=== PATIENT | female | born 1965 | race Caucasian/White ===

== ENCOUNTER 2022-05-27 10:26 | Outpatient (CLI) | payer BC, SELFPAY ==
[2022-05-27 11:24] LABS: Aspartate Amino Transferase* 28 U/L (12-35)
[2022-05-27 14:22] LABS: Creatinine* 0.5 mg/dL (0.5-1.5); Estimated Glomerular Filt Rate 109.33
== END 2022-05-27 10:27 | disposition home or self-care (01) ==
LOC: NFLDREF 10:27
PROVIDERS: PCP Internal Medicine; Visit Provider Internal Medicine
DX: M06.9 Rheumatoid arthritis, unspecified (principal)
CPT/HCPCS: 82565; 84450

== ENCOUNTER 2022-06-13 17:04 | Outpatient (CLI) | payer BC, SELFPAY | END 2022-06-13 17:05 | disposition home or self-care (01) | LOC: NFLDREF 17:04 | PROVIDERS: PCP Internal Medicine; Visit Provider Obstetrics & Gynecology | DX: Z01.419 Encounter for gynecological examination (general) (routine) without abnormal findings (principal); N95.1 Menopausal and female climacteric states; Z12.4 Encounter for screening for malignant neoplasm of cervix | CPT/HCPCS: 87624; 88175 ==

== ENCOUNTER 2022-10-21 17:41 | Inpatient (IN) | payer BC, SELFPAY ==
--- NOTE | 2022-10-21 | CRLHL7_ITS ---
For Patients: As a result of the Cures Act, medical imaging exams and procedure reports are released immediately into your electronic medical record. You may view this report before your referring provider. If you have questions, please contact your health care provider. INDICATION: Fall. TECHNIQUE: Chest 1 views. COMPARISON: Chest x-ray from 07/09/2015. FINDINGS: Lungs: Clear lungs. No consolidation. Pleura: No pleural effusion or pneumothorax. Heart and Mediastinum: The cardiomediastinal silhouette is normal. The vessels are unremarkable. Bones: Degenerative changes of the right shoulder. No acute abnormality. IMPRESSION: No acute cardiopulmonary disease. Dictated by Laz Grace MD @ 10/21/2022 7:13:19 PM (Electronically Signed)
[2022-10-21 18:21] VITALS: BP 183/62; PULSE 69; RESP 18; TEMP 36.7; O2SAT 98; BMI 20.7
--- NOTE | 2022-10-21 18:30 | CRLHL7_ITS ---
For Patients: As a result of the Cures Act, medical imaging exams and procedure reports are released immediately into your electronic medical record. You may view this report before your referring provider. If you have questions, please contact your health care provider. INDICATION: Fall, hip pain. TECHNIQUE: Pelvis and left hip, 3 views. COMPARISON: None. FINDINGS: Bones: The bones are demineralized. Mildly displaced subcapital fracture of the left femoral neck. Joint spaces: Degenerative changes of both hips. Soft tissues: Unremarkable. IMPRESSION: Left femoral neck fracture. Dictated by Laz Grace MD @ 10/21/2022 7:12:42 PM (Electronically Signed)
--- NOTE | 2022-10-21 18:31 | CRLHL7_ITS ---
For Patients: As a result of the Century Cures Act, medical imaging exams and procedure reports are released immediately into your electronic medical record. You may view this report before your referring provider. If you have questions, please contact your health care provider. Indication: Fall, foot pain. Technique: Left foot 3 views. Comparison: None. Findings: Bones: The bones are demineralized. Multiple hammertoe deformities. Joint spaces: Degenerative changes of the midfoot and metatarsophalangeal joints. Soft tissues: Unremarkable. Impression: No sign of acute injury. Dictated by Laz Grace MD @ 10/21/2022 7:14:08 PM (Electronically Signed)
--- NOTE | 2022-10-21 18:32 | ED.NURSE ---
Patient to radiology for scans.
--- OUTSIDE RECORDS SUMMARY | 2022-10-21 18:39 | XMS_ITS | Encounter Summary ---
:1965 Author Organization [facility] Address [address] [place] [address] Care Team Providers Name Role Phone Shelbi Miller Unavailable Clinic, [facility] Primary Care Provide r Reason for Visit Reason Comments Chest Pain Encounter Details Date Type Department Care Team Description [facility] Boogie hest pain, unspecified type; [facility] Emergency Dep t Blood glucose elevated; [address] [facility] EMERGENCY PHYSICIANS History of diabetes mellitus ; [place], [place] Elevated BP without diagnosis of hyperte nsion; [phone] [id number] [facility] Thyroid nodule; [phone] [facility] [address] Adrenal mass (H) [place], [place] [phone] (Wo rk) Social History Tobacco Use Types Packs/Day Years Used Date Smoking Tobacco: Never Assessed Sex Assigned at Date Recorded Not on file COVID-19 Exposure Response Date Recorded In the last month, have you been in contact with No / Unsure 01/26/2022 10:33 AM JOB COUNSELOR someone who was confirmed or suspected to have Coronavirus / COVID-19? documented as of this encounter Last Filed Vital Signs Vital Sign Reading Time Taken Comments Blood Pressure 151/78 01/26/2022 2:30 PM JOB COUNSELOR Pulse 97 01/26/2022 2:30 PM JOB COUNSELOR Temperature 36.9 ??C (98.5 ??F) 01/26/2022 10:40 AM JOB COUNSELOR Respiratory Rate 16 01/26/2022 2:30 PM JOB COUNSELOR Oxygen Saturation 95% 01/26/2022 2:30 PM JOB COUNSELOR Inhaled Oxygen Concentration - - Weight - - Height - - Body Mass Index - - documented in this encounter Discharge Instructions Discharge InstructionsElbert Turner MD - 01/26/2022 2:17 PM JOB COUNSELOR Discharge Instructions Chest Pain You have been seen today for chest pain or discomfort. At this time, your provider has found no signs that your chest pain is due to a serious or life- threatening condition, (or you have declined more testing and/or admission to the hospital). However, sometimes there is a serious problem that does not show up right away. Your evaluation today may not be complete and you may need further testing and evaluation. Generally, every Emergency Department visit should have a follow-up clinic visit with either a primary or a specialty clinic/provider. Please follow-up as instructed by your emergency provider today. Return to the Emergency Department if: Your chest pain changes, gets worse, starts to happen more often, or comes with less activity. You are newly short of breath. You get very weak or tired. You pass out or faint. You have any new symptoms, like fever, cough, numb legs, or you cough up blood. You have anything else that worries you. Until you follow-up with your regular provider, please do the following: Take one aspirin daily unless you have an allergy or are told not to by your provider. If a stress test appointment has been made, go to the appointment. If you have questions, contact your regular provider. Follow-up with your regular provider/clinic as directed; this is very important. If you were given a prescription for medicine here today, be sure to read all of the information (including the package insert) that comes with your prescription. This will include important information about the medicine, its side effects, and any warnings that you need to know about. The pharmacist who fills the prescription can provide more information and answer questions you may have about the medicine. If you have questions or concerns that the pharmacist cannot address, please call or return to the Emergency Department. Remember that you can always come back to the Emergency Department if you are not able to see your regular provider in the amount of time listed above, if you get any new symptoms, or if there is anything that worries you. COUNSELOR documented in this encounter Medications at Time of Discharge Medication Sig Dispensed Refills Start Date End Date amLODIPine (NORVASC) 2.5 Take 1 tablet (2.5 30 tablet 0 04/2022 MG tablet mg) by mouth daily documented as of this encounter ED Notes Alessandra Rojas RN - 01/26/2022 10:39 AM CST Pt presents to ED with c/o chest heaviness intermittently for a couple weeks and high blood sugar. Pt has type 1 diabetes and states that her sugars have been high for the last week. Pt has a continuous glucose monitor. Around midnight last night pt reports feeling some pain across her mid back and tingling in her feet, but this has subsided. ABC intact COUNSELOR Elbert Turner MD - 01/26/2022 10:33 AM CST History Chief Complaint: Chest Pain HPI Martine De Oliveira is a 56 year old female with history of type 1 diabetes who presents with chest pain. The patient states that she has been having intermittent chest heaviness for the past 2 weeks. Nothingseems to worsen or relieve the pain She also notes that her blood sugars have been between 240-300, which is higher than normal. She was unable to get her sugar down and contacted her PCP who wasn't able to get back to her, prompting ED visit. She mentions that her feet were slightly tingling last night and she was experiencing low back pain. She also notes having high blood pressure which is not normal for her. Denies any urinary symptoms or shortness of breath. Also denies any steroid use. Review of Systems Respiratory: Negative for shortness of breath. Cardiovascular: Positive for chest pain. Genitourinary: Negative for difficulty urinating, dysuria, enuresis and frequency. Musculoskeletal: Positive for back pain. Neurological: Positive for numbness. All other systems reviewed and are negative. Allergies: Cortisone Morphine Penicillins Medications: Folic acid Novalog Methotrexate Past Medical History: Rheumatoid arthritis Type 1 diabetes Family History: Lymphoma Parkinson's Colon cancer Breast cancer Social History: Patient presents with her Physical Exam Patient Vitals for the past 24 hrs: BP Temp Temp src Pulse Resp SpO2 01/26/22 1345 133/63 -- -- 86 16 95 % 01/26/22 1330 (!) 140/70 -- -- 85 18 95 % 01/26/22 1315 (!) 146/70 -- -- 86 -- 95 % 01/26/22 1300 (!) 175/84 -- -- 95 -- 98 % 01/26/22 1230 (!) 141/71 -- -- 90 15 96 % 01/26/22 1215 (!) 145/77 -- -- 83 16 97 % 01/26/22 1200 138/79 -- -- 82 11 98 % 01/26/22 1145 (!) 159/80 -- -- 84 13 97 % 01/26/22 1100 -- -- -- 86 13 99 % 01/26/22 1041 -- -- -- -- -- 99 % 01/26/22 1040 (!) 208/87 98.5 ??F (36.9 ??C) Oral 102 16 -- Physical Exam Constitutional: Alert, attentive, GCS 15 HENT: Nose: Nose normal. Mouth/Throat: Oropharynx is clear, mucous membranes are moist Eyes: EOM are normal, anicteric, conjugate gaze CV: regular rate and rhythm; no murmurs Chest: Effort normal and breath sounds clear without wheezing or rales, symmetric bilaterally GI: non tender. No distension. No guarding or rebound. MSK: No LE edema, no tenderness to palpation of BLE. Neurological: Alert, attentive, moving all extremities equally. Skin: Skin is warm and dry. Emergency Department Course ECG ECG obtained at 1303, ECG read at 1310 Normal sinus rhythm Prolonged QT Diffuse ST depression No change from EKG done in clinic Rate 89 bpm. NV interval 122 ms. QRS duration 84 ms. QT/QTc 406/493 ms. P-R-T axes 74 72 35. Imaging: CT Aortic Survey w Contrast Final Result IMPRESSION: 1. No acute aortic abnormality. 2. Incidental pulmonary nodules measuring up to 5 mm. 3. Enlarged, heterogeneous thyroid. Consider nonemergent follow-up thyroid ultrasound. 4. Nonspecific prominence of right axillary lymph nodes could be related to prior vaccination. 5. 3.0 cm indeterminate right adrenal mass. Follow-up adrenal MRI recommended. 6. 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 No specific follow-up recommended. 7. 3.7 cm simple appearing left ovarian cyst. No specific follow-up recommended. Report per radiology Laboratory: Labs Ordered and Resulted from Time of ED Arrival to Time of ED Departure BASIC METABOLIC PANEL - Abnormal Result Value Sodium 140 Potassium 3.7 Chloride 104 Carbon Dioxide (CO2) 28 Anion Gap 8 Urea Nitrogen 13 Creatinine 0.55 Calcium 9.1 Glucose 214 (*) GFR Estimate >90 ROUTINE UA WITH MICROSCOPIC - Abnormal Color Urine Light Yellow Appearance Urine Slightly Cloudy (*) Glucose Urine 300 (*) Bilirubin Urine Negative Ketones Urine 40 (*) Specific Crowley Urine 1.020 Blood Urine Negative pH Urine 6.0 Protein Albumin Urine 30 (*) Urobilinogen Urine Normal Nitrite Urine Negative Leukocyte Esterase Urine Negative Mucus Urine Present (*) Calcium Oxalate Crystals Urine Many (*) RBC Urine 2 WBC Urine <1 Squamous Epithelials Urine 1 CBC WITH PLATELETS AND DIFFERENTIAL - Abnormal WBC Count 4.1 RBC Count 4.66 Hemoglobin 13.8 Hematocrit 42.1 MCV 90 MCH 29.6 MCHC 32.8 RDW 13.8 Platelet Count 193 % Neutrophils 72 % Lymphocytes 17 % Monocytes 7 % Eosinophils 2 % Basophils 2 % Immature Granulocytes 0 NRBCs per 100 WBC 0 Absolute Neutrophils 2.9 Absolute Lymphocytes 0.7 (*) Absolute Monocytes 0.3 Absolute Eosinophils 0.1 Absolute Basophils 0.1 Absolute Immature Granulocytes 0.0 Absolute NRBCs 0.0 ISTAT CREATININE POCT - Abnormal Creatinine POCT 0.4 (*) GFR, ESTIMATED POCT >60 KETONE BETA-HYDROXYBUTYRATE QUANTITATIVE, RAPID - Normal Ketone (Beta-Hydroxybutyrate) Quantitative 0.4 TROPONIN I - Normal Troponin I High Sensitivity 21 NT PROBNP INPATIENT - Normal N terminal Pro BNP Inpatient 264 TROPONIN I - Normal Troponin I High Sensitivity 30 TSH WITH FREE T4 REFLEX - Normal TSH 2.47 METANEPHRINE RANDOM OR 24 HR URINE Emergency Department Course: Reviewed: I reviewed nursing notes, vitals, past medical history and Care Everywhere Assessments: 1048 I obtained history and examined the patient as noted above. 1308 I rechecked the patient and explained findings. Interventions: Medications nitroGLYcerin (NITROSTAT) sublingual tablet 0.4 mg (has no administration in time range) hydrALAZINE (APRESOLINE) injection 5 mg (5 mg Intravenous Given 01/26/22 1135) iopamidol (ISOVUE-370) solution 500 mL (80 mLs Intravenous Given 01/26/22 1240) sodium chloride 0.9 % bag 500mL for CT scan flush use (60 mLs As instructed Given 01/26/22 1240) magnesium sulfate 2 g in water intermittent infusion (0 g Intravenous Stopped 01/26/22 1357) Disposition: The patient was discharged to home. Impression & Plan Medical Decision Makin-year-old woman past medical history significant for rheumatoid arthritis, diabetes presenting forelevated blood sugars over the last week associated with 2 weeks intermittent chest tightness not specific pain. With respect to her chest discomfort, she does not have any typical features other than location, there is no clear exacerbating or alleviating factors and she just reports that uneasy feeling in her chest. EKG shows diffuse ST depressions, though unchanged from EKG prior to arrival, her high-sensitivity troponin is negative X2 without significant rise. She was noted to be hypertensive 200/100 with no history of hypertension and endorsed pain last night through her back. CT aortic surveywas completed, fortunately this was negative. Her lung baumann were also negative with low suspicion for pneumonia. She has had some urinary frequency however she attributes this to her elevated sugars,UA is without evidence of UTI. She does not have leukocytosis, no fever, exact rise of her blood sugars unclear however with negative delta troponin, no typical symptoms I do feel she is safe for discharge home with continued outpatient blood sugar management and outpatient follow-up for her chest pain. She is low risk by ED ACS, safe for outpatient f/u. CT scan did note adrenal and thyroid nodules. Given her new hypertension, did send urine metanephrines I do think she is safe for outpatient follow-up, her blood pressure here improved. I will initiate her on low-dose Norvasc. TSH testing here is negative. She is safe for outpatient follow-up for her thyroid nodule. Return precautions reviewed pamela was discharged home Diagnosis: ICD-10-CM 1. Chest pain, unspecified type R07.9 2. Blood glucose elevated R73.9 3. History of diabetes mellitus Z86.39 4. Elevated BP without diagnosis of hypertension R03.0 5. Thyroid nodule E04.1 6. Adrenal mass (H) E27.8 Discharge Medications: New Prescriptions AMLODIPINE (NORVASC) 2.5 MG TABLET Take 1 tablet (2.5 mg) by mouth daily Elbert Turner MD [employer] 12:47 PM 01/26/22 Scribe Disclosure: Lesly Holman, am serving as a scribe at 10:45 AM on 01/26/2022 to document services personally performed by Elbert Turner MD based on my observations and the provider's statements to me. Elbert Turner MD 01/26/22 1419 COUNSELOR documented in this encounter Plan of Treatment Not on filedocumented as of this encounter Procedures Procedure Name Priority Date/Time Associated Comments Diagnosis TSH WITH FREE T4 STAT 01/26/2022 1:22 PM Resul ts for this REFLEX JOB COUNSELOR procedure are i n the results section. TROPONIN I STAT 01/26/2022 1:22 PM Results f or this JOB COUNSELOR procedure are i n the results section. CT AORTIC SURVEY W STAT 01/26/2022 1:05 PM Res ults for this CONTRAST JOB COUNSELOR procedure are i n the results section. EKG 12-LEAD, TRACING STAT 01/26/2022 1:03 PM R esults for this ONLY JOB COUNSELOR procedure are i n the results section. ISTAT CREATININE POCT STAT 01/26/2022 11:31 Re sults for this AM JOB COUNSELOR procedure are i n the results section. EXTRA TUBE STAT 01/26/2022 11:24 Results for this AM JOB COUNSELOR procedure are i n the results section. EXTRA GREEN TOP STAT 01/26/2022 11:24 Results for this (LITHIUM HEPARIN) AM JOB COUNSELOR procedure are in TUBE the results section. EXTRA GREEN TOP STAT 01/26/2022 11:24 Results for this (LITHIUM HEPARIN) AM JOB COUNSELOR procedure are in TUBE the results section. EXTRA RED TOP TUBE STAT 01/26/2022 11:24 Resul ts for this AM JOB COUNSELOR procedure are i n the results section. EXTRA BLUE TOP TUBE STAT 01/26/2022 11:24 Resu lts for this AM JOB COUNSELOR procedure are i n the results section. CBC WITH PLATELETS STAT 01/26/2022 11:24 Resul ts for this AND DIFFERENTIAL AM JOB COUNSELOR procedure a re in the results section. CBC WITH PLATELETS & STAT 01/26/2022 11:24 Res ults for this DIFFERENTIAL AM JOB COUNSELOR procedure are i n the results section. TROPONIN I STAT 01/26/2022 11:24 Results for this AM JOB COUNSELOR procedure are i n the results section. NT PROBNP INPATIENT STAT 01/26/2022 11:24 Resu lts for this AM JOB COUNSELOR procedure are i n the results section. KETONE STAT 01/26/2022 11:24 Results for this BETA-HYDROXYBUTYRATE AM JOB COUNSELOR procedu re are in QUANTITATIVE, RAPID the resu lts section. BASIC METABOLIC PANEL STAT 01/26/2022 11:24 Re sults for this AM JOB COUNSELOR procedure are i n the results section. ROUTINE UA WITH STAT 01/26/2022 11:23 Results for this MICROSCOPIC AM JOB COUNSELOR procedure are i n the results section. METANEPHRINE RANDOM Add-On 01/26/2022 11:23 Resu lts for this OR 24 HR URINE AM JOB COUNSELOR procedure are in the results section. documented in this encounter Results TSH with free T4 reflex (01/26/2022 1:22 PM JOB COUNSELOR) athologist Signature TSH 2.47 0.40 - 4.00 01/26/2022 [facility] mU/L 2:03 PM JOB COUNSELOR Specimen Anatomical Collection Method / Collection Time Recei maureen Time (Source) Location / Volume Laterality Blood STRUCTURE OF LEFT Venipuncture / 01/26/2022 1:22 01/26 1:26 UPPER LIMB / Unknown PM JOB COUNSELOR PM JOB COUNSELOR Unknown Elbert Turner MD LAB - BLOOD ORDERABLES Performing Organization Address City/State/ZIP Code [place] [address] [facility] [address] Lab (1st floor, no room number) Troponin I (now) (01/26/2022 1:22 PM JOB COUNSELOR) athologist Signature Troponin I High 30 <54 ng/L 01/26/2022 LABORATORY Sensitivity 1:48 PM JOB COUNSELOR Comment: This Troponin-I result was obta ined using a Siemens Dimension Cascade High Sensitivity Troponin-I assay (TNIH). Eff ective 10/15/21, nine labs/sites in the [facility] switched from a Siemens Cascade Contemporary Troponin I assay (CTNI) to a Siemens Cascade High-Sensitivity Troponi n I assay (TNIH). Specimen Anatomical Collection Method / Collection Time Recei maureen Time (Source) Location / Volume Laterality Blood STRUCTURE OF LEFT Venipuncture / 01/26/2022 1:22 01/26 1:26 UPPER LIMB / Unknown PM JOB COUNSELOR PM JOB COUNSELOR Unknown Elbert Turner MD LAB - BLOOD ORDERABLES Performing Organization Address City/State/ZIP Code Phon [place] [address] [facility] [address] Lab (1st floor, no room number) CT Aortic Survey w Contrast (01/26/2022 1:05 PM JOB COUNSELOR) Anatomical Region Laterality Modality Abdomen/Pelvis, Chest, SUBRAD CT BODY, UMP CT CHEST, Computed Tomography UMP CT ABDOMEN PELVIS, RAD CT Specimen (Source) Anatomical Collection Method Collection Time Re ceived Time Location / / Volume Laterality 01/26/2022 12:39 PM JOB COUNSELOR Impressions 01/26/2022 1:18 PM JOB COUNSELOR IMPRESSION: 1. ??No acute aortic abnormality. 2. ??Incidental pulmonary nodules measur ing up to 5 mm. 3. ??Enlarged, heterogeneous thyroid. Co nsider nonemergent follow-up thyroid ultrasound. 4. ??Nonspecific prominence of right axi llary lymph nodes could be related to prior vaccination. 5. ??3.0 cm indeterminate right adrenal mass. Follow-up adrenal MRI recommended. 6. ??2.8 cm left renal angiomyolipoma. N o specific follow-up recommended. 7. ??3.7 cm simple appearing left ovaria n cyst. No specific follow-up recommended. Narrative 01/26/2022 1:18 PM JOB COUNSELOR EXAM: CT AORTIC SURVEY WITH CONTRAST LOCATION: [facility] DATE/TIME: 01/26/2022, 12:39 PM INDICATION: Chest pain into back, hypert ension, new. COMPARISON: None. TECHNIQUE: CT angiogram chest abdomen pe lvis during arterial phase of injection of IV contrast. 2D and 3D MIP reconstructions were performed by the blood bank laboratory technologist. Dose reduction techniques were used. CONTRAST: 80 mL Isovue 370. FINDINGS: CT ANGIOGRAM CHEST, ABDOMEN, AND PELVIS: Caliber of the thoracic aorta is within normal limits and negative for dissection. Conventional three-vessel anatomy of the aortic arch with patent proximal great vessels. No abdominal aortic aneurysm or dissection. The visceral branches of the abdominal aorta are patent. The iliac arteries are patent. LUNGS AND PLEURA: Pleural-based 5 mm nod ule right upper lobe (series 7, image 48). 4 mm nodule right lower lobe (series 7, image 214). There are a few other smaller pulmonary nodules present. Minor atel ectasis in the medial right lower lobe. No pleural effusion. MEDIASTINUM/AXILLAE: Enlarged, heterogen eous appearing thyroid gland. No pathologically enlarged mediastinal or hilar lymph nodes. There are mildly enlarged right axillary lymph nodes, the largest of wh ich measures 10 mm in short axis (series 6, image 43). CORONARY ARTERY CALCIFICATION: None. HEPATOBILIARY: Normal. PANCREAS: Normal. SPLEEN: Normal. ADRENAL GLANDS: 3.0 cm indeterminate rig ht adrenal mass (series 6, image 161). Normal left adrenal gland. KIDNEYS/BLADDER: Nonobstructing 6 mm hai culus at the lower pole of the right kidney. There is a partially exophytic 2.8 x 1.6 cm angiomyolipoma arising from the posterior lower pole of the left kidney. Another adjacent angiomyolipoma measures 0.5 cm. BOWEL: No bowel obstruction or inflammat ory change. Appendix not visualized. LYMPH NODES: Normal. PELVIC ORGANS: 3.7 cm left ovarian cyst. MUSCULOSKELETAL: No destructive bone les ions. Procedure Note Alfa Redd MD - 01/26/2022Forma tting of this note might be different from the original. EXAM: CT AORTIC SURVEY WITH CONTRAST LOCATION: [facility] DATE/TIME: 01/26/2022, 12:39 PM INDICATION: Chest pain into back, hypert ension, new. COMPARISON: None. TECHNIQUE: CT angiogram chest abdomen pe lvis during arterial phase of injection of IV contrast. 2D and 3D MIP reconstructions were performed by the blood bank laboratory technologist. Dose reduction techniques were used. CONTRAST: 80 mL Isovue 370. FINDINGS: CT ANGIOGRAM CHEST, ABDOMEN, AND PELVIS: Caliber of the thoracic aorta is within normal limits and negative for dissection. Conventional three-vessel anatomy of the aortic arch with patent proximal great vessels. No abdominal aortic aneurysm or dissection. The visceral branches of the abdominal aorta are patent. The iliac arteries are patent. LUNGS AND PLEURA: Pleural-based 5 mm nod ule right upper lobe (series 7, image 48). 4 mm nodule right lower lobe (series 7, image 214). There are a few other smaller pulmonary nodules present. Minor atelectasis in the medial right lower lobe. No pleural effusion. MEDIASTINUM/AXILLAE: Enlarged, heterogen eous appearing thyroid gland. No pathologically enlarged mediastinal or hilar lymph nodes. There are mildly enlarged right axillary lymph nodes, the largest of which measures 10 mm in short axis (series 6, image 43). CORONARY ARTERY CALCIFICATION: None. HEPATOBILIARY: Normal. PANCREAS: Normal. SPLEEN: Normal. ADRENAL GLANDS: 3.0 cm indeterminate rig ht adrenal mass (series 6, image 161). Normal left adrenal gland. KIDNEYS/BLADDER: Nonobstructing 6 mm hai culus at the lower pole of the right kidney. There is a partially exophytic 2.8 x 1.6 cm angiomyolipoma arising from the posterior lower pole of the left kidney. Another adjacent angiomyolipoma measures 0.5 cm. BOWEL: No bowel obstruction or inflammat ory change. Appendix not visualized. LYMPH NODES: Normal. PELVIC ORGANS: 3.7 cm left ovarian cyst. MUSCULOSKELETAL: No destructive bone les ions. IMPRESSION: 1. No acute aortic abnormality. 2. Incidental pulmonary nodules measurin g up to 5 mm. 3. Enlarged, heterogeneous thyroid. Cons ider nonemergent follow-up thyroid ultrasound. 4. Nonspecific prominence of right axill daysi lymph nodes could be related to prior vaccination. 5. 3.0 cm indeterminate right adrenal ma ss. Follow-up adrenal MRI recommended. 6. 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 No specific follow-up recommended. 7. 3.7 cm simple appearing left ovarian cyst. No specific follow-up recommended. Elbert Turner MD IMG CT ORDERABLES EKG 12 lead (01/26/2022 1:03 PM JOB COUNSELOR) [facility] Method Time Signature Systolic Blood mmHg RADIOLOGY Pressure RESULTS Diastolic Blood mmHg RADIOLOGY Pressure RESULTS Ventricular Rate 89 BPM RADIOLOGY RESULTS Atrial Rate 89 BPM RADIOLOGY RESULTS NV Interval 122 ms RADIOLOGY RESULTS QRS Duration 84 ms RADIOLOGY RESULTS QT 406 ms RADIOLOGY RESULTS QTc 493 ms RADIOLOGY RESULTS P [place] 74 degrees RADIOLOGY RESULTS R AXIS 72 degrees RADIOLOGY RESULTS T [place] 35 degrees RADIOLOGY RESULTS Interpretation Sinus rhythm RADIOLOGY ECG ST & T wave abnormality, consider lateral ischemia RESULTS Prolonged QT Abnormal ECG No previous ECGs available Specimen (Source) Anatomical Collection Method Collection Time Re ceived Time Location / / Volume Laterality 01/26/2022 1:03 PM JOB COUNSELOR Elbert Turner MD ECG ORDERABLES Performing Organization Address City/State/ZIP Code Phon e Number RADIOLOGY RESULTS (ABNORMAL) Creatinine POCT (01/26/2022 11:31 AM JOB COUNSELOR) Analysis Performed At Patho logist Time Signature Creatinine POCT 0.4 (L) 0.5 - 1.0 01/26/2022 [facility] mg/dL 11:37 AM JOB COUNSELOR POC GFR, ESTIMATED >60 >60 01/26/2022 [facility] POCT mL/min/1.7 11:37 AM JOB COUNSELOR POC 3m2 Specimen Anatomical Collection Method Collection Time Receive d Time (Source) Location / / Volume Laterality Blood, venous BLOOD SPECIMEN / 01/26/2022 11:31 2021 Unknown AM JOB COUNSELOR 11:37 AM JOB COUNSELOR Elbert Turner MD LAB - BEAKER POCT Performing Organization Address City/[facility]/ZIP Code Phon e Number [place] [address] [facility] [address] Lab (1st floor, no room number) Extra Green Top ([place] Heparin) Tube (01/26/2022 11:24 AM JOB COUNSELOR) P athologist Signature Hold Specimen JIC 01/26/2022 [facility] 12:31 PM JOB COUNSELOR Specimen Anatomical Collection Method / Collection Time Recei maureen Time (Source) Location / Volume Laterality Blood STRUCTURE OF LEFT Venipuncture / 01/26/2022 11:24 03/0 04/2022 UPPER LIMB / Unknown AM JOB COUNSELOR 11:30 AM JOB COUNSELOR Unknown Elbert Turner MD LAB - BLOOD ORDERABLES Performing Organization Address City/State/ZIP Code Phon [place] [address] Care Lab [address] Lab (1st floor, no room number) Extra Green Top ([place] Heparin) Tube (01/26/2022 11:24 AM JOB COUNSELOR) P athologist Signature Hold Specimen JIC 01/26/2022 [facility] 12:31 PM JOB COUNSELOR Specimen Anatomical Collection Method / Collection Time Recei maureen Time (Source) Location / Volume Laterality Blood STRUCTURE OF LEFT Venipuncture / 01/26/2022 11:24 03/0 04/2022 UPPER LIMB / Unknown AM JOB COUNSELOR 11:30 AM JOB COUNSELOR Unknown Elbert Turner MD LAB - BLOOD ORDERABLES Performing Organization Address City/State/[place] [address] Care Lab [address] Lab (1st floor, no room number) Extra Red Top Tube (01/26/2022 11:24 AM JOB COUNSELOR) athologist Signature Hold Specimen JI 01/26/2022 [facility] 12:31 PM JOB COUNSELOR Specimen Anatomical Collection Method / Collection Time Recei maureen Time (Source) Location / Volume Laterality Blood STRUCTURE OF LEFT Venipuncture / 01/26/2022 11:24 03/0 04/2022 UPPER LIMB / Unknown AM JOB COUNSELOR 11:30 AM JOB COUNSELOR Unknown Elbert Turner MD LAB - BLOOD ORDERABLES Performing Organization Address City/[facility]/[place] [address] Care Lab [address] Lab (1st floor, no room number) Extra Blue Top Tube (01/26/2022 11:24 AM JOB COUNSELOR) athologist Signature Hold Specimen JIC 01/26/2022 [facility] 12:31 PM JOB COUNSELOR Specimen Anatomical Collection Method / Collection Time Recei maureen Time (Source) Location / Volume Laterality Blood STRUCTURE OF LEFT Venipuncture / 01/26/2022 11:24 03/0 04/2022 UPPER LIMB / Unknown AM JOB COUNSELOR 11:30 AM JOB COUNSELOR Unknown Elbert Turner MD LAB - BLOOD ORDERABLES Performing Organization Address City/State/[place] [address] Care Lab [address] Lab (1st floor, no room number) (ABNORMAL) CBC with platelets and differential (01/26/2022 11:24 AM JOB COUNSELOR) [facility] Method Time Signature WBC Count 4.1 4.0 - 01/26/2022 [facility] 11.0 11:34 AM JOB COUNSELOR 10e3/uL RBC Count 4.66 3.80 - 01/26/2022 [facility] 5.20 11:34 AM JOB COUNSELOR 10e6/uL Hemoglobin 13.8 11.7 - 01/26/2022 [facility] 15.7 g/dL 11:34 AM JOB COUNSELOR Hematocrit 42.1 35.0 - 01/26/2022 [facility] 47.0 % 11:34 AM JOB COUNSELOR MCV 90 78 - 100 01/26/2022 [facility] fL 11:34 AM JOB COUNSELOR MCH 29.6 26.5 - 01/26/2022 [facility] 33.0 pg 11:34 AM JOB COUNSELOR MCHC 32.8 31.5 - 01/26/2022 [facility] 36.5 g/dL 11:34 AM JOB COUNSELOR RDW 13.8 10.0 - 01/26/2022 [facility] 15.0 % 11:34 AM JOB COUNSELOR Platelet Count 193 150 - 450 01/26/2022 [facility] 10e3/uL 11:34 AM JOB COUNSELOR % Neutrophils 72 % 01/26/2022 [facility] 11:34 AM JOB COUNSELOR % Lymphocytes 17 % 01/26/2022 [facility] 11:34 AM JOB COUNSELOR % Monocytes 7 % 01/26/2022 [facility] 11:34 AM JOB COUNSELOR % Eosinophils 2 % 01/26/2022 [facility] 11:34 AM JOB COUNSELOR % Basophils 2 % 01/26/2022 [facility] 11:34 AM JOB COUNSELOR % Immature 0 % 01/26/2022 [facility] Granulocytes 11:34 AM JOB COUNSELOR NRBCs per 100 WBC 0 <1 /100 01/26/2022 [facility] RY 11:34 AM JOB COUNSELOR Absolute 2.9 1.6 - 8.3 01/26/2022 [facility] Neutrophils 10e3/uL 11:34 AM JOB COUNSELOR Absolute 0.7 (L) 0.8 - 5.3 01/26/2022 [facility] Lymphocytes 10e3/uL 11:34 AM JOB COUNSELOR Absolute 0.3 0.0 - 1.3 01/26/2022 [facility] Monocytes 10e3/uL 11:34 AM JOB COUNSELOR Absolute 0.1 0.0 - 0.7 01/26/2022 [facility] Eosinophils 10e3/uL 11:34 AM JOB COUNSELOR Absolute 0.1 0.0 - 0.2 01/26/2022 [facility] Basophils 10e3/uL 11:34 AM JOB COUNSELOR Absolute Immature 0.0 <=0.4 01/26/2022 [facility] RY Granulocytes 10e3/uL 11:34 AM JOB COUNSELOR Absolute NRBCs 0.0 10e3/uL 01/26/2022 [facility] 11:34 AM JOB COUNSELOR Specimen Anatomical Collection Method / Collection Time Recei maureen Time (Source) Location / Volume Laterality Blood STRUCTURE OF LEFT Venipuncture / 01/26/2022 11:24 03/0 04/2022 UPPER LIMB / Unknown AM JOB COUNSELOR 11:30 AM JOB COUNSELOR Unknown Elbert Turner MD LAB - BLOOD ORDERABLES Performing Organization Address City/State/ZIP Code [place] [address] Care Lab [address] Lab (1st floor, no room number) (ABNORMAL) Basic metabolic panel (BMP) (01/26/2022 11:24 AM JOB COUNSELOR) Analysis Performed At Patho logist Time Signature Sodium 140 133 - 144 01/26/2022 LABORATORY mmol/L 12:04 PM JOB COUNSELOR Potassium 3.7 3.4 - 5.3 01/26/2022 LABORATORY mmol/L 12:04 PM JOB COUNSELOR Chloride 104 94 - 109 01/26/2022 LABORATORY mmol/L 12:04 PM JOB COUNSELOR Carbon Dioxide 28 20 - 32 01/26/2022 LABORATORY (CO2) mmol/L 12:04 PM JOB COUNSELOR Anion Gap 8 3 - 14 01/26/2022 LABORATORY mmol/L 12:04 PM JOB COUNSELOR Urea Nitrogen 13 7 - 30 01/26/2022 LABORATORY mg/dL 12:04 PM JOB COUNSELOR Creatinine 0.55 0.52 - 01/26/2022 LABORATORY 1.04 mg/dL 12:04 PM JOB COUNSELOR Calcium 9.1 8.5 - 10.1 01/26/2022 LABORATORY mg/dL 12:04 PM JOB COUNSELOR Glucose 214 (H) 70 - 99 01/26/2022 LABORATORY mg/dL 12:04 PM JOB COUNSELOR GFR Estimate >90 >60 01/26/2022 LABORATORY mL/min/1.7 12:04 PM JOB COUNSELOR 3m2 Comment: Effective November 12, 2021 eGF Rcr in adults is calculated using the 2020 CKD-EPI creatinine equation which includ es age and gender (Eduardo et al., NEJ, DOI: 10.1056/OPGGgu3456379) Specimen Anatomical Collection Method / Collection Time Recei maureen Time (Source) Location / Volume Laterality Blood STRUCTURE OF LEFT Venipuncture / 01/26/2022 11:24 03/0 04/2022 UPPER LIMB / Unknown AM JOB COUNSELOR 11:30 AM JOB COUNSELOR Unknown Elbert Turner MD LAB - BLOOD ORDERABLES Performing Organization Address [facility]/ZIP [facility] [place] [address] Care Lab [address] Lab (1st floor, no room number) BNP (01/26/2022 11:24 AM JOB COUNSELOR) athologist Signature N terminal Pro 264 0 - 900 01/26/2022 LABORATORY BNP Inpatient pg/mL 12:07 PM JOB COUNSELOR Comment: Reference range shown and results flagge d as abnormal are suggested inpatient cut points for confirming diagnosis if CHF in an acute setting. Establishing a baseline value for each individual patient is useful for follow-up. An inpatient or e mergency department NT-proPBNP <300 pg/mL effectively rules out acute CHF, with 99% negative predictive value. The outpatient non-acute reference range for ruling out CHF is: 0-125 pg/mL (age 18 to less than 75) 0-450 pg/mL (age 75 yrs and older) Specimen Anatomical Collection Method / Collection Time Recei maureen Time (Source) Location / Volume Laterality Blood STRUCTURE OF LEFT Venipuncture / 01/26/2022 11:24 03/0 04/2022 UPPER LIMB / Unknown AM JOB COUNSELOR 11:30 AM JOB COUNSELOR Unknown Elbert Turner MD LAB - BLOOD ORDERABLES Performing Organization Address City/[facility]/ZIP [facility] [place] [address] Care Lab [address] Lab (1st floor, no room number) Troponin I (now) (01/26/2022 11:24 AM JOB COUNSELOR) P athologist Signature Troponin I High 21 <54 ng/L 01/26/2022 LABORATORY Sensitivity 12:07 PM JOB COUNSELOR Comment: This Troponin-I result was obta ined using a Siemens Dimension Cascade High Sensitivity Troponin-I assay (TNIH). Eff ective 10/15/21, nine labs/sites in the [facility] switched from a Siemens Cascade Contemporary Troponin I assay (CTNI) to a Siemens Cascade High-Sensitivity Troponi n I assay (TNIH). Specimen Anatomical Collection Method / Collection Time Recei maureen Time (Source) Location / Volume Laterality Blood STRUCTURE OF LEFT Venipuncture / 01/26/2022 11:24 03/0 04/2022 UPPER LIMB / Unknown AM JOB COUNSELOR 11:30 AM JOB COUNSELOR Unknown Elbert Turner MD LAB - BLOOD ORDERABLES Performing Organization Address City/State/ZIP Code [place] [phone] Care Lab [address] Lab (1st floor, no room number) Ketone Beta-Hydroxybutyrate Quantitative (01/26/2022 11:24 AM JOB COUNSELOR) Analysis Performed At Patho logist Time Signature Ketone 0.4 0.0 - 0.6 01/26/2022 LABORATORY (Beta-Hydroxybuty mmol/L 11:40 AM JOB COUNSELOR rate) Quantitative Specimen Anatomical Collection Method / Collection Time Recei maureen Time (Source) Location / Volume Laterality Blood STRUCTURE OF LEFT Venipuncture / 01/26/2022 11:24 03/0 04/2022 UPPER LIMB / Unknown AM JOB COUNSELOR 11:30 AM JOB COUNSELOR Unknown Elbert Turner MD LAB - BLOOD ORDERABLES Performing Organization Address City/State/ZIP Code [place] [address] Care Lab [address] Lab (1st floor, no room number) Metanephrine random or 24 hr urine (01/26/2022 11:23 AM JOB COUNSELOR) Component Value Ref Test Analysis Performed At Patholo gist Range Method Time Signature Metanephrine Urine 157 ug/L 01/31/2022 [facility] per Volume 1:25 AM JOB COUNSELOR Normetanephrine 229 ug/L 01/31/2022 [facility] Urine per Volume 1:25 AM JOB COUNSELOR Metanephrine, Not 36 - 229 01/31/2022 [facility] Urine - per 24h Applicable ug/d 1:25 AM JOB COUNSELOR Metanephr 24 H 154 0 - 300 01/31/2022 [facility] ur/cr ug/g ABAP DEVELOPER 1:25 AM JOB COUNSELOR Normetanephrine 24 Not 95 - 650 01/31/2022 [facility] Hr/Random Urine Applicable ug/d 1:25 AM JOB COUNSELOR Normetaneph 24H 225 0 - 400 01/31/2022 [facility] ur/cr ug/g ABAP DEVELOPER 1:25 AM JOB COUNSELOR Metanephrine 24 See Note 01/31/2022 [facility] Hr/Random Urine 1:25 AM JOB COUNSELOR Interpretation Comment: TEST INFORMATION: Metanephrines Fraction ated, Urine Smaller increases in metanephrine and/or normetanephrine concentrations (less than two times the upper reference limit) usually are the result of physiol ogical stimuli, drugs, or improper specimen collection. Essential hypertension is often associated with sl ight elevations (metanephrine less than 400 ug/d and nor metanephrine less than 900 ug/d). Elevated concentrations may be due to intense physical activity, life-threaten ing illness, and drug interferences. Significant elevation of one or both met anephrines (three or more times the upper reference limit) is associated with an increased probability of a neuroendoc rine tumor. Access complete set of age- and/or gende r-specific reference intervals for this test in the [facility] Directory ([employer]). This test was developed and its performa nce characteristics determined by [facility]. It has not been cleared or approved by the [place] Food and Drug Adminis tration. This test was performed in a CLIA certified labora tory and is intended for clinical purposes. Creatinine 102 mg/dL 01/31/2022 1:25 AM [facility] Urine/Volume JOB COUNSELOR Creatinine Urine/24hr Not Applicable 500 - 1400 mg/d 01/31 1:25 AM [facility] JOB COUNSELOR Comment: Performed by [facility], [address] [facility], [place] [address] [email or web address], Shey Yanes MD, Robyn ceja Director Specimen Anatomical Collection Method Collection Time Receive d Time (Source) Location / / Volume Laterality Urine URINE SPECIMEN Non-blood 01/26/2022 11:23 OBTAINED BY CLEAN Collection / AM JOB COUNSELOR 11:[address] CATCH PROCEDURE / Unknown Unknown Elbert Turner MD LAB - URINE ORDERABLES Performing Organization Address City/State/ZIP Code Phon e Number [facility] [place], [place] [phone] [address] [facility] [phone] (ABNORMAL) UA with Microscopic (01/26/2022 11:23 AM JOB COUNSELOR) [facility] Method Time Signature Color Urine Light Colorless, 01/26/2022 [facility] Yellow Straw, 11:56 AM Light JOB COUNSELOR Yellow, Yellow Appearance Urine Slightly Clear 01/26/2022 RH [facility] Y Cloudy (A) 11:56 AM JOB COUNSELOR Glucose Urine 300 (A) Negative 01/26/2022 LABORATORY mg/dL 11:56 AM JOB COUNSELOR Bilirubin Urine Negative Negative 01/26/2022 [facility] 11:56 AM JOB COUNSELOR Ketones Urine 40 (A) Negative 01/26/2022 LABORATORY mg/dL 11:56 AM JOB COUNSELOR Specific Crowley 1.020 1.003 - 01/26/2022 RH [facility] Y Urine 1.035 11:56 AM JOB COUNSELOR Blood Urine Negative Negative 01/26/2022 LABORATORY 11:56 AM JOB COUNSELOR pH Urine 6.0 5.0 - 7.0 01/26/2022 LABORATORY 11:56 AM JOB COUNSELOR Protein Albumin 30 (A) Negative 01/26/2022 LABORATORY Urine mg/dL 11:56 AM JOB COUNSELOR Urobilinogen Normal Normal, 2.0 01/26/2022 LABORATORY Urine mg/dL 11:56 AM JOB COUNSELOR Nitrite Urine Negative Negative 01/26/2022 [facility] 11:56 AM JOB COUNSELOR Leukocyte Negative Negative 01/26/2022 LABORATORY Esterase Urine 11:56 AM JOB COUNSELOR Mucus Urine Present (A) None Seen 01/26/2022 [facility] /LPF 11:56 AM JOB COUNSELOR Calcium Oxalate Many (A) None Seen 01/26/2022 LABORATORY Crystals Urine /HPF 11:56 AM JOB COUNSELOR RBC Urine 2 <=2 /HPF 01/26/2022 [facility] 11:56 AM JOB COUNSELOR WBC Urine <1 <=5 /HPF 01/26/2022 [facility] 11:56 AM JOB COUNSELOR Squamous 1 <=1 /HPF 01/26/2022 LABORATORY Epithelials 11:56 AM Urine JOB COUNSELOR Specimen Anatomical Collection Method Collection Time Receive d Time (Source) Location / / Volume Laterality Urine URINE SPECIMEN Non-blood 01/26/2022 11:23 2 OBTAINED BY CLEAN Collection / AM JOB COUNSELOR 11:[address] CATCH PROCEDURE / Unknown Unknown Elbert Turner MD LAB - URINE ORDERABLES Performing Organization Address City/State/ZIP Code [place] [phone] Care Lab [address] Lab (1st floor, no room number) documented in this encounter Visit Diagnoses Diagnosis Chest pain, unspecified type Blood glucose elevated Other abnormal glucose History of diabetes mellitus Personal history of other endocrine, met abolic, and immunity disorders Elevated BP without diagnosis of hyperte nsion Thyroid nodule Nontoxic uninodular goiter Adrenal mass (H) Unspecified disorder of adrenal glands documented in this encounter Administered Medications Inactive Administered Medications - up to 3 most recent administrations Medication Order MAR Action Action Date Dose Rate Site hydrALAZINE (APRESOLINE) injection Given 01/26/2022 11:35 AM JOB COUNSELOR 5 mg 5 mg 5 mg, Intravenous, ONCE, Administer over 1 Minutes, On 01/26/22 at 1135, For 1 dose iopamidol (ISOVUE-370) solution 500 mL Given 01/26/2022 12:40 PM JOB COUNSELOR 80 mLs 500 mL, Intravenous, ONCE, On 01/26/22 at 1240, For 1 dose magnesium sulfate 2 g in water New Bag 01/26/2022 1:30 PM JOB COUNSELOR 2 g 100 mL/hr intermittent infusion 2 g, Intravenous, Administer over 30 Minutes, at 100 mL/hr, ONCE, On 01/26/22 at 1315, For 1 dose nitroGLYcerin (NITROSTAT) sublingual tab let 0.4 mg 0.4 mg, Sublingual, EVERY 5 MIN PRN, vanna st pain, Starting on 01/26/22 at 1044, For 3 doses sodium chloride 0.9 % bag 500mL for CT scan Given 04/2022 12:40 PM JOB COUNSELOR 60 mLs flush use As instructed, 100 mL, ONCE, On 01/26/22 at 1240, For 1 dose, This entry is for use by Radiology to intermittently used as a flush in patients receiving a CT scan. documented in this encounter Active and Recently Administered Medications Times are shown in JOB COUNSELOR. Scheduled Medication Order 01/24/2022 01/25/2022 01/26/2022 hydrALAZINE (APRESOLINE) injection 5 mg (COMPLETED) 1135 (Given - Provider: Catrina Tian RN) 5 mg, Intravenous, ONCE, Administer over 1 Minutes, On 01/26/22 at 1135, For 1 dose iopamidol (ISOVUE-370) solution 500 mL (COMPLETED) 1240 (Given - Provider: Jerson Morse) 500 mL, Intravenous, ONCE, On 01/26/22 at 1240, For 1 dose magnesium sulfate 2 g in water intermittent infusion (COMPLETED) 1330 (New Bag - Provider: Shaina Gilbert RN)1357 (Stopped - Provider: Shaian Gilbert RN) 2 g, Intravenous, Administer over 30 Min utes, at 100 mL/hr, ONCE, On 01/26/22 at 1315, For 1 dose sodium chloride 0.9 % bag 500mL for CT scan flush use (COMPLETED ) 1240 (Given - Provider: Jerson Morse) As instructed, 100 mL, ONCE, On Sun at 1240, For 1 dose, This entry is for use by Radiology to intermittently used as a flush in patients receiving a CT scan. PRN Medication Order 01/24/2022 01/25/2022 01/26/2022 nitroGLYcerin (NITROSTAT) sublingual tablet 0.4 mg 1106 (Canceled Entry - Provider: Pelon Generic Provider - Comment: Automatically canceled at discontinue of medication order) 0.4 mg, Sublingual, EVERY 5 MIN PRN, vanna st pain, Starting on 01/26/22 at 1044, For 3 doses documented in this encounter Care Teams Link Trainer Mechanic Relationship Specialty Start Date End Date [facility] PCP - General 01/26/[address] [place] [id number] Shelbi Miller Internal Medicine 01/26/[address] [facility] [address] [place] [address] documented as of this encounter
--- OUTSIDE RECORDS SUMMARY | 2022-10-21 18:39 | XMS_ITS | Encounter Summary ---
:1965 Author Organization [place] Address [address] [place] [address] Care Team Providers Name Role Phone Shelbi Miller Unavailable Clinic, [facility] Primary Care Provide r Reason for Visit Reason Onset Date Comments Results 02/01/2022 Encounter Details Date Type Department Care Team Description 02/01/2022 [facility] Alexandre Galeana sa, RN Results Emergency Dept [address] [place] [address] Social History Tobacco Use Types Packs/Day Years Used Date Smoking Tobacco: Never Assessed Sex Assigned at Date Recorded Not on file COVID-19 Exposure Response Date Recorded In the last month, have you been in contact with No / Unsure 01/26/2022 10:33 AM DUAL RATE SUPERVISOR someone who was confirmed or suspected to have Coronavirus / COVID-19? documented as of this encounter Miscellaneous Notes Telephone Encounter - Michelle Galeana RN - 02/01/2022 5:08 PM DUAL RATE SUPERVISOR [facility] Emergency Department/Urgent Care Lab result notification: Reason for call Notify of lab results, assess symptoms, review ED providers recommendations (if necessary) and advise per ED lab result f/u protocol. Called to patient to obtain pcp information to forward results to. Lab result Component Latest Ref Rng & Units 01/26/2022 Metanephrine Urine per Volume ug/L 157 Normetanephrine Urine per Volume ug/L 229 Metanephrine, Urine - Per 24H 36 - 229 ug/d Not Applicable Metanephr 24 H ur/cr 0 - 300 ug/g SMALL OFFSET PRINTER 154 Normetanephrine 24 Hr/Random Urine 95 - 650 ug/d Not Applicable Normetaneph 24H ur/cr 0 - 400 ug/g SMALL OFFSET PRINTER 225 Metanephrine 24 Hr/Random Urine Interpretation See Note Creatinine Urine/Volume mg/dL 102 Creatinine Urine/24hr 500 - 1400 mg/d Not Applicable 5:09 Left voicemail message requesting a call back to [phone] between 9 a.m. and 5:30 p.m. for patient's ED/UC lab results. Michelle Galeana, RN Customer Service Center Result RN [facility] Emergency Dept Lab Result RN RATE SUPERVISOR documented in this encounter Plan of Treatment Not on filedocumented as of this encounter Visit Diagnoses Not on filedocumented in this encounter Care Teams Motor Hotel Manager Relationship Specialty Start Date End Date [facility] PCP - General 01/26/22 Medical [address] [place] [address] Shelbi Miller Internal Medicine 01/26/22 [facility] [address] [place] [address] documented as of this encounter
--- OUTSIDE RECORDS SUMMARY | 2022-10-21 18:39 | XMS_ITS | Encounter Summary ---
:1965 Author Organization [place] Address [address] [place] [address] Care Team Providers Name Role Phone Unavailable Primary Care Provider Unavailable Encounter Details Date Type Department Care Team Description 03/21/2010 Office Visit-[facility] INTERFACE [facility] DEPT Provider, [facility] Nurs e Social History Tobacco Use Types Packs/Day Years Used Date Smoking Tobacco: Never Assessed Sex Assigned at Date Recorded Not on file documented as of this encounter Progress Notes Provider, [facility] Nurse - 03/21/2010 2:59 PM CDT Sorter Upholstery Parts: Shalonda Barrios Status: Final - Signature Encounter: 21 Mar 2010 Type: Chart Note Pt has a PCP locally to do her Endocrine refills. Shalonda Electronically signed by:Shalonda Barrios R.N. Mar 21 2010 4:42PM REAL ESTATE BROKER ASSOCIATE documented in this encounter Plan of Treatment Not on filedocumented as of this encounter Visit Diagnoses Not on filedocumented in this encounter
--- OUTSIDE RECORDS SUMMARY | 2022-10-21 18:39 | XMS_ITS | Encounter Summary ---
:1965 Author Organization [facility] Address [address] [place] [address] Care Team Providers Name Role Phone Unavailable Primary Care Provider Unavailable Encounter Details Date Type Department Care Team Description 04/10/2009 Office Visit-[facility] Diabetes Education Jackeline Guillaume RD [place] [address] [place] [address] [address] [place] [address] [place] [address] Social History Tobacco Use Types Packs/Day Years Used Date Smoking Tobacco: Never Assessed Sex Assigned at Date Recorded Not on file documented as of this encounter Progress Notes Jackeline Guillaume - 04/10/2009 2:30 PM CDT Manager Environmental Services: Jackeline Guillaume Status: Final Encounter: 10 Apr 2009 Type: Diabetes Nutrition Education Note Diabetes Nutrition Note DIABETES DENTAL FRONT OFFICE ASSISTANT PROGRESS NOTES Follow-up Visit Patient Referral Information: type 1 diabetes, nutrition f/u MEDICAL HISTORY REVIEWED AND ASSESSMENT COMPLETED. Ht: 5'9 Wt: 150.6# UBW: 152# BMI: 22kg/m2 LABS: A1C: 8.7% Chol: n/a LDL: [ ] HDL: [ ] TG: [ ] EDUCATION PROVIDED: General Nutrition Guidelines Carbohydrate Counting Weight Reduction Fat Modification Hypoglycemia Exercise COMMENTS: Martine returns for f/u visit. She brings her bg log for review. She is taking 13 units lantus and 1 unit Novolog/10 grams carb with a CF of 1 unit Novolog/50mg/dl/bg for bg>150mg/dl. She states she would like to lose 5-6 #. She is not exercising but will be able to soon once her hours at work are decreased for the summer. Reviewed current diet and bg and worked with Martine to set goals for exercise and diet, asked appropriate questions. IMPRESSION: Review of bg indicates that Martine is not taking the full amount of correction Novolog as she does not want to have low bg. She is counting her carbs reasonably well but did not fill out food records to verify. She stated her intent to fill out 3 days of food records and fax for team review to help clarify her insulin/carb ratio. Verbalized exercise and carb replacment rec's now that she is planning to increase her exercise over the summer to facilitate her desired wt loss of 5-6#. Will f/u past reciept of food records. PATIENT GOALS/PLANS: 1. Take full amount of correction Novolog as prescribed 2. exercise and carb replacment rec's 3. general nutrition review 4. food records x 3 days, fax for team review. Allergies Penicillins. Signature Electronically Signed By: JACKELINE GUILLAUME RD,CDE; 04/10/2009 3:38 PM FOUNDING PARTNER. documented in this encounter Plan of Treatment Not on filedocumented as of this encounter Visit Diagnoses Not on filedocumented in this encounter
--- OUTSIDE RECORDS SUMMARY | 2022-10-21 18:39 | XMS_ITS | Encounter Summary ---
:1965 Author Organization [place] Address [address] [place] [address] Care Team Providers Name Role Phone Shelbi Miller Unavailable [facility] Primary Care Provide r Encounter Details Date Type Department Care Team Description 01/26/2022 Documentation Only INTERFACED REPORT Unknown, Provider Social History Tobacco Use Types Packs/Day Years Used Date Smoking Tobacco: Never Assessed Sex Assigned at Date Recorded Not on file COVID-19 Exposure Response Date Recorded In the last month, have you been in contact with No / Unsure 01/26/2022 10:33 AM MISSION PLANNER someone who was confirmed or suspected to have Coronavirus / COVID-19? documented as of this encounter Plan of Treatment Not on filedocumented as of this encounter Visit Diagnoses Not on filedocumented in this encounter Care Teams Gas Welder Apprentice Relationship Specialty Start Date End Date [facility] PCP - General 01/26/22 Medical [address] [place] [address] Shelbi Miller Internal Medicine 01/26/22 [facility] [address] [place] [address] documented as of this encounter
--- OUTSIDE RECORDS SUMMARY | 2022-10-21 18:39 | XMS_ITS | Clinical Summary ---
:1965 Author Organization [place] Address [address] [place] [address] Care Team Providers Name Role Phone Shelbi Miller Unavailable [facility], [facility] Primary Care Provide r Allergies Active Allergy Reactions Severity Noted Date Comments Cortisone 03/07/2014 Other reaction( s): Other (see comments) high blood suga r with injectable Morphine Nausea and Vomiting 01/30/2014 Penicillins 01/30/2014 Other reaction( s): Other (see comments) Unknown reactio n Medications Medication Sig Dispensed Refills Start Date End Date Status amLODIPine (NORVASC) Take 1 tablet (2.5 30 tablet 0 01/26/2022 Active 2.5 MG tablet mg) by mouth daily Social History Tobacco Use Types Packs/Day Years Used Date Smoking Tobacco: Never Assessed Sex Assigned at Date Recorded Not on file Last Filed Vital Signs Vital Sign Reading Time Taken Comments Blood Pressure 151/78 01/26/2022 2:30 PM IN HOUSE COUNSEL Pulse 97 01/26/2022 2:30 PM IN HOUSE COUNSEL Temperature 36.9 ??C (98.5 ??F) 01/26/2022 10:40 AM IN HOUSE COUNSEL Respiratory Rate 16 01/26/2022 2:30 PM IN HOUSE COUNSEL Oxygen Saturation 95% 01/26/2022 2:30 PM IN HOUSE COUNSEL Inhaled Oxygen Concentration - - Weight - - Height - - Body Mass Index - - Plan of Treatment Health Maintenance Due Date Last Done Comments ADVANCE CARE PLANNING 1965 ANNUAL REVIEW OF HM ORDERS 1964 CT COLONOGRAPHY 1964 FIT-DNA (Cologuard) 1965 FIT 1965 FLEX SIG 1965 HEPATITIS B IMMUNIZATION (1 1964 of 3 - 3-dose series) MAMMO SCREENING 1965 YEARLY PREVENTIVE VISIT 1965 COLONOSCOPY 1974 COLORECTAL CANCER SCREENING 1974 HIV SCREENING 1979 HEPATITIS C SCREENING 1982 PAP 1985 LIPID 2009 ZOSTER IMMUNIZATION (1 of 2) 2014 COVID-19 Vaccine (4 - Booster 09/11/2021 07/17/2021, for Pfizer series) 03/01/2021, 02/06/2021 PHQ-2 (once per calendar 11/23/2021 year) INFLUENZA VACCINE (#1) 2022 08/27/2020, 12/02/2019 DTAP/TDAP/TD IMMUNIZATION (2 07/19/2030 07/19/2020 - Td or Tdap) IPV IMMUNIZATION Aged Out No longer eligi ble based on patient's age to complete this to pic MENINGITIS IMMUNIZATION Aged Out No longe r eligible based on patient's age to complete this to pic Pneumococcal Vaccine: Aged Out No longer eligible based Pediatrics (0 to 5 Years) and on patient's age to At-Risk Patients (6 to 64 comple te this topic Years) Insurance Payer Benefit Plan / Subscriber ID Effective Dates Phone Addre ss Type Group BCBS BCBS OUT OF [id number] 2021-Presen [phone] [address] [address] [place] [address] Care Teams Radio Repairman Relationship Specialty Start Date End Date [facility] PCP - General 01/26/22 Medical [address] [place] [address] Shelbi Miller Internal Medicine 01/26/22 [facility] [address] [place] [address]
--- OUTSIDE RECORDS SUMMARY | 2022-10-21 18:39 | XMS_ITS | Encounter Summary ---
:1965 Author Organization [place] Address [address] [place] [address] Care Team Providers Name Role Phone Shelbi Miller Unavailable [facility] Primary Care Provide r Encounter Details Date Type Department Care Team Description 01/26/2022 Travel Social History Tobacco Use Types Packs/Day Years Used Date Smoking Tobacco: Never Assessed Sex Assigned at Date Recorded Not on file COVID-19 Exposure Response Date Recorded In the last month, have you been in contact with No / Unsure 01/26/2022 10:33 AM STONEWORKER someone who was confirmed or suspected to have Coronavirus / COVID-19? documented as of this encounter Plan of Treatment Not on filedocumented as of this encounter Visit Diagnoses Not on filedocumented in this encounter Care Teams Construction Economist Relationship Specialty Start Date End Date [facility], [facility] PCP - General 01/26/22 Medical [address] [place] [address] Shelbi Miller Internal Medicine 01/26/22 [facility] [address] [place] [address] documented as of this encounter
--- OUTSIDE RECORDS SUMMARY | 2022-10-21 18:39 | XMS_ITS | Encounter Summary ---
:1965 Author Organization [place] Address [address] [place] [address] Care Team Providers Name Role Phone Unavailable Primary Care Provider Unavailable Encounter Details Date Type Department Care Team Description 04/10/2009 Office Visit-[facility] Diabetes Education Zenia Reyes [address] [facility] [address] [place] [address] [place], [place] [phone] (Wo rk) [address] [phone] Social History Tobacco Use Types Packs/Day Years Used Date Smoking Tobacco: Never Assessed Sex Assigned at Date Recorded Not on file documented as of this encounter Progress Notes Zenia Reyes - 04/10/2009 3:30 PM CDT Roundhouse Worker: Eric Zenia Status: Final Encounter: 10 Apr 2009 Type: DiabetesEdu Nurse Note Visit Information [facility] Time Spent: 1 hour(s) Others attending Visit: None Individual Education Patient is having pain? No Smoker? No Blood Glucose Value(s): Per her hand-written logsheets, over the past week her BS ran between 109-259 mg.dl. She is checking 2-5 times per day. Diabetes Medication: Lantus insulin, 13 units at HS Humalog insulin, 1/10 gm. carb. Correction, /50, starting at 150 mg/dl. (but she often takes less for fear of low BS). . Diabetes Nurse Note Comments: Martine returns for her one-month follow-up visit. She did not do food records as requested, because she says she's embarrassed about what she eats. Because she was very prone to low blood sugars in the past, she has been reducing the amount of Humalog correction she takes, and not attaining the results we have been looking for. She continues to be amazed at how stable her blood sugars are on Lantus versus NPH insulin. She mentions that she will be going to [place] in May, and I need to talkabout handling Lantus insulin for the time change. She needs to learn about when to do ketone testing, and I also plan to show her continuous glucose monitoring and the pump today. . EDUCATION PROVIDED: Medication/Insulin adjustment: Verbalizes understanding Demonstrates Skill Correctly Comments Assessed her use and care of her Humalog Kwik Pens. Suggested, as did the RD, that she take the full amountof correction recommended. Monitoring: Verbalizes understanding Comments Reviewed her data together. Sick Day management/Ketone Testing: Verbalizes understanding Handouts Given Comments Reviewed sick day rules and how/when to use ketone testing. Insulin pumps & sensors: Verbalizes understanding Comments Showed her a Dexcom sensor and discussed benefits and limitations of sensing. Also showed her an Omnipod insulin pump, and discussed pros and cons of pumping, and how pumps work. Travel guidelines: Verbalizes understanding Comments Discussed how best to handle her Lantus for hertrip to and from [place]. She took some notes. . Impression and Plan Impression: Martine was alert, attentive, and asked appropriate questions. I completed her assessmentand education update today. She is not interested in a pump or sensor at this time, but at least shehas a basic understanding of how they work. Plan: Martine's education update is complete. She was encouraged to take the full Humalog correction insulin recommended, and to fill out food records and send them in for team review. She may call if she is having BS problems. Next appointment: PRN. Signature Electronically Signed By: DANILO Larson R.N.; 04/23/2009 5:09 PM DISTRIBUTION DRIVER. documented in this encounter Plan of Treatment Not on filedocumented as of this encounter Visit Diagnoses Not on filedocumented in this encounter
--- OUTSIDE RECORDS SUMMARY | 2022-10-21 18:40 | XMS_ITS | Encounter Summary ---
:1965 Author Organization [facility] Address [address] [place] [address] Care Team Providers Name Role Phone Elsewhere, Pcp Primary Care Provider Unavailable Reason for Visit Reason Comments Intake Assessment Encounter Details Date Type Department Care Team Description 08/04/2022 Clinical Communication Visit Review in In take [place], [place] [address] [place] [address] Social History Tobacco Use Types Packs/Day Years Used Date Smoking Tobacco: Never Smokeless Tobacco: Never Tobacco Cessation: Counseling Given: Not Answered Alcohol Use Standard Drinks/Week Comments No 0 (1 standard drink = 0.6 oz pure alcoho l) Alcohol Habits Answer Date Recorded How often do you have a drink containing alcohol? Never 01/17/2022 How many drinks containing alcohol do you have on a typical Not asked day when you are drinking? How often do you have six or more drinks on one occasion? No t asked Social Isolation Answer Date Recorded In a typical week, how many times do you More than three ginna es a week 01/17/2022 talk on the phone with family, friends, or neighbors? How often do you get together with friends Twice a week 01/17/2022 or relatives? How often do you attend episcopal or Never 2021 restoration services? Do you belong to any clubs or No 01/17/2022 organizations such as episcopal groups, unions, fraternal or athletic groups, or school groups? How often do you attend meetings of the Patient refused 01/17/2022 clubs or organizations you belong to? Are you now , , , 01/17/2022 , never or living with a partner? Physical Activity Answer Date Recorded On average, how many days per week do you engage in moderate to 2 days 01/17/2022 strenuous exercise (like walking fast, running, jogging, dancing, swimming, biking, or other activities that cause a light or heavy sweat)? On average, how many minutes do you engage in exercise at th is 30 min 01/17/2022 level? Stress Answer Date Recorded Do you feel stress - tense, restless, nervous, or Only a lit tle 01/17/2022 anxious, or unable to sleep at night because your mind is troubled all the time - these days? Financial Resource Strain Answer Date Recorded How hard is it for you to pay for the very basics like Not h rhett at all 01/17/2022 food, housing, medical care, and heating? Intimate Partner Violence Answer Date Recorded Within the last year, have you been afraid of your partner o r No 01/17/2022 ex-partner? Within the last year, have you been humiliated or emotionall y No 01/17/2022 abused in other ways by your partner or ex-partner? Within the last year, have you been kicked, hit, slapped, or No 01/17/2022 otherwise physically hurt by your partner or ex-partner? Within the last year, have you been raped or forced to have any No 01/17/2022 kind of sexual activity by your partner or ex-partner? Food Insecurity Answer Date Recorded Within the past 12 months, you worried that your food would Never true 01/17/2022 run out before you got money to buy more. Within the past 12 months, the food you bought just didn't N ever true 01/17/2022 last and you didn't have money to get more. Transportation Needs Answer Date Recorded In the past 12 months, has lack of transportation kept you f rom No 01/17/2022 medical appointments or from getting medications? In the past 12 months, has lack of transportation kept you f rom No 01/17/2022 meetings, work, or getting things needed for daily living? Housing Stability Answer Date Recorded In the last 12 months, was there a time when you were not ab le No 01/17/2022 to pay the mortgage or rent on time? In the last 12 months, how many places have you lived? 1 01/17/2022 In the last 12 months, was there a time when you did not hav e a No 01/17/[address] or slept in a detention (including now)? Education Answer Date Recorded What is the highest level of school Bachelor's degree (e.g., BA, AB, 05/02/2019 you have completed or the highest BS) degree you have received? 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
--- OUTSIDE RECORDS SUMMARY | 2022-10-21 18:40 | XMS_ITS | Encounter Summary ---
:1965 Author Organization [facility] Address [address] [place] [address] Care Team Providers Name Role Phone Elsewhere, Pcp Primary Care Provider Unavailable Reason for Visit Reason Comments Lab Monitoring 08/23/21 Encounter Details Date Type Department Care Team Description 08/23/2021 Clinical Division of Rayna Guerrero Lab Monitori Communication Rheumatology in L, HARVEST MANAGER, C.N.P. (08/23/21) [place], [place] [address] [facility] [address] [place] [id number] [phone] Social History Tobacco Use Types Packs/Day Years Used Date Smoking Tobacco: Never Smokeless Tobacco: Never Alcohol Use Standard Drinks/Week Comments No 0 [...] or relatives? How often do you attend methodist or Never 2021 episcopalian services? Do you belong to any clubs or No 01/17/2022 organizations such as methodist groups, unions, fraternal or athletic groups, or [...] place to sleep or slept in a skilled nursing (including now)? Education Answer Date Recorded What is the highest level of school Bachelor's degree (e.g., BA, AB, 05/02/2019 you have completed or the highest BS) degree you have received? 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 - 08/23/2021 3:19 PM CDT ASSESSMENT Rheumatology monitoring labs completed at an external lab on 08/23/21 were reviewed per Rheumatology division parameters. All monitored labs are within parameters. Labs reviewed: absolute neutrophil count, AST, creatinine, hemoglobin, leukocytes, platelets External labs were entered into Labs Tab and sent for scanning. PLAN Patient to continue with current plan of care. documented in this encounter Plan of Treatment Not on filedocumented as of this encounter Procedures Procedure Name Priority Date/Time Associated Diagnosis Comme nts CBC WITH DIFFERENTIAL, B Routine 08/23/2021 Res ults for this procedure are i n the results section. ASPARTATE AMINOTRANSFERASE Routine 08/23/2021 R esults for this (AST), S/P procedure are i n the results section. CREATININE WITH EGFR, S/P Routine 08/23/2021 Re sults for this procedure are i n the results section. documented in this encounter Results AST (Aspartate Aminotransferase) (08/23/2021) P athologist Signature EXT AST 28 12 - 35 Specimen (Source) Anatomical Location Collection Method / Collectio n Time Received Time / Laterality Volume Blood (Blood, Venous) Resulting Agency Comment [facility] Rayna L Yolanda HARVEST MANAGER, C.N.P. LAB BLOOD ADD-ON Creatinine with Estimated GFR (08/23/2021) P athologist Signature EXT Creatinine 0.5 0.5 - 1.5 mg/dL Specimen (Source) Anatomical Location Collection Method / Collectio n Time Received Time / Laterality Volume Blood (Blood, Venous) Resulting Agency Comment [facility] Rayna Guerrero APRN, C.N.P. LAB BLOOD ADD-ON (ABNORMAL) CBC with Differential, Blood (08/23/2021) Analysis Performed At Patho logist Time Signature EXT Platelet 224 150 - 450 Count EXT Neutrophils 2.2 1.7 - 7 EXT Hemoglobin 13.9 12 - 15.5 EXT White Blood 3.9 (A) 5.0 - 10.0 Cell (WBC) Count Specimen (Source) Anatomical Location Collection Method / Collectio n Time Received Time / Laterality Volume Blood (Blood, Venous) Resulting Agency Comment [facility] Rayna Guerrero APRN, C.N.P. LAB BLOOD ADD-ON documented in this encounter Visit Diagnoses Not on filedocumented in this encounter Care Teams Accountant Bookkeeper Relationship Specialty Start Date End Date Elsewhere, Pcp PCP - General Family Medicine 07/17/21 documented as of this encounter
--- OUTSIDE RECORDS SUMMARY | 2022-10-21 18:40 | XMS_ITS | Encounter Summary ---
:1965 Author Organization [facility] Address [address] [place] [address] Care Team Providers Name Role Phone Elsewhere, Pcp Primary Care Provider Unavailable Reason for Visit Reason Comments Med Refill Encounter Details Date Type Department Care Team Description 06/23/2022 Refill Division of Rheumatology in Karen Guerrero sa, APRN, Med Refill [place], [place] C.N.P. [address] [facility] [address] [place] [address] [place] [address] [phone] (Wo rk) Social History Tobacco Use Types [...] or relatives? How often do you attend adventism or Never 2021 orthodoxy services? Do you belong to any clubs or No 01/17/2022 organizations such as adventism groups, unions, fraternal or athletic groups, or [...] place to sleep or slept in a longterm (including now)? Education Answer Date Recorded What is the highest level of school Bachelor's degree (e.g., BA, AB, 05/02/2019 you have completed or the highest BS) degree you have received? 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 - 06/25/2022 9:17 AM CDT Prescription renewal request for methotrexate received from pharmacy. HISTORY OF PRESENT ILLNESS Last Rheum visit: 01/21/2022 with Rayna Guerrero APRN, [facility] Future office visit: 08/05/2022 Last monitoring labs/eye exam: 01/26/2022: within protocol parameters. Prescription request matches current plan of care. Prescription request matches a current prescription in the Medication List. Exclusion criteria: None ASSESSMENT/PLAN Prescription request pended for provider review due to missing monitoring labs. 30 day supply pended. documented in this encounter Plan of Treatment Not on filedocumented as of this encounter Visit Diagnoses Diagnosis Arthritis Rheumatoid (HCC) documented in this encounter Care Teams Scenic Arts Supervisor Relationship Specialty Start Date End Date Elsewhere, Pcp PCP - General Family Medicine 07/17/21 documented as of this encounter
--- OUTSIDE RECORDS SUMMARY | 2022-10-21 18:40 | XMS_ITS | Encounter Summary ---
:1965 Author Organization [facility] Address [address] [place] [address] Care Team Providers Name Role Phone Unavailable Primary Care Provider Unavailable Reason for Visit Reason Comments Med Refill Encounter Details Date Type Department Care Team Description 07/12/2021 Refill Division of Rheumatology in Karen Guerrero sa, APRN, Med Refill [place], [place] C.N.P. [address] [facility] [address] [place] [address] [place] [address] [phone] (Wo rk) Social History Tobacco Use Types [...] or relatives? How often do you attend yazdanism or Never 2021 hindu services? Do you belong to any clubs or No 01/17/2022 organizations such as yazdanism groups, unions, fraternal or athletic groups, or [...] place to sleep or slept in a fpc (including now)? Education Answer Date Recorded What is the highest level of school Bachelor's degree (e.g., BA, AB, 05/02/2019 you have completed or the highest BS) degree you have received? 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 - 07/16/2021 1:57 PM CDT Prescription renewal request for methotrexate received from pharmacy. HISTORY OF PRESENT ILLNESS Last Rheum visit: 04/16/21 with Rayna Guerrero APRN, [facility] Future office visit: ordered, not yet scheduled Last monitoring labs/eye exam: 04/16/21: within protocol parameters. Prescription request does not match current plan of care. Prescription request matches a current prescription in the Medication List. Exclusion criteria: None ASSESSMENT/PLAN Prescription request pended for provider review due to requested prescription does not match plan ofcare. RHU note says to take every other week. documented in this encounter Plan of Treatment Not on filedocumented as of this encounter Visit Diagnoses Diagnosis Arthritis Rheumatoid (HCC) documented in this encounter
--- OUTSIDE RECORDS SUMMARY | 2022-10-21 18:40 | XMS_ITS | Encounter Summary ---
:1965 Author Organization [facility] Address [address] [place] [address] Care Team Providers Name Role Phone Elsewhere, Pcp Primary Care Provider Unavailable Reason for Visit Reason Comments Med Refill Encounter Details Date Type Department Care Team Description 2021 Refill Division of Rheumatology in Karen Guerrero sa, APRN, Med Refill [place], [place] C.N.P. [address] [facility] [address] [place] [address] [place] [address] [phone] (Wo rk) Social History Tobacco Use Types [...] or relatives? How often do you attend rastafarian or Never 2021 tenriism services? Do you belong to any clubs or No 01/17/2022 organizations such as rastafarian groups, unions, fraternal or athletic groups, or [...] place to sleep or slept in a group home (including now)? Education Answer Date Recorded What is the highest level of school Bachelor's degree (e.g., BA, AB, 05/02/2019 you have completed or the highest BS) degree you have received? 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 - 09/05/2021 12:55 PM CDT Prescription renewal request for methotrexate received from pharmacy. HISTORY OF PRESENT ILLNESS Last Rheum visit: 04/16/21 with Rayna Guerrero APRN, CNP Future office visit: ordered, not yet scheduled Last monitoring labs/eye exam: 08/23/21: within protocol parameters. Prescription request does not match current plan of care. Prescription request matches a current prescription in the Medication List. Exclusion criteria: None ASSESSMENT/PLAN Prescription request pended for provider review due to requested prescription does not match plan ofcare. Plan of care has patient taking the medication every 14 days; the request and medication list have patient taking it every 7 days. Telephone Encounter - Amelia Anaya - 09/05/2021 12:14 PM CDT Patient called and states she needs this by Thursday. Thanks! documented in this encounter Plan of Treatment Not on filedocumented as of this encounter Visit Diagnoses Diagnosis Arthritis Rheumatoid (HCC) documented in this encounter Care Teams Social Science Manager Relationship Specialty Start Date End Date Elsewhere, Pcp PCP - General Family Medicine 07/17/21 documented as of this encounter
--- OUTSIDE RECORDS SUMMARY | 2022-10-21 18:40 | XMS_ITS | Encounter Summary ---
:1965 Author Organization [facility] Address [address] [place] [address] Care Team Providers Name Role Phone Elsewhere, Pcp Primary Care Provider Unavailable Reason for Referral Outpatient (Routine) - Closed Specialty Diagnoses / Procedures Referred By Contact Refer red To Contact Rheumatology Rayna Guerrero APRN, [facility] C.N.P. [address] [place] [address] Referral ID Status Reason Start Date Expiration Date Visits Requ ested Visits Authorized [id number] Closed 01/21/2022 01/21/2023 1 1 O TECHNICIAN Reason for Visit Outpatient (Routine) - Closed Specialty Diagnoses / Procedures Referred By Contact Refer red To Contact Rheumatology Rayna Guerrero APRN, [facility] C.N.P. [address] [place] [address] Referral ID Status Reason Start Date Expiration Date Visits Requ ested Visits Authorized [id number] Closed 04/16/2021 04/16/2022 1 1 Encounter Details Date Type Department Care Team Description 01/21/2022 Office Visit Division of Rayna Guerrero Arthritis Rh eumatoid (HCC) (Primary Dx); Rheumatology phyllis Kruger APRN, C.N.P. High Risk Medication [place], [place] [address] [facility] [address] [place] [phone] Social History Tobacco Use Types Packs/Day Years [...] or relatives? How often do you attend synagogue or Never 2021 yarsanism services? Do you belong to any clubs or No 01/17/2022 organizations such as synagogue groups, unions, fraternal or athletic groups, or [...] place to sleep or slept in a usp (including now)? Education Answer Date Recorded What is the highest level of school Bachelor's degree (e.g., BA, AB, 05/02/2019 you have completed or the highest BS) degree you have received? 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 - 01/21/2022 2:00 PM CST SUBJECTIVE CHIEF COMPLAINT / REASON FOR VISIT Martine De Oliveira is a 56 y.o. female who presents for follow up of rheumatoid arthritis. HISTORY OF PRESENT ILLNESS Mrs. De Oliveira is a pleasant 56-year-old lady with seropositive erosive/destructive rheumatoid arthritis. She has a long-standing history of rheumatoid arthritis since 1995, which remained treated only symptomatically with NSAIDs up until September 2016, at which point she finally agreed for initiation of methotrexate. She was switched to subcutaneous methotrexate 25 mg October 2017. She has a history ofdiabetes type 1, on injectable insulin since the age of 22. Today, I am seeing Mrs. De Oliveira for follow of her rheumatoid arthritis. She states that she is doing good. She retired in April and has been adjusting to being retired. She is trying to walk daily. This fall she had left foot pain with walking. She continues to have some GI side effects after taking methotrexate. She continues take methotrexate 12.5 mg SQ once weekly and folic acid 2 mg daily. She denies any significant morning stiffness at this time. No recent major flares, infections or hospitalizations. Rheumatoid Arthritis RF +: Yes CCP +: Yes AM stiffness: 0 minutes Current Symptoms: dry eyes (systane), dry mouth (only when BS is high), cough (PND & allergies) and nausea (after MTX until noon the next day) Current Symptoms: no fatigue, no fever, no rash, no Raynaud's syndrome, no weight loss, no excessivebruising, no chest pain, no edema, no vomiting, no abdominal pain, no anorexia, no chills, no night sweats (hot flashes- occassionally), no oral ulcers, no eye inflammation, no heartburn, no dyspnea and no subcutaneous nodules Previous Reports Reviewed:lab reports and office notes The following portions of the patient's history were reviewed and updated as appropriate: family history, medical history, social history, surgical history and problem list. REVIEW OF SYSTEMS Pertinent positives and negatives as documented in the above history of present illness. Constitutional: Negative for chills, fatigue, fever, night sweats (hot flashes- occassionally) and weight loss. Skin: Negative for skin rash. ENT: Negative for sinus congestion. Respiratory: Positive for cough (PND & allergies). Cardiovascular: Negative for chest pain, pressure or tightness. Gastrointestinal: Positive for nausea (after MTX until noon the next day). Negative for abdominal (belly) pain or cramping, anorexia, heartburn and vomiting. Genitourinary: Positive for urgency and frequent urination. Musculoskeletal: Positive for arthralgias (hands), pain or stiffness in the joints (hands) and jointswelling. Negative for back pain. Neurological: Negative for light-headedness and headaches. Psychiatric/Behavioral: Positive for snores loudly. The following systems were negative: Constitutional, Skin, Eyes, CV, Hematologic, Neuro OBJECTIVE PHYSICAL EXAM Physical Exam General: Alert, oriented, appropriate affect, no apparent distress. Skin: No rheumatologic rashes or ulcers noted. Left heel nodule. Eyes: Clear conjunctivae and lids. Ears, nose, and throat: Moist oral mucosa without mucositis. Lymph: No cervical or supraclavicular adenopathy. Cardio: Regular rate. No murmurs or rubs. Lungs: Clear to auscultation bilaterally. Extremities: No limitations in ROM bilaterally. Joints: See joint exam. Limited ROM bilateral shoulders, left worse then right. Right elbow contracture. Lab: CBC with differential, creatinine, GFR, AST within normal limits. ESR and CRP are normal. There is currently no information documented on the [facility]. Go to the Rheumatology activity and complete the [facility] joint exam. 04/16/2021 01/21/2022 Tender joint count (0-28) 2 1 Swollen joint count (0-28) 2 4 Patient global assessment (0-100) 10 5 Operations Inspector global assessment (0-100) 25 40 ESR (mm/h) 15 9 CRP (mg/L) 3 3 Disease Activity Score 28 using ESR ([id number]) 3.22 2.73 Disease Activity Score 28 using CRP ([id number]) 2.79 2.65 Clinical Disease Activity Index (CDAI) 7.5 9.5 Simplified Disease Activity Index (SDAI) 7.8 9.8 ASSESSMENT / PLAN #1 Arthritis Rheumatoid (HCC) Synovitis on exam today, however this is stable. She will continue methotrexate 12.5 mg SQ once a week and folic acid 2 mg daily. I have refilled her prescriptions. Patient was in agreement with this plan. #2 High Risk Medication She will continue laboratory monitoring every 3 months for methotrexate. I will follow up with her in 6 months. I answered the patients questions to the best of my ability. The patient seemed pleased with our interaction. If she should have any additional questions or concerns. I have asked that she contact us at that time. O TECHNICIAN documented in this encounter Plan of Treatment Scheduled Referrals Name Type Priority Associated Order Schedule Diagnoses Rheumatology office Outpatient Referral Routine E xpected: visit (clinic) 07/24/2022 (Approximate), Expires: 04/23/2023 documented as of this encounter Results CBC with Differential, Blood (08/05/2022 12:46 PM CDT) P athologist Signature Hemoglobin 13.3 11.6 - 08/05/2022 DTL 15.0 g/dL 1:23 PM CDT Hematocrit 42.2 35.5 - 08/05/2022 DTL 44.9 % 1:23 PM CDT Erythrocytes 4.46 3.92 - 08/05/2022 DTL 5.13 1:23 PM CDT x10(12)/L MCV 94.6 78.2 - 08/05/2022 DTL 97.9 fL 1:23 PM CDT RBC Distrib Width 13.3 12.2 - 08/05/2022 DTL 16.1 % 1:23 PM CDT Platelet Count 204 157 - 371 08/05/2022 DTL x10(9)/L 1:23 PM CDT Leukocytes 4.8 3.4 - 9.6 08/05/2022 DTL x10(9)/L 1:23 PM CDT Neutrophils 3.17 1.56 - 08/05/2022 DTL 6.45 1:23 PM CDT x10(9)/L Lymphocytes 1.06 0.95 - 08/05/2022 DTL 3.07 1:23 PM CDT x10(9)/L Monocytes 0.37 0.26 - 08/05/2022 DTL 0.81 1:23 PM CDT x10(9)/L Eosinophils 0.14 0.03 - 08/05/2022 DTL 0.48 1:23 PM CDT x10(9)/L Basophils 0.08 0.01 - 08/05/2022 DTL 0.08 1:23 PM CDT x10(9)/L Specimen Anatomical Collection Method Collection Time Receive d Time (Source) Location / / Volume Laterality Blood (Blood, 08/05/2022 12:46 08/05/2022 1:14 Venous) PM CDT PM CDT José Miguel Weber APRN.N.P. LAB BLOOD ADD-ON Performing Organization Address City/[facility] Phon e Number [facility] - [address] Sedimentation Rate (08/05/2022 12:46 PM CDT) Analysis Performed At Patho logist Time Signature Sedimentation 8 2 - 22 08/05/2022 DTL Rate, B mm/h 2:10 PM CDT Specimen Anatomical Collection Method Collection Time Receive d Time (Source) Location / / Volume Laterality Blood (Blood, 08/05/2022 12:46 08/05/2022 1:14 Venous) PM CDT PM CDT Rayna Guerrero APRN, José Miguel.N.P. LAB BLOOD ADD-ON Performing Organization Address City/[facility] Phon e Number [facility] - [address] AST (Aspartate Aminotransferase) (08/05/2022 12:45 PM CDT) Patholo gist Method Time Signature Aspartate 25 8 - 43 08/05/2022 DTL Aminotransferase U/L 1:51 PM CDT (AST), S Specimen Anatomical Collection Method Collection Time Receive d Time (Source) Location / / Volume Laterality Blood (Blood, 08/05/2022 12:45 08/05/2022 1:31 Venous) PM CDT PM CDT Yaa Weber APRNNLiaPLia LAB BLOOD ADD-ON Performing Organization Address City/State/ZIP Code Phon e Number [facility] - [address] [place], [place] [address] [facility] [place], [place] [id number] [place] [address] Creatinine with Estimated GFR (08/05/2022 12:45 PM CDT) athologist Signature Creatinine 0.64 0.59 - 08/05/2022 DTL 1.04 mg/dL 1:51 PM CDT Estimated GFR >90 >=60 08/05/2022 DTL (eGFR) mL/min/BSA 1:51 PM CDT Comment: Estimated GFR calculated using the 2020 CKD_EPI creatinine equation. Specimen Anatomical Collection Method Collection Time Receive d Time (Source) Location / / Volume Laterality Blood (Blood, 08/05/2022 12:45 08/05/2022 1:31 Venous) PM CDT PM CDT Yaa Weber APRNN.P. LAB BLOOD ADD-ON Performing Organization Address City/State/ZIP Code Phon e Number [facility] - [address] [place], [place] [address] [place] [id number] [place] [address] CRP (C-Reactive Protein) (08/05/2022 12:45 PM CDT) athologist Signature C-Reactive <3.0 <=8.0 mg/L 08/05/2022 DTL Protein (CRP), 1:51 PM CDT S Specimen Anatomical Collection Method Collection Time Receive d Time (Source) Location / / Volume Laterality Blood (Blood, 08/05/2022 12:45 08/05/2022 1:31 Venous) PM CDT PM CDT Yaa Weber APRNN.P. LAB BLOOD ADD-ON Performing Organization Address City/State/ZIP Code Phon e Number [facility] - [address] [place], [place] [address] [place], [place] [phone] [place] [address] documented in this encounter Visit Diagnoses Diagnosis Arthritis Rheumatoid (HCC) - Primary High Risk Medication documented in this encounter Care Teams Manufacturing Engineer Paint Relationship Specialty Start Date End Date Elsewhere, Pcp PCP - General Family Medicine 07/17/21 documented as of this encounter
--- OUTSIDE RECORDS SUMMARY | 2022-10-21 18:40 | XMS_ITS | Encounter Summary ---
:1965 Author Organization [facility] Address [address] [place] [address] Care Team Providers Name Role Phone Elsewhere, Pcp Primary Care Provider Unavailable Reason for Visit Reason Comments Med Refill Encounter Details Date Type Department Care Team Description 12/17/2021 Refill Division of Rheumatology in Karen Guerrero sa, APRN, Med Refill [place], [place] C.N.P. [address] [facility] [address] [place] [address] [place] [address] [phone] (Wo rk) Social History Tobacco Use Types [...] or relatives? How often do you attend lutheran or Never 2021 yarsani services? Do you belong to any clubs or No 01/17/2022 organizations such as lutheran groups, unions, fraternal or athletic groups, or [...] place to sleep or slept in a prison (including now)? Education Answer Date Recorded What is the highest level of school Bachelor's degree (e.g., BA, AB, 05/02/2019 you have completed or the highest BS) degree you have received? 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 - 12/18/2021 11:35 AM JAVA WEB USER INTERFACE DEVELOPER Prescription renewal request for methotrexate received from pharmacy and patient. HISTORY OF PRESENT ILLNESS Last Rheum visit: 04/16/21 with Rayna Guerrero APRN, [facility] Future office visit: ordered, not yet scheduled Last monitoring labs/eye exam: 12/03/21: within protocol parameters. Prescription request matches current plan of care. Prescription request matches a current prescription in the Medication List. Exclusion criteria: Contraindication, severe medication alert, or allergy conflict noted. ASSESSMENT/PLAN Prescription request pended for provider review due to noted contraindication, severe medication alert or allergy conflict. WEB USER INTERFACE DEVELOPER documented in this encounter Plan of Treatment Not on filedocumented as of this encounter Visit Diagnoses Diagnosis Arthritis Rheumatoid (HCC) documented in this encounter Care Teams Umbrella Tipper Hand Relationship Specialty Start Date End Date Elsewhere, Pcp PCP - General Family Medicine 07/17/21 documented as of this encounter
--- OUTSIDE RECORDS SUMMARY | 2022-10-21 18:40 | XMS_ITS | Encounter Summary ---
:1965 Author Organization [facility] Address [address] [place] [address] Care Team Providers Name Role Phone Unavailable Primary Care Provider Unavailable Encounter Details Date Type Department Care Team Description 03/01/2009 Office Visit-[facility] Diabetes Education Jackeline Guillaume RD [facility] [address] [place] [address] [address] [place] [address] [place] [address] Social History Tobacco Use Types Packs/Day Years Used Date Smoking Tobacco: Never Assessed Sex Assigned at Date Recorded Not on file documented as of this encounter Progress Notes Jackeline Guillaume - 03/01/2009 12:30 PM CDT Morphologist: Jackeline Guillaume Status: Final Encounter: 01 Mar 2009 Type: Diabetes Nutrition Education Note Diabetes Nutrition Note DIABETES DRY WALL PLASTERER PROGRESS NOTES New Patient Visit Patient Referral Information: type 1 diabetes, nutrition/carb counting review MEDICAL HISTORY REVIEWED AND ASSESSMENT COMPLETED. Ht: 5'9 Wt: 152# UBW: same BMI: 22.5kg/m2 Wt goal: stable B/P: 106/62 Est. Kcal: 25-30 kcals/ke=[phone] kcals Est. Kcal for Wt loss: n/a Meds: to start Lantus 20 units and Novolo unit/15 grams carb with CF: 1 unit Novolog/50mg/dl/bg for bg>150mg/dl Vit/Mineral/other supplements: MVI with calcium Food allergies/intolerances: none LABS: A1C: 8.7% Chol: n/a LDL: [ ] HDL: [ ] TG: [ ] DIET RECALL: Breakfast: 1 CHO units Time: 7-7:30 AM Snack: none CHO units Time: [ ] Lunch: less than 1 CHO units Time: noon PM Snack: none CHO units Time: [ ] Dinner: 2-3 CHO units Time: 6-7 HS Snack: none CHO units Time: [ ] ETOH: none DINING OUT FREQUENCY: 4-5x/wk EXERCISE: will start a walking program at work with a pedometer with goal of 10,000 steps/day, owns a Wii fit, plans to start using it soon EDUCATION PROVIDED: General Nutrition Guidelines Carbohydrate Counting Fat Modification Labeling Hypoglycemia COMMENTS: Martine is here to review nutrition/carb counting today. SHe was dx with her type 1 diabetes at 22 year of age. 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 She visited with Colleen FERRIS today who changed her insulin regimen to Lantus and Novolog. SHe previously had been taking NPH and Regular insulin twice/day. She states she desires better bg control and is looking forward to having more flexibility with her eating. She states she has been purposely avoiding/limiting carbs to help control her bg on her old insulin regimen. Reviewed general healthy eating, carb counting and low bg rx. Provided Martine with food records to fill out x 3 days and fax for team review, asked many good questions. IMPRESSION: Martine verbalized carb counting basics correctly and was able to state correct doses of Novolog for meals and snacks based on 1 unit/15 grams carb in addition to her correction factor to beused at meals only. Verbalized low bg rx correctly. Her current diet is too low in carbs and her diet lacks adequate fiber, calcium and is moderately high in saturated fat due to this. She appeared very willing to increase her carbohydrate intake to improve her diet quality. She needs a comprehensive diabetes update and is willing to f/u with myself and Zenia MICHAEL. She will fill out 3 days of food records and fax for team review. PATIENT GOALS/PLANS: 1. General Nutrition, low sat/trans fat 2. CArb counting review, new reference book provided 3. low bg rx 4. food records x 3 days, fax for team review 5. f/u 1 month with RNANNA MARIEE and myself. Allergies Penicillins. Signature Electronically Signed By: JACKELINE GUILLAUME RD,CDE; 03/01/2009 2:[address] JUDGE. documented in this encounter Plan of Treatment Not on filedocumented as of this encounter Visit Diagnoses Not on filedocumented in this encounter
--- OUTSIDE RECORDS SUMMARY | 2022-10-21 18:40 | XMS_ITS | Encounter Summary ---
:1965 Author Organization [facility] Address [address] [place] [address] Care Team Providers Name Role Phone Elsewhere, Pcp Primary Care Provider Unavailable Reason for Visit Reason Comments Lab Monitoring 05/27/22 Encounter Details Date Type Department Care Team Description 06/26/2022 Clinical Division of Rayna Guerrero Lab Monitori Communication Rheumatology in L, CHARGE LOADER, C.N.P. (05/27/22) [place], [place] [address] [facility] [address] [place] [address] [phone] Social History Tobacco Use Types Packs/Day Years [...] or relatives? How often do you attend islam or Never 2021 restoration services? 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 - 07/02/2022 8:45 AM CDT ASSESSMENT Rheumatology monitoring labs completed at an external lab on 05/27/22 were reviewed per Rheumatology division parameters. All [...] Comme nts CBC WITH DIFFERENTIAL, B Routine 05/27/2022 Res ults for this procedure are i n the results section. ASPARTATE AMINOTRANSFERASE Routine 05/27/2022 R esults for this (AST), S/P procedure are i n the results section. CREATININE WITH EGFR, S/P Routine 05/27/2022 Re sults for this procedure are i n the results section. documented in this encounter Results AST (Aspartate Aminotransferase) (05/27/2022) P athologist Signature EXT AST 28 12 - 35 [facility] Specimen (Source) Anatomical Location Collection Method / Collectio n Time Received Time / Laterality Volume Blood (Blood, Venous) Rayna L Yolanda CHARGE LOADER, C.N.P. LAB BLOOD ADD-ON Performing Organization Address City/State/ZIP Code Phon e Number [facility] [address] [place] [address] Creatinine with Estimated GFR (05/27/2022) P athologist Signature EXT Creatinine 0.5 0.5 - 1.5 [place] mg/dL [facility] Specimen (Source) Anatomical Location Collection Method / Collectio n Time Received Time / Laterality Volume Blood (Blood, Venous) José Miguel Weber APRN.N.P. LAB BLOOD ADD-ON Performing Organization Address City/[facility]/ZIP Code Phon e Number [facility] [address] [place] [address] (ABNORMAL) CBC with Differential, Blood (05/27/2022) Patholo gist Method Time Signature EXT Platelet 208 140 - 440 [place] Count [facility] EXT Neutrophils 2.5 1.7 - 7 [facility] EXT Hemoglobin 13.2 12 - 16 [facility] EXT White Blood 3.6 (A) 4.5 - 11.0 [place] Cell (WBC) Count [facility] Specimen (Source) Anatomical Location Collection Method / Collectio n Time Received Time / Laterality Volume Blood (Blood, Venous) Rayna Guerrero APRN, C.N.P. LAB BLOOD ADD-ON Performing Organization Address City/State/ZIP Code Phon e Number [facility] [address] [place] [address] documented in this encounter Visit Diagnoses Not on filedocumented in this encounter Care Teams Arcade Game Technician Relationship Specialty Start Date End Date Elsewhere, Pcp PCP - General Family Medicine 07/17/21 documented as of this encounter
--- OUTSIDE RECORDS SUMMARY | 2022-10-21 18:40 | XMS_ITS | Encounter Summary ---
:1965 Author Organization [facility] Address [address] [place] [address] Care Team Providers Name Role Phone Elsewhere, Pcp Primary Care Provider Unavailable Encounter Details Date Type Department Care Team Description 07/17/2021 Immunization Department of [facility] Farrah Pradhan M.D. Medicine, [facility], [address] [facility] in [place], [place] [address] [address] [place] [address] [facility] [phone] Social History Tobacco Use Types Packs/Day Years [...] or relatives? How often do you attend anabaptist or Never 2021 bahai services? Do you belong to any clubs or No 01/17/2022 organizations such as anabaptist groups, unions, fraternal or athletic groups, or [...] place to sleep or slept in a nursing home (including now)? Education Answer Date Recorded What is the highest level of school Bachelor's degree (e.g., BA, AB, 05/02/2019 you have completed or the highest BS) degree you have received? 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
--- OUTSIDE RECORDS SUMMARY | 2022-10-21 18:40 | XMS_ITS | Encounter Summary ---
:1965 Author Organization [facility] Address [address] [place] [address] Care Team Providers Name Role Phone Elsewhere, Pcp Primary Care Provider Unavailable Encounter Details Date Type Department Care Team Description 08/05/2022 Hospital Encounter Department of Rayna Guerrero Rheumatoid Laboratory Medicine L, PHARMACIST AIDE, C.N .P. (HCC) and Pathology, [address] [place] [address] in [place] [phone] [place] [phone] [place] [address] (Work) [place], [place] [phone] (Fax) [phone] Social History Tobacco Use Types Packs/Day Years [...] do you attend yazdanism or Never 2021 hoahaoism services? Do you belong to any clubs [...] minutes do you engage in exercise at is 30 min 01/17/2022 level? 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 Unit tablet COMFORT EZ PEN NEEDLES USE FOUR TIMES A DAY 0 05/2019 31 gauge x 3/16 needle Dexcom G6 Sensor device DIRECTED 0 01/01/2022 [id number] Dexcom G6 Transmitter DIRECTED 0 01/02/2022 device [id number] estradioL (ESTRACE) 0.1 INSERT 1/2 GRAM 0 022 mg/g (0.01%) vaginal VAGINALLY NIGHTLY FOR cream 2 WEEKS THEN 2 TIMES PER WEEK folic acid 1 mg TAKE 2 TABLETS (2MG 180 tablet 3 10/31/2021 tabletIndications: TOTAL) BY MOUTH DAILY. Arthritis Rheumatoid (HCC), High Risk Medication insulin aspart U-100 Inject under the skin 0 05/2017 (NovoLOG FlexPen) 100 as needed. as needed unit/mL (3 mL) injection with meals LACTOBACILLUS as needed. Floragen 3 0 ACIDOPHILUS (PROBIOTIC Probiotic ORAL) occasionally magnesium 100 mg tablet 0 11/23/2017 tablet methotrexate, PF, 25 Inject 0.5 mL (12.5 mg 10 mL 1 mg/mL PF total) under the skin injectionIndications: once a week. Arthritis Rheumatoid (HCC) OneTouch Verio test 4 (four) times a day. 0 07/23 strips strips for testing UltiCare 0.3 mL 31 gauge 100 Injection daily. 0 0 01/31/2021 x 04/07 syringe vit c-ascorbate 0 11/23/2016 Ca-ascorb sod 500 mg/15 mL liquid documented as of this encounter Plan of Treatment Not on filedocumented as of this encounter Procedures Procedure Name Priority Date/Time Associated Comments Diagnosis SEDIMENTATION RATE, B Routine 08/05/2022 12:46 Arthritis Re sults for this PM CDT Rheumatoid (HCC) procedure a re in the results section. CBC WITH DIFFERENTIAL, B Routine 08/05/2022 12:46 Arthritis Results for this PM CDT Rheumatoid (HCC) procedure a re in the results section. C-REACTIVE PROTEIN Routine 08/05/2022 12:45 Arthritis Resul ts for this (CRP), S/P PM CDT Rheumatoid (HCC) procedure a re in the results section. ASPARTATE Routine 08/05/2022 12:45 Arthritis Results for this AMINOTRANSFERASE (AST), PM CDT Rheumatoid (HCC) procedure are in S/P the results section. CREATININE WITH EGFR, Routine 08/05/2022 12:45 Arthritis Re sults for this S/P PM CDT Rheumatoid (HCC) procedure a re in the results section. documented in this encounter Results CBC with Differential, Blood [...] PM CDT PM CDT Rayna Guerrero APRN, C.N.P. LAB BLOOD ADD-ON Performing Organization Address City/State/[facility] Code Phon e Number [facility] - [address] [place] [address] [facility] [address] Sedimentation Rate (08/05/2022 12:46 PM CDT) Analysis Performed At Patho logist Time Signature Sedimentation 8 2 - 22 08/05/2022 DTL Rate, B mm/h 2:10 PM CDT Specimen Anatomical Collection Method Collection Time Receive d Time (Source) Location / / Volume Laterality Blood (Blood, 08/05/2022 12:46 08/05/2022 1:14 Venous) PM CDT PM CDT Rayna Guerrero APRN, C.N.P. LAB BLOOD ADD-ON Performing Organization Address City/State/[facility] Code Phon e Number [facility] - [address] [place] [address] [address] [facility] [place] [phone] [facility] [address] AST (Aspartate Aminotransferase) (08/05/2022 12:45 PM CDT) [facility] Time Signature Aspartate 25 8 - 43 08/05/2022 DTL Aminotransferase U/L 1:51 PM CDT (AST), S Specimen Anatomical Collection Method Collection Time Receive d Time (Source) Location / / Volume Laterality Blood (Blood, 08/05/2022 12:45 08/05/2022 1:31 Venous) PM CDT PM CDT Rayna Guerrero APRN, C.N.P. LAB BLOOD ADD-ON Performing Organization Address City/[facility] Phon e Number [facility] - [address] [place], [place] [phone] [place] [address] First [facility] Creatinine with Estimated GFR (08/05/2022 12:45 PM [...] 08/05/2022 1:31 Venous) PM CDT PM CDT Rayna Guerrero APRN, C.N.P. LAB BLOOD ADD-ON Performing Organization Address City/State/ZIP Code Phon e Number [facility] - [address] [place], [place] [address] [facility] [place] [address] [facility] [address] CRP (C-Reactive Protein) (08/05/2022 12:45 PM CDT) P athologist Signature C-Reactive <3.0 <=8.0 mg/L 08/05/2022 DTL Protein (CRP), 1:51 PM CDT S Specimen Anatomical Collection Method Collection Time Receive d Time (Source) Location / / Volume Laterality Blood (Blood, 08/05/2022 12:45 08/05/2022 1:31 Venous) PM CDT PM CDT Yaa Weber APRNNLiaPLia LAB BLOOD ADD-ON Performing Organization Address City/State/[facility] Phon e Number [facility] - [address] [place], [place] [address] [facility] [place] [address] [facility] [address] documented in this encounter Visit Diagnoses Diagnosis Arthritis Rheumatoid (HCC) documented in this encounter Care Teams Furs Salesperson Relationship Specialty Start Date End Date Elsewhere, Pcp PCP - General Family Medicine 07/17/21 documented as of this encounter
--- OUTSIDE RECORDS SUMMARY | 2022-10-21 18:40 | XMS_ITS | Encounter Summary ---
:1965 Author Organization [facility] Address [address] [place] [address] Care Team Providers Name Role Phone Unavailable Primary Care Provider Unavailable Encounter Details Date Type Department Care Team Description 03/13/2009 Office Visit-[facility] Diabetes Education Zenia Reyes [address] [facility] [address] [place] [address] [place], [place] [phone] (Wo rk) [address] [phone] Social History Tobacco Use Types Packs/Day Years Used Date Smoking Tobacco: Never Assessed Sex Assigned at Date Recorded Not on file documented as of this encounter Progress Notes Zenia Reyes - 03/13/2009 3:30 PM CDT Mold Operator: EricMarile Status: Final Encounter: 13 Mar 2009 Type: DiabetesEdu Nurse Note Visit Information [facility] Time Spent: 1 hour(s) Others attending Visit: None Individual Education Patient is having pain? No Smoker? No Blood Glucose Value(s): 14 day average is 186 mg/dl, with a SD of 60. Her 30 day average is 193 mg/dl, with a SD of 58. FBS is often in target range, and BS is fairly stable over night. Blood sugars around lunch and dinnertime are generally high. Her 2 hour pp numbers are equal to or higher than her pre-meal numbers, even when she adds correction. Diabetes Medication: Lantus insulin, 14 units at HS daily (reduced from 16 units on 03/08) Novolog insulin, 1/15 gm. carb. Correction Novolog, 1/50 mg/dl, starting at 150 mg/dl. She takes 14 units of Lantus and an average of 10 units Novolog per day. . Diabetes Nurse Note EDUCATION PROVIDED: Basic Nutrition/ Carb Counting: Verbalizes understanding Comments Taught 1 unit per 10 gm. carb, which is easier to add than 1 1/2 unit increments per 15 gm. carb. Medication/Insulin adjustment: Verbalizes understanding Demonstrates Skill Correctly Handouts Given Comments Tried teaching her the Novolog Flexpen, but her hands were too stiff to operate the pen. Shedid much better with the Humalog kwik pen, so she was taught Humalog instead of Novolog. Reviewed insulin action, timing, storage, measurement and injection technique, and sharps disposal. Taught proper use of short needles. Suggested she now use her abdomen for injections, and reviewed site rotation on abdomen. Began teaching the principles of how to identify when Lantus and Humalog insulin doses are set correctly. Monitoring: Verbalizes understanding Comments Reviewed her data together. . Comments: Martine is a 43-year-old woman who has had type I diabetes since age 22. 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 Her A1C is 8.7%. Up until very recently shewas taking old-fashioned NPH and Regular insulin BID. In addition to diabetes, Martine has rheumatoidarthritis. Her hands are very stiff, making it impossible for her to make a fist or grasp small things. She refuses to take standard medications for this condition, and says that the herbal medicines she takes are helping her hands improve. She is using insulin bottles and syringes, and would like to try insulin pens. Of note, she was not aware that vials of insulin must be discarded after 28 days ofuse, and she uses her thighs for injections. . Impression and Plan Impression: Martine was alert, attentive, and asked many appropriate questions. She had many knowledge deficits regarding modern diabetes self-management, but appears interested in updating her knowledge in order to stabilize and better control her blood sugars. Rheumatoid arthritis is causing her hands to be very stiff, and she was unable to use a Novolog insulin Flexpen, however she was able to use a Humalog insulin pen. Plan: Martine will continue to use bottles and syringes for her Lantus insulin, as they are easy for her to use with her stiff, arthritic hands. She will switch from Novolog insulin with syringes, to Humalog Kwik pens (which were easier for her to use than Novolog Flexpens). Encouraged to use her abdomen for her Humalog injections. Per Colleen FERRIS, she will change her I/C ratio to 1 unit per 10 gm. carb. She plans to report blood sugars to Colleen Randhawa in Endocrine clinic. Next appointment: RN and RD, 1 month. Signature Electronically Signed By: DANILO Larson R.N.; 03/19/2009 6:59 PM CLOSET ORGANIZER. documented in this encounter Plan of Treatment Not on filedocumented as of this encounter Visit Diagnoses Not on filedocumented in this encounter
--- OUTSIDE RECORDS SUMMARY | 2022-10-21 18:40 | XMS_ITS | Encounter Summary ---
:1965 Author Organization [facility] Address [address] [place] [address] Care Team Providers Name Role Phone Elsewhere, Pcp Primary Care Provider Unavailable Reason for Visit Reason Comments Med Refill Encounter Details Date Type Department Care Team Description 03/25/2022 Refill Division of Rheumatology in Karen Guerrero sa, APRN, Med Refill [place], [place] C.N.P. [address] [facility] [address] [place] [address] [place] [address] [phone] (Wo rk) Social History Tobacco Use Types [...] or relatives? How often do you attend hindu or Never 2021 mu-ism services? 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 - 03/28/2022 12:38 PM CDT Prescription renewal request for methotrexate PF received from pharmacy. HISTORY OF PRESENT ILLNESS Last Rheum visit: 01/21/2022 with Rayna Guerrero APRN, [facility] Future office visit: ordered, not yet scheduled Last monitoring labs/eye exam: 01/21/2022: within protocol parameters. Prescription request matches current plan of care. Prescription request matches a current prescription in the Medication List. Exclusion criteria: None ASSESSMENT/PLAN Prescription request renewed per nursing protocol. documented in this encounter Plan of Treatment Not on filedocumented as of this encounter Visit Diagnoses Diagnosis Arthritis Rheumatoid (HCC) documented in this encounter Care Teams Tariff Compiling Clerk Relationship Specialty Start Date End Date Elsewhere, Pcp PCP - General Family Medicine 07/17/21 documented as of this encounter
--- OUTSIDE RECORDS SUMMARY | 2022-10-21 18:40 | XMS_ITS | Encounter Summary ---
:1965 Author Organization [facility] Address [address] [place] [address] Care Team Providers Name Role Phone Unavailable Primary Care Provider Unavailable Encounter Details Date Type Department Care Team Description 03/01/2009 Historic Results INTERFACED REPORT Colleen Randhawa PA-C [address] [facility] [address] [place] [address] (Wo rk) Social History Tobacco Use Types Packs/Day Years Used Date Smoking Tobacco: Never Assessed Sex Assigned at Date Recorded Not on file documented as of this encounter Plan of Treatment Not on filedocumented as of this encounter Procedures Procedure Name Priority Date/Time Associated Comments Diagnosis ELECTROLYTE PANEL Routine 03/01/2009 2:05 PM Resu lts for this CDT procedure are i n the results section. UREA NITROGEN (BUN) Routine 03/01/2009 2:05 PM Re sults for this CDT procedure are i n the results section. TSH Routine 03/01/2009 2:05 PM Results f or this CDT procedure are i n the results section. T4 FREE Routine 03/01/2009 2:05 PM Results f or this CDT procedure are i n the results section. CREATININE Routine 03/01/2009 2:05 PM Results f or this CDT procedure are i n the results section. C-PEPTIDE Routine 03/01/2009 2:05 PM Results f or this CDT procedure are i n the results section. AST Routine 03/01/2009 2:05 PM Results f or this CDT procedure are i n the results section. ALT Routine 03/01/2009 2:05 PM Results f or this CDT procedure are i n the results section. GLUCOSE Routine 03/01/2009 2:05 PM Results f or this CDT procedure are i n the results section. MICROALBUMIN RANDOM Routine 03/01/2009 1:55 PM Re sults for this URINE CDT procedure are i n the results section. CREATININE URINE Routine 03/01/2009 1:55 PM Resul ts for this CALCULATION ONLY (LAB CDT proced ure are in ONLY) the results section. documented in this encounter Results ALT (03/01/2009 2:05 PM CDT) athologist Signature ALT 29 0 - 50 U/L MISYS Specimen Anatomical Collection Method Collection Time Receive d Time (Source) Location / / Volume Laterality 03/01/2009 2:05 PM 9 1:57 CDT PM CDT Colleen Randhawa PA-C LAB - BLOOD ORDERABLES Performing Organization Address [facility] Phon e Number MISYS AST (03/01/2009 2:05 PM CDT) athologist Signature AST 35 0 - 45 U/L MISYS Specimen Anatomical Collection Method Collection Time Receive d Time (Source) Location / / Volume Laterality 03/01/2009 2:05 PM 9 1:57 CDT PM CDT Colleen Randhawa PA-C LAB - BLOOD ORDERABLES Performing Organization Address [facility] Code Phon e Number MISYS Electrolyte panel (03/01/2009 2:05 PM CDT) athologist Signature Sodium 138 133 - 144 MISYS mmol/L Potassium 4.2 3.4 - 5.3 MISYS mmol/L Chloride 99 94 - 109 MISYS mmol/L Carbon Dioxide 28 20 - 32 MISYS mmol/L Anion Gap 10 6 - 17 MISYS mmol/L Specimen Anatomical Collection Method Collection Time Receive d Time (Source) Location / / Volume Laterality 03/01/2009 2:05 PM 9 1:57 CDT PM CDT Colleen Randhawa PA-C LAB - BLOOD ORDERABLES Performing Organization Address [facility] Phon e Number MISYS Urea nitrogen (03/01/2009 2:05 PM CDT) athologist Signature Urea Nitrogen 18 5 - 24 MISYS mg/dL Specimen Anatomical Collection Method Collection Time Receive d Time (Source) Location / / Volume Laterality 03/01/2009 2:05 PM 9 1:57 CDT PM CDT Colleen FERRIS-C LAB - BLOOD ORDERABLES Performing Organization Address City/[facility]/ZIP Code Phon e Number MISYS (ABNORMAL) C-peptide (03/01/2009 2:05 PM CDT) athologist Signature C Peptide 0.3 (L) 0.9 - 6.9 MISYS ng/mL Specimen Anatomical Collection Method Collection Time Receive d Time (Source) Location / / Volume Laterality 03/01/2009 2:05 PM 9 1:57 CDT PM CDT Colleen FERRIS-C LAB - BLOOD ORDERABLES Performing Organization Address [facility] Code Phon e Number M[facility] Creatinine (03/01/2009 2:05 PM CDT) athologist Signature Creatinine 0.76 0.52 - 1.04 MISYS mg/dL Comment: New IDMS-traceable calibration beginning 03/23/08 GFR Estimate 83 >60 mL/min/1.7m2 MISYS GFR Estimate If Black >90 >60 mL/min/1.7m2 M ISYS Specimen Anatomical Collection Method Collection Time Receive d Time (Source) Location / / Volume Laterality 03/01/2009 2:05 PM 9 1:57 CDT PM CDT Colleen FERRIS-C LAB - BLOOD ORDERABLES Performing Organization Address City/[facility]/ZIP Code Phon e Number M[facility] T4 free (03/01/2009 2:05 PM CDT) athologist Signature T4 Free 1.14 0.70 - 1.85 MISYS ng/dL Specimen Anatomical Collection Method Collection Time Receive d Time (Source) Location / / Volume Laterality 03/01/2009 2:05 PM 9 1:57 CDT PM CDT Colleen FERRIS-C LAB - BLOOD ORDERABLES Performing Organization Address City/[facility]/ZIP Code Phon e Number MISYS (ABNORMAL) Glucose (03/01/2009 2:05 PM CDT) P athologist Signature Glucose 251 (H) 60 - 99 MISYS mg/dL Comment: Non Fasting Specimen Anatomical Collection Method Collection Time Receive d Time (Source) Location / / Volume Laterality 03/01/2009 2:05 PM 9 1:57 CDT PM CDT Colleen Randhawa PA-C LAB - BLOOD ORDERABLES Performing Organization Address City/[facility] Code Phon e Number MIS[facility] TSH (03/01/2009 2:05 PM CDT) P athologist Signature TSH 1.86 0.4 - 5.0 MISYS mU/L Specimen Anatomical Collection Method Collection Time Receive d Time (Source) Location / / Volume Laterality 03/01/2009 2:05 PM 9 1:57 CDT PM CDT Colleen Randhawa PA-C LAB - BLOOD ORDERABLES Performing Organization Address [facility] Code Phon e Number [facility] Creatinine urine calculation only (03/01/2009 1:55 PM CDT) P athologist Signature Creatinine Urine 100 mg/dL MISYS Specimen Anatomical Collection Method Collection Time Receive d Time (Source) Location / / Volume Laterality 03/01/2009 1:55 PM 9 1:57 CDT PM CDT Colleen Randhawa PA-C LAB - URINE ORDERABLES Performing Organization Address [facility] Phon e Number M[facility] Microalbumin random urine (03/01/2009 1:55 PM CDT) P athologist Signature Albumin Urine 7 mg/L MISYS mg/L Albumin Urine 7.00 0 - 20 mg/g MISYS mg/g Cr Cr Specimen Anatomical Collection Method Collection Time Receive d Time (Source) Location / / Volume Laterality 03/01/2009 1:55 PM 9 1:57 CDT PM CDT Colleen Randhawa PA-C LAB - URINE ORDERABLES Performing Organization Address [facility] Phon e Number MISYS documented in this encounter Visit Diagnoses Not on filedocumented in this encounter
--- OUTSIDE RECORDS SUMMARY | 2022-10-21 18:40 | XMS_ITS | Encounter Summary ---
:1965 Author Organization [facility] Address [address] [place] [address] Care Team Providers Name Role Phone Unavailable Primary Care Provider Unavailable Encounter Details Date Type Department Care Team Description 03/08/2009 Office Visit-[facility] INTERFACE [facility] DEPT Provider, [facility] Nurs e Social History Tobacco Use Types Packs/Day Years Used Date Smoking Tobacco: Never Assessed Sex Assigned at Date Recorded Not on file documented as of this encounter Progress Notes Provider, [facility] Nurse - 03/08/2009 2:52 PM CDT Desk Lieutenant: Delmi Bazzi Status: Final - Signature Encounter: 08 Mar 2009 Type: Nurse Note Recorded as Task Date: 03/08/2009 10:56 AM, Created By: Delmi Bazzi Task Name: Call Patient Assigned To: Delmi Bazzi Regarding Patient: MARTINE DE OLIVEIRA, Status: Active Comment: Delmi Bazzi - 08 Mar 2009 10:56 AM TASK CREATED Caller: Self; Patient Update; ; pt asking to talk to you re: Lantus. She spoke to compressor station engineer over the weekend re: lows and decreased Lantus to 16 units but she is still having am lows below 70 Colleen Randhawa - 08 Mar 2009 2:50 PM TASK REPLIED TO: Previously Assigned To Colleen Randhawa: I spoke with pt via the phone today 03/08/09 and documented our conversation and new insulin doses inher chart. I will be seeing her in f/u on 03/13/09. Colleen Randhawa 03/08/09 Electronically signed by:Delmi Bzazi RN Mar 08 2009 2:51PM PULP GRINDER FEEDER documented in this encounter Plan of Treatment Not on filedocumented as of this encounter Visit Diagnoses Not on filedocumented in this encounter
--- OUTSIDE RECORDS SUMMARY | 2022-10-21 18:40 | XMS_ITS | Encounter Summary ---
:1965 Author Organization [facility] Address [address] [place] [address] Care Team Providers Name Role Phone Elsewhere, Pcp Primary Care Provider Unavailable Reason for Visit Reason Comments Med Refill methotrexate Encounter Details Date Type Department Care Team Description 10/31/2021 Clinical Division of Rayna Guerrero Med Refill Communication Rheumatology in [place], PERSONAL INVESTMENT ADVISER, C.N.P. (methotrexate) [place], [place] [address] [facility] [address] [place] [address] [phone] Social History Tobacco Use Types Packs/Day Years [...] or relatives? How often do you attend restoration or Never 2021 mosque services? Do you belong to any clubs or No 01/17/2022 organizations such as restoration groups, unions, fraternal or athletic groups, or [...] place to sleep or slept in a fci (including now)? Education Answer Date Recorded What is the highest level of school Bachelor's degree (e.g., BA, AB, 05/02/2019 you have completed or the highest BS) degree you have received? 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 She got 3 doses. 1 refill. 6 ML. Patient is out of MTX. Pharmacy requesting this TONG. Follow-up requested: Yes Patient portal Y/N/Offered Information: Yes Preferred response (portal/phone): Phone TER OPERATOR Telephone Encounter - Sanjana Singletary R.N. - 10/31/2021 2:39 PM CST 6 month supply was just prescribed on 09/05/21 to requesting pharmacy. TER OPERATOR Telephone Encounter - Whitley Padilla - 10/31/2021 2:12 PM CST Caller/authorization: [facility] Provider/nurse: Rayna Guerrero Reason for call: why was Methotrexate denied Follow-up requested: yes Patient portal Y/N/Offered Information: Preferred response (portal/phone): call [phone] TER OPERATOR documented in this encounter Plan of Treatment Not on filedocumented as of this encounter Visit Diagnoses Diagnosis Arthritis Rheumatoid (HCC) documented in this encounter Care Teams Working Second Hand Relationship Specialty Start Date End Date Elsewhere, Pcp PCP - General Family Medicine 07/17/21 documented as of this encounter
--- OUTSIDE RECORDS SUMMARY | 2022-10-21 18:40 | XMS_ITS | Encounter Summary ---
:1965 Author Organization [facility] Address [address] [place] [id number] Care Team Providers Name Role Phone Unavailable Primary Care Provider Unavailable Encounter Details Date Type Department Care Team Description 03/01/2009 Office Visit-P Diabetes and Endocri ne Colleen Randhawa 6th Floor, Clinic [address] [place] [id number] [facility] [place] [address] Social History Tobacco Use Types Packs/Day Years Used Date Smoking Tobacco: Never Assessed Sex Assigned at Date Recorded Not on file documented as of this encounter Progress Notes Colleen Randhawa - 03/01/2009 11:30 AM CDT Glove Sewer: Colleen Randhawa Status: Final - Signature Encounter: 01 Mar 2009 Type: Endocrine Chart Note 03/08/09 Martine called this am to reports she is still having blood sugar values < 70 in the am. I asked her to reduce her Lantus from 16 units SQ at hs to 14 units SQ at hs. She is to continue Novolog 1 unit / 15 gms CHO with meals. Pt will be seeing me in follow up on 03/13/09 and will also be seeing our CDE on 03/13/09. Colleen Randhawa PA-C 03/08/09 Electronically signed by:Colleen FERRIS Mar 08 2009 2:49PM MANAGER EMERGENCY DEPARTMENT Colleen Randhawawilton - 03/01/2009 11:30 AM CDT Glove Sewer: Colleen Randhawa Status: Final Encounter: 01 Mar 2009 Type: Endocrine Visit Reason For Visit MARTINE DE OLIVEIRA is 43 year old female seen in consultation at the request of Dr. Miller for Diabetes Last Hgb A1 C 02/22/09 8.7 %. Do you have any other appointments, tests or procedures within the [facility] system for this same day? No. Chronic Disease Mgmt Visit for: dental exam was 07/24/2008 and screening for eye disorders was 01/21/2009. Not taking aspirin. Allergies Penicillins. Current Meds Humulin R 100 UNIT/ML Solution;INJECT PER SLIDING SCALE 2-5 UNITS PER MEAL; RPT Humulin N 100 UNIT/ML Suspension;INJECT SUB QUE 17.5 UNITS AM AND 5 UNITS WITH EVENING MEAL; RPT Multi-Vitamin/Minerals TABS;TAKE 1 TABLET TWICE DAILY; RPT AAA-MED RECONCILE;per patient; RPT. Pain Eval Current history of pain associated with this visit is denied. Vital Signs Recorded by Shalonda Barrios on 01 Mar 2009 11:27 AM BP:106/62, RUE, HR: 77 b/min, R Radial, Weight: 152.1 lb, Pain Scale: 0. HPI Martine De Oliveira is a 43 year old thin female with Type I Diabetes Mellitus here today as a new patient for diabetes evaluation and management. I have nine pages of labs and medical notes from her outside clinic ( [facility] [place] ) which I reviewed today. Pt gives a hx of Type I Diabetes Mellitus dx at age 22. She has been on insulin since the time of diagnosis. She denies any known hx of retinopathy and last saw her Oph in January 2009 and her exam was good per pt. She denies any known hx of nephropathy or sx of peripheral neuropathy. She also denies hx of HTN, hyperlipidemia or known cardiac disease. Pt's most recent A1C was high at 8.7 % on 02/22/09. She is currently taking NPH 17 1/2 units at breakfast and 5 units with dinner. She is also taking Regular insulin 2-4 units with breakfast and 2-5 units with dinner. She takes no insulin with lunch. I have no glucose meter download today. Martine has a nice record of her blood sugar readings. Her blood sugar readings are erratic. Her FBS for the past week range from 94-266; noon bs are usually high 100-low 200 range and her predinner bs readings are in the mid 100 range. She has been limiting her diet and reducing her carb intake to help keep her blood sugars under better control. I will have her meet with our dietitian today to go over carb counting ( I/C ratio ) and evaluate her diet. On ROS today, only reports joint inflammation which she relates to her arthritis. Denies frequent headaches, recent change in vision, n/v, SOB or chronic cough. Denies any chest pain/pressure or abd pain. No diarrhea, dysuria or hematuria. Denies any foot ulcers. . Family Hx Mother: alive at age 68 with hx of TTP and HTN. Father: alive at age 68 in good health. One sister alive and well. One brother alive and well. . Personal Hx Behavioral history: No tobacco use. Smoke: none. ETOH: none. Marital Status: . No children. 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 Exercise: walks. PMH 1. Type I Diabetes Mellitus dx at age 22. 2. Rheumatoid arthritis - dx in 1995. 3. S/P hysteroscopy and D& C for DUB- fibroids in 2006. . Physical Exam General appearance: ?? Normal ; BP 106/62. Wt 152 lbs.Pt in no distress. Head: ?? Normal. Eyes: General/bilateral: ?? Eyes: normal ;PERRLA; fundi not examined. Ears, Nose, Throat: ?? ENT: normal. Lungs: ?? Normal. Cardiovascular system: ?? Normal. Abdomen: ?? Normal. Musculoskeletal system: General/bilateral: ?? Musculoskeletal system: normal. Foot: General/bilateral: ?? Feet showed no abnormalities. Skin: ?? Normal. Results ALT 01 Mar 2009 02:05 PM - ALT: 29 u/l AST 01 Mar 2009 02:05 PM - AST: 35 u/l Electrolyte Battery 01 Mar 2009 02:05 PM - Sodium: 138 mmol/L - Potassium: 4.2 mmol/L - Chloride: 99 mmol/L - CO2: 28 mmol/L - Anion Gap: 10 mmol/L Urea Nitrogen 01 Mar 2009 02:05 PM - Urea Nitrogen: 18 mg/dL Creatinine 01 Mar 2009 02:05 PM - Creatinine: 0.76 mg/dL - GFR, Estimated: 83 mL/min/1.7 - GFR, Est. if Black: >90 Glucose 01 Mar 2009 02:05 PM - Glucose: 251 mg/dL Thyroxine Free 01 Mar 2009 02:05 PM - Thyroxine Free: 1.14 ng/dl TSH 01 Mar 2009 02:05 PM - TSH: 1.86 mU/L C Peptide 01 Mar 2009 02:05 PM - C Peptide: 0.3 ng/mL Microalbumin, R Ur 01 Mar 2009 01:55 PM - Microalbumin mg/L: 7 mg/L - Microalbumin mg/gCr: 7.00 mg/gCr. A1C 8.7 % on 02/22/09. . Assessment ASSESSMENT/PLAN: 1. TYPE I DIABETES MELLITUS: Poor glycemic control with recent A1C of 8.7 % on 02/22/09. I spent 60 minutes with patient today reviewing Type I DM, treatment options and discussed switchingto Lantus and Novolog insulin with patient. She is agreeable to using Lantus once a day and Novolog premeals and learning carb counting. I also reviewed the ADA recommendations with patient today. I have Martine meeting with our dietitian after her appt with me today to learn how to carb count. I plan to start her on Lantus 20 units SQ each hs and Novolog 1 unit / 15 gms CHO with meals and usea correction of 1 unit / 50 / starting at glucose of 150. She will discontinue her NPH and Regular insulin. I ordered the vials of Lantus and Novolog which she will use for now. Our CDE will see her on 03/13/09 and show her how to use the Lantus Solostar pen and the Novolog flexpen. I will also see her on 03/13/09 and make additional insulin adjustments if needed. Pt was seen by her Oph in January 2009. Her urine microalbuminuria done today was negative. Her creat is 0.76 with GFR 83 mL/min. I will discuss use of daily baby ASA with pt on 03/13/09. She remains normotensive. I plan to check a fasting lipid panel once her glycemic control is improved. I will also need to check with her next visit to see if she has had a Pneumovax. 2. RHEUMATOID ARTHRITIS: Stable and managed by her PCP. 3. Return to Endocrine Clinic to see me and our CDE on 03/13/09. I gave pt my contact number to call if she has any questions or concerns about her diabetes care. . Signature Electronically Signed By: Colleen FERRIS; 03/02/2009 12:42 PM MANAGER EMERGENCY DEPARTMENT. documented in this encounter Plan of Treatment Not on filedocumented as of this encounter Visit Diagnoses Not on filedocumented in this encounter
--- OUTSIDE RECORDS SUMMARY | 2022-10-21 18:40 | XMS_ITS | Encounter Summary ---
:1965 Author Organization [facility] Address [address] [place] [address] Care Team Providers Name Role Phone Elsewhere, Pcp Primary Care Provider Unavailable Reason for Visit Reason Comments Med Refill Encounter Details Date Type Department Care Team Description 02/03/2022 Refill Division of Rheumatology in Karen Guerrero sa, APRN, Med Refill [place], [place] C.N.P. [address] [facility] [address] [place] [address] [place] [address] [phone] (Wo rk) Social History Tobacco Use Types [...] or relatives? How often do you attend hinduism or Never 2021 worship services? Do you belong to any clubs or No 01/17/2022 organizations such as hinduism groups, unions, fraternal or athletic groups, or [...] place to sleep or slept in a snf (including now)? Education Answer Date Recorded What is the highest level of school Bachelor's degree (e.g., BA, AB, 05/02/2019 you have completed or the highest BS) degree you have received? 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 - 02/07/2022 3:02 PM CDT Prescription renewal request for methotrexate received from pharmacy. HISTORY OF PRESENT ILLNESS Last Rheum visit: 01/21/22 with Rayna Geurrero APRN, [facility] Future office visit: ordered, not yet scheduled Last monitoring labs/eye exam: 01/21/22: within protocol parameters. Prescription request matches current plan of care. Prescription request matches a current prescription in the Medication List. Exclusion criteria: Contraindication, severe medication alert, or allergy conflict noted. ASSESSMENT/PLAN Prescription request pended for provider review due to noted contraindication, severe medication alert or allergy conflict. documented in this encounter Plan of Treatment Not on filedocumented as of this encounter Visit Diagnoses Diagnosis Arthritis Rheumatoid (HCC) documented in this encounter Care Teams Credit Verification Clerk Relationship Specialty Start Date End Date Elsewhere, Pcp PCP - General Family Medicine 07/17/21 documented as of this encounter
--- OUTSIDE RECORDS SUMMARY | 2022-10-21 18:40 | XMS_ITS | Encounter Summary ---
:1965 Author Organization [facility] Address [address] [place] [address] Care Team Providers Name Role Phone Unavailable Primary Care Provider Unavailable Encounter Details Date Type Department Care Team Description 03/13/2009 Office Visit-P Diabetes and Endocri ne Colleen Randhawa 6th Floor, Clinic [address] [place] [address] [facility] Building [address] [place] [address] [facility] [place] [address] Social History Tobacco Use Types Packs/Day Years Used Date Smoking Tobacco: Never Assessed Sex Assigned at Date Recorded Not on file documented as of this encounter Progress Notes Colleen Randhawa - 03/13/2009 2:30 PM CDT Oracle Developer: Colleen Randhawa Status: Final Encounter: 13 Mar 2009 Type: Endocrine Visit Reason For Visit MARTINE DE OLIVEIRA is 43 year old female Self Referred seen in consultation for follow up on diabete care. Do you have any other appointments, tests or procedures within the [facility] system for this same day? No. Chronic Disease Mgmt Visit for: dental exam was 03/22/09 and screening for eye disorders was 12/24/2008. Not taking aspirin. Allergies Penicillins. Current Meds Multi-Vitamin/Minerals TABS;TAKE 1 TABLET TWICE DAILY; RPT NovoLog 100 UNIT/ML Solution;INJECT 1 UNIT / 15 GMS CHO WITH MEALS ( TID ) AND USE CORRECTION INSULIN.; Rx Lantus 100 UNIT/ML Solution;INJECT 14 UNITS SQ AT HS.; Rx AAA-MED RECONCILE;per patient; RPT. Pain Eval Current history of pain associated with this visit is denied. Vital Signs Recorded by inessa on 13 Mar 2009 02:18 PM BP:124/69, RUE, Sitting, HR: 86 b/min, R Radial, Weight: 153.1 lb. HPI Martine De Oliveira is a 43 year old female with Type I Diabetes Mellitus here today for a follow up visit. The physician/provider's notes and labs in the EMR were reviewed by me today. I last saw Martine on 03/01/09 and started her on Lantus and Novolog insulin. She is currently taking Lantus 14 units SQ at hs and Novolog 1 unit / 15 gms CHO with meals. She is also using correction insulin 1 unit/ 50 / starting with glucose of 150. Pt's most recent A1C was 8.7 % on 02/22/09. We downloaded the pt's glucose meter today and her FBS readings look good as below: 03/13/09 FBS 127 03/12/09 FBS 173 ( ate prior to bed on 03/11/09 ). 03/11/09 FBS 88 03/10/09 FBS 106. Her prelunch bs readings are high ( 222, 228, 238, 169, 226, 189 and 204 ). Her predinner bs readings are also elevated ( 162, 250, 252, 243, 232 ) No hypoglycemia. On ROS today, she feels better overall now that her bs are not going too high or too low. She denies any change in vision, n/v, SOB, cough, chest pain, abd pain, diarrhea, dysuria, hematuriaor foot ulcers/sores. . Family Hx Family hx unchanged per pt- see 03/01/09 note. Personal Hx Behavioral history: No tobacco use. Smoke: none. ETOH: none. Marital Status: . No children. 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 Exercise: walks. PMH 1. Type I Diabetes Mellitus dx at age 22. 2. Rheumatoid arthritis dx in 1995. 3. S/P hysterectomy and D & C for DUB - fibroids in 2006. Physical Exam General appearance: ?? Normal ;BP 124/69. Wt 153.1 lbs. Head: ?? Normal. Eyes: General/bilateral: ?? Eyes: normal. Lungs: ?? Normal. Cardiovascular system: ?? Normal. Abdomen: ?? Normal. Musculoskeletal system: General/bilateral: ?? Musculoskeletal system: normal. Foot: General/bilateral: ?? Feet showed no abnormalities was 03/08/2009. Neurological: ?? System: normal. Skin: ?? Normal. Results ALT 01 Mar 2009 02:05 PM - ALT: 29 u/l AST 01 Mar 2009 02:05 PM - AST: 35 u/l Electrolyte Battery 01 Mar 2009 02:05 PM - Sodium: 138 mmol/L - Potassium: 4.2 mmol/L - Chloride: 99 mmol/L - CO2: 28 mmol/L - Anion Gap: 10 mmol/L Creatinine 01 Mar 2009 02:05 PM - [...] 7 mg/L - Microalbumin mg/gCr: 7.00 mg/gCr. Assessment ASSESSMENT/PLAN: 1. TYPE I DIABETES MELLITUS: Glycemic control improved. Pt's FBS look good so we will continue Lantus 14 units SQ at hs. Her prelunch and predinner blood sugar readings remain too high. Will increase her I/C ratio - Novolog 1.5 units / 15 gms CHO with use of correction 1 unit / 50 / starting with glucose 150. Pt was seen by her Oph in January 2009. A urine microalbuminuria done 03/01/09 was negative with creat 0.76 and GFR 83 mL/min. Pt in not interested in daily baby ASA as recommended by the ADA to reduce risk of stroke or [place]. She is also not interested in a Pneumovax. Will check a fasting lipid panel once her A1C is improved. Pt will be seen by our CDE today. She will also be shown the Solostar Lantus pen and Novolog flexpen. She is currently using insulin vials. I have her seeing our dietitian in f/u on 04/10/09. 2. RHEUMATOID ARTHRITIS: Stable and managed by PCP. 3. Return to Endocrine Clinic to see our CDE and dietitian in f/u on 04/10/09. I asked Martine to fax me some blood sugar readings in two weeks for review and I will plan to see her in our clinic the end of April 2009 and recheck her A1C at that time. Pt has my contact number to call if she has any questions or concerns about her diabetes care. Signature Electronically Signed By: Colleen FERRIS; 03/13/2009 8:04 PM DAY HAUL OR FARM CHARTER BUS DRIVER. documented in this encounter Plan of Treatment Not on filedocumented as of this encounter Visit Diagnoses Not on filedocumented in this encounter
--- OUTSIDE RECORDS SUMMARY | 2022-10-21 18:40 | XMS_ITS | Encounter Summary ---
:1965 Author Organization [facility] Address [address] [place] [address] Care Team Providers Name Role Phone Elsewhere, Pcp Primary Care Provider Unavailable Reason for Referral Outpatient (Routine) - Authorized Specialty Diagnoses / Procedures Referred By Contact Refer red To Contact Rheumatology Rayna Guerrero APRN, [place] C.N.P. [address] [place] [address] Referral ID Status Reason Start Date Expiration Date Visits V isits Requested Authorized [id number] Authorized 08/05/2022 08/04/2025 1 1 Reason for Visit Outpatient (Routine) - Closed Specialty Diagnoses / Procedures Referred By Contact Refer red To Contact Rheumatology Rayna Guerrero APRN, [place] C.N.P. [address] [place] [phone] Referral ID Status Reason Start Date Expiration Date Visits Requ ested Visits Authorized [id number] Closed 01/21/2022 01/21/2023 1 1 Encounter Details Date Type Department Care Team Description 08/05/2022 Office Visit Division of Rayna Guerrero Arthritis Rh eumatoid (HCC) (Primary Dx); Rheumatology phyllis Kruger APRN, C.N.P. High Risk Medication [place], [place] [address] [facility] [address] [place] [phone] Social History Tobacco Use Types Packs/Day Years [...] or relatives? How often do you attend voodoo or Never 2021 confucianist services? Do you belong to any clubs or No 01/17/2022 organizations such as voodoo groups, unions, fraSeisquare or athletic groups, or school groups? 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 SUBJECTIVE CHIEF COMPLAINT / REASON FOR VISIT [...] states that she is doing good. She was in the ER on January 26, 2022 for chest pain with hypertension. She [place]. She has been dealing with right sciatica and saw chiropractor locally. 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 She is trying to walk daily. She continues to have some GI side [...] the above history of present illness. Constitutional: - Negative for chills, fatigue, fever, night sweats (hot flashes- occassionally) and weight loss. Skin: - Negative for skin rash. ENT: - Negative for sinus congestion. Respiratory: Positive for coughing (PND & allergies). Cardiovascular: - Negative for chest pain, pressure or tightness. Gastrointestinal: Positive for nausea (after MTX until noon the next day). - Negative for abdominal (belly) pain or cramping, anorexia, heartburn and vomiting. Genitourinary: Positive for urgency and frequent urination. Musculoskeletal: Positive for pain or stiffness in the joints (hands) and joint swelling. - Negative for back pain. Neurological: - Negative for light-headedness and headaches. Psychiatric/Behavioral: Positive for loud snoring. The following systems were negative: Constitutional, Skin, Eyes, Cardiovascular, Hematologic, Neurological OBJECTIVE PHYSICAL EXAM Physical Exam General: Alert, [...] normal limits. ESR and CRP are normal. 04/16/2021 01/21/2022 08/05/2022 Tender joint count (0-28) 2 1 5 Swollen joint count (0-28) 2 4 10 Patient global assessment (0-100) 10 5 -- Pilot Fuel Engineer global assessment (0-100) 25 40 40 ESR (mm/h) 15 9 8 CRP (mg/L) 3 3 3 Disease Activity Score 28 using ESR ([id number]) 3.22 2.73 -- Disease Activity Score 28 using CRP ([id number]) 2.79 2.65 -- Clinical Disease Activity Index (CDAI) 7.5 9.5 -- Simplified Disease Activity Index (SDAI) 7.8 9.8 -- ASSESSMENT / PLAN #1 Arthritis Rheumatoid (HCC) Increased synovitis on exam today. She will continue methotrexate 12.5 mg SQ [...] that she contact us at that time. documented in this encounter Plan of Treatment Scheduled Orders Name Type Priority Associated Diagnoses Order S chedule Sedimentation Rate Lab Routine Arthritis Rheumatoid E xpected: 02/02/2023 (HCC) (Approximate), Expires: 2022 CBC with Differential, Lab Routine Arthritis Rheumato id Expected: 02/02/2023 Blood (HCC) (Approximate), Expires: 2022 CRP (C-Reactive Protein) Lab Routine Arthritis Rheuma toid Expected: 02/02/2023 (HCC) (Approximate), Expires: 2022 Creatinine with Estimated Lab Routine Arthritis Rheum atoid Expected: 02/02/2023 GFR (HCC) (Approximate), Expires: 2022 AST (Aspartate Lab Routine Arthritis Rheumatoid Expec michelle: 02/02/2023 Aminotransferase) (HCC) (Approxima te), Expires: 2022 Scheduled Referrals Name Type Priority Associated Order Schedule Diagnoses Rheumatology office Outpatient Referral Routine E xpected: visit (clinic) 02/02/2023 (Approximate), Expires: 11/04/2023 documented as of this encounter Visit Diagnoses Diagnosis Arthritis Rheumatoid (HCC) - Primary High Risk Medication documented in this encounter Care Teams Willower Relationship Specialty Start Date End Date Elsewhere, Pcp PCP - General Family Medicine 07/17/21 documented as of this encounter
--- OUTSIDE RECORDS SUMMARY | 2022-10-21 18:40 | XMS_ITS | Encounter Summary ---
:1965 Author Organization [facility] Address [address] [place] [address] Care Team Providers Name Role Phone Elsewhere, Pcp Primary Care Provider Unavailable Encounter Details Date Type Department Care Team Description 01/21/2022 Hospital Encounter Department of Rayna Guerrero Rheumatoid Laboratory Medicine L, DIRECTOR OF PHARMACY, C.N .P. (HCC) and Pathology, [address] [place] [address] in [place] [id number] [place] [phone] [place] [address] (Work) [place], [place] [phone] [address] (Fax) [phone] Social History Tobacco Use Types Packs/Day Years [...] or relatives? How often do you attend jainism or Never 2021 christian services? Do you belong to any clubs or No 01/17/2022 organizations such as jainism groups, unions, fraternal or athletic groups, or [...] place to sleep or slept in a penitentiary (including now)? Education Answer Date Recorded What is the highest level of school Bachelor's degree (e.g., BA, AB, 05/02/2019 you have completed or the highest BS) degree you have received? 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 Unit tablet COMFORT EZ PEN NEEDLES USE FOUR TIMES A DAY 0 05/2019 31 gauge x 3/16 needle Dexcom G6 Sensor device DIRECTED 0 01/01/2022 [id number] Dexcom G6 Transmitter DIRECTED 0 01/02/2022 device [id number] estradioL (ESTRACE) 0.1 INSERT 1/2 GRAM 0 022 mg/g (0.01%) vaginal VAGINALLY NIGHTLY FOR cream 2 WEEKS THEN 2 TIMES PER WEEK folic acid 1 mg TAKE 2 TABLETS (2MG 180 tablet 3 10/31/2021 tabletIndications: TOTAL) BY MOUTH Arthritis Rheumatoid DAILY. (HCC), High Risk Medication insulin aspart U-100 Inject under the skin 0 05/2017 (NovoLOG FlexPen) 100 as needed. as needed unit/mL (3 mL) with meals injection LACTOBACILLUS as needed. Floragen 3 0 ACIDOPHILUS (PROBIOTIC Probiotic ORAL) occasionally magnesium 100 mg tablet 0 11/23/2017 tablet UltiCare 0.3 mL 31 100 Injection daily. 0 021 gauge x 5/16 syringe vit c-ascorbate 0 11/23/2016 Ca-ascorb sod 500 mg/15 mL liquid BD Luer-Arlene Syringe 3 DISPENSE 10 SYRINGES 10 Syringe 3 /0 01/202103/28/2022 mL 25 x 5/8 WITH EACH 10ML syringeIndications: METHOTREXATE Arthritis Rheumatoid DISPENSED (HCC) ibuprofen Take 1 tablet by 0 11/11/2017 08/04/20 22 (for_ADVIL,MOTRIN) 200 mouth daily as mg tablet needed. For pain. methotrexate, PF, 25 INJECT 0.5ML (12.5MG) 6 mL 1 11/2402/07/2022 mg/mL PF SUBCUTANEOUSLY EVERY injectionIndications: 7 DAYS Arthritis Rheumatoid (HCC) documented as of this encounter Plan of Treatment Not on filedocumented as of this encounter Procedures Procedure Name Priority Date/Time Associated Comments Diagnosis SEDIMENTATION RATE, B Routine 01/21/2022 10:57 Arthritis Re sults for this AM SOFTWARE ADMINISTRATOR Rheumatoid (HCC) procedure a re in the results section. CBC WITH DIFFERENTIAL, B Routine 01/21/2022 10:57 Arthritis Results for this AM SOFTWARE ADMINISTRATOR Rheumatoid (HCC) procedure a re in the results section. C-REACTIVE PROTEIN Routine 01/21/2022 10:57 Arthritis Resul ts for this (CRP), S/P AM SOFTWARE ADMINISTRATOR Rheumatoid (HCC) procedure a re in the results section. ASPARTATE Routine 01/21/2022 10:57 Arthritis Results for this AMINOTRANSFERASE (AST), AM SOFTWARE ADMINISTRATOR Rheumatoid (HCC) procedure are in S/P the results section. CREATININE WITH EGFR, Routine 01/21/2022 10:57 Arthritis Re sults for this S/P AM SOFTWARE ADMINISTRATOR Rheumatoid (HCC) procedure a re in the results section. documented in this encounter Results AST (Aspartate Aminotransferase) (01/21/2022 10:57 AM SOFTWARE ADMINISTRATOR) [facility] gist Method Time Signature Aspartate 24 8 - 43 01/21/2022 DTL Aminotransferase U/L 12:00 PM SOFTWARE ADMINISTRATOR (AST), S Specimen Anatomical Collection Method Collection Time Receive d Time (Source) Location / / Volume Laterality Blood (Blood, 01/21/2022 10:57 01/21/2022 Venous) AM SOFTWARE ADMINISTRATOR 11:41 AM SOFTWARE ADMINISTRATOR Rayna Guerrero APRN, C.N.P. LAB BLOOD ADD-ON Performing Organization Address City/State/ZIP Code Phon e Number [facility] - [address] [place], [place] [address] [place] [address] [facility] [address] Creatinine with Estimated GFR (01/21/2022 10:57 AM SOFTWARE ADMINISTRATOR) athologist Signature Creatinine 0.62 0.59 - 01/21/2022 DTL 1.04 mg/dL 12:00 PM SOFTWARE ADMINISTRATOR eGFR-Non >90 >=60 01/21/2022 DTL Black/ mL/min/BSA 12:00 PM SOFTWARE ADMINISTRATOR Finnish Comment: ----ADDITIONAL INFORMATION---- Estimated GFR calculated using the 2009 CKD_EPI creatinine equation. eGFR-Black/ >90 >=60 mL/min/BSA 2021 12:00 PM SOFTWARE ADMINISTRATOR DTL Comment: ----ADDITIONAL INFORMATION---- Estimated GFR calculated using the 2009 CKD_EPI creatinine equation. Specimen Anatomical Collection Method Collection Time Receive d Time (Source) Location / / Volume Laterality Blood (Blood, 01/21/2022 10:57 01/21/2022 Venous) AM SOFTWARE ADMINISTRATOR 11:41 AM SOFTWARE ADMINISTRATOR Rayna Guerrero APRN, C.N.P. LAB BLOOD ADD-ON Performing Organization Address City/State/ZIP Code Phon e Number [facility] - [address] [place], [place] [address] [place] [address] [facility] [address] CRP (C-Reactive Protein) (01/21/2022 10:57 AM SOFTWARE ADMINISTRATOR) athologist Signature C-Reactive <3.0 <=8.0 mg/L 01/21/2022 DT Protein (CRP), 12:00 PM SOFTWARE ADMINISTRATOR S Specimen Anatomical Collection Method Collection Time Receive d Time (Source) Location / / Volume Laterality Blood (Blood, 01/21/2022 10:57 01/21/2022 Venous) AM SOFTWARE ADMINISTRATOR 11:41 AM SOFTWARE ADMINISTRATOR Rayna Guerrero APRN, C.N.P. LAB BLOOD ADD-ON Performing Organization Address City/State/ZIP Code Phon e Number [facility] - [address] [place], [place] [address] [place] [address] [facility] [address] CBC with Differential, Blood (01/21/2022 10:57 AM SOFTWARE ADMINISTRATOR) P athologist Signature Hemoglobin 13.9 11.6 - 01/21/2022 DTL 15.0 g/dL 11:45 AM SOFTWARE ADMINISTRATOR Hematocrit 42.1 35.5 - 01/21/2022 DTL 44.9 % 11:45 AM SOFTWARE ADMINISTRATOR Erythrocytes 4.58 3.92 - 01/21/2022 DTL 5.13 11:45 AM SOFTWARE ADMINISTRATOR x10(12)/L MCV 91.9 78.2 - 01/21/2022 DTL 97.9 fL 11:45 AM SOFTWARE ADMINISTRATOR RBC Distrib Width 14.0 12.2 - 01/21/2022 DTL 16.1 % 11:45 AM SOFTWARE ADMINISTRATOR Platelet Count 207 157 - 371 01/21/2022 DTL x10(9)/L 11:45 AM SOFTWARE ADMINISTRATOR Leukocytes 5.7 3.4 - 9.6 01/21/2022 DTL x10(9)/L 11:45 AM SOFTWARE ADMINISTRATOR Neutrophils 4.13 1.56 - 01/21/2022 DTL 6.45 11:45 AM SOFTWARE ADMINISTRATOR x10(9)/L Lymphocytes 0.95 0.95 - 01/21/2022 DTL 3.07 11:45 AM SOFTWARE ADMINISTRATOR x10(9)/L Monocytes 0.40 0.26 - 01/21/2022 DTL 0.81 11:45 AM SOFTWARE ADMINISTRATOR x10(9)/L Eosinophils 0.15 0.03 - 01/21/2022 DTL 0.48 11:45 AM SOFTWARE ADMINISTRATOR x10(9)/L Basophils 0.06 0.01 - 01/21/2022 DTL 0.08 11:45 AM SOFTWARE ADMINISTRATOR x10(9)/L Specimen Anatomical Collection Method Collection Time Receive d Time (Source) Location / / Volume Laterality Blood (Blood, 01/21/2022 10:57 01/21/2022 Venous) AM SOFTWARE ADMINISTRATOR 11:26 AM SOFTWARE ADMINISTRATOR Yaa Weber APRNN.P. LAB BLOOD ADD-ON Performing Organization Address City/State/ZIP Code Phon e Number [facility] - [address] [place], [place] [address] [employer] [facility] [place] [address] [facility] [address] Sedimentation Rate (01/21/2022 10:57 AM SOFTWARE ADMINISTRATOR) Analysis Performed At Patho logist Time Signature Sedimentation 9 2 - 22 01/21/2022 DTL Rate, B mm/h 12:34 PM SOFTWARE ADMINISTRATOR Specimen Anatomical Collection Method Collection Time Receive d Time (Source) Location / / Volume Laterality Blood (Blood, 01/21/2022 10:57 01/21/2022 Venous) AM SOFTWARE ADMINISTRATOR 11:26 AM SOFTWARE ADMINISTRATOR Rayna Guerrero APRN, C.N.P. LAB BLOOD ADD-ON Performing Organization Address City/State/ZIP Code Phon e Number [facility] - [address] [place], [place] [address] [employer] [facility] [facility] [place] [address] [facility] [address] documented in this encounter Visit Diagnoses Diagnosis Arthritis Rheumatoid (HCC) documented in this encounter Care Teams Plant Etiologist Relationship Specialty Start Date End Date Elsewhere, Pcp PCP - General Family Medicine 07/17/21 documented as of this encounter
--- OUTSIDE RECORDS SUMMARY | 2022-10-21 18:40 | XMS_ITS | Clinical Summary ---
:1965 Author Organization [facility] Address [address] [place] [address] Care Team Providers Name Role Phone Elsewhere, Pcp Primary Care Provider Unavailable Source Comments Patient records contain information from all sites at [facility]. For routine questions regarding patient records, call [phone] during business hours, M-F 8:00 AM - 5:00 PM Central Time. Record requests for emergency care only can be directed to [phone] at any time.[facility] Allergies Active Allergy Reactions Severity Noted Date Comments Cortisone Other (see comments) 03/07/2014 high bl ood sugar with injectable Morphine Nausea And Vomiting 01/30/2014 Penicillins Other (see comments) 01/30/2014 Unknown reaction Medications Medication Sig Dispensed Refills Start Date End Date Status insulin aspart U-100 Inject under the 0 05/29/2017 Active (NovoLOG FlexPen) 100 skin as needed. as unit/mL (3 mL) needed with meals injection LACTOBACILLUS as needed. Floragen 0 Active ACIDOPHILUS 3 Probiotic (PROBIOTIC ORAL) occasionally cholecalciferol Take 1 tablet by 0 01/30/2014 Active (for_VITAMIN D3) mouth daily. 1,000 Unit tablet magnesium 100 mg 0 11/23/2017 Ac tive tablet tablet vit c-ascorbate 0 11/23/2016 Act natalie Ca-ascorb sod 500 mg/15 mL liquid COMFORT EZ PEN USE FOUR TIMES A 0 01/27/2019 Active NEEDLES 31 gauge x DAY 02/05 needle UltiCare 0.3 mL 31 100 Injection 0 01/31/2021 Active gauge x 16 syringe daily. folic acid 1 mg TAKE 2 TABLETS (2MG 180 tablet 3 10/31/2021 Active tabletIndications: TOTAL) BY MOUTH Arthritis Rheumatoid DAILY. (HCC), High Risk Medication Dexcom G6 Sensor DIRECTED 0 01/01/2022 Active device [id number] Dexcom G6 Transmitter DIRECTED 0 01/02/2022 Active device [id number]-L81.9 estradioL (ESTRACE) INSERT 1/2 GRAM 0 12/09/2021 Active 0.1 mg/g (0.01%) VAGINALLY NIGHTLY vaginal cream FOR 2 WEEKS THEN 2 TIMES PER WEEK David Bolanos ADMINISTER 18 UNITS 0 01/01/2022 Active U-100 Insulin 100 SUBCUTANEOUSLY unit/mL (3 mL) EVERY MORNING injection BD Luer-Arlene Syringe 3 DISPENSE 10 10 each 3 03/28/2022 Active mL 25 x 5/8 SYRINGES WITH EACH syringeIndications: 10ML METHOTREXATE Arthritis Rheumatoid DISPENSED ([facility]) OneTouch Verio test 4 (four) times a 0 07/23/2022 Active strips strips day. for testing methotrexate, PF, 25 Inject 0.5 mL (12.5 10 mL 1 2 Active mg/mL PF mg total) under the injectionIndications: skin once a week. Arthritis Rheumatoid ([facility]) Active Problems Problem Noted Date High Risk Medication 10/21/2018 Arthritis Rheumatoid 10/13/2016 Encounters Date Type Specialty Care Team Description 08/05/2022 Office Visit Rheumatology Rayna Guerrero Arthritis Rh eumatoid ([facility]) (Primary Dx); MORTEZA Kruger, C.N.P. High Risk Me dication 08/05/2022 Hospital Encounter Laboratory Medicine Rayna Guerrero Arthritis MORTEZA Kruger, C.N.P. Rheumatoid ( [facility]) 08/04/2022 Clinical Admitting/Central Intake Ass essment Communication Scheduling from Last 3 Months Immunizations Name Administration Dates Next Due SARS-COV-2 (COVID-19) - PFIZER (12 years or older) 1 Family History Medical History Relation Name Comments Other Father Father CHF, amyloidosis Lymphoma Maternal Grandfather Kyle 80s Other Mother Mother Had TTP has some heart effects from that. Parkinsonism Mother's Brother uncle 70s Breast cancer Mother's Sister aunt 50s Colon cancer Paternal Grandfather Venu 70s Relation Name Status Comments Father Father Maternal Grandfather Kyle Mother Mother Mother's Brother uncle Mother's Sister aunt Paternal Grandfather Venu Social History Tobacco Use Types Packs/Day Years [...] or relatives? How often do you attend yazidi or Never 2021 episcopalian services? 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 AM CDT Oxygen Saturation - - Inhaled Oxygen - - Concentration Weight 65.9 kg (145 lb 4.5 08/05/2022 2:41 PM oz) CDT Height 176.5 cm (5' 9.49) 08/05/2022 2:41 PM CDT Body Mass Index 21.15 08/05/2022 2:41 PM CDT Plan of Treatment Health Maintenance Due Date Last Done Comments CT Colonography 1965 Cervical Cancer Screening 1965 Cologuard 1965 Colonoscopy 1965 Colorectal Cancer Screening 1965 FIT 1965 HIV Screening 1965 Hepatitis B Vaccines (1 of 1965 3 - 3-dose series) Lipid (Cholesterol) 1965 Screening Mammogram 1965 Zoster Vaccines (1 of 2) 2014 Depression Screening 11/23/2021 (Annual PHQ-2) Influenza Vaccine (#1) 2022 08/27/2020, 12/02/2019 Fasting Glucose for 01/26/2025 01/26/2022, 01/30/2014, Diabetes Screening 01/30/2014 DTaP,Tdap,and Td Vaccines 07/19/2030 07/19/2020 (2 - Td or Tdap) Hepatitis C Screening Completed 10/13/2016 COVID-19 Vaccine Completed 09/29/2022, 07/17/2021, 03/01/2021, Additional history exists Pneumococcal vaccine (0-64 Aged Out No lo nger eligible years) based on patient 's age to complete this topic Procedures Procedure Name Priority Date/Time Associated Comments Diagnosis CBC WITH DIFFERENTIAL, B Routine 08/05/2022 12:46 Arthritis Results for this PM CDT Rheumatoid (HCC) procedure a re in the results section. SEDIMENTATION RATE, B Routine 08/05/2022 12:46 Arthritis [...] procedure a re in the results section. from Last 3 Months Results Sedimentation Rate (08/05/2022 12:46 PM CDT) Analysis [...] Organization Address City/State/ZIP Code Phon e Number [facility] - [address] [place] [address] [facility] [place] [address] [facility] 200 [facility] CBC with Differential, Blood (08/05/2022 12:46 PM [...] C.N.P. LAB BLOOD ADD-ON Performing Organization Address City/[facility] Phon e Number [facility] - [address] CRP (C-Reactive Protein) (08/05/2022 12:45 PM CDT) P athologist Signature C-Reactive <3.0 <=8.0 mg/L 08/05/2022 DTL Protein (CRP), 1:51 PM CDT S Specimen Anatomical Collection Method Collection Time Receive d Time (Source) Location / / Volume Laterality Blood (Blood, 08/05/2022 12:45 08/05/2022 1:31 Venous) PM CDT PM CDT Rayna Guerrero APRN, C.N.P. LAB BLOOD ADD-ON Performing Organization Address City/State/[facility] Code Phon e Number [facility] - 200 [place], [place] [address] [place] [address] AST (Aspartate Aminotransferase) (08/05/2022 12:45 PM CDT) Patholo gist Method Time Signature Aspartate 25 8 - 43 08/05/2022 DTL Aminotransferase U/L 1:51 PM CDT (AST), S Specimen Anatomical Collection Method Collection Time Receive d Time (Source) Location / / Volume Laterality Blood (Blood, 08/05/2022 12:45 08/05/2022 1:31 Venous) PM CDT PM CDT Rayna Guerrero APRN, C.N.P. LAB BLOOD ADD-ON Performing Organization Address City/[facility] Code Phon e Number [facility] - 200 [place], [place] [address] [facility] [place] [address] Creatinine with Estimated GFR (08/05/2022 12:45 PM [...] C.N.P. LAB BLOOD ADD-ON Performing Organization Address City/[facility] Phon e Number [facility] - 200 [place] [address] [facility] [place] [address] from Last 3 Months Insurance Payer Benefit Plan / Subscriber ID Effective Dates Phone Addre ss Type Group BLUE CROSS [employer] BLUE [id number] 2021-Prese [phone] [address] X [id number] PPO [facility] [address] [place] [address] (Home) [place], [place] [phone] [address] (Work) Martine De Oliveira [employer] Party Self [address] [employer] (Home) [place], [place] [phone] [address] (Work) Care Teams Employment Director Relationship Specialty Start Date End Date Elsewhere, Pcp PCP - General Family Medicine 07/17/21
--- OUTSIDE RECORDS SUMMARY | 2022-10-21 18:40 | XMS_ITS | Encounter Summary ---
:1965 Author Organization [facility] Address [address] [place] [address] Care Team Providers Name Role Phone Elsewhere, Pcp Primary Care Provider Unavailable Reason for Visit Reason Comments Lab Monitoring 12/03/21 Encounter Details Date Type Department Care Team Description 12/04/2021 Clinical Division of Ryana Guerrero Lab Monitori Communication Rheumatology in [place], SPINAL SURGEON, C.N.P. (12/03/21) [place], [place] [address] [facility] [address] [place] [id number] [phone] Social History Tobacco Use Types Packs/Day Years [...] or relatives? How often do you attend christian or Never 2021 yazidism services? Do you belong to any clubs or No 01/17/2022 organizations such as christian groups, unions, fraternal or athletic groups, or [...] at Date Recorded Female 10/17/2018 9:43 PM ANALYSIS REPORTING DEVELOPER documented as of this encounter Miscellaneous Notes Telephone Encounter - Mindy Bettencourt L.PLiaN. - 12/05/2021 12:21 PM ANALYSIS REPORTING DEVELOPER ASSESSMENT Rheumatology monitoring labs completed at an external lab on 12/03/2021 were reviewed per outside labreference ranges. All monitored labs are within the reference range.. Labs reviewed: hemoglobin, leukocytes, platelets, absolute neutrophil count, AST and creatinine External labs were entered into Labs Tab and sent for scanning. PLAN Patient to continue with current plan of care. YSIS REPORTING DEVELOPER documented in this encounter Plan of Treatment Not on filedocumented as of this encounter Procedures Procedure Name Priority Date/Time Associated Diagnosis Comme nts CBC WITH DIFFERENTIAL, B Routine 12/03/2021 Res ults for this procedure are i n the results section. ASPARTATE AMINOTRANSFERASE Routine 12/03/2021 R esults for this (AST), S/P procedure are i n the results section. CREATININE WITH EGFR, S/P Routine 12/03/2021 Re sults for this procedure are i n the results section. documented in this encounter Results AST (Aspartate Aminotransferase) (12/03/2021) P athologist Signature EXT AST 28 12 - 35 [facility] Specimen (Source) Anatomical Location Collection Method / Collectio n Time Received Time / Laterality Volume Blood (Blood, Venous) Rayna Guerrero APRN, C.N.P. LAB BLOOD ADD-ON Performing Organization Address City/State/ZIP Code Phon e Number [facility] [address] [place] [address] Creatinine with Estimated GFR (12/03/2021) athologist Signature EXT Creatinine 0.5 0.5 - 1.5 BLUE mg/dL [facility] Specimen (Source) Anatomical Location Collection Method / Collectio n Time Received Time / Laterality Volume Blood (Blood, Venous) Rayna Guerrero APRN, C.N.P. LAB BLOOD ADD-ON Performing Organization Address City/[facility]/ZIP Code Phon e Number [facility] [address] [place] [address] CBC with Differential, Blood (12/03/2021) athologist Signature EXT Platelet 248 150 - 450 [facility] EXT Neutrophils 3.64 1.7 - 7 [facility] EXT Hemoglobin 13.5 12 - 15.5 [facility] EXT White Blood 5.2 5.0 - 10.0 BLUE Cell (WBC) Count [facility] Specimen (Source) Anatomical Location Collection Method / Collectio n Time Received Time / Laterality Volume Blood (Blood, Venous) Narrative This result has an attachment that is no t available. Rayna Guerrero APRN, C.N.P. LAB BLOOD ADD-ON Performing Organization Address City/[facility]/ZIP Code Phon e Number [facility] [address] [place] [address] documented in this encounter Visit Diagnoses Not on filedocumented in this encounter Care Teams Industrial Relations Representative Relationship Specialty Start Date End Date Elsewhere, Pcp PCP - General Family Medicine 07/17/21 documented as of this encounter
--- OUTSIDE RECORDS SUMMARY | 2022-10-21 18:40 | XMS_ITS | Encounter Summary ---
:1965 Author Organization [facility] Address [address] [place] [address] Care Team Providers Name Role Phone Elsewhere, Pcp Primary Care Provider Unavailable Reason for Visit Reason Comments Medication Question Encounter Details Date Type Department Care Team Description 06/25/2022 Clinical Division of Rayna Guerrero Medication Communication Rheumatology in L, RAIL CAR MAINTENANCE MECHANIC, C.N.P. Question [place], [place] [address] [facility] [address] [place] [phone] Social History Tobacco Use Types Packs/Day Years [...] or relatives? How often do you attend sabianism or Never 2021 bahai services? Do you belong to any clubs or No 01/17/2022 organizations such as sabianism groups, unions, fraternal or athletic groups, or [...] place to sleep or slept in a assisted (including now)? Education Answer Date Recorded What is the highest level of school Bachelor's degree (e.g., BA, AB, 05/02/2019 you have completed or the highest BS) degree you have received? 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 - 07/08/2022 5:12 PM CDT Addended by: RAYNA GUERRERO on: 07/08/2022 05:12 PM Modules accepted: Orders Addendum Note - Vinicius Olmos R.N. - 07/07/2022 3:20 PM CDT Addended by: VINICIUS OLMOS on: 07/07/2022 03:20 PM Modules accepted: Orders Telephone Encounter - Vinicius Olmos R.N. - 07/07/2022 3:18 PM CDT Prescription renewal request for methotrexate received from pharmacy. HISTORY OF PRESENT ILLNESS Last Rheum visit: 01/21/22 with Rayna Guerrero APRN, CNP Future office visit: 08/05/22 Last monitoring labs/eye exam: 05/27/22: within protocol parameters. Prescription request matches current plan of care. Prescription request matches a current prescription in the Medication List. Exclusion criteria: None ASSESSMENT/PLAN Prescription request renewed per nursing protocol. Telephone Encounter - Whitley Padilla - 07/04/2022 10:03 AM CDT Labs done in MAY 27 and in chart Telephone Encounter - Vinicius Olmos RRobert - 07/01/2022 2:07 PM CDT Patient is needing labs and so only gets a 30 day supply. She has been informed of this. Telephone Encounter - Yaquelin Jorgensen - 07/01/2022 11:05 AM CDT Pharmacy requesting clarification for a month supply 3 month supply Telephone Encounter - Joelle Liriano - 06/25/2022 3:43 PM CDT Images from the original note were not included. Caller/Authorization: Martine De Oliveira Provider: Rayna Guerrero Reason for call: Pharmacy called and today's script for Methotrexate does not match previous script.Please fax new script for 24ml to [facility]. Follow-up requested: No Phone/Portal: documented in this encounter Plan of Treatment Not on filedocumented as of this encounter Visit Diagnoses Diagnosis Arthritis Rheumatoid (HCC) documented in this encounter Care Teams Hydraulic Lift Driver Relationship Specialty Start Date End Date Elsewhere, Pcp PCP - General Family Medicine 07/17/21 documented as of this encounter
--- OUTSIDE RECORDS SUMMARY | 2022-10-21 18:40 | XMS_ITS | Encounter Summary ---
:1965 Author Organization [facility] Address [address] [place] [address] Care Team Providers Name Role Phone Elsewhere, Pcp Primary Care Provider Unavailable Reason for Visit Reason Comments Med Refill Encounter Details Date Type Department Care Team Description 10/26/2021 Refill Division of Rheumatology in Karen Guerrero sa, APRN, Med Refill [place], [place] C.N.P. [address] [facility] [address] [place] [address] [place] [address] [phone] (Wo rk) Social History Tobacco Use Types [...] or relatives? How often do you attend latter-day or Never 2021 christian services? 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 - 11/04/2021 10:45 AM CARDIOTHORACIC SURGEON Addended by: SANJANA GARCIA on: 11/04/2021 10:45 AM Modules accepted: Orders IOTHORACIC SURGEON Telephone Encounter - Malachi Olmos R.N. - 10/31/2021 12:32 PM CARDIOTHORACIC SURGEON Prescription renewal request for folic acid, methotrexate received from pharmacy. HISTORY OF PRESENT ILLNESS Last Rheum visit: 04/16/21 with Rayna Guerrero APRN, CNP Future office visit: ordered, not yet scheduled Last monitoring labs/eye exam: 08/23/21: within protocol parameters. Prescription request matches current plan of care. Prescription request matches a current prescription in the Medication List. Exclusion criteria: None ASSESSMENT/PLAN Prescription request renewed folic acid, denied methotrexate as was filled 09/05/21 and sent to [facility]. IOTHORACIC SURGEON documented in this encounter Plan of Treatment Not on filedocumented as of this encounter Visit Diagnoses Diagnosis Arthritis Rheumatoid (HCC) High Risk Medication documented in this encounter Care Teams Development Executive Relationship Specialty Start Date End Date Elsewhere, Pcp PCP - General Family Medicine 07/17/21 documented as of this encounter
--- OUTSIDE RECORDS SUMMARY | 2022-10-21 18:41 | XMS_ITS | Encounter Summary ---
:1965 Author Organization [facility] Address [address] [place] [address] Care Team Providers Name Role Phone Unavailable Primary Care Provider Unavailable Reason for Visit Reason Comments Lab Monitoring 07/19/20 Encounter Details Date Type Department Care Team Description 07/19/2020 Clinical Division of Rayna Guerrero Lab Monitori ng Communication Rheumatology in L, SIGNAL INSPECTOR, C.N.P. (07/19/20) [place], [place] [address] [facility] [address] [place] [phone] Social History Tobacco Use Types Packs/Day Years [...] or relatives? How often do you attend temple or Never 2021 spiritism services? Do you belong to any clubs or No 01/17/2022 organizations such as temple groups, unions, fraternal or athletic groups, or [...] place to sleep or slept in a [facility] (including now)? Education Answer Date Recorded What is the highest level of school Bachelor's degree (e.g., BA, AB, 05/02/2019 you have completed or the highest BS) degree you have received? 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 - 07/20/2020 8:29 AM CDT ASSESSMENT Rheumatology monitoring labs completed at an external lab on 07/19/2020 were reviewed per Rheumatology division parameters. All [...] Comme nts CBC WITH DIFFERENTIAL, B Routine 07/19/2020 Res ults for this procedure are i n the results section. ALANINE AMINOTRANSFERASE Routine 07/19/2020 Res ults for this (ALT), S/P procedure are i n the results section. CREATININE WITH EGFR, S/P Routine 07/19/2020 Re sults for this procedure are i n the results section. documented in this encounter Results ALT (Alanine Aminotransferase) (07/19/2020) athologist Signature EXT AST 32 12 - 35 Specimen (Source) Anatomical Location Collection Method / Collectio n Time Received Time / Laterality Volume Blood (Blood, Venous) Historical Provider LAB BLOOD ADD-ON Creatinine with Estimated GFR (07/19/2020) P athologist Signature EXT Creatinine 0.6 0.5 - 1.5 mg/dL Specimen (Source) Anatomical Location Collection Method / Collectio n Time Received Time / Laterality Volume Blood (Blood, Venous) Historical Provider LAB BLOOD ADD-ON (ABNORMAL) CBC with Differential, Blood (07/19/2020) Analysis Performed At Patho logist Time Signature EXT Platelet 216 150 - 450 Count EXT Neutrophils 2.5 1.7 - 7 EXT Hemoglobin 13.9 12 - 15.5 EXT White Blood 4.2 (A) 5.0 - 10.0 Cell (WBC) Count Specimen (Source) Anatomical Location Collection Method / Collectio n Time Received Time / Laterality Volume Blood (Blood, Venous) Historical Provider LAB BLOOD ADD-ON documented in this encounter Visit Diagnoses Not on filedocumented in this encounter
--- OUTSIDE RECORDS SUMMARY | 2022-10-21 18:41 | XMS_ITS | Encounter Summary ---
:1965 Author Organization [facility] Address [address] [place] [address] Care Team Providers Name Role Phone Unavailable Primary Care Provider Unavailable Reason for Referral Outpatient (Routine) - Closed Specialty Diagnoses / Procedures Referred By Contact Refer red To Contact Rheumatology Rayna Guerrero APRN, [facility] C.N.P. 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 [address] [place] [phone] Referral ID Status Reason Start Date Expiration Date Visits Requ ested Visits Authorized [id number] Closed 05/02/2020 05/02/2021 1 1 Encounter Details Date Type Department Care Team Description 10/16/2020 Telemedicine Division of Rayna Guerrero Arthritis Rh eumatoid (HCC) (Primary Dx); Rheumatology phyllis Kruger APRN, C.N.P. High Risk Medication [place], [place] [address] [facility] [address] [place] [phone] Social History Tobacco Use Types Packs/Day Years [...] or relatives? How often do you attend orthodoxy or Never 2021 yazidi services? Do you belong to any clubs or No 01/17/2022 organizations such as orthodoxy groups, unions, fraternal or athletic groups, or [...] place to sleep or slept in a jail (including now)? Education Answer Date Recorded What is the highest level of school Bachelor's degree (e.g., BA, AB, 05/02/2019 you have completed or the highest BS) degree you have received? 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 - 10/16/2020 9:30 AM CST SUBJECTIVE CHIEF COMPLAINT / REASON FOR VISIT Martine De Oliveira is a 55 y.o. female who presents for follow up of rheumatoid arthritis. Follow-up visit conducted via real-time audio/video technology by Rayna Guerrero APRN, C.N.P. in [facility] to the patient at home. HISTORY OF PRESENT ILLNESS Mrs. De Oliveira is a pleasant 55-year-old lady with seropositive erosive/destructive rheumatoid arthritis. She has a long-standing history of rheumatoid arthritis since 1995, which remained treated only symptomatically with NSAIDs up until September 2016, at which point she finally agreed for initiation of methotrexate. The dose of methotrexate was gradually uptitrated up. She is taking folic acid 1 mg a day with this. She reports that since the increase in the dose of methotrexate from 15 to 20 mg a weekin January 2017 she noticed improvement of her symptoms with essentially absent stiffness and no majorjoint swelling or joint aches. She rarely uses NSAIDs. She is not on prednisone. She was switched to subcutaneous methotrexate 25 mg October 2017. She continues to do physical therapy her for her frozen right shoulder. She has previously had corticosteroid injection in the right shoulder and had a adverse reaction to it and does not want to do that again for her shoulder. She has a history of diabetes type 1, on injectable insulin since the age of 22. Today, I am speaking with Mrs. De Oliveira by video for follow of her rheumatoid arthritis. She states that generally she is doing good. She reduce the methotrexate to 12.5 mg subcu once weekly in July due to increased GI symptoms that were causing nausea, vomiting, and diarrhea for 2 days. Since reducing the dose she has slight nausea and is able to keep it under control with hard candy. She states her right elbow will hurt intermittently, she is taking ibuprofen twice for this last 6 months. This summer she was able to garden and bake a lot. She states she is impressed with herself that she was abl e do that much guarding without flares. She have not been working out regularly. She does notice a mouth sore started to increase the folic acid for several days and it will resolve. She continues takemethotrexate 12.5 mg SQ once weekly and folic acid 2 mg daily. She denies any significant morning stiffness at this time. No recent major flares, infections or hospitalizations. No adverse side effectsto the medication. Rheumatoid Arthritis RF +: Yes CCP +: Yes AM stiffness: 0 minutes Current Symptoms: dry eyes (worse with high blood sugars) Current Symptoms: no dry mouth, no fatigue, no fever, no rash, no Raynaud's syndrome, no weight loss, no excessive bruising, no cough (PND & allergies), no chest pain, no edema, no nausea, no vomiting, no abdominal pain, no anorexia, no chills, no night sweats (hot flashes- occassionally), no oralulcers, no eye inflammation, no heartburn, no dyspnea [...] rash. ENT: Negative for sinus congestion. Respiratory: Negative for cough (PND & allergies). Cardiovascular: Negative for chest pain, pressure or tightness. Gastrointestinal: Negative for abdominal (belly) pain or cramping, anorexia, heartburn, nausea and vomiting. Genitourinary: Positive for urgency and frequent urination. Musculoskeletal: Positive for arthralgias (right elbow intermittently), pain or stiffness in the joints (right elbow intermittently), joint swelling and muscle pain/stiffness. Negative for back pain. Neurological: Negative for light-headedness and headaches. Psychiatric/Behavioral: Positive for snores loudly. The following systems were negative: Constitutional, Skin, Eyes, ENT, CV, Respiratory, GI, Hematologic, Neuro OBJECTIVE PHYSICAL EXAM Physical Exam No assessment done due to it being a video visit. Lab: CBC with differential, creatinine, GFR, AST within normal limits. ESR and CRP are normal. ASSESSMENT / PLAN #1 Arthritis Rheumatoid (HCC) After our discussion over the video we will continue methotrexate 12.5 mg SQ once weekly and folic acid 2 mg daily. I am happy that she was able to reduce the methotrexate without any increase in jointsymptoms. I have refilled her prescriptions. Patient was [...] that she contact us at that time. I spoke with patient for 35 minutes by video. >50% was spent in counseling. 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 documented in this encounter Plan of Treatment Scheduled Referrals Name Type Priority Associated Order Schedule Diagnoses Rheumatology office Outpatient Referral Routine E xpected: visit (clinic) 04/15/2021 (Approximate), Expires: 10/16/2023 documented as of this encounter Results AST (Aspartate Aminotransferase) (04/16/2021 10:32 AM CDT) [facility] gist Method Time Signature Aspartate 26 8 - 43 04/16/2021 DTL Aminotransferase U/L 11:33 AM CDT (AST), S Specimen Anatomical Collection Method Collection Time Receive d Time (Source) Location / / Volume Laterality Blood (Blood, 04/16/2021 10:32 04/16/2021 Venous) AM CDT 10:50 AM CDT Rayna Guerrero APRN, C.N.P. LAB BLOOD ADD-ON Performing Organization Address City/State/ZIP Code Phon e Number [facility] - [address] [place], [place] [address] [facility] [place] [address] Laboratories-[facility] [address] Creatinine with Estimated GFR (04/16/2021 10:32 AM CDT) athologist Signature Creatinine 0.64 0.59 - 04/16/2021 DTL 1.04 mg/dL 11:33 AM CDT eGFR-Non >90 >=60 04/16/2021 DTL Black/ mL/min/BSA 11:33 AM CDT Chinese Comment: ----ADDITIONAL INFORMATION---- Estimated GFR calculated using the 2009 CKD_EPI creatinine equation. eGFR-Black/ >90 >=60 mL/min/BSA 2020 11:33 AM CDT DTL Comment: ----ADDITIONAL INFORMATION---- Estimated GFR calculated using the 2009 CKD_EPI creatinine equation. Specimen Anatomical Collection Method Collection Time Receive d Time (Source) Location / / Volume Laterality Blood (Blood, 04/16/2021 10:32 04/16/2021 Venous) AM CDT 10:50 AM CDT Rayna Guerrero APRN, José Miguel.N.P. LAB BLOOD ADD-ON Performing Organization Address City/[facility] Phon e Number [facility] - [address] [place] [address] CRP (C-Reactive Protein) (04/16/2021 10:32 AM CDT) P athologist Signature C-Reactive <3.0 <=8.0 mg/L 04/16/2021 DTL Protein (CRP), 11:33 AM CDT S Specimen Anatomical Collection Method Collection Time Receive d Time (Source) Location / / Volume Laterality Blood (Blood, 04/16/2021 10:32 04/16/2021 Venous) AM CDT 10:50 AM CDT Rayna Guerrero APRN, José Miguel.N.P. LAB BLOOD ADD-ON Performing Organization Address [facility] Phon e Number [facility] - [address] [place] [address] (ABNORMAL) CBC with Differential, Blood (04/16/2021 10:32 AM CDT) Patholo gist Method Time Signature Hemoglobin 13.2 11.6 - 04/16/2021 DTL 15.0 g/dL 11:03 AM CDT Hematocrit 41.8 35.5 - 04/16/2021 DTL 44.9 % 11:03 AM CDT Erythrocytes 4.48 3.92 - 04/16/2021 DTL 5.13 11:03 AM CDT x10(12)/L MCV 93.3 78.2 - 04/16/2021 DTL 97.9 fL 11:03 AM CDT RBC Distrib Width 13.4 12.2 - 04/16/2021 DTL 16.1 % 11:03 AM CDT Platelet Count 247 157 - 371 04/16/2021 DTL x10(9)/L 11:03 AM CDT Leukocytes 5.6 3.4 - 9.6 04/16/2021 DTL x10(9)/L 11:03 AM CDT Neutrophils 4.13 1.56 - 04/16/2021 DTL 6.45 11:03 AM CDT x10(9)/L Lymphocytes 0.92 (L) 0.95 - 04/16/2021 DTL 3.07 11:03 AM CDT x10(9)/L Monocytes 0.37 0.26 - 04/16/2021 DTL 0.81 11:03 AM CDT x10(9)/L Eosinophils 0.11 0.03 - 04/16/2021 DTL 0.48 11:03 AM CDT x10(9)/L Basophils 0.07 0.01 - 04/16/2021 DTL 0.08 11:03 AM CDT x10(9)/L Specimen Anatomical Collection Method Collection Time Receive d Time (Source) Location / / Volume Laterality Blood (Blood, 04/16/2021 10:32 04/16/2021 Venous) AM CDT 10:53 AM CDT Rayna Guerrero APRN, C.N.P. LAB BLOOD ADD-ON Performing Organization Address City/[facility] Phon e Number [facility] - [address] Sedimentation Rate (04/16/2021 10:32 AM CDT) Analysis Performed At Patho logist Time Signature Sedimentation 15 2 - 22 04/16/2021 DTL Rate, B mm/h 11:40 AM CDT Specimen Anatomical Collection Method Collection Time Receive d Time (Source) Location / / Volume Laterality Blood (Blood, 04/16/2021 10:32 04/16/2021 Venous) AM CDT 10:53 AM CDT Rayna Guerrero APRN, C.N.P. LAB BLOOD ADD-ON Performing Organization Address City/[facility] Phon e Number [facility] - [address] documented in this encounter Visit Diagnoses Diagnosis Arthritis Rheumatoid (HCC) - Primary High Risk Medication documented in this encounter
--- OUTSIDE RECORDS SUMMARY | 2022-10-21 18:41 | XMS_ITS | Encounter Summary ---
:1965 Author Organization [facility] Address [address] [place] [address] Care Team Providers Name Role Phone Unavailable Primary Care Provider Unavailable Reason for Visit Reason Comments Intake Assessment Encounter Details Date Type Department Care Team Description 10/15/2020 Clinical Division of Rayna Guerrero Intake Sara schmitt Communication Rheumatology in L, SERVICE PORTER, C.N.P. [place], [place] [address] [facility] [address] [place] [address] [phone] Social History Tobacco Use Types Packs/Day Years [...] or relatives? How often do you attend congregational or Never 2021 rastafari services? 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
--- OUTSIDE RECORDS SUMMARY | 2022-10-21 18:41 | XMS_ITS | Encounter Summary ---
:1965 Author Organization [facility] Address [address] [place] [address] Care Team Providers Name Role Phone Unavailable Primary Care Provider Unavailable Reason for Visit Reason Comments Med Refill Encounter Details Date Type Department Care Team Description 06/13/2020 Refill Division of Rheumatology in Karen Guerrero sa, APRN, Med Refill [place], [place] C.N.P. [address] [facility] [address] [place] [address] [place] [address] [phone] (Wo rk) Social History Tobacco Use Types [...] or relatives? How often do you attend jehovah's witness or Never 2021 hinduism services? Do you belong to any clubs or No 01/17/2022 organizations such as jehovah's witness groups, unions, fraternal or athletic groups, or [...] place to sleep or slept in a long-term (including now)? Education Answer Date Recorded What is the highest level of school Bachelor's degree (e.g., BA, AB, 05/02/2019 you have completed or the highest BS) degree you have received? 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 - 06/15/2020 2:50 PM CDT Prescription renewal request for methotrexate received from pharmacy. HISTORY OF PRESENT ILLNESS Last Rheum visit: 05/02/2020 with Rayna Guerrero APRN, [facility] Future office visit: ordered, not yet scheduled Last monitoring labs/eye exam: labs: within protocol parameters. Prescription request matches current plan of care. Prescription request matches a current prescription in the Medication List. ASSESSMENT/PLAN Prescription request renewed per nursing protocol. Telephone Encounter - Ailyn Dawn - 06/15/2020 2:27 PM CDT The pharmacy called to request this to be refilled soon as the patient will be out of the medicationthis weekend. documented in this encounter Plan of Treatment Not on filedocumented as of this encounter Visit Diagnoses Not on filedocumented in this encounter
--- OUTSIDE RECORDS SUMMARY | 2022-10-21 18:41 | XMS_ITS | Encounter Summary ---
:1965 Author Organization [facility] Address [address] [place] [address] Care Team Providers Name Role Phone Unavailable Primary Care Provider Unavailable Reason for Visit Reason Comments Med Refill Encounter Details Date Type Department Care Team Description 02/14/2021 Refill Division of Rheumatology in Zuri Worthington APRN, Med Refill [place], [place] C.N.P., D.N.P. [address] [facility] [address] [place] [address] [place], [place] [phone] (Wo rk) Social History Tobacco Use Types [...] you attend jehovah's witness or Never 2021 confucianist services? 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 - 02/18/2021 9:41 AM CDT Prescription renewal request for methotrexate received from pharmacy. HISTORY OF PRESENT ILLNESS Last Rheum visit: 10/16/2020 with Rayna Guerrero APRN, SHERWIN Future office visit: ordered, not yet scheduled Last monitoring labs/eye exam: monitoring labs 02/13/2021: within protocol parameters. Prescription request matches current plan of care. Prescription request matches a current prescription in the Medication List. Exclusion criteria:None ASSESSMENT/PLAN Prescription request renewed per nursing protocol. documented in this encounter Plan of Treatment Not on filedocumented as of this encounter Visit Diagnoses Diagnosis Arthritis Rheumatoid (HCC) - Primary documented in this encounter
--- OUTSIDE RECORDS SUMMARY | 2022-10-21 18:41 | XMS_ITS | Encounter Summary ---
:[address] [facility] Address [address] [place] [address] Care Team Providers Name Role Phone Unavailable Primary Care Provider Unavailable Encounter Details Date Type Department Care Team Description 04/16/2021 Hospital Encounter Department of Rayna Guerrero Rheumatoid Laboratory Medicine L, CAR SWEEPER, C.N .P. (HCC) and Pathology, [address] [place] [address] in [facility] [address] [place] [phone] [place] [address] (Work) [place], [place] [phone] [address] (Fax) [phone] Social History Tobacco Use Types Packs/Day Years [...] you attend jehovah's witness or Never 2021 catholic services? Do you belong to any clubs [...] place to sleep or slept in a halfway (including now)? Education Answer Date Recorded What is the highest level of school Bachelor's degree (e.g., BA, AB, 05/02/2019 you have completed or the highest BS) degree you have received? 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 Unit tablet COMFORT EZ PEN NEEDLES USE FOUR TIMES A DAY 0 05/2019 31 gauge x 3/16 needle insulin aspart U-100 Inject under the skin [...] Luer-Arlene Syringe 3 DISPENSE 10 SYRINGES 10 each 01/2204/25/2021 mL 25 x 5/8 syringe WITH EACH 10ML METHOTREXATE DISPENSED CONTOUR NEXT TEST TEST UP TO TEN TIMES 0 01/15/20 19 01/21/2022 STRIPS strips DAILY DIRECTED estradiol (VAGIFEM) 10 INSERT 1 TABLET 3 10/02/20 18 01/21/2022 mcg vaginal tablet VAGINALLY 2 TIMES PER WEEK folic acid 1 mg Take 2 tablets (2,000 180 tablet 3 0 10/31/2021 tabletIndications: mcg total) by mouth Arthritis Rheumatoid daily. ([facility]), High Risk Medication ibuprofen Take 1 tablet by 0 11/11/2017 08/04/20 22 (for_ADVIL,MOTRIN) 200 mouth daily as mg tablet needed. For pain. LANTUS U-100 INSULIN ADMINISTER 13 UNITS 10 201801/21/2022 100 unit/mL injection SUBCUTANEOUSLY DAILY methotrexate, PF, 25 Inject 0.5 mL (12.5 12 mL 1 202005/29/2021 mg/mL PF mg total) under the injectionIndications: skin every 14 Arthritis Rheumatoid (fourteen) days. (HCC) syrge-ndl,ins 0.3 mL 0.3 mL daily. 0 01/31/2021 0 01/21/2022 half erica (ULTICARE INSULN SYR,HALF UNIT, MISC) documented as of this encounter Plan of Treatment Not on filedocumented as of this encounter Procedures Procedure Name Priority Date/Time Associated Comments Diagnosis SEDIMENTATION RATE, B Routine 04/16/2021 10:32 Arthritis Re sults for this AM CDT Rheumatoid (HCC) procedure a re in the results section. CBC WITH DIFFERENTIAL, B Routine 04/16/2021 10:32 Arthritis Results for this AM CDT Rheumatoid (HCC) procedure a re in the results section. C-REACTIVE PROTEIN Routine 04/16/2021 10:32 Arthritis Resul ts for this (CRP), S/P AM CDT Rheumatoid (HCC) procedure a re in the results section. ASPARTATE Routine 04/16/2021 10:32 Arthritis Results for this AMINOTRANSFERASE (AST), AM CDT Rheumatoid (HCC) procedure are in S/P the results section. CREATININE WITH EGFR, Routine 04/16/2021 10:32 Arthritis Re sults for this S/P AM CDT Rheumatoid (HCC) procedure a re in the results section. documented in this encounter Results AST (Aspartate Aminotransferase) (04/16/2021 10:32 AM CDT) [facility] gist Method Time Signature Aspartate 26 8 - 43 04/16/2021 DTL Aminotransferase U/L 11:33 AM CDT (AST), S Specimen Anatomical Collection Method Collection Time Receive d Time (Source) Location / / Volume Laterality Blood (Blood, 04/16/2021 10:32 04/16/2021 Venous) AM CDT 10:50 AM CDT Rayna Guerrero APRN, C.N.P. LAB BLOOD ADD-ON Performing Organization Address City/[facility] Code Phon e Number [facility] - 200 [place], [place] [address] [address] [place], [place] [id number] [place] [address] Creatinine with Estimated GFR (04/16/2021 10:32 AM CDT) athologist Signature Creatinine 0.64 0.59 - 04/16/2021 DTL 1.04 mg/dL 11:33 AM CDT eGFR-Non >90 >=60 04/16/2021 DTL Black/ mL/min/BSA 11:33 AM CDT [place] Comment: ----ADDITIONAL INFORMATION---- Estimated GFR calculated using [...] C.N.P. LAB BLOOD ADD-ON Performing Organization Address City/[facility]/ZIP Code Phon e Number [facility] - 200 [place], [place] [address] [facility] [place] [address] CRP (C-Reactive Protein) (04/16/2021 10:32 AM CDT) athologist Signature C-Reactive <3.0 <=8.0 mg/L 04/16/2021 DT Protein (CRP), 11:33 AM CDT S Specimen Anatomical Collection Method Collection Time Receive d Time (Source) Location / / Volume Laterality Blood (Blood, 04/16/2021 10:32 04/16/2021 Venous) AM CDT 10:50 AM CDT Rayna Guerrero APRN, C.N.P. LAB BLOOD ADD-ON Performing Organization Address City/[facility]/ZIP Code Phon e Number [facility] - 200 [place], [place] [address] [facility] [place] [address] Laboratories-[facility] 200 [facility] (ABNORMAL) CBC with Differential, Blood (04/16/2021 10:32 AM CDT) [facility] Method Time Signature Hemoglobin 13.2 11.6 - [...] C.N.P. LAB BLOOD ADD-ON Performing Organization Address City/State/[facility] Code Phon e Number [facility] - [address] [address] Laboratories-[facility] [address] Sedimentation Rate (04/16/2021 10:32 AM CDT) [...] Organization Address City/State/ZIP Code Phon e Number [facility] - [address] [place], [place] [address] [place] [address] Laboratories-[facility] [address] [facility] documented in this encounter Visit Diagnoses Diagnosis Arthritis Rheumatoid (HCC) documented in this encounter
--- OUTSIDE RECORDS SUMMARY | 2022-10-21 18:41 | XMS_ITS | Encounter Summary ---
:1965 Author Organization [facility] Address [address] [place] [address] Care Team Providers Name Role Phone Unavailable Primary Care Provider Unavailable Reason for Visit Reason Onset Date Comments Lab Monitoring 12/19/2019 Collected 12/16/19 Encounter Details Date Type Department Care Team Description 12/19/2019 Clinical Division of Rayna Guerrero Lab Monitori Communication Rheumatology in L, REGISTERED PHYSICAL THERAPIST, C.N.P. (Collected [address] 12/16/19) [address] [place] [address] [phone] Social History Tobacco Use Types Packs/Day Years [...] or relatives? How often do you attend presybeterian or Never 2021 scientology services? Do you belong to any clubs or No 01/17/2022 organizations such as presybeterian groups, unions, fraternal or athletic groups, or [...] place to sleep or slept in a custodial (including now)? Education Answer Date Recorded What is the highest level of school Bachelor's degree (e.g., BA, AB, 05/02/2019 you have completed or the highest BS) degree you have received? 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 - 12/23/2019 10:03 AM CST ASSESSMENT Rheumatology monitoring labs completed at an external lab on 12/16/19 were reviewed per Rheumatology division parameters. All monitored labs are within parameters. Labs reviewed: absolute neutrophil count, AST, creatinine, hemoglobin, leukocytes, platelets External labs were entered into Labs Tab and sent for scanning. PLAN Patient to continue with current plan of care. AZZO LAYER HELPER documented in this encounter Plan of Treatment Not on filedocumented as of this encounter Procedures Procedure Name Priority Date/Time Associated Comments Diagnosis CBC WITH DIFFERENTIAL, B Routine 12/16/2019 8:36 Results for this PM TERRAZZO LAYER HELPER procedure are i n the results section. ALANINE AMINOTRANSFERASE Routine 12/16/2019 8:36 Results for this (ALT), S/P PM TERRAZZO LAYER HELPER procedure are i n the results section. CREATININE WITH EGFR, Routine 12/16/2019 8:36 Res ults for this S/P PM TERRAZZO LAYER HELPER procedure are i n the results section. documented in this encounter Results (ABNORMAL) ALT (Alanine Aminotransferase) (12/16/2019 8:36 PM TERRAZZO LAYER HELPER) P athologist Signature EXT AST 38 (A) 12 - 35 Specimen (Source) Anatomical Location Collection Method / Collectio n Time Received Time / Laterality Volume Blood (Blood, Venous) Rayna L Yolanda REGISTERED PHYSICAL THERAPIST, C.N.P. LAB BLOOD ADD-ON Creatinine with Estimated GFR (12/16/2019 8:36 PM TERRAZZO LAYER HELPER) P athologist Signature EXT Creatinine 0.5 0.5 - 1.5 Specimen (Source) Anatomical Location Collection Method / Collectio n Time Received Time / Laterality Volume Blood (Blood, Venous) Yaa Weber APRNN.P. LAB BLOOD ADD-ON (ABNORMAL) CBC with Differential, Blood (12/16/2019 8:36 PM TERRAZZO LAYER HELPER) Analysis Performed At Patho logist Time Signature EXT Platelet 207 150 - 450 Count EXT Neutrophils 2.46 1.7 - 7 EXT Hemoglobin 12.9 12 - 15.5 EXT White Blood 4.3 (A) 5.0 - 10.0 Cell (WBC) Count Specimen (Source) Anatomical Location Collection Method / Collectio n Time Received Time / Laterality Volume Blood (Blood, Venous) Narrative This result has an attachment that is no t available. José Miguel Weber APRN.N.P. LAB BLOOD ADD-ON documented in this encounter Visit Diagnoses Not on filedocumented in this encounter
--- OUTSIDE RECORDS SUMMARY | 2022-10-21 18:41 | XMS_ITS | Encounter Summary ---
:1965 Author Organization [facility] Address [address] [place] [address] Care Team Providers Name Role Phone Unavailable Primary Care Provider Unavailable Reason for Visit Reason Comments Med Refill Encounter Details Date Type Department Care Team Description 02/07/2020 Refill Division of Rheumatology in Karen Gurerero sa, APRN, Med Refill [place], [place] C.N.P. [address] [facility] [address] [place] [address] [place] [address] [phone] (Wo rk) Social History Tobacco Use Types [...] or relatives? How often do you attend pentecostalism or Never 2021 jain services? 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 - 02/14/2020 12:10 PM CDT Prescription renewal request for BD luer lock syringe received from pharmacy. HISTORY OF PRESENT ILLNESS Last Rheum visit: 09/20/19 with Rayna Guerrero APRN, [facility] Future office visit: 05/03/20 Last monitoring labs/eye exam: Not required. Prescription request matches current plan of care. Prescription request matches a current prescription in the Medication List. ASSESSMENT/PLAN Prescription request renewed per nursing protocol. documented in this encounter Plan of Treatment Not on filedocumented as of this encounter Visit Diagnoses Not on filedocumented in this encounter
--- OUTSIDE RECORDS SUMMARY | 2022-10-21 18:41 | XMS_ITS | Encounter Summary ---
:1965 Author Organization [facility] Address [address] [place] [address] Care Team Providers Name Role Phone Unavailable Primary Care Provider Unavailable Encounter Details Date Type Department Care Team Description 09/20/2019 Hospital Encounter Department of Rayna Guerrero Rheumatoid Laboratory Medicine L, CAREER DEVELOPMENT ENGINEER, C.N .P. (HCC) and Pathology, [address] [place] [address] in [place] [id number] [place] [phone] [place] [address] (Work) [place], [place] [phone] [address] (Fax) [phone] Social History Tobacco Use Types Packs/Day Years [...] or relatives? How often do you attend faith or Never 2021 evangelical services? 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 ibuprofen Take 1 tablet by 0 11/11/2017 08/04/20 22 (for_ADVIL,MOTRIN) 200 mouth daily as mg tablet needed. For pain. insulin glargine Inject 12.5 Units 0 05/29/2017 1 12/16/2019 (LANTUS SOLOSTAR U-100 under the skin as INSULIN) 100 unit/mL (3 directed. Inject 15 mL) injection units once daily in am. LANTUS U-100 INSULIN ADMINISTER 13 UNITS 10 201801/21/2022 100 unit/mL injection SUBCUTANEOUSLY DAILY methotrexate 25 mg/mL Inject 0.8 mL (20 mg 8 mL 5 08/2305/02/2020 injection total) under the skin once a week. Remember labs every 3 months. documented as of this encounter Plan of Treatment Not on filedocumented as of this encounter Procedures Procedure Name Priority Date/Time Associated Comments Diagnosis C-REACTIVE PROTEIN Routine 09/20/2019 10:07 Arthritis Resul ts for this (CRP), S/P AM CDT Rheumatoid (HCC) procedure a re in the results section. ASPARTATE Routine 09/20/2019 10:07 Arthritis Results for this AMINOTRANSFERASE (AST), AM CDT Rheumatoid (HCC) procedure are in S/P the results section. CREATININE WITH EGFR, Routine 09/20/2019 10:07 Arthritis Re sults for this S/P AM CDT Rheumatoid (HCC) procedure a re in the results section. SEDIMENTATION RATE, B Routine 09/20/2019 10:06 Arthritis Re sults for this AM CDT Rheumatoid (HCC) procedure a re in the results section. CBC WITH DIFFERENTIAL, B Routine 09/20/2019 10:06 Arthritis Results for this AM CDT Rheumatoid (HCC) procedure a re in the results section. documented in this encounter Results AST (Aspartate Aminotransferase) (09/20/2019 10:07 AM CDT) Patholo gist Method Time Signature Aspartate 27 8 - 43 09/20/2019 DTL Aminotransferase U/L 12:01 PM CDT (AST), S Specimen Anatomical Collection Method Collection Time Receive d Time (Source) Location / / Volume Laterality Blood (Blood, 09/20/2019 10:07 09/20/2019 Venous) AM CDT 10:27 AM CDT Rayna Guerrero APRN, C.N.P. LAB BLOOD ADD-ON Performing Organization Address City/State/ZIP Code Phon e Number [facility] - [address] [place], [place] [address] [facility] [place] [address] Laboratories-[facility] [address] Creatinine with Estimated GFR (09/20/2019 10:07 AM CDT) P athologist Signature Creatinine 0.60 0.59 - 09/20/2019 DTL 1.04 mg/dL 12:01 PM CDT eGFR-Non >90 >=60 09/20/2019 DTL Black/ mL/min/BSA 12:01 PM CDT [place] Comment: ----ADDITIONAL INFORMATION---- Estimated GFR calculated using the 2009 CKD_EPI creatinine equation. eGFR-Black/ >90 >=60 mL/min/BSA 2018 12:01 PM CDT DTL Comment: ----ADDITIONAL INFORMATION---- Estimated GFR calculated using the 2009 CKD_EPI creatinine equation. Specimen Anatomical Collection Method Collection Time Receive d Time (Source) Location / / Volume Laterality Blood (Blood, 09/20/2019 10:07 09/20/2019 Venous) AM CDT 10:27 AM CDT Rayna Guerrero APRN, C.N.P. LAB BLOOD ADD-ON Performing Organization Address City/[facility] Phon e Number [facility] - [address] [place] [address] CRP (C-Reactive Protein) (09/20/2019 10:07 AM CDT) P athologist Signature C-Reactive <3.0 <=8.0 mg/L 09/20/2019 DTL Protein (CRP), 12:01 PM CDT S Specimen Anatomical Collection Method Collection Time Receive d Time (Source) Location / / Volume Laterality Blood (Blood, 09/20/2019 10:07 09/20/2019 Venous) AM CDT 10:27 AM CDT Rayna Guerrero APRN, C.N.P. LAB BLOOD ADD-ON Performing Organization Address City/State/[facility] Phon e Number [facility] - [address] [place] [address] [address] [facility] Sedimentation Rate (09/20/2019 10:06 AM CDT) Analysis Performed At Patho logist Time Signature Sedimentation 8 2 - 22 09/20/2019 DTL Rate, B mm/h 12:03 PM CDT Specimen Anatomical Collection Method Collection Time Receive d Time (Source) Location / / Volume Laterality Blood (Blood, 09/20/2019 10:06 09/20/2019 Venous) AM CDT 10:27 AM CDT Rayna Guerrero APRN, C.N.P. LAB BLOOD ADD-ON Performing Organization Address City/State/ZIP Code Phon e Number [facility] - [address] [place], [place] [address] [facility] [place] [address] Laboratories-[facility] [address] (ABNORMAL) CBC with Differential, Blood (09/20/2019 10:06 AM CDT) [facility] Method Time Signature Hemoglobin 13.9 11.6 - 09/20/2019 DTL 15.0 g/dL 10:37 AM CDT Hematocrit 43.5 35.5 - 09/20/2019 DTL 44.9 % 10:37 AM CDT Erythrocytes 4.65 3.92 - 09/20/2019 DTL 5.13 10:37 AM CDT x10(12)/L MCV 93.5 78.2 - 09/20/2019 DTL 97.9 fL 10:37 AM CDT RBC Distrib Width 13.3 12.2 - 09/20/2019 DTL 16.1 % 10:37 AM CDT Platelet Count 209 157 - 371 09/20/2019 DTL x10(9)/L 10:37 AM CDT Leukocytes 4.8 3.4 - 9.6 09/20/2019 DTL x10(9)/L 10:37 AM CDT Neutrophils 3.62 1.56 - 09/20/2019 DTL 6.45 10:37 AM CDT x10(9)/L Lymphocytes 0.68 (L) 0.95 - 09/20/2019 DTL 3.07 10:37 AM CDT x10(9)/L Monocytes 0.35 0.26 - 09/20/2019 DTL 0.81 10:37 AM CDT x10(9)/L Eosinophils 0.13 0.03 - 09/20/2019 DTL 0.48 10:37 AM CDT x10(9)/L Basophils 0.06 0.01 - 09/20/2019 DTL 0.08 10:37 AM CDT x10(9)/L Specimen Anatomical Collection Method Collection Time Receive d Time (Source) Location / / Volume Laterality Blood (Blood, 09/20/2019 10:06 09/20/2019 Venous) AM CDT 10:27 AM CDT Yaa Weber APRNNLiaP. LAB BLOOD ADD-ON Performing Organization Address City/State/ZIP Code Phon e Number [facility] - [address] [place], [place] [address] [facility] [place] [address] Laboratories-[facility] [address] documented in this encounter Visit Diagnoses Diagnosis Arthritis Rheumatoid (HCC) documented in this encounter
--- OUTSIDE RECORDS SUMMARY | 2022-10-21 18:41 | XMS_ITS | Encounter Summary ---
:1965 Author Organization [facility] Address [address] [place] [address] Care Team Providers Name Role Phone Unavailable Primary Care Provider Unavailable Reason for Visit Reason Onset Date Comments Lab Monitoring 12/16/2019 Encounter Details Date Type Department Care Team Description 12/16/2019 Clinical Communication Division of Rayna Guerrero Monitoring Rheumatology in L, STORE OPERATIONS MANAGER, C.N.P. [place], [place] [address] [facility] [address] [place] [address] [phone] Social History Tobacco Use Types Packs/Day Years [...] or relatives? How often do you attend pentecostal or Never 2021 rastafari services? Do you belong to any clubs or No 01/17/2022 organizations such as pentecostal groups, unions, fraternal or athletic groups, or [...] place to sleep or slept in a care home (including now)? Education Answer Date Recorded What is the highest level of school Bachelor's degree (e.g., BA, AB, 05/02/2019 you have completed or the highest BS) degree you have received? 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 Patient is coming in to do them today. The order they have is . Fax number is [phone] TCHER LEVELER OPERATOR documented in this encounter Plan of Treatment Not on filedocumented as of this encounter Visit Diagnoses Not on filedocumented in this encounter
--- OUTSIDE RECORDS SUMMARY | 2022-10-21 18:41 | XMS_ITS | Encounter Summary ---
:1965 Author Organization [facility] Address [address] [place] [address] Care Team Providers Name Role Phone Unavailable Primary Care Provider Unavailable Reason for Visit Reason Comments Lab Monitoring 10/05/20 Encounter Details Date Type Department Care Team Description 10/11/2020 Clinical Division of Rayna Guerrero Lab Monitori ng Communication Rheumatology in L, PROCESSOR HELPER, C.N.P. (10/05/20) [place], [place] [address] [facility] [address] [place] [address] [phone] Social History Tobacco Use Types Packs/Day Years [...] do you attend lutheran or Never 2021 anglican services? 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 - 10/11/2020 2:43 PM CST ASSESSMENT Rheumatology monitoring labs completed at an external lab on 10/05/20 were reviewed per Rheumatologydivision parameters. All monitored labs are within parameters. Labs reviewed: absolute neutrophil count, ALT, AST, creatinine, hemoglobin, leukocytes, platelets, ESR (Sed Rate), CRP (C-Reactive Protein) External labs were entered into Labs Tab and sent for scanning. PLAN Patient to continue with current plan of care. CONTROL CLERK documented in this encounter Plan of Treatment Not on filedocumented as of this encounter Visit Diagnoses Not on filedocumented in this encounter
--- OUTSIDE RECORDS SUMMARY | 2022-10-21 18:41 | XMS_ITS | Encounter Summary ---
:1965 Author Organization [facility] Address [address] [place] [address] Care Team Providers Name Role Phone Unavailable Primary Care Provider Unavailable Reason for Visit Reason Comments Pre-visit Testing Orders Encounter Details Date Type Department Care Team Description 10/01/2020 Clinical Division of Rayna Guerrero Pre-visit Te sting Communication Rheumatology in L, MAINTAINER OPERATOR, C.N.P. Orders [place], [place] [address] [facility] [address] [place] [address] [phone] Social History Tobacco Use Types Packs/Day Years [...] do you attend yazidi or Never 2021 hinduism services? Do you [...] place to sleep or slept in a half-way (including now)? Education Answer Date Recorded What is the highest level of school Bachelor's degree (e.g., BA, AB, 05/02/2019 you have completed or the highest BS) degree you have received? 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 MIXER MACHINE Telephone Encounter - Ailyn Dawn - 10/01/2020 9:15 AM CST This patient is now scheduled to have a video appt on 10/16 with Rayna. She is needing her lab orders sent to [facility], fax: [phone] The following labs need to be done: CBC with Differential AST Creatinine Sedimentation Rate C-Reactive Protein MIXER MACHINE documented in this encounter Plan of Treatment Not on filedocumented as of this encounter Visit Diagnoses Not on filedocumented in this encounter
--- OUTSIDE RECORDS SUMMARY | 2022-10-21 18:41 | XMS_ITS | Encounter Summary ---
:1965 Author Organization [facility] Address [address] [place] [address] Care Team Providers Name Role Phone Unavailable Primary Care Provider Unavailable Reason for Visit Reason Comments COVID Inquiry Encounter Details Date Type Department Care Team Description 02/26/2021 Clinical Communication Division of Rayna Guerrero Inquiry Rheumatology in L, RADIO DIVISION OFFICER, C.N.P. [place], [place] [address] [facility] [address] [place] [phone] Social History Tobacco Use Types Packs/Day Years [...] do you attend methodist or Never 2021 anabaptism services? Do you belong to any clubs [...] place to sleep or slept in a senior living (including now)? Education Answer Date Recorded What is the highest level of school Bachelor's degree (e.g., BA, AB, 05/02/2019 you have completed or the highest BS) degree you have received? 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 Follow local process (End Screening) Testing Recommendation Endpoint Is testing recommended? : Not recommended to test Plan: Endpoint recommendation: Followed regional OTG *Reminder if sending patient for testing in [facility] or [facility], route encounter to the correct testing pool. documented in this encounter Plan of Treatment Not on filedocumented as of this encounter Visit Diagnoses Not on filedocumented in this encounter
--- OUTSIDE RECORDS SUMMARY | 2022-10-21 18:41 | XMS_ITS | Encounter Summary ---
:1965 Author Organization [facility] Address [address] [place] [address] Care Team Providers Name Role Phone Unavailable Primary Care Provider Unavailable Reason for Referral Outpatient (Routine) - Closed Specialty Diagnoses / Procedures Referred By Contact Refer red To Contact Rheumatology Rayna Guerrero APRN, [facility] C.N.P. [address] [place] [address] Referral ID Status Reason Start Date Expiration Date Visits Requ ested Visits Authorized [id number] Closed 09/20/2019 09/19/2020 1 1 Reason for Visit Outpatient (Routine) - Closed Specialty Diagnoses / Procedures Referred By Contact Refer red To Contact [facility] [address] [place] [phone] Referral ID Status Reason Start Date Expiration Date Visits Requ ested Visits Authorized [id number] Closed 05/03/2019 05/02/2020 1 1 Encounter Details Date Type Department Care Team Description 09/20/2019 Office Visit Division of Rayna Guerrero Arthritis Rh eumatoid (HCC) (Primary Dx); Rheumatology phyllis Kruger APRN, C.N.P. High Risk Medication [place], [place] [address] [facility] [address] [place] [phone] Social History Tobacco Use Types Packs/Day Years [...] or relatives? How often do you attend evangelical or Never 2021 rastafari services? 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 - 09/20/2019 1:00 PM CDT SUBJECTIVE CHIEF COMPLAINT / REASON FOR VISIT Martine De Oliveira is a 54 y.o. female who presents for follow up of rheumatoid arthritis. HISTORY OF PRESENT ILLNESS Mrs. De Oliveira is a pleasant 54-year-old lady with seropositive erosive/destructive rheumatoid arthritis. She [...] I am seeing Mrs. De Oliveira for her rheumatoid arthritis. She states that generally she is doing well. She has not been able to wear her wedding ring due to increased swelling in her left ring finger, at this time she is able to wear it again. She has not been walking as much as she usually does dueto the changes in weather. She states that her left hand as well a bit more painful, then her right hand. She will get shooting pain in her left 4th PIP when she is typing intermittently. Also the ballof her left foot is more achy at this time. She continues take methotrexate SQ 17.5 mg once weekly and folic acid 2 mg daily. She denies any significant morning stiffness at this time. No recent major f melecio, infections or hospitalizations. No adverse side effects to the medication. Rheumatoid Arthritis RF +: Yes CCP +: Yes AM stiffness: 0 minutes Current Symptoms: dry eyes (improving- now taking fish oil) Current Symptoms: no dry mouth, no fatigue, no fever, no rash (left elbow), no Raynaud's syndrome, no weight loss, no excessive bruising, no cough, no chest pain, no edema, no nausea, [...] and weight loss. Skin: Negative for skin rash (left elbow). ENT: Negative for sinus congestion. Respiratory: Negative for cough. Cardiovascular: Negative for chest pain, pressure or tightness. Gastrointestinal: Negative for abdominal (belly) pain or cramping, anorexia, heartburn, nausea and vomiting. Genitourinary: Positive for urgency and frequent urination. Musculoskeletal: Positive for arthralgias (hands, right shoulder, left foot), pain or stiffness in the joints (hands, right shoulder, left foot), joint swelling and muscle pain/stiffness. Negative for back pain. Neurological: Negative for light-headedness and headaches. Psychiatric/Behavioral: Positive for snores loudly. The following systems were negative: Constitutional, Skin, Eyes, CV, Respiratory, GI, Hematologic, Neuro OBJECTIVE PHYSICAL EXAM Physical Exam General: alert, oriented, appropriate affect, no apparent distress. Skin: No rheumatologic rashes or ulcers noted. Eyes: Clear conjunctivae and lids. Ears, nose, and throat: Moist oral mucosa without mucositis. Lymph: No cervical or supraclavicular adenopathy. Cardio: Regular rate. No murmurs or rubs. Lungs: Clear to auscultation bilaterally. Extremities: No limitations in ROM bilaterally. Joints: See joint exam. Pannus to bilateral MCPs is improving. Lab: CBC with differential: Lymphocytes 0.68. Creatinine, GFR, and AST all within normal limits. CRP and ESR normal. Disease Activity Tenderness RUE: glenohumeral LUE: glenohumeral Right hand: 1st MCP and 1st PIP Left hand: 4th MCP and 4th PIP Swelling Right hand: 1st PIP Left hand: 1st MCP Tender joint count (0-28): 6 Swollen joint count (0-28): 2 ESR (mm/hr): 8 CRP (mg/L): 3 Health Assessment Questionnaire II (SANG-II) Score 0-3: 0.7 Pain, 0-100: 30 Patient Global Assessment of Disease Activity, 0-100: 10 Provider Global Assessment, 0-100: 40 Composite Disease Activity Scores Disease Activity Score (DEL VALLE) 28-CRP(4): 3.37 Disease Activity Score (DEL VALLE) 28-ESR(4): 3.36 Simplified Disease Activity Index (SDAI): 13.3 Clinical Disease Activity Index (CDAI): 13 ASSESSMENT / PLAN #1 Arthritis Rheumatoid (HCC) Decreased synovitis noted on exam. She will continue methotrexate 0.7 mL once weekly and folic acid 2 mg [...] Outpatient Referral Routine E xpected: visit (clinic) 03/21/2020 (Approximate), Expires: 09/20/2022 documented as of this encounter Visit Diagnoses Diagnosis Arthritis Rheumatoid (HCC) - Primary High Risk Medication documented in this encounter
--- OUTSIDE RECORDS SUMMARY | 2022-10-21 18:41 | XMS_ITS | Encounter Summary ---
:1965 Author Organization [facility] Address [address] [place] [address] Care Team Providers Name Role Phone Unavailable Primary Care Provider Unavailable Reason for Visit Reason Comments Med Refill Encounter Details Date Type Department Care Team Description 08/27/2020 Refill Division of Rheumatology in Karen Guerrero sa, APRN, Med Refill [place], [place] C.N.P. [address] [facility] [address] [place] [address] [place] [address] [phone] (Wo rk) Social History Tobacco Use Types [...] or relatives? How often do you attend bahai or Never 2021 congregation services? 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 She is out of her methotrexate and is due to take it on Thursday. Can you refill this for her. documented in this encounter Plan of Treatment Not on filedocumented as of this encounter Visit Diagnoses Not on filedocumented in this encounter
--- OUTSIDE RECORDS SUMMARY | 2022-10-21 18:41 | XMS_ITS | Encounter Summary ---
:1965 Author Organization [facility] Address [address] [place] [address] Care Team Providers Name Role Phone Unavailable Primary Care Provider Unavailable Reason for Visit Reason Comments Med Refill Encounter Details Date Type Department Care Team Description 11/20/2020 Refill Division of Rheumatology in Karen Guerrero sa, APRN, Med Refill [place], [place] C.N.P. [address] [facility] [address] [place] [address] [place] [address] [phone] (Wo rk) Social History Tobacco Use Types [...] or relatives? How often do you attend jewish or Never 2021 adventism services? 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 - 11/28/2020 10:38 AM CST Patient responded and is taking 0.5 ml per week. Changed from 0.8 to 0.5 ml and will pend to provider. OMIC SPECIALIST Telephone Encounter - Eloise Ibarra R.N. - 11/27/2020 12:22 PM ECONOMIC SPECIALIST POM sent 11/27 to clarify weekly methotrexate dosage, awaiting reply. OMIC SPECIALIST Telephone Encounter - Eloise Ibarra R.N. - 11/27/2020 12:13 PM ECONOMIC SPECIALIST Prescription renewal request for methotrexate received from pharmacy. HISTORY OF PRESENT ILLNESS Last Rheum visit:10/16/20 with Rayna Guerrero APRN, [facility] Future office visit: ordered, not yet scheduled Last monitoring labs/eye exam: 10/05/2020: within protocol parameters. Prescription request does not match current plan of care. Prescription request matches a current prescription in the Medication List. ASSESSMENT/PLAN Prescription request portal message sent to patient 11/27 to clarify weekly methotrexate dosage. OMIC SPECIALIST documented in this encounter Plan of Treatment Not on filedocumented as of this encounter Visit Diagnoses Not on filedocumented in this encounter
--- OUTSIDE RECORDS SUMMARY | 2022-10-21 18:41 | XMS_ITS | Encounter Summary ---
:1965 Author Organization [facility] Address [address] [place] [address] Care Team Providers Name Role Phone Unavailable Primary Care Provider Unavailable Reason for Referral Specialty Diagnoses / Procedures Referred By Contact Refer red To Contact Ashleigh Pradhan M.D. [facility] Region [address] [place] [phone] Referral ID Status Reason Start Date Expiration Date Visits Requ ested Visits Authorized Encounter Details Date Type Department Care Team Description 07/09/2021 [facility] Sa kary Pradhan M.D. [address] [place] [phone] (Wo rk) Social History Tobacco Use Types [...] do you attend sabianism or Never 2021 protestant services? Do you belong to any clubs [...] place to sleep or slept in a retirement (including now)? Education Answer Date Recorded What is the highest level of school Bachelor's degree (e.g., BA, AB, 05/02/2019 you have completed or the highest BS) degree you have received? 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
--- OUTSIDE RECORDS SUMMARY | 2022-10-21 18:41 | XMS_ITS | Encounter Summary ---
:1965 Author Organization [facility] [place] Address [address] [place] [address] Care Team Providers Name Role Phone Unavailable Primary Care Provider Unavailable Encounter Details Date Type Department Care Team Description 04/15/2021 Clinical Communication Division of Rayna Guerrero Rheumatology in L, SKIP TENDER, C.N.P. [place], [place] [address] [facility] [address] [place] [phone] Social History Tobacco Use Types Packs/Day Years [...] or relatives? How often do you attend restorationist or Never 2021 tenriism services? 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
--- OUTSIDE RECORDS SUMMARY | 2022-10-21 18:41 | XMS_ITS | Encounter Summary ---
:1965 Author Organization [facility] Address [address] [place] [address] Care Team Providers Name Role Phone Unavailable Primary Care Provider Unavailable Reason for Visit Reason Comments Lab Monitoring 04/27 Encounter Details Date Type Department Care Team Description 04/30/2020 Clinical Division of Rayan Guerrero Lab Monitori ng Communication Rheumatology in L, VENEER PULLER, C.N.P. (04/27) [place], [place] [address] [facility] [address] [place] [address] [phone] Social History Tobacco Use Types Packs/Day Years [...] or relatives? How often do you attend quaker or Never 2021 confucianism services? 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 - 04/30/2020 4:08 PM CDT ASSESSMENT Rheumatology monitoring labs completed at an external lab on 04/27/2020 were reviewed per outside lab reference ranges. All monitored labs are within the [...] Comme nts CBC WITH DIFFERENTIAL, B Routine 04/27/2020 Res ults for this procedure are i n the results section. ALANINE AMINOTRANSFERASE Routine 04/27/2020 Res ults for this (ALT), S/P procedure are i n the results section. CREATININE WITH EGFR, S/P Routine 04/27/2020 Re sults for this procedure are i n the results section. documented in this encounter Results ALT (Alanine Aminotransferase) (04/27/2020) P athologist Signature EXT AST 31 12 - 35 Specimen (Source) Anatomical Location Collection Method / Collectio n Time Received Time / Laterality Volume Blood (Blood, Venous) Resulting Agency Comment [facility] Rayna Guerrero APRN, C.N.P. LAB BLOOD ADD-ON Creatinine with Estimated GFR (04/27/2020) athologist Signature EXT Creatinine 0.6 0.5 - 1.5 mg/dL Specimen (Source) Anatomical Location Collection Method / Collectio n Time Received Time / Laterality Volume Blood (Blood, Venous) Resulting Agency Comment [facility] Rayna Guerrero APRN, C.N.P. LAB BLOOD ADD-ON CBC with Differential, Blood (04/27/2020) athologist Signature EXT Platelet 223 150 - 450 Count EXT Neutrophils 3.52 1.7 - 7 EXT Hemoglobin 13.5 12 - 15.5 EXT White Blood 5.4 5.0 - 10.0 Cell (WBC) Count Specimen (Source) Anatomical Location Collection Method / Collectio n Time Received Time / Laterality Volume Blood (Blood, Venous) Resulting Agency Comment [facility] Rayna Guerrero APRN, C.N.P. LAB BLOOD ADD-ON documented in this encounter Visit Diagnoses Not on filedocumented in this encounter
--- OUTSIDE RECORDS SUMMARY | 2022-10-21 18:41 | XMS_ITS | Encounter Summary ---
:1965 Author Organization [facility] Address [address] [place] [address] Care Team Providers Name Role Phone Unavailable Primary Care Provider Unavailable Reason for Visit Reason Comments Med Refill Encounter Details Date Type Department Care Team Description 04/06/2020 Refill Division of Rheumatology in Karen Guerrero sa, APRN, Med Refill [place], [place] C.N.P. [address] [facility] [address] [place] [address] [place] [address] [phone] (Wo rk) Social History Tobacco Use Types [...] or relatives? How often do you attend uatsdin or Never 2021 hindu services? 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 - 04/12/2020 7:30 AM CDT Prescription renewal request for methotrexate received from pharmacy. HISTORY OF PRESENT ILLNESS Last Rheum visit: 09/20/19 with Rayna Guerrero APRN, [facility] Future office visit: 05/03/20 Last monitoring labs/eye exam: 03/14/20: within protocol parameters. Prescription request matches current plan of care. Prescription request matches a current prescription in the Medication List. ASSESSMENT/PLAN Prescription request renewed per nursing protocol. documented in this encounter Plan of Treatment Not on filedocumented as of this encounter Visit Diagnoses Not on filedocumented in this encounter
--- OUTSIDE RECORDS SUMMARY | 2022-10-21 18:41 | XMS_ITS | Encounter Summary ---
:1965 Author Organization [facility] Address [address] [place] [address] Care Team Providers Name Role Phone Unavailable Primary Care Provider Unavailable Reason for Visit Reason Comments Med Refill Encounter Details Date Type Department Care Team Description 02/08/2020 Refill Division of Rheumatology in Karen Guerrero sa, APRN, Med Refill [place], [place] C.N.P. [address] [place] [address] [place] [address] [place] [address] [phone] (Wo rk) Social History Tobacco Use Types [...] or relatives? How often do you attend judaism or Never 2021 anabaptism services? Do you belong to any clubs or No 01/17/2022 organizations such as judaism groups, unions, fraternal or athletic groups, or [...] place to sleep or slept in a residential (including now)? Education Answer Date Recorded What is the highest level of school Bachelor's degree (e.g., BA, AB, 05/02/2019 you have completed or the highest BS) degree you have received? 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 - 02/14/2020 1:35 PM CDT Refills for: Methotrexate Provider: Yolanda Last office visit 09/20/19 Future office visit: 05/03/20 Last refill: 09/08/19 Last labs/eye exam: 12/16/19 All labs within normal limits. Pended to provider because order didn't match plan of care documented in this encounter Plan of Treatment Not on filedocumented as of this encounter Visit Diagnoses Not on filedocumented in this encounter
--- OUTSIDE RECORDS SUMMARY | 2022-10-21 18:41 | XMS_ITS | Encounter Summary ---
:1965 Author Organization [facility] Address [address] [place] [address] Care Team Providers Name Role Phone Unavailable Primary Care Provider Unavailable Reason for Visit Reason Comments Lab Monitoring 03/14/20 Encounter Details Date Type Department Care Team Description 03/15/2020 Clinical Division of Rayna Guerrero Lab Monitori ng Communication Rheumatology in L, PAPER CUP MACHINE OPERATOR, C.N.P. (03/14/20) [place], [place] [address] [facility] [address] [place] [address] [phone] Social History Tobacco Use Types Packs/Day Years [...] or relatives? How often do you attend latter day or Never 2021 jewish services? Do you belong to any clubs or No 01/17/2022 organizations such as latter day groups, unions, fraternal or athletic groups, or [...] place to sleep or slept in a alf (including now)? Education Answer Date Recorded What is the highest level of school Bachelor's degree (e.g., BA, AB, 05/02/2019 you have completed or the highest BS) degree you have received? 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 - 03/15/2020 9:38 AM CDT ASSESSMENT Rheumatology monitoring labs completed at an external lab on 03/14/20 were reviewed per Rheumatology division parameters. All monitored labs are within parameters. Labs reviewed: absolute neutrophil count, ALT, AST, creatinine, hemoglobin, leukocytes, platelets External labs were entered into Labs Tab and sent for scanning. PLAN Patient to continue with current plan of care. documented in this encounter Plan of Treatment Not on filedocumented as of this encounter Procedures Procedure Name Priority Date/Time Associated Diagnosis Comme nts CBC WITH DIFFERENTIAL, B Routine 03/14/2020 Res ults for this procedure are i n the results section. ALANINE AMINOTRANSFERASE Routine 03/14/2020 Res ults for this (ALT), S/P procedure are i n the results section. CREATININE WITH EGFR, S/P Routine 03/14/2020 Re sults for this procedure are i n the results section. documented in this encounter Results ALT (Alanine Aminotransferase) (03/14/2020) P athologist Signature EXT ALT 24 4 - 35 EXT AST 28 12 - 35 Specimen (Source) Anatomical Location Collection Method / Collectio n Time Received Time / Laterality Volume Blood (Blood, Venous) Resulting Agency Comment [facility] Rayna Guerrero APRN, C.N.P. LAB BLOOD ADD-ON Creatinine with Estimated GFR (03/14/2020) P athologist Signature EXT Creatinine 0.5 0.5 - 1.5 Specimen (Source) Anatomical Location Collection Method / Collectio n Time Received Time / Laterality Volume Blood (Blood, Venous) Resulting Agency Comment [facility] Yaa Weber APRNN.P. LAB BLOOD ADD-ON (ABNORMAL) CBC with Differential, Blood (03/14/2020) Analysis Performed At Patho logist Time Signature EXT Platelet 235 150 - 450 Count EXT Neutrophils 2.96 1.7 - 7 EXT Hemoglobin 13.8 12 - 15.5 EXT White Blood 4.5 (A) 5.0 - 10.0 Cell (WBC) Count Specimen (Source) Anatomical Location Collection Method / Collectio n Time Received Time / Laterality Volume Blood (Blood, Venous) Narrative This result has an attachment that is no t available. Resulting Agency Comment [facility] Yaa Weber APRNN.Johny. LAB BLOOD ADD-ON documented in this encounter Visit Diagnoses Not on filedocumented in this encounter
--- OUTSIDE RECORDS SUMMARY | 2022-10-21 18:41 | XMS_ITS | Encounter Summary ---
:1965 Author Organization [facility] Address [address] [place] [address] Care Team Providers Name Role Phone Unavailable Primary Care Provider Unavailable Reason for Visit Reason Comments Med Refill Encounter Details Date Type Department Care Team Description 04/20/2021 Refill Division of Rheumatology in Karen Guerrero sa, APRN, Med Refill [place], [place] C.N.P. [address] [facility] [[email or web address] [address] [place] [address] [place] [address] [phone] (Wo rk) Social History Tobacco Use Types [...] or relatives? How often do you attend scientologist or Never 2021 yarsani services? 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 - 04/25/2021 1:10 PM CDT Prescription renewal request for BD syringe 3cc 03/30 received from pharmacy. HISTORY OF PRESENT ILLNESS Last Rheum visit: 04/19/2021 with Rayna Guerrero APRN, [facility] Future office visit: ordered, not yet scheduled Last monitoring labs/eye exam: Not required. Prescription [...]
--- OUTSIDE RECORDS SUMMARY | 2022-10-21 18:41 | XMS_ITS | Encounter Summary ---
:1965 Author Organization [facility] Address [address] [place] [address] Care Team Providers Name Role Phone Unavailable Primary Care Provider Unavailable Reason for Referral Outpatient (Routine) - Closed Specialty Diagnoses / Procedures Referred By Contact Refer red To Contact Rheumatology Rayna Guerrero APRN, [facility] C.N.P. [address] [place] [address] Referral ID Status Reason Start Date Expiration Date Visits Requ ested Visits Authorized [id number] Closed 04/16/2021 04/16/2022 1 1 Reason for Visit Outpatient (Routine) - Closed Specialty Diagnoses / Procedures Referred By Contact Refer red To Contact Rheumatology Rayna Guerrero APRN, [facility] C.N.P. [address] [place] [address] Referral ID Status Reason Start Date Expiration Date Visits Requ ested Visits Authorized [id number] Closed 10/16/2020 10/16/2021 1 1 Encounter Details Date Type Department Care Team Description 04/16/2021 Office Visit Division of Rayna Guerrero Arthritis Rh eumatoid (HCC) (Primary Dx); Rheumatology phyllis Kruger APRN, C.N.P. High Risk Medication [place], [place] [address] [facility] [[email or web address]] [address] [place] [phone] Social History Tobacco Use Types Packs/Day [...] or relatives? How often do you attend mu-ism or Never 2021 nondenominational services? Do you belong to any clubs or No 01/17/2022 organizations such as mu-ism groups, unions, fraternal or athletic groups, or [...] place to sleep or slept in a mcc (including now)? Education Answer Date Recorded What is the highest level of school Bachelor's degree (e.g., BA, AB, 05/02/2019 you have completed or the highest BS) degree you have received? 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 - 04/16/2021 2:45 PM CDT Images from the original [...] that generally she is doing good. She has been able to garden over the weekend and now her joints are more stiff and sore. She continues to have pain and swelling to her right elbow. She held the methotrexate after the 2nd COVID-19 vaccine and for a URI and enjoyed not having the GI side effects for 2 weeks. She wonders if she could take the methotrexate every other week rather than weekly. She have not been working outregularly. She continues take methotrexate 12.5 mg SQ once weekly and folic acid 2 mg daily. She denies any significant morning stiffness at this time. No recent major flares, infections or hospitalizations. No adverse side effects [...] urination. Musculoskeletal: Positive for arthralgias (right elbow and hands), pain or stiffness in the joints (right elbow and hands), joint swelling and muscle pain/stiffness. Negative for [...] Joints: See joint exam. Limited ROM bilateral shoulders. Lab: CBC with differential: Lymphocytes 0.92. Creatinine, GFR, AST within normal limits. ESR and CRP are normal. 04/16/2021 Tender joint count (0-28) 2 Swollen joint count (0-28) 2 Patient global assessment (0-100) 10 Block Operator global assessment (0-100) 25 ESR (mm/h) 15 CRP (mg/L) 3 Disease Activity Score 28 using ESR ([id number]) 3.22 Disease Activity Score 28 using CRP ([id number]) 2.79 Clinical Disease Activity Index (CDAI) 7.5 Simplified Disease Activity Index (SDAI) 7.8 ASSESSMENT / PLAN #1 Arthritis Rheumatoid (HCC) Synovitis on exam today, however this is stable. I am willing to let her reduce the methotrexate 12.5 mg SQ to every other week, however she has increased joint symptoms or flares then she will need togo back to once weekly. She will continue folic acid 2 mg daily. I have [...] that she contact us at that time. ADDENDUM Patient tried to take Methotrexate every 14 days but had increased joint symptoms after 4 weeks and is back on weekly dosing of methotrexate. documented in this encounter Plan of Treatment Scheduled Referrals Name Type Priority Associated Order Schedule Diagnoses Rheumatology office Outpatient Referral Routine E xpected: visit (clinic) 10/17/2021 (Approximate), Expires: 04/16/2024 documented as of this encounter Results AST (Aspartate Aminotransferase) (01/21/2022 10:57 AM FILTRATION OPERATOR) [facility] gist Method Time Signature Aspartate 24 8 - 43 01/21/2022 DTL Aminotransferase U/L 12:00 PM FILTRATION OPERATOR (AST), S Specimen Anatomical Collection Method Collection Time Receive d Time (Source) Location / / Volume Laterality Blood (Blood, 01/21/2022 10:57 01/21/2022 Venous) AM FILTRATION OPERATOR 11:41 AM FILTRATION OPERATOR Rayna Guerrero APRN, C.N.P. LAB BLOOD ADD-ON Performing Organization Address City/State/ZIP Code Phon e Number [facility] - [address] [place], [place] [address] [facility] [place] [address] [facility] [address] Creatinine with Estimated GFR (01/21/2022 10:57 AM FILTRATION OPERATOR) athologist Signature Creatinine 0.62 0.59 - 01/21/2022 DTL 1.04 mg/dL 12:00 PM FILTRATION OPERATOR eGFR-Non >90 >=60 01/21/2022 DTL Black/ mL/min/BSA 12:00 PM FILTRATION OPERATOR Somali Comment: ----ADDITIONAL INFORMATION---- Estimated GFR calculated using the 2009 CKD_EPI creatinine equation. eGFR-Black/ >90 >=60 mL/min/BSA 2021 12:00 PM FILTRATION OPERATOR DTL Comment: ----ADDITIONAL INFORMATION---- Estimated GFR calculated using the 2009 CKD_EPI creatinine equation. Specimen Anatomical Collection Method Collection Time Receive d Time (Source) Location / / Volume Laterality Blood (Blood, 01/21/2022 10:57 01/21/2022 Venous) AM FILTRATION OPERATOR 11:41 AM FILTRATION OPERATOR Rayna Guerrero APRN, C.N.P. LAB BLOOD ADD-ON Performing Organization Address City/[facility] Phon e Number [facility] - [address] [place] [address] CRP (C-Reactive Protein) (01/21/2022 10:57 AM FILTRATION OPERATOR) athologist Signature C-Reactive <3.0 <=8.0 mg/L 01/21/2022 DT Protein (CRP), 12:00 PM FILTRATION OPERATOR S Specimen Anatomical Collection Method Collection Time Receive d Time (Source) Location / / Volume Laterality Blood (Blood, 01/21/2022 10:57 01/21/2022 Venous) AM FILTRATION OPERATOR 11:41 AM FILTRATION OPERATOR Rayna Guerrero APRN, C.N.P. LAB BLOOD ADD-ON Performing Organization Address City/State/[facility] Code Phon e Number [facility] - [address] CBC with Differential, Blood (01/21/2022 10:57 AM FILTRATION OPERATOR) athologist Signature Hemoglobin 13.9 11.6 - 01/21/2022 DTL 15.0 g/dL 11:45 AM FILTRATION OPERATOR Hematocrit 42.1 35.5 - 01/21/2022 DTL 44.9 % 11:45 AM FILTRATION OPERATOR Erythrocytes 4.58 3.92 - 01/21/2022 DTL 5.13 11:45 AM FILTRATION OPERATOR x10(12)/L MCV 91.9 78.2 - 01/21/2022 DTL 97.9 fL 11:45 AM FILTRATION OPERATOR RBC Distrib Width 14.0 12.2 - 01/21/2022 DTL 16.1 % 11:45 AM FILTRATION OPERATOR Platelet Count 207 157 - 371 01/21/2022 DTL x10(9)/L 11:45 AM FILTRATION OPERATOR Leukocytes 5.7 3.4 - 9.6 01/21/2022 DTL x10(9)/L 11:45 AM FILTRATION OPERATOR Neutrophils 4.13 1.56 - 01/21/2022 DTL 6.45 11:45 AM FILTRATION OPERATOR x10(9)/L Lymphocytes 0.95 0.95 - 01/21/2022 DTL 3.07 11:45 AM FILTRATION OPERATOR x10(9)/L Monocytes 0.40 0.26 - 01/21/2022 DTL 0.81 11:45 AM FILTRATION OPERATOR x10(9)/L Eosinophils 0.15 0.03 - 01/21/2022 DTL 0.48 11:45 AM FILTRATION OPERATOR x10(9)/L Basophils 0.06 0.01 - 01/21/2022 DTL 0.08 11:45 AM FILTRATION OPERATOR x10(9)/L Specimen Anatomical Collection Method Collection Time Receive d Time (Source) Location / / Volume Laterality Blood (Blood, 01/21/2022 10:57 01/21/2022 Venous) AM FILTRATION OPERATOR 11:26 AM FILTRATION OPERATOR Rayna Guerrero APRN, C.N.P. LAB BLOOD ADD-ON Performing Organization Address City/State/ZIP Code Phon e Number [facility] - [address] [place], [place] [address] [facility] [place] [address] [facility] [address] Sedimentation Rate (01/21/2022 10:57 AM FILTRATION OPERATOR) Analysis Performed At Patho logist Time Signature Sedimentation 9 2 - 22 01/21/2022 DTL Rate, B mm/h 12:34 PM FILTRATION OPERATOR Specimen Anatomical Collection Method Collection Time Receive d Time (Source) Location / / Volume Laterality Blood (Blood, 01/21/2022 10:57 01/21/2022 Venous) AM FILTRATION OPERATOR 11:26 AM FILTRATION OPERATOR Yaa Weber APRNNLiaPLia LAB BLOOD ADD-ON Performing Organization Address City/State/ZIP Code Phon e Number [facility] - [address] [place], [place] [address] [facility] [place] [address] [facility] [address] documented in this encounter Visit Diagnoses Diagnosis Arthritis Rheumatoid (HCC) - Primary High Risk Medication documented in this encounter
--- OUTSIDE RECORDS SUMMARY | 2022-10-21 18:41 | XMS_ITS | Encounter Summary ---
:1965 Author Organization [facility] Address [address] [place] [address] Care Team Providers Name Role Phone Unavailable Primary Care Provider Unavailable Reason for Visit Reason Comments Lab Monitoring 02/13/2021 Encounter Details Date Type Department Care Team Description 02/14/2021 Clinical Division of Rayna Guerrero Lab Monitori ng Communication Rheumatology in L, GENERAL EDUCATION PROFESSOR, C.N.P. (02/13/2021) [place], [place] [address] [facility] [address] [place] [address] [phone] Social History Tobacco Use Types Packs/Day Years [...] or relatives? How often do you attend hoahaoism or Never 2021 rastafari services? 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 - 02/14/2021 12:34 PM CDT ASSESSMENT Rheumatology monitoring labs completed at an external lab on 02/13/21 were reviewed per Rheumatology division parameters. All [...] Comme nts CBC WITH DIFFERENTIAL, B Routine 02/13/2021 Res ults for this procedure are i n the results section. ALANINE AMINOTRANSFERASE Routine 02/13/2021 Res ults for this (ALT), S/P procedure are i n the results section. CREATININE WITH EGFR, S/P Routine 02/13/2021 Re sults for this procedure are i n the results section. documented in this encounter Results ALT (Alanine Aminotransferase) (02/13/2021) P athologist Signature EXT AST 31 12 - 35 Specimen (Source) Anatomical Location Collection Method / Collectio n Time Received Time / Laterality Volume Blood (Blood, Venous) Resulting Agency Comment [facility] José Miguel Weber APRN.N.P. LAB BLOOD ADD-ON Creatinine with Estimated GFR (02/13/2021) athologist Signature EXT Creatinine 0.5 0.5 - 135 mg/dL Specimen (Source) Anatomical Location Collection Method / Collectio n Time Received Time / Laterality Volume Blood (Blood, Venous) Narrative This result has an attachment that is no t available. Resulting Agency Comment [facility] Rayna Guerrero APRN, C.N.P. LAB BLOOD ADD-ON CBC with Differential, Blood (02/13/2021) athologist Signature EXT Platelet 235 150 - 450 Count EXT Neutrophils 3.17 1.7 - 7 EXT Hemoglobin 13.8 12 - 15.5 EXT White Blood 5.1 5.0 - 10.0 Cell (WBC) Count Specimen (Source) Anatomical Location Collection Method / Collectio n Time Received Time / Laterality Volume Blood (Blood, Venous) Resulting Agency Comment [facility] Rayna Guerrero APRN, C.N.P. LAB BLOOD ADD-ON documented in this encounter Visit Diagnoses Not on filedocumented in this encounter
--- OUTSIDE RECORDS SUMMARY | 2022-10-21 18:41 | XMS_ITS | Encounter Summary ---
:1965 Author Organization [facility] Address [address] [place] [address] Care Team Providers Name Role Phone Unavailable Primary Care Provider Unavailable Reason for Visit Reason Comments Lab Monitoring Encounter Details Date Type Department Care Team Description 10/09/2020 Clinical Communication Division of Rayna Guerrero Monitoring Rheumatology in L, WIRE BOUND BOX MACHINE OPERATOR, C.N.P. [place], [place] [address] [facility] [address] [place] [phone] Social History Tobacco Use Types Packs/Day Years [...] do you attend presybeterian or Never 2021 confucianism services? 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 - 10/09/2020 12:06 PM CST ASSESSMENT Rheumatology monitoring labs completed at an external lab on 10/05/20 were reviewed per Rheumatologydivision parameters. All monitored labs are within parameters. Labs reviewed: absolute neutrophil count, ALT, AST, creatinine, hemoglobin, leukocytes, platelets, ESR (Sed Rate), CRP (C-Reactive Protein) External labs were entered into Labs Tab and sent for scanning. PLAN Patient to continue with current plan of care. ODILE FARMER documented in this encounter Plan of Treatment Not on filedocumented as of this encounter Procedures Procedure Name Priority Date/Time Associated Comments Diagnosis URINALYSIS, DIPSTICK Routine 10/05/2020 6:44 Resu lts for this PM CROCODILE FARMER procedure are i n the results section. SEDIMENTATION RATE, B Routine 10/05/2020 6:44 Res ults for this PM CROCODILE FARMER procedure are i n the results section. CBC WITH DIFFERENTIAL, B Routine 10/05/2020 6:44 Results for this PM CROCODILE FARMER procedure are i n the results section. C-REACTIVE PROTEIN Routine 10/05/2020 6:44 Result s for this (CRP), S/P PM CROCODILE FARMER procedure are i n the results section. ALANINE AMINOTRANSFERASE Routine 10/05/2020 6:44 Results for this (ALT), S/P PM CROCODILE FARMER procedure are i n the results section. CREATININE WITH EGFR, Routine 10/05/2020 6:44 Res ults for this S/P PM CROCODILE FARMER procedure are i n the results section. documented in this encounter Results CRP (C-Reactive Protein) (10/05/2020 6:44 PM CROCODILE FARMER) athologist Signature EXT C-Reactive 0.5 0.1 - 1.0 Protein Quantative Specimen (Source) Anatomical Location Collection Method / Collectio n Time Received Time / Laterality Volume Blood (Blood, Venous) Rayna Guerrero APRN, C.N.P. LAB BLOOD ADD-ON ALT (Alanine Aminotransferase) (10/05/2020 6:44 PM CROCODILE FARMER) [facility] EXT AST 29 12 - 35 Specimen (Source) Anatomical Location Collection Method / Collectio n Time Received Time / Laterality Volume Blood (Blood, Venous) Rayna Guerrero APRN, C.N.P. LAB BLOOD ADD-ON Creatinine with Estimated GFR (10/05/2020 6:44 PM CROCODILE FARMER) [facility] Signature EXT Creatinine 0.5 0.5 - 1.5 mg/dL Specimen (Source) Anatomical Location Collection Method / Collectio n Time Received Time / Laterality Volume Blood (Blood, Venous) Narrative This result has an attachment that is no t available. Rayna Guerrero APRN, C.N.P. LAB BLOOD ADD-ON Urinalysis, Dipstick (10/05/2020 6:44 PM CROCODILE FARMER) athologist Signature EXT RBC 4.62 3.9 - 5.03 Specimen (Source) Anatomical Location Collection Method / Collectio n Time Received Time / Laterality Volume Urine (Urine, Clean Catch) Rayna Guerrero APRN, C.N.P. LAB URINE ORDERABLES Sedimentation Rate (10/05/2020 6:44 PM CROCODILE FARMER) Analysis Performed At [facility] EXT Sedimentation 9 2 - 20 Rate Specimen (Source) Anatomical Location Collection Method / Collectio n Time Received Time / Laterality Volume Blood (Blood, Venous) Rayna Guerrero APRN, C.N.P. LAB BLOOD ADD-ON CBC with Differential, Blood (10/05/2020 6:44 PM CROCODILE FARMER) P athologist Signature EXT Platelet 215 150 - 450 Count EXT Neutrophils 3.41 1.7 - 7 EXT Eosinophils 0.18 0 - 0.5 EXT Hemoglobin 13.9 12 - 15.5 EXT White Blood 5.1 [...]
--- OUTSIDE RECORDS SUMMARY | 2022-10-21 18:41 | XMS_ITS | Encounter Summary ---
:1965 Author Organization [facility] Address [address] [place] [address] Care Team Providers Name Role Phone Unavailable Primary Care Provider Unavailable Reason for Referral Outpatient (Routine) - Closed Specialty Diagnoses / Procedures Referred By Contact Refer red To Contact Rheumatology Rayna Guerrero APRN, [place] C.N.P. [address] [place] [address] Referral ID Status Reason Start Date Expiration Date Visits Requ ested Visits Authorized [id number] Closed 05/02/2020 05/02/2021 1 1 Reason for Visit Outpatient (Routine) - Closed Specialty Diagnoses / Procedures Referred By Contact Refer red To Contact Rheumatology [facility] [address] [place] [address] Referral ID Status Reason Start Date Expiration Date Visits Requ ested Visits Authorized [id number] Closed 09/20/2019 09/19/2020 1 1 Encounter Details Date Type Department Care Team Description 05/02/2020 Virtual Visit Division of Rayna Guerrero Arthritis R heumatoid (HCC) (Primary Dx); Rheumatology phyllis Kruger APRN, C.N.P. High Risk Medication [place], [place] [address] [facility] [address] [place] [phone] Social History Tobacco Use Types Packs/Day Years [...] do you attend hinduism or Never 2021 latter-day services? 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 - 05/02/2020 3:30 PM CDT SUBJECTIVE CHIEF COMPLAINT / REASON FOR VISIT Martine De Oliveira is a 54 y.o. female who presents for follow up of rheumatoid arthritis. I personally spent a total of 25 minutes in deb-hsps-sm-face time performing a review of the record and/or discussion with the patient/caregiver as described above. HISTORY OF PRESENT ILLNESS Mrs. De Oliveira [...] am speaking with Mrs. De Oliveira by phone for follow of her rheumatoid arthritis. She states that generally she is doing good. She was walking a lot in February and developed left heel and ankle, which lasted about 1 week. She has stopped wearing rings due to intermittent finger swelling. She has notbeen walking consistently since February. She has been having pain in her left hand, but has been able to garden and sew. She states the range of motion in her shoulders are improving also. After taking methotrexate her stomach feels uneasy for 1-2 days, no nausea, vomiting, or diarrhea. She continues take methotrexate 17.5 mg SQ once weekly and folic acid 2 mg daily. She denies any significant morning s tiffness at this time. No recent major flares, infections or hospitalizations. No adverse side effects to the medication. Rheumatoid Arthritis RF +: Yes CCP +: Yes AM stiffness: 0 minutes Current Symptoms: dry eyes (worse this last week) Current Symptoms: no dry mouth, no fatigue, no fever, no rash (left hand and elbow), no Raynaud's syndrome, no weight loss, [...] loss. Skin: Negative for skin rash (left hand and elbow). ENT: Negative for sinus congestion. Respiratory: [...] assessment done due to it being a phone visit. Lab: CBC with differential, creatinine, GFR, AST within normal limits. ASSESSMENT / PLAN #1 Arthritis Rheumatoid (HCC) After our discussion over the phone we will continue methotrexate 17.5 mg SQ once weekly and folic acid 2 mg daily. I have refilled her prescriptions. Patient was in agreement with this plan. #2 High Risk Medication She will continue laboratory monitoring every 3 months for methotrexate. I will follow up with her in 5 months. I answered the patients questions to the best of my ability. The patient seemed pleased with our interaction. If she should have any additional questions or concerns. I have asked that she contact us at that time. documented in this encounter Plan of Treatment Scheduled Referrals Name Type Priority Associated Order Schedule Diagnoses Rheumatology office Outpatient Referral Routine E xpected: visit (clinic) 10/02/2020 (Approximate), Expires: 05/02/2023 documented as of this encounter Visit Diagnoses Diagnosis Arthritis Rheumatoid (HCC) - Primary High Risk Medication documented in this encounter
--- OUTSIDE RECORDS SUMMARY | 2022-10-21 18:42 | XMS_ITS | Encounter Summary ---
:1965 Author Organization [facility] Address [address] [place] [address] Care Team Providers Name Role Phone Unavailable Primary Care Provider Unavailable Reason for Visit Reason Comments Med Refill Encounter Details Date Type Department Care Team Description 09/22/2018 Refill Division of Rheumatology in Karen Guerrero sa, APRN, Med Refill [place], [place] C.N.P. [address] [facility] [address] [place] [address] [place] [address] [phone] (Wo rk) Social History Tobacco Use Types Packs/Day Years Used Date Smoking Tobacco: Never Alcohol Habits Answer Date Recorded How often [...] or relatives? How often do you attend episcopalian or Never 2021 rastafarian services? Do you belong to any clubs or No 01/17/2022 organizations such as episcopalian groups, unions, fraternal or athletic groups, or [...] or slept in a assisted (including now)? 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 - 09/23/2018 11:52 AM CDT Last visit notes this dose 05/13/18 Last labs ok 08/31/18 Telephone Encounter - Aaliyah Mahajan - 09/23/2018 9:59 AM CDT Patient called. She had her labs done and needs her methotrexate refilled for her to take on Thursday. documented in this encounter Plan of Treatment Not on filedocumented as of this encounter Visit Diagnoses Not on filedocumented in this encounter
--- OUTSIDE RECORDS SUMMARY | 2022-10-21 18:42 | XMS_ITS | Encounter Summary ---
:1965 Author Organization [facility] Address [address] [place] [address] Care Team Providers Name Role Phone Unavailable Primary Care Provider Unavailable Reason for Referral Outpatient (Routine) - Closed Specialty Diagnoses / Procedures Referred By Contact Refer red To Contact Rheumatology Rayna Guerrero APRN, [place] C.N.P. 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 [address] [place] [phone] Referral ID Status Reason Start Date Expiration Date Visits Requ ested Visits Authorized [id number] Closed 05/13/2018 05/13/2019 1 1 Encounter Details Date Type Department Care Team Description 10/21/2018 Office Visit Division of Rayna Guerrero Arthritis Rh eumatoid (HCC) (Primary Dx); Rheumatology phyllis Kruger APRN, C.N.P. High Risk Medication [place], [place] [address] [facility] [address] [place] [phone] Social History Tobacco Use Types Packs/Day Years Used Date Smoking Tobacco: Never Smokeless Tobacco: Never Alcohol Habits Answer Date Recorded [...] or relatives? How often do you attend taoist or Never 2021 [employer]ar[employer] services? Do you belong to any clubs or No 01/17/2022 organizations such as taoist groups, unions, fraternal or athletic groups, or [...] or slept in a long-term (including now)? 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 documented as of this encounter Last Filed Vital Signs Vital Sign Reading Time Taken Comments Blood Pressure 170/75 10/21/2018 2:50 PM WRAPPING MACHINE OPERATOR Pulse 77 10/21/2018 2:50 PM WRAPPING MACHINE OPERATOR Temperature 36.9 ??C (98.4 ??F) 10/21/2018 2:50 PM WRAPPING MACHINE OPERATOR Respiratory Rate - - Oxygen Saturation - - Inhaled Oxygen Concentration - - Weight 69.1 kg (152 lb 5.4 oz) 10/21/2018 2:50 PM WRAPPING MACHINE OPERATOR Height 177.4 cm (5' 9.84) 10/21/2018 2:50 PM WRAPPING MACHINE OPERATOR Body Mass Index 21.96 10/21/2018 2:50 PM WRAPPING MACHINE OPERATOR documented in this encounter Progress Notes Rayna Guerrero, MORTEZA, C.N.P. - 10/21/2018 3:00 PM CST SUBJECTIVE CHIEF COMPLAINT / REASON FOR VISIT Martine De Oliveira is a 53 y.o. female who presents for follow up of rheumatoid arthritis. HISTORY OF PRESENT ILLNESS Mrs. De Oliveira is a pleasant 52-year-old lady with seropositive erosive/destructive rheumatoid arthritis. She [...] for her rheumatoid arthritis. She states that over the last 5 months she feels like she is doing better. She states she is starting to walk more again and feels as though her shoulders are starting to loosen up more. Today, her fingers are a little more swollen and warm today then yesterday. She continues take methotrexate SQ 20 mg once weekly and folic acid 2 mg daily. She denies significant morning stiffness. No recent major infections or hospitalizations. No adverse side effects to the medication. Rheumatoid Arthritis RF +: Yes CCP +: Yes Current Symptoms: dry eyes (improving- now taking fish oil), fatigue (stable) and nausea (intermittent nausea, after taking MTX for 2 days) Current Symptoms: no dry mouth, no fever, no rash, no Raynaud's syndrome, no weight loss, no excessive bruising, no cough, no chest pain, no edema, no vomiting, no abdominal pain, no anorexia, no chills, no oral ulcers, no eye inflammation, no heartburn, no dyspnea and no subcutaneous nodules Night sweats: hot flashes. Previous Reports Reviewed:lab reports and office notes The following portions of the patient's history were reviewed and updated as appropriate: family history, medical history, social history, surgical history and problem list. REVIEW OF SYSTEMS Pertinent positives and negatives as documented in the above history of present illness. Constitutional: Positive for fatigue (stable). Negative for chills, fever and weight loss. Night sweats: hot flashes. Skin: Negative for skin rash. ENT: Positive for sinus congestion. Respiratory: Negative for cough. Cardiovascular: Negative for chest pain, pressure or tightness. Gastrointestinal: Positive for nausea (intermittent nausea, after taking MTX for 2 days). Negative for abdominal (belly) pain or cramping, anorexia, heartburn and vomiting. Genitourinary: Positive for urgency and frequent urination. Musculoskeletal: Positive for arthralgias (hands, right shoulder), back pain (low back pain), pain or stiffness in the joints (hands, right shoulder), joint swelling and muscle pain/stiffness. Neurological: Positive for light-headedness (on Thursday) and headaches. Psychiatric/Behavioral: Positive for snores loudly. The following systems were negative: Eyes, CV, Respiratory, Hematologic OBJECTIVE PHYSICAL EXAM Physical Exam General: alert, oriented, appropriate affect, no apparent distress. Skin: No rheumatologic rashes or ulcers noted. Eyes: Clear conjunctivae and lids. Ears, nose, and throat: Moist oral mucosa without mucosa without mucositis. Lymph: No cervical or supraclavicular adenopathy. Cardio: Regular rate. No murmurs or rubs. Lungs: Clear to auscultation bilaterally. Extremities: No limitations in ROM bilaterally. Joints: See joint exam. Pannus to bilateral MCPs. Lab: CBC with differential, creatinine, GFR, and AST all within normal limits. CRP and ESR normal. Disease Activity Tenderness RUE: glenohumeral LUE: glenohumeral Right hand: 1st MCP, 2nd MCP, 3rd MCP, 4th MCP and 5th MCP Left hand: 1st MCP, 2nd MCP, 3rd MCP, 4th MCP and 5th MCP Swelling RUE: glenohumeral LUE: glenohumeral Right hand: 1st MCP, 2nd MCP, 3rd MCP, 4th MCP and 5th MCP Left hand: 1st MCP, 2nd MCP, 3rd MCP, 4th MCP and 5th MCP Tender joint count (0-28): 12 Swollen joint count (0-28): 12 ESR (mm/hr): 10 CRP (mg/L): 3 Health Assessment Questionnaire II (SANG-II) Score 0-3: 0.6 Pain, 0-100: 20 Patient Global Assessment of Disease Activity, 0-100: 50 Provider Global Assessment, 0-100: 50 Composite Disease Activity Scores Disease Activity Score (DEL VALLE) 28-CRP(4): 5.07 Disease Activity Score (DEL VALLE) 28-ESR(4): 5.22 Simplified Disease Activity Index (SDAI): 34.3 Clinical Disease Activity Index (CDAI): 34 ASSESSMENT / PLAN #1 Arthritis Rheumatoid (HCC) She continues to have synovitis seen on exam. We will continue methotrexate 0.8 mL once weekly and folic acid 2 mg daily. I have refilled her prescriptions. #2 High Risk Medication She will continue laboratory monitoring every 3 months for methotrexate. I will follow up with her in 3 months. I answered the patients questions to the best of my ability. The patient seemed pleased with our interaction. If she should have any additional questions or concerns. I have asked that she contact us at that time. PING MACHINE OPERATOR documented in this encounter Plan of Treatment Scheduled Referrals Name Type Priority Associated Order Schedule Diagnoses Rheumatology office Outpatient Referral Routine E xpected: visit (clinic) 01/27/2019 (Approximate), Expires: 10/21/2021 documented as of this encounter Results AST (Aspartate Aminotransferase) (02/08/2019 11:50 AM CDT) [facility] gist Method Time Signature Aspartate 31 8 - 43 02/08/2019 [facility] Aminotransferase U/L 1:02 PM CDT LABORATORIE S - (AST), S [facility] Specimen Anatomical Collection Method Collection Time Receive d Time (Source) Location / / Volume Laterality Blood (Blood, 02/08/2019 11:50 02/08/2019 Venous) AM CDT 12:09 PM CDT Rayna Guerrero APRN, C.N.P. LAB BLOOD ADD-ON Performing Organization Address City/State/ZIP Code Phon e Number [facility] - [address] [place], [place] [address] [facility] (ABNORMAL) Creatinine with Estimated GFR (02/08/2019 11:50 AM CDT) [facility] Method Time Signature Creatinine 0.56 (L) 0.59 - 02/08/2019 [facility] 1.04 1:02 PM CDT LABORATORIES - mg/dL [facility] eGFR-Non >90 >=60 02/08/2019 [facility] Black/ mL/min/BS 1:02 PM CDT LABORATORIES - [place] A [facility] Comment: ----ADDITIONAL INFORMATION---- Estimated GFR calculated using the 2009 CKD_EPI creatinine equation. eGFR-Black/ >90 >=60 mL/min/BSA 02/08/2019 1:02 [facility] [place] PM CDT LABORATORIES - [facility] Comment: ----ADDITIONAL INFORMATION---- Estimated GFR calculated using the 2009 CKD_EPI creatinine equation. Specimen Anatomical Collection Method Collection Time Receive d Time (Source) Location / / Volume Laterality Blood (Blood, 02/08/2019 11:50 02/08/2019 Venous) AM CDT 12:09 PM CDT Rayna Guerrero APRN, C.N.P. LAB BLOOD ADD-ON Performing Organization Address City/State/[facility] Code Phon e Number [facility] - [address] CRP (C-Reactive Protein) (02/08/2019 11:50 AM CDT) P athologist Signature C-Reactive <3.0 <=8.0 mg/L 02/08/2019 [facility] Protein (CRP), 1:02 PM CDT LABORATORIES - S [facility] Specimen Anatomical Collection Method Collection Time Receive d Time (Source) Location / / Volume Laterality Blood (Blood, 02/08/2019 11:50 02/08/2019 Venous) AM CDT 12:09 PM CDT Rayna Guerrero APRN, C.N.P. LAB BLOOD ADD-ON Performing Organization Address City/[facility] Code Phon e Number [facility] - [address] [place] [address] [facility] Sedimentation Rate (02/08/2019 11:50 AM CDT) [facility] Method Time Signature Sedimentation 5 0 - 29 02/08/2019 [facility] Rate, B mm/1 h 1:40 PM CDT LABORATORIES - [facility] Specimen Anatomical Collection Method Collection Time Receive d Time (Source) Location / / Volume Laterality Blood (Blood, 02/08/2019 11:50 02/08/2019 Venous) AM CDT 12:10 PM CDT Rayna Guerrero APRN, C.N.P. LAB BLOOD ADD-ON Performing Organization Address City/State/ZIP Code Phon e Number [facility] - [address] [place], [place] [address] [facility] (ABNORMAL) CBC with Differential, Blood (02/08/2019 11:50 AM CDT) [facility] Method Time Signature Hemoglobin 13.6 11.6 - 02/08/2019 [facility] 15.0 g/dL 12:13 PM CDT LABORATORIES - [facility] Hematocrit 41.8 35.5 - 02/08/2019 [facility] 44.9 % 12:13 PM CDT LABORATORIES - [facility] Erythrocytes 4.53 3.92 - 02/08/2019 [facility] 5.13 12:13 PM CDT LABORATORIES - x10(12)/L [facility] MCV 92.3 78.2 - 02/08/2019 [facility] 97.9 fL 12:13 PM CDT LABORATORIES - [facility] RBC Distrib 13.2 12.2 - 02/08/2019 [facility] Width 16.1 % 12:13 PM CDT LABORATORIES - [facility] Platelet Count 208 157 - 371 02/08/2019 [facility] x10(9)/L 12:13 PM CDT LABORATORIES - [facility] Leukocytes 4.1 3.4 - 9.6 02/08/2019 [facility] x10(9)/L 12:13 PM CDT LABORATORIES - [facility] Neutrophils 2.99 1.56 - 02/08/2019 [facility] 6.45 12:13 PM CDT LABORATORIES - x10(9)/L [facility] Lymphocytes 0.72 (L) 0.95 - 02/08/2019 [facility] 3.07 12:13 PM CDT LABORATORIES - x10(9)/L [facility] Monocytes 0.30 0.26 - 02/08/2019 [facility] 0.81 12:13 PM CDT LABORATORIES - x10(9)/L [facility] Eosinophils 0.06 0.03 - 02/08/2019 [facility] 0.48 12:13 PM CDT LABORATORIES - x10(9)/L [facility] Basophils 0.05 0.01 - 02/08/2019 [facility] 0.08 12:13 PM CDT LABORATORIES - x10(9)/L [facility] Specimen Anatomical Collection Method Collection Time Receive d Time (Source) Location / / Volume Laterality Blood (Blood, 02/08/2019 11:50 02/08/2019 Venous) AM CDT 12:09 PM CDT Rayna Guerrero APRN C.N.P. LAB BLOOD ADD-ON Performing Organization Address City/State/ZIP Code Phon e Number [facility] - [address] [place], [place] [address] [facility] documented in this encounter Visit Diagnoses Diagnosis Arthritis Rheumatoid (HCC) - Primary High Risk Medication documented in this encounter
--- OUTSIDE RECORDS SUMMARY | 2022-10-21 18:42 | XMS_ITS | Encounter Summary ---
:1965 Author Organization [facility] Address [address] [place] [address] Care Team Providers Name Role Phone Unavailable Primary Care Provider Unavailable Encounter Details Date Type Department Care Team Description 10/21/2018 Hospital Encounter Department of Rayna Guerrero Rheumatoid (HCC); Laboratory Medicine L, MORTEZA, C.N .P. Clinical Research Exam and Pathology, [address] [place] [address] in [place] [phone] [place] [phone] [place] [address] (Work) [place], [place] [phone] [phone] (Fax) [phone] Social History Tobacco Use Types Packs/Day Years [...] do you attend taoist or Never 2021 baptism services? Do you belong to any clubs [...] or slept in a snf (including now)? 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 Unit tablet insulin aspart U-100 Inject under the 0 7 (NovoLOG FlexPen) 100 skin as needed. as unit/mL (3 mL) injection needed with meals LACTOBACILLUS ACIDOPHILUS as needed. Floragen 0 (PROBIOTIC ORAL) 3 Probiotic occasionally magnesium 100 mg tablet 0 11/23/2017 tablet vit c-ascorbate Ca-ascorb 0 11/23/2016 sod 500 mg/15 mL liquid estradiol (VAGIFEM) 10 INSERT 1 TABLET 3 10/02/20 18 01/21/2022 mcg vaginal tablet VAGINALLY 2 TIMES PER WEEK folic acid 1 mg tablet Take 2 tablets 180 tablet 3 8 09/20/2019 (2,000 mcg total) by mouth daily. ibuprofen Take 1 tablet by 0 11/11/2017 08/04/20 22 (for_ADVIL,MOTRIN) 200 mg mouth daily as tablet needed. For pain. insulin glargine (LANTUS Inject 12.5 Units 0 05/201710/16/2020 SOLOSTAR U-100 INSULIN) under the skin as 100 unit/mL (3 mL) directed. Inject 15 injection units once daily in am. methotrexate 25 mg/mL Inject 0.8 mL (20 10 mL 1 018 11/30/2018 injection mg total) under the skin once a week. Dispense 10 syringes and needles with each 10 ml. Remember labs every 3 months. documented as of this encounter Plan of Treatment Scheduled Orders Name Type Priority Associated Diagnoses Order S chedule Miscellaneous Research, B Lab Routine Clinical Resear ch Exam Once for 1 Occurrences starting 2017 until 8 documented as of this encounter Procedures Procedure Name Priority Date/Time Associated Comments Diagnosis SEDIMENTATION RATE, B Routine 10/21/2018 10:44 Arthritis Re sults for this AM WALL COVERING CONTRACTOR Rheumatoid (HCC) procedure a re in the results section. CBC WITH DIFFERENTIAL, B Routine 10/21/2018 10:44 Arthritis Results for this AM WALL COVERING CONTRACTOR Rheumatoid (HCC) procedure a re in the results section. C-REACTIVE PROTEIN Routine 10/21/2018 10:44 Arthritis Resul ts for this (CRP), S/P AM WALL COVERING CONTRACTOR Rheumatoid (HCC) procedure a re in the results section. ASPARTATE Routine 10/21/2018 10:44 Arthritis Results for this AMINOTRANSFERASE (AST), AM WALL COVERING CONTRACTOR Rheumatoid (HCC) procedure are in S/P the results section. CREATININE WITH EGFR, Routine 10/21/2018 10:44 Arthritis Re sults for this S/P AM WALL COVERING CONTRACTOR Rheumatoid (HCC) procedure a re in the results section. documented in this encounter Results AST (Aspartate Aminotransferase) (10/21/2018 10:44 AM WALL COVERING CONTRACTOR) [facility] gist Method Time Signature Aspartate 29 8 - 43 10/21/2018 [facility] Aminotransferase U/L 11:45 AM LABORATORIES - (AST), S [facility] Specimen Anatomical Collection Method Collection Time Receive d Time (Source) Location / / Volume Laterality Blood (Blood, 10/21/2018 10:44 10/21/2018 Venous) AM WALL COVERING CONTRACTOR 11:08 AM WALL COVERING CONTRACTOR Yaa Weber APRNNLiaP. LAB BLOOD ADD-ON Performing Organization Address City/State/ZIP Code Phon e Number [facility] - [address] [place] [address] [facility] Creatinine with Estimated GFR (10/21/2018 10:44 AM WALL COVERING CONTRACTOR) Analysis Performed At [facility] logist Time Signature Creatinine 0.61 0.59 - 10/21/2018 [facility] 1.04 mg/dL 11:45 AM WALL COVERING CONTRACTOR LABORATORIES [facility] eGFR-Non >90 >=60 10/21/2018 [facility] Black/ mL/min/BSA 11:45 AM WALL COVERING CONTRACTOR LABORATORIES - [facility] Comment: ----ADDITIONAL INFORMATION---- Estimated GFR calculated using the 2009 CKD_EPI creatinine equation. eGFR-Black/ >90 >=60 mL/min/BSA 10/21/2018 11:4 5 [facility] Faroese AM WALL COVERING CONTRACTOR LABORATORIES [facility] Comment: ----ADDITIONAL INFORMATION---- Estimated GFR calculated using the 2009 CKD_EPI creatinine equation. Specimen Anatomical Collection Method Collection Time Receive d Time (Source) Location / / Volume Laterality Blood (Blood, 10/21/2018 10:44 10/21/2018 Venous) AM WALL COVERING CONTRACTOR 11:08 AM WALL COVERING CONTRACTOR Rayna Guerrero APRN, José Miguel.N.P. LAB BLOOD ADD-ON Performing Organization Address City/[facility]/ZIP Code Phon e Number [facility]ORATORIES - [address] [place] [address] [facility] CRP (C-Reactive Protein) (10/21/2018 10:44 AM WALL COVERING CONTRACTOR) athologist Signature C-Reactive <3.0 <=8.0 mg/L 10/21/2018 [facility] Protein (CRP), 11:45 AM WALL COVERING CONTRACTOR LABORATORIES - [facility] Specimen Anatomical Collection Method Collection Time Receive d Time (Source) Location / / Volume Laterality Blood (Blood, 10/21/2018 10:44 10/21/2018 Venous) AM WALL COVERING CONTRACTOR 11:08 AM WALL COVERING CONTRACTOR Rayna Guerrero APRN, C.N.P. LAB BLOOD ADD-ON Performing Organization Address City/[facility] Code Phon e Number [facility]IES - [address] [place] [address] [facility] Sedimentation Rate (10/21/2018 10:44 AM WALL COVERING CONTRACTOR) [facility] Method Time Signature Sedimentation 11 0 - 10/21/2018 [facility] Rate, B mm/1 h 12:32 PM WALL COVERING CONTRACTOR [facility] Specimen Anatomical Collection Method Collection Time Receive d Time (Source) Location / / Volume Laterality Blood (Blood, 10/21/2018 10:44 10/21/2018 Venous) AM WALL COVERING CONTRACTOR 11:08 AM WALL COVERING CONTRACTOR Rayna Guerrero APRN, C.N.P. LAB BLOOD ADD-ON Performing Organization Address City/[facility]/ZIP Code Phon e Number [facility]IES - [address] [place] [address] [facility] (ABNORMAL) CBC with Differential, Blood (10/21/2018 10:44 AM WALL COVERING CONTRACTOR) [facility] Method Time Signature Hemoglobin 13.1 11.6 - 10/21/2018 [facility] 15.0 g/dL 11:57 AM WALL COVERING CONTRACTOR [facility] Hematocrit 39.5 35.5 - 10/21/2018 [facility] 44.9 % 11:57 AM WALL COVERING CONTRACTOR LABORATORIES - [facility] Erythrocytes 4.29 3.92 - 10/21/2018 [facility] 5.13 11:57 AM WALL COVERING CONTRACTOR LABORATORIES - x10(12)/L [facility] MCV 92.1 78.2 - 10/21/2018 [facility] 97.9 fL 11:57 AM WALL COVERING CONTRACTOR LABORATORIES - [facility] RBC Distrib 13.5 12.2 - 10/21/2018 [facility] Width 16.1 % 11:57 AM WALL COVERING CONTRACTOR LABORATORIES - [facility] Platelet Count 212 157 - 371 10/21/2018 [facility] x10(9)/L 11:57 AM WALL COVERING CONTRACTOR LABORATORIES - [facility] Leukocytes 4.8 3.4 - 9.6 10/21/2018 [facility] x10(9)/L 11:57 AM WALL COVERING CONTRACTOR LABORATORIES - [facility] Neutrophils 3.32 1.56 - 10/21/2018 [facility] 6.45 11:57 AM WALL COVERING CONTRACTOR LABORATORIES - x10(9)/L [facility] Lymphocytes 0.89 (L) 0.95 - 10/21/2018 [facility] 3.07 11:57 AM WALL COVERING CONTRACTOR LABORATORIES - x10(9)/L [facility] Monocytes 0.42 0.26 - 10/21/2018 [facility] 0.81 11:57 AM WALL COVERING CONTRACTOR LABORATORIES - x10(9)/L [facility] Eosinophils 0.10 0.03 - 10/21/2018 [facility] 0.48 11:57 AM WALL COVERING CONTRACTOR LABORATORIES - x10(9)/L [facility] Basophils 0.04 0.01 - 10/21/2018 [facility] 0.08 11:57 AM WALL COVERING CONTRACTOR LABORATORIES - x10(9)/L [facility] Specimen Anatomical Collection Method Collection Time Receive d Time (Source) Location / / Volume Laterality Blood (Blood, 10/21/2018 10:44 10/21/2018 Venous) AM WALL COVERING CONTRACTOR 11:08 AM WALL COVERING CONTRACTOR Rayna Guerrero APRN C.N.P. LAB BLOOD ADD-ON Performing Organization Address City/State/ZIP Code Phon e Number [facility]IES - [address] [place], [place] [address] [facility] documented in this encounter Visit Diagnoses Diagnosis Arthritis Rheumatoid (HCC) Clinical Research Exam documented in this encounter
--- OUTSIDE RECORDS SUMMARY | 2022-10-21 18:42 | XMS_ITS | Encounter Summary ---
:1965 Author Organization [facility] Address [address] [place] [address] Care Team Providers Name Role Phone Unavailable Primary Care Provider Unavailable Reason for Visit Reason Comments Med Refill Encounter Details Date Type Department Care Team Description 08/03/2019 Refill Division of Rheumatology in Karen Guerrero sa, APRN, Med Refill [place], [place] C.N.P. [address] [facility] [address] [place] [address] [place] [address] [phone] (Wo rk) Social History Tobacco Use Types [...] do you attend taoist or Never 2021 hindu services? 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 - 08/04/2019 2:52 PM CDT Patient last seen: 05/03/19. Med: Methotrexate Labs current as of 05/03/19. Next labs scheduled for 09/20/19 Thank you Brii QUAN float documented in this encounter Plan of Treatment Not on filedocumented as of this encounter Visit Diagnoses Not on filedocumented in this encounter
--- OUTSIDE RECORDS SUMMARY | 2022-10-21 18:42 | XMS_ITS | Encounter Summary ---
:1965 Author Organization [facility] Address [address] [place] [address] Care Team Providers Name Role Phone Unavailable Primary Care Provider Unavailable Reason for Visit Reason Comments Med Refill Encounter Details Date Type Department Care Team Description 09/07/2019 Refill Division of Rheumatology in Karen Guerrero sa, APRN, Med Refill [place], [place] C.N.P. [address] [place] [address] [place] [address] [phone] (Wo rk) Social History Tobacco Use Types [...] or relatives? How often do you attend oriental orthodox or Never 2021 jehovah's witness services? 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 - 09/08/2019 3:20 PM CDT Prescription renewal request for methotrexate received from patient. HISTORY OF PRESENT ILLNESS Last Rheum visit: 05/03/19 with Rayna Guerrero APRN, [facility] Future office visit: 09/20/19 Last monitoring labs/eye exam: 08/09/19: within protocol parameters. Prescription request matches current plan of care. Prescription request matches a current prescription in the Medication List. ASSESSMENT/PLAN Prescription request renewed per nursing protocol. Telephone Encounter - Sonali Duarte - 09/08/2019 3:05 PM CDT Patient states she is out of the med and due to take this Thursday. 1. Please e-scribe refill before this weekend. documented in this encounter Plan of Treatment Not on filedocumented as of this encounter Visit Diagnoses Not on filedocumented in this encounter
--- OUTSIDE RECORDS SUMMARY | 2022-10-21 18:42 | XMS_ITS | Encounter Summary ---
:1965 Author Organization [facility] Address [address] [place] [address] Care Team Providers Name Role Phone Unavailable Primary Care Provider Unavailable Reason for Referral Outpatient (Routine) - Closed Specialty Diagnoses / Procedures Referred By Contact Refer red To Contact Research Diagnoses Clinical [facility] Ph.[facility] [address] [place] [phone] Referral ID Status Reason Start Date Expiration Date Visits Requ ested Visits Authorized [id number] Closed 10/20/2018 10/20/2019 1 1 RVISOR PAINT DEPARTMENT Encounter Details Date Type Department Care Team Description 10/20/2018 Orders Only Division of Rheumatology Kina King, Clinical Research Exam in [facility] Sheyla, ACRP (Primary Dx) [address] [place] [address] [place] [phone] [place], [place] [phone] Social History Tobacco Use Types Packs/Day Years [...] do you attend hoahaoism or Never 2021 yazdanism services? Do you belong to any clubs [...] slept in a skilled nursing (including now)? 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
--- OUTSIDE RECORDS SUMMARY | 2022-10-21 18:42 | XMS_ITS | Encounter Summary ---
:1965 Author Organization [facility] Address [address] [place] [address] Care Team Providers Name Role Phone Unavailable Primary Care Provider Unavailable Encounter Details Date Type Department Care Team Description 11/30/2018 Orders Only Division of Rheumatology in YolandaKaren SaskiaHarold, [place] INSPECTOR [employer], C.N.P. [address] [place] [address] [place], [place] [phone] (Wo rk) Social History Tobacco Use Types [...] or relatives? How often do you attend gnosticist or Never 2021 baptist services? Do you belong to any clubs or No 01/17/2022 organizations such as gnosticist groups, unions, fraternal or athletic groups, or [...] or slept in a usp (including now)? 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
--- OUTSIDE RECORDS SUMMARY | 2022-10-21 18:42 | XMS_ITS | Encounter Summary ---
:1965 Author Organization [facility] Address [address] [place] [address] Care Team Providers Name Role Phone Unavailable Primary Care Provider Unavailable Reason for Referral Outpatient (Routine) - Closed Specialty Diagnoses / Procedures Referred By Contact Refer red To Contact Rheumatology Rayna Guerrero APRN, [place] C.N.P. [address] [place] [address] Referral ID Status Reason Start Date Expiration Date Visits Requ ested Visits Authorized [id number] Closed 02/08/2019 02/08/2020 1 1 Reason for Visit Outpatient (Routine) - Closed Specialty Diagnoses / Procedures Referred By Contact Refer red To Contact Rheumatology [facility] [address] [place] [address] Referral ID Status Reason Start Date Expiration Date Visits Requ ested Visits Authorized [id number] Closed 10/21/2018 10/21/2019 1 1 Encounter Details Date Type Department Care Team Description 02/08/2019 Office Visit Division of Rayna Guerrero Arthritis Rh eumatoid (HCC) (Primary Dx); Rheumatology phyllis Kruger APRN, C.N.P. High Risk Medication [place], [place] [address] [facility] [address] [place] [phone] Social History Tobacco Use Types Packs/Day Years [...] or relatives? How often do you attend denominational or Never 2021 denominational services? Do you belong to any clubs or No 01/17/2022 organizations such as denominational groups, unions, fraternal or athletic groups, or [...] or slept in a fpc (including now)? 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 - 02/08/2019 3:00 PM CDT SUBJECTIVE CHIEF COMPLAINT / REASON FOR VISIT Martine De Oliveira is a 53 y.o. female who presents for follow up of rheumatoid arthritis. HISTORY OF PRESENT ILLNESS Mrs. De Oliveira is a pleasant 53-year-old lady with seropositive erosive/destructive rheumatoid arthritis. She [...] that generally she is doing well. She states she will have nausea for 24-48 hrs after taking methotrexate injection. Also her WBC dropped to 3.0 in December. She continues take methotrexate SQ 20 mg once weekly and folic acid 2 mg daily. She denies significant morning stiffness. No recent major infections or hospitalizations. No adverse side effects to the medication. Rheumatoid Arthritis RF +: Yes CCP +: Yes Current Symptoms: dry eyes (improving- now taking fish oil) and nausea (intermittent nausea, after taking MTX for 2 days) Current Symptoms: no dry mouth, no fatigue (stable), no fever, no rash (left elbow), no Raynaud's syndrome, no weight loss, no excessive bruising, no cough, no chest pain, no edema, no vomiting, no abdominal pain, no anorexia, no chills, no night sweats (hot flashes), no oral ulcers, no eye inflammation, no [...] of present illness. Constitutional: Negative for chills, fatigue (stable), fever, night sweats (hot flashes) and weight loss. Skin: Negative for skin rash (left elbow). ENT: Positive for sinus congestion. Respiratory: Negative [...] Tenderness RUE: glenohumeral LUE: glenohumeral Right hand: 2nd MCP, 3rd MCP, 2nd PIP, 3rd PIP and 4th PIP Left hand: 1st MCP, 2nd PIP, 3rd PIP and 4th PIP Swelling RUE: glenohumeral LUE: glenohumeral Right hand: 2nd MCP, 3rd MCP, 2nd PIP, 3rd PIP and 4th PIP Left hand: 1st MCP, 2nd PIP, 3rd PIP and 4th PIP Tender joint count (0-28): 11 Swollen joint count (0-28): 11 ESR (mm/hr): 10 CRP (mg/L): 3 Health Assessment Questionnaire II (SANG-II) Score 0-3: 0.9 Pain, 0-100: 10 Patient Global Assessment of Disease Activity, 0-100: 10 Provider Global Assessment, 0-100: 50 Composite Disease Activity Scores Disease Activity Score (DEL VALLE) 28-CRP(4): 4.39 Disease Activity Score (EDL VALLE) 28-ESR(4): 4.54 Simplified Disease Activity Index (SDAI): 28.3 Clinical Disease Activity Index (CDAI): 28 ASSESSMENT / PLAN #1 Arthritis Rheumatoid (HCC) She continues to have synovitis seen on exam however it has switched from the MCPs to the PIPs. Due to the nausea and leukopenia I will have her decrease the methotrexate 0.6 mL once weekly and she will continue folic acid 2 mg daily. [...] Outpatient Referral Routine E xpected: visit (clinic) 05/11/2019 (Approximate), Expires: 02/08/2022 documented as of this encounter Results AST (Aspartate Aminotransferase) (05/03/2019 12:24 PM CDT) [facility] gist Method Time Signature Aspartate 26 8 - 43 05/03/2019 Aminotransferase U/L 1:28 PM CDT (AST), S Specimen Anatomical Collection Method Collection Time Receive d Time (Source) Location / / Volume Laterality Blood (Blood, 05/03/2019 12:24 05/03/2019 Venous) PM CDT 12:46 PM CDT Rayna Guerrero APRN, C.N.P. LAB BLOOD ADD-ON Performing Organization Address City/State/ZIP Code Phon e Number [facility] - [address] [place] [address] [facility] Creatinine with Estimated GFR (05/03/2019 12:24 PM CDT) athologist Signature Creatinine 0.60 0.59 - 05/03/2019 1.04 mg/dL 1:28 PM CDT eGFR-Non >90 >=60 05/03/2019 Black/ mL/min/BSA 1:28 PM CDT [place] Comment: ----ADDITIONAL INFORMATION---- Estimated GFR calculated using the 2009 CKD_EPI creatinine equation. eGFR-Black/ >90 >=60 mL/min/BSA 2018 1:28 PM CDT Comment: ----ADDITIONAL INFORMATION---- Estimated GFR calculated using the 2009 CKD_EPI creatinine equation. Specimen Anatomical Collection Method Collection Time Receive d Time (Source) Location / / Volume Laterality Blood (Blood, 05/03/2019 12:24 05/03/2019 Venous) PM CDT 12:46 PM CDT Rayna Guerrero APRN, C.N.P. LAB BLOOD ADD-ON Performing Organization Address City/State/ZIP Code Phon e Number [facility] - [address] [place] [address] [facility] CRP (C-Reactive Protein) (05/03/2019 12:24 PM CDT) athologist Signature C-Reactive <3.0 <=8.0 mg/L 05/03/2019 Protein (CRP), 1:28 PM CDT S Specimen Anatomical Collection Method Collection Time Receive d Time (Source) Location / / Volume Laterality Blood (Blood, 05/03/2019 12:24 05/03/2019 Venous) PM CDT 12:46 PM CDT Rayna Guerrero APRN, C.N.P. LAB BLOOD ADD-ON Performing Organization Address City/State/ZIP Code Phon e Number [facility] - [address] [place] [address] [facility] Sedimentation Rate (05/03/2019 12:24 PM CDT) Analysis Performed At Patho logist Time Signature Sedimentation 10 0 - 29 05/03/2019 Rate, B mm/1 h 2:39 PM CDT Specimen Anatomical Collection Method Collection Time Receive d Time (Source) Location / / Volume Laterality Blood (Blood, 05/03/2019 12:24 05/03/2019 Venous) PM CDT 12:45 PM CDT Chel Weber APRNPLia LAB BLOOD ADD-ON Performing Organization Address City/State/ZIP Code Phon e Number [facility] - [address] [place], [place] [address] [facility] CBC with Differential, Blood (05/03/2019 12:24 PM CDT) P athologist Signature Hemoglobin 13.5 11.6 - 05/03/2019 15.0 g/dL 12:53 PM CDT Hematocrit 41.2 35.5 - 05/03/2019 44.9 % 12:53 PM CDT Erythrocytes 4.42 3.92 - 05/03/2019 5.13 12:53 PM CDT x10(12)/L MCV 93.2 78.2 - 05/03/2019 97.9 fL 12:53 PM CDT RBC Distrib Width 13.3 12.2 - 05/03/2019 16.1 % 12:53 PM CDT Platelet Count 212 157 - 371 05/03/2019 x10(9)/L 12:53 PM CDT Leukocytes 5.3 3.4 - 9.6 05/03/2019 x10(9)/L 12:53 PM CDT Neutrophils 3.72 1.56 - 05/03/2019 6.45 12:53 PM CDT x10(9)/L Lymphocytes 0.95 0.95 - 05/03/2019 3.07 12:53 PM CDT x10(9)/L Monocytes 0.39 0.26 - 05/03/2019 0.81 12:53 PM CDT x10(9)/L Eosinophils 0.14 0.03 - 05/03/2019 0.48 12:53 PM CDT x10(9)/L Basophils 0.06 0.01 - 05/03/2019 0.08 12:53 PM CDT x10(9)/L Specimen Anatomical Collection Method Collection Time Receive d Time (Source) Location / / Volume Laterality Blood (Blood, 05/03/2019 12:24 05/03/2019 Venous) PM CDT 12:45 PM CDT Racheal Weber APRN.P. LAB BLOOD ADD-ON Performing Organization Address City/State/ZIP Code Phon e Number [facility] - [address] [place], [place] [address] [facility] documented in this encounter Visit Diagnoses Diagnosis Arthritis Rheumatoid (HCC) - Primary High Risk Medication documented in this encounter
--- OUTSIDE RECORDS SUMMARY | 2022-10-21 18:42 | XMS_ITS | Encounter Summary ---
:1965 Author Organization [facility] Address [address] [place] [address] Care Team Providers Name Role Phone Unavailable Primary Care Provider Unavailable Reason for Referral Outpatient (Routine) - Closed Specialty Diagnoses / Procedures Referred By Contact Refer red To Contact Rheumatology Diagnoses Arthritis Rheumatoid ([facility]) Rayna Guerrero, [facility] C.N.P[facility] [address] [place] [phone] Referral ID Status Reason Start Date Expiration Date Visits Requ ested Visits Authorized [id number] Closed 03/12/2018 09/08/2018 1 1 Encounter Details Date Type Department Care Team Description 03/12/2018 Orders Only Division of Rayna Guerrero, Arthritis Rheumatoid Rheumatology in BUMPER OPERATOR, C.N.P. ([facility]) [place], [place] [address] [place] [address] [place] [phone] Social History Tobacco Use Types Packs/Day Years [...] or relatives? How often do you attend samaritan or Never 2021 restorationism services? Do you belong to any clubs or No 01/17/2022 organizations such as samaritan groups, unions, fraternal or athletic groups, or [...] or slept in a detention (including now)? 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 Plan of Treatment Scheduled Referrals Name Type Priority Associated Order Schedule Diagnoses Rheumatology office Outpatient Referral Routine Arthritis E xpected: visit (clinic) Rheumatoid (HCC) 8 (Approximate), Expires: 03/12/2021 documented as of this encounter Results Sedimentation Rate (05/13/2018 10:53 AM CDT) [facility] Method Time Signature Sedimentation 10 0 - 29 05/13/2018 [facility] Rate, B mm/1 h 12:43 PM CDT [facility] Specimen Anatomical Collection Method Collection Time Receive d Time (Source) Location / / Volume Laterality Blood 05/13/2018 10:53 05/13/2018 AM CDT 11:16 AM CDT José Miguel Weber APRN.N.P. LAB BLOOD ADD-ON Performing Organization Address City/State/ZIP Code Phon e Number [facility] - [address] [place], [place] [address] [facility] (ABNORMAL) CBC with Differential (05/13/2018 10:53 AM CDT) [facility] Method Time Signature Hemoglobin 12.8 11.6 - 05/13/2018 [facility] 15.0 g/dL 12:13 PM CDT [facility] Hematocrit 38.3 35.5 - 05/13/2018 [facility] 44.9 % 12:13 PM CDT LABORATORIES - [facility] Erythrocytes 4.16 3.92 - 05/13/2018 [facility] 5.13 12:13 PM CDT LABORATORIES - x10(12)/L [facility] MCV 92.1 78.2 - 05/13/2018 [facility] 97.9 fL 12:13 PM CDT LABORATORIES - [facility] RBC Distrib 13.7 12.2 - 05/13/2018 [facility] Width 16.1 % 12:13 PM CDT LABORATORIES - [facility] Platelet Count 216 157 - 371 05/13/2018 [facility] x10(9)/L 12:13 PM CDT LABORATORIES - [facility] Leukocytes 5.1 3.4 - 9.6 05/13/2018 [facility] x10(9)/L 12:13 PM CDT LABORATORIES - [facility] Neutrophils 3.85 1.56 - 05/13/2018 [facility] 6.45 12:13 PM CDT LABORATORIES - x10(9)/L [facility] Lymphocytes 0.69 (L) 0.95 - 05/13/2018 [facility] 3.07 12:13 PM CDT LABORATORIES - x10(9)/L [facility] Monocytes 0.40 0.26 - 05/13/2018 [facility] 0.81 12:13 PM CDT LABORATORIES - x10(9)/L [facility] Eosinophils 0.12 0.03 - 05/13/2018 [facility] 0.48 12:13 PM CDT LABORATORIES - x10(9)/L [facility] Basophils 0.06 0.01 - 05/13/2018 [facility] 0.08 12:13 PM CDT LABORATORIES - x10(9)/L [facility] Specimen Anatomical Collection Method Collection Time Receive d Time (Source) Location / / Volume Laterality Blood 05/13/2018 10:53 05/13/2018 AM CDT 11:17 AM CDT Rayna Guerrero APRN, C.N.P. LAB BLOOD ADD-ON Performing Organization Address City/State/ZIP Code Phon e Number [facility] - [address] [place], [place] [address] [facility] AST (Aspartate Aminotransferase) (05/13/2018 10:53 AM CDT) [facility] Method Time Signature Aspartate 27 8 - 43 05/13/2018 [facility] Aminotransferase U/L 11:53 AM LABORATORIES - (AST), S CDT [facility] Specimen Anatomical Collection Method Collection Time Receive d Time (Source) Location / / Volume Laterality Blood 05/13/2018 10:53 05/13/2018 AM CDT 11:17 AM CDT José Miguel Weber APRN.N.P. LAB BLOOD ADD-ON Performing Organization Address City/[facility]/ZIP Code Phon e Number [facility] - [address] [place] [address] [facility] Creatinine with Estimated GFR (MDRD) (05/13/2018 10:53 AM CDT) Analysis Performed At Patho logist Time Signature Creatinine 0.60 0.59 - 05/13/2018 [facility] 1.04 mg/dL 11:53 AM CDT LABORATORIES - [facility] eGFR-Non >90 >=60 05/13/2018 [facility] Black/ mL/min/BSA 11:53 AM CDT LABORATORIES - [facility] Comment: ----ADDITIONAL INFORMATION---- Estimated GFR calculated using the 2009 CKD_EPI creatinine equation. eGFR-Black/ >90 >=60 mL/min/BSA 05/13/2018 11:5 3 [facility] Kazakh AM CDT LABORATORIES - [facility] Comment: ----ADDITIONAL INFORMATION---- Estimated GFR calculated using the 2009 CKD_EPI creatinine equation. Specimen Anatomical Collection Method Collection Time Receive d Time (Source) Location / / Volume Laterality Blood 05/13/2018 10:53 05/13/2018 AM CDT 11:17 AM CDT Rayna Guerrero APRN, C.N.P. LAB BLOOD ADD-ON Performing Organization Address City/State/ZIP Code Phon e Number [facility] - [address] [place] [address] [facility] CRP (C-Reactive Protein) (05/13/2018 10:53 AM CDT) P athologist Signature C-Reactive <3.0 <=8.0 mg/L 05/13/2018 [facility] Protein (CRP), 11:53 AM CDT LABORATORIES - S [facility] Specimen Anatomical Collection Method Collection Time Receive d Time (Source) Location / / Volume Laterality Blood 05/13/2018 10:53 05/13/2018 AM CDT 11:17 AM CDT Rayna Guerrero APRN, C.N.P. LAB BLOOD ADD-ON Performing Organization Address City/State/ZIP Code Phon e Number [facility] - [address] [place] [address] [facility] documented in this encounter Visit Diagnoses Diagnosis Arthritis Rheumatoid (HCC) documented in this encounter
--- OUTSIDE RECORDS SUMMARY | 2022-10-21 18:42 | XMS_ITS | Encounter Summary ---
:1965 Author Organization [facility] Address [address] [place] [address] Care Team Providers Name Role Phone Unavailable Primary Care Provider Unavailable Reason for Visit Reason Comments Med Refill Encounter Details Date Type Department Care Team Description 08/25/2018 Refill Division of Rheumatology in Karen Guerrero sa, APRN, Med Refill [place], [place] C.N.P. [address] [facility] [address] [place] [address] [place] [address] [phone] (Wo rk) Social History Tobacco Use Types [...] do you attend temple or Never 2021 protestant services? Do you [...] or slept in a mcfp (including now)? 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 Said pharmacy faxed 3 requests for methotrexate refill. I did let her know that we only received the one. She is due to take the med tomorrow and is out and asks for refill today, 30-day supply, if needed. She is going to have her monitoring labs done at [facility]. documented in this encounter Plan of Treatment Not on filedocumented as of this encounter Visit Diagnoses Not on filedocumented in this encounter
--- OUTSIDE RECORDS SUMMARY | 2022-10-21 18:42 | XMS_ITS | Encounter Summary ---
:1965 Author Organization [facility] Address [address] [place] [address] Care Team Providers Name Role Phone Unavailable Primary Care Provider Unavailable Encounter Details Date Type Department Care Team Description 06/04/2018 Abstract DATA ABSTRACTION Provider, Historical Social History Tobacco Use Types Packs/Day Years [...] or relatives? How often do you attend anglican or Never 2021 jewish services? Do you belong to any clubs or No 01/17/2022 organizations such as anglican groups, unions, fraternal or athletic groups, or [...] or slept in a longterm (including now)? 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
--- OUTSIDE RECORDS SUMMARY | 2022-10-21 18:42 | XMS_ITS | Encounter Summary ---
:1965 Author Organization [facility] Address [address] [place] [id number] Care Team Providers Name Role Phone Unavailable Primary Care Provider Unavailable Encounter Details Date Type Department Care Team Description 05/13/2018 Hospital Encounter Department of Rayna Guerrero Rheumatoid Laboratory Medicine L, MORTEZA, C.N .P. (HCC) and Pathology, [address] [place] [address] in [place] [id number] [place] [phone] [place] [address] (Work) [place], [place] [phone] (Fax) [phone] Social History Tobacco Use Types Packs/Day Years [...] or relatives? How often do you attend restorationism or Never 2021 sabianism services? Do you belong to any clubs or No 01/17/2022 organizations such as restorationism groups, unions, fraternal or athletic groups, or [...] or slept in a halfway (including now)? Sex Assigned at Date Recorded Female 10/17/2018 9:43 PM [employer] documented as of this encounter Medications at [...] 0 11/23/2016 sod 500 mg/15 mL liquid folic acid 1 mg tablet Take 2 tablets by 0 201610/21/2018 mouth daily. ibuprofen Take 1 tablet by 0 11/11/2017 08/04/20 22 (for_ADVIL,MOTRIN) 200 mg mouth daily as tablet needed. For pain. insulin glargine (LANTUS Inject 12.5 Units 0 05/201710/16/2020 SOLOSTAR U-100 INSULIN) under the skin as 100 unit/mL (3 mL) directed. Inject 15 injection units once daily in am. methotrexate 25 mg/mL Inject 0.7 mL under 0 11/1105/18/2018 injection the skin once a week. Remember to do labs every 3 months. documented as of this encounter Plan of Treatment Not on filedocumented as of this encounter Procedures Procedure Name Priority Date/Time Associated Comments Diagnosis SEDIMENTATION RATE, B Routine 05/13/2018 10:53 Arthritis Re sults for this AM CDT Rheumatoid (HCC) procedure a re in the results section. CBC WITH DIFFERENTIAL, B Routine 05/13/2018 10:53 Arthritis Results for this AM CDT Rheumatoid (HCC) procedure a re in the results section. C-REACTIVE PROTEIN Routine 05/13/2018 10:53 Arthritis Resul ts for this (CRP), S/P AM CDT Rheumatoid (HCC) procedure a re in the results section. ASPARTATE Routine 05/13/2018 10:53 Arthritis Results for this AMINOTRANSFERASE (AST), AM CDT Rheumatoid (HCC) procedure are in S/P the results section. CREATININE WITH EGFR, Routine 05/13/2018 10:53 Arthritis Re sults for this S/P AM CDT Rheumatoid (HCC) procedure a re in the results section. documented in this encounter Results Sedimentation Rate (05/13/2018 10:53 AM CDT) [facility] Method Time Signature Sedimentation 10 0 - 29 05/13/2018 [facility] Rate, B mm/1 h 12:43 PM CDT LABORATORIES - [facility] Specimen Anatomical Collection Method Collection Time Receive d Time (Source) Location / / Volume Laterality Blood 05/13/2018 10:53 05/13/2018 AM CDT 11:16 AM CDT Rayna Guerrero APRN, C.N.P. LAB BLOOD ADD-ON Performing Organization Address City/State/ZIP Code Phon e Number [facility] LABORATORIES - [address] [facility] [address] [place] [address] 05 [facility] (ABNORMAL) CBC with Differential (05/13/2018 10:53 AM CDT) [facility] Method Time Signature Hemoglobin 12.8 11.6 - 05/13/2018 [facility] 15.0 g/dL 12:13 PM CDT LABORATORIES - [facility] Hematocrit 38.3 35.5 - 05/13/2018 [facility] 44.9 % 12:13 PM CDT LABORATORIES - [facility] Erythrocytes 4.16 3.92 - 05/13/2018 [facility] 5.13 12:13 PM CDT LABORATORIES - x10(12)/L [facility] MCV 92.1 78.2 - 05/13/2018 [facility] 97.9 fL 12:13 PM CDT LABORATORIES - [facility] RBC Distrib 13.7 12.2 - 05/13/2018 [facility] Width 16.1 % 12:13 PM CDT LABORATORIES - [facility] Platelet Count 216 157 - 371 05/13/2018 [facility] x10(9)/L 12:13 PM CDT LABORATORIES - [facility] Leukocytes 5.1 3.4 - 9.6 05/13/2018 [facility] x10(9)/L 12:13 PM CDT LABORATORIES - [facility] Neutrophils 3.85 1.56 - 05/13/2018 [facility] 6.45 12:13 PM CDT LABORATORIES - x10(9)/L [facility] Lymphocytes 0.69 (L) 0.95 - 05/13/2018 [facility] 3.07 12:13 PM CDT LABORATORIES - x10(9)/L [facility] Monocytes 0.40 0.26 - 05/13/2018 [facility] 0.81 12:13 PM CDT LABORATORIES - x10(9)/L [facility] Eosinophils 0.12 0.03 - 05/13/2018 [facility] 0.48 12:13 PM CDT LABORATORIES - x10(9)/L [facility] Basophils 0.06 0.01 - 05/13/2018 [facility] 0.08 12:13 PM CDT LABORATORIES - x10(9)/L [facility] Specimen Anatomical Collection Method Collection Time Receive d Time (Source) Location / / Volume Laterality Blood 05/13/2018 10:53 05/13/2018 AM CDT 11:17 AM CDT Rayna Guerrero APRN, C.N.P. LAB BLOOD ADD-ON Performing Organization Address City/State/ZIP Code Phon e Number [facility] LABORATORIES - [address] AST (Aspartate Aminotransferase) (05/13/2018 10:53 AM CDT) [facility] Method Time Signature Aspartate 27 8 - 43 05/13/2018 [facility] Aminotransferase U/L 11:53 AM LABORATORIES - (AST), S CDT [facility] Specimen Anatomical Collection Method Collection Time Receive d Time (Source) Location / / Volume Laterality Blood 05/13/2018 10:53 05/13/2018 AM CDT 11:17 AM CDT Rayna Guerrero APRN, C.N.P. LAB BLOOD ADD-ON Performing Organization Address City/State/[facility] Code Phon e Number [facility] LABORATORIES - 200 [place] [address] 05 [facility] Creatinine with Estimated GFR (MDRD) (05/13/2018 10:53 AM CDT) Analysis Performed At Patho logist Time Signature Creatinine 0.60 0.59 - 05/13/2018 [facility] 1.04 mg/dL 11:53 AM CDT LABORATORIES - [facility] eGFR-Non >90 >=60 05/13/2018 [facility] Black/ mL/min/BSA 11:53 AM CDT LABORATORIES - [facility] Comment: ----ADDITIONAL INFORMATION---- Estimated GFR calculated using the 2009 CKD_EPI creatinine equation. eGFR-Black/ >90 >=60 mL/min/BSA 05/13/2018 11:5 3 [facility] CDT LABORATORIES - [facility] Comment: ----ADDITIONAL INFORMATION---- Estimated GFR calculated using the 2009 CKD_EPI creatinine equation. Specimen Anatomical Collection Method Collection Time Receive d Time (Source) Location / / Volume Laterality Blood 05/13/2018 10:53 05/13/2018 AM CDT 11:17 AM CDT Rayna Guerrero APRN, C.N.P. LAB BLOOD ADD-ON Performing Organization Address City/[facility] Code Phon e Number [facility] LABORATORIES - [address] CRP (C-Reactive Protein) (05/13/2018 10:53 AM CDT) P athologist Signature C-Reactive <3.0 <=8.0 mg/L 05/13/2018 [facility] Protein (CRP), 11:53 AM CDT LABORATORIES - [facility] Specimen Anatomical Collection Method Collection Time Receive d Time (Source) Location / / Volume Laterality Blood 05/13/2018 10:53 05/13/2018 AM CDT 11:17 AM CDT Rayna Guerrero APRN, C.N.P. LAB BLOOD ADD-ON Performing Organization Address City/State/[facility] Code Phon e Number [facility] LABORATORIES - [address] documented in this encounter Visit Diagnoses Diagnosis Arthritis Rheumatoid (HCC) documented in this encounter
--- OUTSIDE RECORDS SUMMARY | 2022-10-21 18:42 | XMS_ITS | Encounter Summary ---
:1965 Author Organization [facility] Address [address] [place] [address] Care Team Providers Name Role Phone Unavailable Primary Care Provider Unavailable Reason for Referral Outpatient (Routine) - Closed Specialty Diagnoses / Procedures Referred By Contact Refer red To Contact Rheumatology [facility] [address] [place] [address] Referral ID Status Reason Start Date Expiration Date Visits Requ ested Visits Authorized [id number] Closed 05/13/2018 05/13/2019 1 1 Reason for Visit Outpatient (Routine) - Closed Specialty Diagnoses / Procedures Referred By Contact Refer red To Contact Rheumatology Diagnoses Arthritis Rheumatoid (HCC) [facility] [address] [place] [address] Referral ID Status Reason Start Date Expiration Date Visits Requ ested Visits Authorized [id number] Closed 03/12/2018 09/08/2018 1 1 Encounter Details Date Type Department Care Team Description 05/13/2018 Office Visit Division of Rayna Guerrero Arthritis Rh eumatoid (HCC) (Primary Dx); Rheumatology in MORTEZA Kruger, C.N.P. High Risk Medication [place], [place] [address] [facility] [address] [place] [phone] Social History Tobacco Use Types Packs/Day [...] or relatives? How often do you attend buddhist or Never 2021 presybeterian services? Do you belong to any clubs or No 01/17/2022 organizations such as buddhist groups, unions, fraternal or athletic groups, or [...] slept in a nursing home (including now)? 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 - 05/13/2018 3:00 PM CDT SUBJECTIVE CHIEF COMPLAINT / REASON FOR VISIT Martine De Oliveira is a 52 y.o. female who presents for follow up [...] for her rheumatoid arthritis. She states that now it has been hotter she has had more hot flashes. She states that over the last month she has had increased joint pain andswelling to bilateral hands and her right shoulder she is losing range of motion. She continues takemethotrexate 20 mg once weekly and folic acid 2 mg daily. She denies morning stiffness. No recent major infections or hospitalizations. No adverse side effects to the medication. Rheumatoid Arthritis RF +: Yes CCP +: Yes Current Symptoms: dry eyes (improving), fatigue (stable), nausea (intermittent nausea, after taking MTX) and night sweats (hot flashes) Current Symptoms: no dry mouth, no fever, [...] of present illness. Constitutional: Positive for fatigue (stable) and night sweats (hot flashes). Negative for chills, fever and weight loss. Skin: Negative for skin rash. Respiratory: Negative for cough. Cardiovascular: Negative for chest pain, pressure or tightness. Gastrointestinal: Positive for nausea (intermittent nausea, after taking MTX). Negative for abdominal (belly) pain or cramping, anorexia, heartburn and vomiting. Musculoskeletal: Positive for arthralgias (hands, right shoulders) and pain or stiffness in the joints (hands, right shoulders). OBJECTIVE PHYSICAL EXAM Physical Exam General: alert, [...] in ROM bilaterally. Joints: See joint exam. Lab: CBC with differential, creatinine, GFR, and AST all within normal limits. CRP and ESR normal. Disease Activity Tenderness Right hand: 1st MCP, 2nd MCP, 3rd MCP, 4th MCP, 5th MCP, 2nd PIP, 3rd PIP, 4th PIP and 5th PIP Left hand: 1st MCP, 2nd MCP, 3rd MCP, 4th MCP, 5th MCP, 2nd PIP, 3rd PIP, 4th PIP and 5th PIP Tender joint count (0-28): 18 Swollen joint count (0-28): 0 ESR (mm/hr): 10 CRP (mg/L): 3 Provider Global Assessment, 0-100: 50 ASSESSMENT / PLAN #1 Arthritis Rheumatoid (HCC) Today she definitely has increased synovitis seen on exam. She could be a flare, however corticosteroids affect her diabetes greatly and make her sick. We had a lengthy discussion about possible treatment options. She is reluctant to try Plaquenil due to the risk of hypoglycemia and her type 1 diabetes, which is very brittle. She continues to have some nausea after taking methotrexate and at this time does not want to try sulfasalazine due to the possible GI side effects. At this time we decided to just continue methotrexate 0.8 mL once weekly and folic acid 2 mg daily. If she does not notice improvement over the next couple of months then we will have to think about adding a biologic. I gave her a brochure on the biologics to read. #2 High Risk Medication She will continue [...] Outpatient Referral Routine E xpected: visit (clinic) 08/13/2018 (Approximate), Expires: 05/13/2021 documented as of this encounter Results AST (Aspartate Aminotransferase) (10/21/2018 10:44 AM MEDIA RELATIONS COORDINATOR) [facility] gist Method Time Signature Aspartate 29 8 - 43 10/21/2018 [facility] Aminotransferase U/L 11:45 AM LABORATORIES - (AST), S MEDIA RELATIONS COORDINATOR [facility] Specimen Anatomical Collection Method Collection Time Receive d Time (Source) Location / / Volume Laterality Blood (Blood, 10/21/2018 10:44 10/21/2018 Venous) AM MEDIA RELATIONS COORDINATOR 11:08 AM MEDIA RELATIONS COORDINATOR Rayna Guerrero APRN, C.N.P. LAB BLOOD ADD-ON Performing Organization Address City/State/ZIP Code Phon e Number [facility] - [address] [place], [place] [address] [facility] Creatinine with Estimated GFR (10/21/2018 10:44 AM MEDIA RELATIONS COORDINATOR) Analysis Performed At Patho logist Time Signature Creatinine 0.61 0.59 - 10/21/2018 [facility] 1.04 mg/dL 11:45 AM MEDIA RELATIONS COORDINATOR LABORATORIES - [facility] eGFR-Non >90 >=60 10/21/2018 [facility] Black/ mL/min/BSA 11:45 AM MEDIA RELATIONS COORDINATOR LABORATORIES - [facility] Comment: ----ADDITIONAL INFORMATION---- Estimated GFR calculated using the 2009 CKD_EPI creatinine equation. eGFR-Black/ >90 >=60 mL/min/BSA 10/21/2018 11:4 5 [facility] Spanish AM MEDIA RELATIONS COORDINATOR LABORATORIES [facility] Comment: ----ADDITIONAL INFORMATION---- Estimated GFR calculated using the 2009 CKD_EPI creatinine equation. Specimen Anatomical Collection Method Collection Time Receive d Time (Source) Location / / Volume Laterality Blood (Blood, 10/21/2018 10:44 10/21/2018 Venous) AM MEDIA RELATIONS COORDINATOR 11:08 AM MEDIA RELATIONS COORDINATOR José Miguel Weber APRN.N.P. LAB BLOOD ADD-ON Performing Organization Address City/State/ZIP Code Phon e Number [facility] - [address] [place] [phone] 05 [facility] CRP (C-Reactive Protein) (10/21/2018 10:44 AM MEDIA RELATIONS COORDINATOR) P athologist Signature C-Reactive <3.0 <=8.0 mg/L 10/21/2018 [facility] Protein (CRP), 11:45 AM MEDIA RELATIONS COORDINATOR LABORATORIES - [facility] Specimen Anatomical Collection Method Collection Time Receive d Time (Source) Location / / Volume Laterality Blood (Blood, 10/21/2018 10:44 10/21/2018 Venous) AM MEDIA RELATIONS COORDINATOR 11:08 AM MEDIA RELATIONS COORDINATOR Rayna Guerrero APRN, José Miguel.N.P. LAB BLOOD ADD-ON Performing Organization Address City/[facility]/ZIP Code Phon e Number [facility] - [address] [place] [phone] [facility] Sedimentation Rate (10/21/2018 10:44 AM MEDIA RELATIONS COORDINATOR) [facility] Method Time Signature Sedimentation 11 0 - 29 10/21/2018 [facility] Rate, B mm/1 h 12:32 PM MEDIA RELATIONS COORDINATOR LABORATORIES [facility] Specimen Anatomical Collection Method Collection Time Receive d Time (Source) Location / / Volume Laterality Blood (Blood, 10/21/2018 10:44 10/21/2018 Venous) AM MEDIA RELATIONS COORDINATOR 11:08 AM MEDIA RELATIONS COORDINATOR Rayna Guerrero APRN, José Miguel.N.P. LAB BLOOD ADD-ON Performing Organization Address City/[facility]/ZIP Code Phon e Number [facility] - [address] [place] [address] [facility] (ABNORMAL) CBC with Differential, Blood (10/21/2018 10:44 AM MEDIA RELATIONS COORDINATOR) [facility] Phagenesis Method Time Signature Hemoglobin 13.1 11.6 - 10/21/2018 [facility] 15.0 g/dL 11:57 AM MEDIA RELATIONS COORDINATOR LABORATORIES - [facility] Hematocrit 39.5 35.5 - 10/21/2018 [facility] 44.9 % 11:57 AM MEDIA RELATIONS COORDINATOR LABORATORIES - [facility] Erythrocytes 4.29 3.92 - 10/21/2018 [facility] 5.13 11:57 AM MEDIA RELATIONS COORDINATOR LABORATORIES - x10(12)/L [facility] MCV 92.1 78.2 - 10/21/2018 [facility] 97.9 fL 11:57 AM MEDIA RELATIONS COORDINATOR LABORATORIES - [facility] RBC Distrib 13.5 12.2 - 10/21/2018 [facility] Width 16.1 % 11:57 AM MEDIA RELATIONS COORDINATOR LABORATORIES - [facility] Platelet Count 212 157 - 371 10/21/2018 [facility] x10(9)/L 11:57 AM MEDIA RELATIONS COORDINATOR LABORATORIES - [facility] Leukocytes 4.8 3.4 - 9.6 10/21/2018 [facility] x10(9)/L 11:57 AM MEDIA RELATIONS COORDINATOR LABORATORIES - [facility] Neutrophils 3.32 1.56 - 10/21/2018 [facility] 6.45 11:57 AM MEDIA RELATIONS COORDINATOR LABORATORIES - x10(9)/L [facility] Lymphocytes 0.89 (L) 0.95 - 10/21/2018 [facility] 3.07 11:57 AM MEDIA RELATIONS COORDINATOR LABORATORIES - x10(9)/L [facility] Monocytes 0.42 0.26 - 10/21/2018 [facility] 0.81 11:57 AM MEDIA RELATIONS COORDINATOR LABORATORIES - x10(9)/L [facility] Eosinophils 0.10 0.03 - 10/21/2018 [facility] 0.48 11:57 AM MEDIA RELATIONS COORDINATOR LABORATORIES - x10(9)/L [facility] Basophils 0.04 0.01 - 10/21/2018 [facility] 0.08 11:57 AM MEDIA RELATIONS COORDINATOR LABORATORIES - x10(9)/L [facility] Specimen Anatomical Collection Method Collection Time Receive d Time (Source) Location / / Volume Laterality Blood (Blood, 10/21/2018 10:44 10/21/2018 Venous) AM MEDIA RELATIONS COORDINATOR 11:08 AM MEDIA RELATIONS COORDINATOR Yaa Weber APRNN.P. LAB BLOOD ADD-ON Performing Organization Address City/State/ZIP Code Phon e Number [facility] - [address] [place], [place] [address] [facility] documented in this encounter Visit Diagnoses Diagnosis Arthritis Rheumatoid (HCC) - Primary High Risk Medication documented in this encounter
--- OUTSIDE RECORDS SUMMARY | 2022-10-21 18:42 | XMS_ITS | Encounter Summary ---
:1965 Author Organization [facility] Address [address] [place] [address] Care Team Providers Name Role Phone Unavailable Primary Care Provider Unavailable Encounter Details Date Type Department Care Team Description 02/08/2019 Hospital Encounter Department of Rayna Guerrero Rheumatoid Laboratory Medicine L, MANAGER [employer], C.N .P. (HCC) and Pathology, [address] [place] [address] in [place] [id number] [place] [phone] [place] [address] (Work) [place], [place] [phone] [address] (Fax) [phone] Social History Tobacco Use Types Packs/Day Years [...] do you attend congregational or Never 2021 cheondoism services? Do you belong to any clubs [...] slept in a care home (including now)? Sex Assigned at Date Recorded Female 10/17/2018 9:43 PM BLOCK HAND documented as of this encounter Medications at Time of Discharge Medication Sig Dispensed Refills Start Date End Date cholecalciferol Take 1 tablet by 0 01/30/2014 (for_VITAMIN D3) 1,000 mouth daily. Unit tablet COMFORT EZ PEN NEEDLES USE FOUR TIMES A DAY 0 05/2019 31 gauge x /16 needle insulin aspart U-100 Inject under the [...] Take 2 tablets (2,000 180 tablet 3 09/20/2019 mcg total) by mouth daily. ibuprofen Take [...] 0.8 mL (20 mg 8 mL 5 01/2109/07/2019 injection total) under the skin once a week. Remember labs every 3 months. documented as of this encounter Plan of Treatment Not on filedocumented as of this encounter Procedures Procedure Name Priority Date/Time Associated Comments Diagnosis SEDIMENTATION RATE, B Routine 02/08/2019 11:50 Arthritis Re sults for this AM CDT Rheumatoid (HCC) procedure a re in the results section. CBC WITH DIFFERENTIAL, B Routine 02/08/2019 11:50 Arthritis Results for this AM CDT Rheumatoid (HCC) procedure a re in the results section. C-REACTIVE PROTEIN Routine 02/08/2019 11:50 Arthritis Resul ts for this (CRP), S/P AM CDT Rheumatoid (HCC) procedure a re in the results section. ASPARTATE Routine 02/08/2019 11:50 Arthritis Results for this AMINOTRANSFERASE (AST), AM CDT Rheumatoid (HCC) procedure are in S/P the results section. CREATININE WITH EGFR, Routine 02/08/2019 11:50 Arthritis Re sults for this S/P AM CDT Rheumatoid (HCC) procedure a re in the results section. documented in this encounter Results AST (Aspartate Aminotransferase) (02/08/2019 11:50 AM CDT) [facility] Time Signature Aspartate 31 8 - 43 02/08/2019 [facility] Aminotransferase U/L 1:02 PM CDT LABORATORIE S - (AST), S [facility] Specimen Anatomical Collection Method Collection Time Receive d Time (Source) Location / / Volume Laterality Blood (Blood, 02/08/2019 11:50 02/08/2019 Venous) AM CDT 12:09 PM CDT Rayna Guerrero APRN C.N.P. LAB BLOOD ADD-ON Performing Organization Address City/State/ZIP Code Phon e Number [facility] LABORATORIES - [address] [place], [place] [address] [facility] (ABNORMAL) Creatinine with Estimated GFR (02/08/2019 11:50 AM CDT) [facility] Method Time Signature Creatinine 0.56 (L) 0.59 - 02/08/2019 [facility] 1.04 1:02 PM CDT LABORATORIES - mg/dL [facility] eGFR-Non >90 >=60 02/08/2019 [facility] Black/ mL/min/BS 1:02 PM CDT LABORATORIES - Portuguese A [facility] Comment: ----ADDITIONAL INFORMATION---- Estimated GFR calculated using the 2009 CKD_EPI creatinine equation. eGFR-Black/ >90 >=60 mL/min/BSA 02/08/2019 1:02 [facility] CDT LABORATORIES - [facility] Comment: ----ADDITIONAL INFORMATION---- Estimated GFR calculated using the 2009 CKD_EPI creatinine equation. Specimen Anatomical Collection Method Collection Time Receive d Time (Source) Location / / Volume Laterality Blood (Blood, 02/08/2019 11:50 02/08/2019 Venous) AM CDT 12:09 PM CDT Rayna Guerrero APRN, C.N.P. LAB BLOOD ADD-ON Performing Organization Address City/[facility]/ZIP Code Phon e Number [facility] - 200 [place] [address] [facility] CRP (C-Reactive Protein) (02/08/2019 11:50 AM CDT) P athologist Signature C-Reactive <3.0 <=8.0 mg/L 02/08/2019 [facility] Protein (CRP), 1:02 PM CDT LABORATORIES - [facility] Specimen Anatomical Collection Method Collection Time Receive d Time (Source) Location / / Volume Laterality Blood (Blood, 02/08/2019 11:50 02/08/2019 Venous) AM CDT 12:09 PM CDT Rayna Guerrero APRN, C.N.P. LAB BLOOD ADD-ON Performing Organization Address City/[facility]/ZIP Code Phon e Number [facility]IES - [address] [place] [address] [facility] Sedimentation Rate (02/08/2019 11:50 AM CDT) Patholo gist Method Time Signature Sedimentation 5 0 - 29 02/08/2019 [facility] Rate, B mm/1 h 1:40 PM CDT LABORATORIES [facility] Specimen Anatomical Collection Method Collection Time Receive d Time (Source) Location / / Volume Laterality Blood (Blood, 02/08/2019 11:50 02/08/2019 Venous) AM CDT 12:10 PM CDT Rayna Guerrero APRN, José Miguel.N.P. LAB BLOOD ADD-ON Performing Organization Address City/[facility]/ZIP Code Phon e Number [facility]IES - [address] [place], [place] [address] [facility] (ABNORMAL) CBC with Differential, Blood (02/08/2019 11:50 AM CDT) [facility] Method Time Signature Hemoglobin 13.6 11.6 - 02/08/2019 [facility] 15.0 g/dL 12:13 PM CDT LABORATORIES - [facility] Hematocrit 41.8 35.5 - 02/08/2019 [facility] 44.9 % 12:13 PM CDT LABORATORIES - [facility] Erythrocytes 4.53 3.92 - 02/08/2019 [facility] 5.13 12:13 PM CDT LABORATORIES - x10(12)/L [facility] MCV 92.3 78.2 - 02/08/2019 [facility] 97.9 fL 12:13 PM CDT LABORATORIES - [facility] RBC Distrib 13.2 12.2 - 02/08/2019 [facility] Width 16.1 % 12:13 PM CDT LABORATORIES - [facility] Platelet Count 208 157 - 371 02/08/2019 [facility] x10(9)/L 12:13 PM CDT LABORATORIES - [facility] Leukocytes 4.1 3.4 - 9.6 02/08/2019 [facility] x10(9)/L 12:13 PM CDT LABORATORIES - [facility] Neutrophils 2.99 1.56 - 02/08/2019 [facility] 6.45 12:13 PM CDT LABORATORIES - x10(9)/L [facility] Lymphocytes 0.72 (L) 0.95 - 02/08/2019 [facility] 3.07 12:13 PM CDT LABORATORIES - x10(9)/L [facility] Monocytes 0.30 0.26 - 02/08/2019 [facility] 0.81 12:13 PM CDT LABORATORIES - x10(9)/L [facility] Eosinophils 0.06 0.03 - 02/08/2019 [facility] 0.48 12:13 PM CDT LABORATORIES - x10(9)/L [facility] Basophils 0.05 0.01 - 02/08/2019 [facility] 0.08 12:13 PM CDT LABORATORIES - x10(9)/L [facility] Specimen Anatomical Collection Method Collection Time Receive d Time (Source) Location / / Volume Laterality Blood (Blood, 02/08/2019 11:50 02/08/2019 Venous) AM CDT 12:09 PM CDT Yaa Weber APRNNTaniya LAB BLOOD ADD-ON Performing Organization Address City/State/ZIP Code Phon e Number [facility]IES - [address] [place] [address] [facility] documented in this encounter Visit Diagnoses Diagnosis Arthritis Rheumatoid (HCC) documented in this encounter
--- OUTSIDE RECORDS SUMMARY | 2022-10-21 18:42 | XMS_ITS | Encounter Summary ---
:1965 Author Organization [facility] Address [address] [place] [address] Care Team Providers Name Role Phone Unavailable Primary Care Provider Unavailable Reason for Visit Reason Comments Med Refill Encounter Details Date Type Department Care Team Description 11/26/2018 Refill Division of Rheumatology in Karen Guerrero sa, APRN, Med Refill [place], [place] C.N.P. [address] [facility] [address] [place] [address] [place] [address] [phone] (Wo rk) Social History Tobacco Use Types [...] do you attend voodoo or Never 2021 orthodox services? 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 - 11/30/2018 4:25 PM INSTRUMENT SETTER Addended by: AUBREE PALACIOS on: 11/30/2018 04:25 PM Modules accepted: Orders RUMENT SETTER Telephone Encounter - Aubree Palacios R.N. - 11/30/2018 4:15 PM INSTRUMENT SETTER INFORMATION DISCUSSED Updated patient after speaking with Rayna that patient's pharmacy only carries the 2 mL vial of injectable methotrexate and it is without preservatives. Patient was encouraged to follow as the pharmacy has indicated and dispose of leftovers after each use. Patient was given additional refills to cover for a total of six months. Last appointment was on 10/21/18 and last labs were completed on 10/21/18. Patient was agreeable with plan and appreciative of call. PLAN Will forward to Rayna Guerrero CNP for review. Disposition/Recommendation: provider notified Education: patient/caller able to teach back Caller agreeable to plan of care: yes The following references were used: nursing clinical judgement RUMENT SETTER Telephone Encounter - Aubree Palacios R.N. - 11/30/2018 11:53 AM INSTRUMENT SETTER INFORMATION DISCUSSED Spoke with patient who states she has been using the 2 mL vial and was instructed to throw away whatshe doesn't use. She confirms she is in need of refills. Instructed patient I would consult with Rayna and see what expectations are regarding the injectable methotrexate. PLAN Will speak with Rayna Guerrero CNP regarding refills for methotrexate. Disposition/Recommendation: provider notified Education: patient/caller able to teach back Caller agreeable to plan of care: yes The following references were used: nursing clinical judgement RUMENT SETTER Telephone Encounter - Lorene Posey - 11/30/2018 11:18 AM CST 2nd request received. RUMENT SETTER Addendum Note - Lorene Posey - 11/30/2018 11:17 AM INSTRUMENT SETTER Addended by: LORENE POSEY on: 11/30/2018 11:17 AM Modules accepted: Orders RUMENT SETTER documented in this encounter Plan of Treatment Not on filedocumented as of this encounter Visit Diagnoses Not on filedocumented in this encounter
--- OUTSIDE RECORDS SUMMARY | 2022-10-21 18:42 | XMS_ITS | Encounter Summary ---
:1965 Author Organization [facility] Address [address] [place] [address] Care Team Providers Name Role Phone Unavailable Primary Care Provider Unavailable Reason for Visit Reason Comments Med Refill Encounter Details Date Type Department Care Team Description 05/18/2018 Refill Division of Rheumatology in Karen Guerrero sa, APRN, Med Refill [place], [place] C.N.P. [address] [facility] [address] [place] [address] [place] [address] [phone] (Wo rk) Social History Tobacco Use Types [...] or relatives? How often do you attend mandaen or Never 2021 mandaeism services? 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
--- OUTSIDE RECORDS SUMMARY | 2022-10-21 18:42 | XMS_ITS | Encounter Summary ---
:1965 Author Organization [facility] Address [address] [place] [address] Care Team Providers Name Role Phone Unavailable Primary Care Provider Unavailable Encounter Details Date Type Department Care Team Description 02/06/2018 Abstract DATA ABSTRACTION Provider, Historical Social History [...] do you attend quaker or Never 2021 synagogue services? Do you belong to any clubs [...] or slept in a prison (including now)? 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
--- OUTSIDE RECORDS SUMMARY | 2022-10-21 18:42 | XMS_ITS | Encounter Summary ---
:1965 Author Organization [facility] Address [address] [place] [address] Care Team Providers Name Role Phone Unavailable Primary Care Provider Unavailable Reason for Referral Outpatient (Routine) - Closed Specialty Diagnoses / Procedures Referred By Contact Refer red To Contact Rheumatology Rayna Guerrero APRN, [facility] C.N.P. [address] [place] [address] Referral ID Status Reason Start Date Expiration Date Visits Requ ested Visits Authorized [id number] Closed 05/03/2019 05/02/2020 1 1 Reason for Visit Outpatient (Routine) - Closed Specialty Diagnoses / Procedures Referred By Contact Refer red To Contact Rheumatology [facility] C[facility] [address] [place] [phone] Referral ID Status Reason Start Date Expiration Date Visits Requ ested Visits Authorized [id number] Closed 02/08/2019 02/08/2020 1 1 Encounter Details Date Type Department Care Team Description 05/03/2019 Office Visit Division of Rayna Guerrero Arthritis Rh eumatoid (HCC) (Primary Dx); Rheumatology phyllis Kruger APRN, C.N.P. High Risk Medication [place], [place] [address] [facility] [address] [place] [phone] Social History Tobacco Use Types Packs/Day Years [...] or relatives? How often do you attend druze or Never 2021 denominational services? 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 - 05/03/2019 3:45 PM CDT SUBJECTIVE CHIEF COMPLAINT / REASON [...] generally she is doing well. She has been doing more gardening and participating in a pottery class so her hands have been more painful and stiff more than normal. She increased the methotrexate to 0.7 mL once weekly due to increased joint symptoms at 0.6 mL. She continues take methotrexate SQ 17.5 mg once weekly and folic acid 2 mg daily. Morning stiffness lasts about 1 hour. No recent major flares, infections or hospitalizations. No adverse side effects to the medication. Rheumatoid Arthritis RF +: Yes CCP +: Yes AM stiffness: 1 hour Current Symptoms: dry eyes (improving- now taking [...] (hands, right shoulder), back pain (low back pain- when gardening), pain or stiffness in the joints (hands, right shoulder), joint swelling and muscle pain/stiffness. Neurological: Negative for light-headedness and headaches. Psychiatric/Behavioral: [...] glenohumeral LUE: glenohumeral Right hand: 1st MCP, 3rd MCP, 4th MCP, 2nd PIP, 3rd PIP and 4th PIP Left hand: 1st MCP, 3rd MCP, 4th MCP, 2nd PIP, 3rd PIP and 4th PIP Swelling RUE: glenohumeral LUE: glenohumeral Right hand: 3rd MCP, 4th MCP, 2nd PIP, 3rd PIP and 4th PIP Left hand: 1st MCP, 3rd MCP, 4th MCP, 2nd PIP, 3rd PIP and 4th PIP Tender joint count (0-28): 14 Swollen joint count (0-28): 13 ESR (mm/hr): 10 CRP (mg/L): 3 Health Assessment Questionnaire II (SANG-II) Score 0-3: 0.9 Pain, 0-100: 10 Patient Global Assessment of Disease Activity, 0-100: 10 Provider Global Assessment, 0-100: 50 Composite Disease Activity Scores Disease Activity Score (DEL VALLE) 28-CRP(4): 4.7 Disease Activity Score (DEL VALLE) 28-ESR(4): 4.86 Simplified Disease Activity Index (SDAI): 33.3 Clinical Disease Activity Index (CDAI): 33 ASSESSMENT / PLAN #1 Arthritis Rheumatoid (HCC) Increased synovitis noted on exam to due increased activity. She will continue methotrexate 0.7 mL once [...] Outpatient Referral Routine E xpected: visit (clinic) 08/03/2019 (Approximate), Expires: 05/03/2022 documented as of this encounter Results AST (Aspartate Aminotransferase) (09/20/2019 10:07 AM CDT) [facility] Method Time Signature Aspartate 27 8 - 43 09/20/2019 [facility] Aminotransferase U/L 12:01 PM CDT (AST), S Specimen Anatomical Collection Method Collection Time Receive d Time (Source) Location / / Volume Laterality Blood (Blood, 09/20/2019 10:07 09/20/2019 Venous) AM CDT 10:27 AM CDT Rayna Guerrero APRN, C.N.P. LAB BLOOD ADD-ON Performing Organization Address City/[facility] Phon e Number [facility] - [address] [place], [place] [address] [facility] [place] [address] Laboratories[address] Creatinine with Estimated GFR (09/20/2019 10:07 AM CDT) athologist Signature Creatinine 0.60 0.59 - 09/20/2019 [facility] 1.04 mg/dL 12:01 PM CDT eGFR-Non >90 >=60 09/20/2019 DT Black/ mL/min/BSA 12:01 PM CDT [place] Comment: ----ADDITIONAL INFORMATION---- Estimated GFR calculated using [...] C.N.P. LAB BLOOD ADD-ON Performing Organization Address City/State/[facility] Code Phon e Number [facility] - [address] [place], [place] [address] [facility] [place] [address] Laboratories-[address] CRP (C-Reactive Protein) (09/20/2019 10:07 AM CDT) P athologist Signature C-Reactive <3.0 <=8.0 mg/L 09/20/2019 DT Protein (CRP), 12:01 PM CDT S Specimen Anatomical Collection Method Collection Time Receive d Time (Source) Location / / Volume Laterality Blood (Blood, 09/20/2019 10:07 09/20/2019 Venous) AM CDT 10:27 AM CDT Yaa Weber APRNNLiaP. LAB BLOOD ADD-ON Performing Organization Address City/[facility] Code Phon e Number [facility] - [address] [place] [address] [place] [id number] [address] Sedimentation Rate (09/20/2019 10:06 AM CDT) Analysis Performed At Patho logist Time Signature Sedimentation 8 2 - 22 09/20/2019 [facility] Rate, B mm/h 12:03 PM CDT Specimen Anatomical Collection Method Collection Time Receive d Time (Source) Location / / Volume Laterality Blood (Blood, 09/20/2019 10:06 09/20/2019 Venous) AM CDT 10:27 AM CDT Rayna Guerrero APRN, C.N.P. LAB BLOOD ADD-ON Performing Organization Address City/[facility] Phon e Number [facility] - [address] [place] [address] [place] [address] (ABNORMAL) CBC with Differential, Blood (09/20/2019 10:06 AM CDT) Patholo gist Method Time Signature Hemoglobin 13.9 11.6 - [...] AM CDT 10:27 AM CDT Rayna Guerrero APRN C.N.P. LAB BLOOD ADD-ON Performing Organization Address City/State/ZIP Code Phon e Number [facility] - [address] [place], [place] [address] [facility] [place] [address] Laboratories-[facility] [address] documented in this encounter Visit Diagnoses Diagnosis Arthritis Rheumatoid (HCC) - Primary High Risk Medication documented in this encounter
--- OUTSIDE RECORDS SUMMARY | 2022-10-21 18:42 | XMS_ITS | Encounter Summary ---
:1965 Author Organization [facility] Address [address] [place] [address] Care Team Providers Name Role Phone Unavailable Primary Care Provider Unavailable Reason for Visit Reason Onset Date Comments Labs Only 01/20/2019 Encounter Details Date Type Department Care Team Description 01/20/2019 Clinical Communication Division of Rheumatology Ana Gillis, Labs Only in [facility] rotary helper R.NLia [address] [facility] [address] [place] [address] [place], [place] [phone] [address] Social History Tobacco Use Types Packs/Day Years [...] do you attend rastafarian or Never 2021 lutheran services? Do you belong to any clubs [...] place to sleep or slept in a [place] (including now)? 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 - 01/24/2019 11:20 AM SHIPPING SUPERVISOR INFORMATION DISCUSSED Message relayed to patient. She reports she is feeling well. She will follow up 02/08/18 with labs and Rayna Guerrero. Patient understood discussion and had no further questions. PLAN Disposition/Recommendation: self-care appropriate at this time Education: patient/caller able to teach back Caller agreeable to plan of care: yes The following references were used: nursing clinical judgement PING SUPERVISOR Telephone Encounter - Ana Gillis R.N. - 01/24/2019 11:11 AM CST Contacted patient and left message on her [employer] mobile phone with call back number. Also informed her that I am sending her a portal message. PING SUPERVISOR Telephone Encounter - Rayna Guerrero APRN, C.N.P. - 01/21/2019 9:37 AM SHIPPING SUPERVISOR Lymphocyte count is normal for patient. WBC count is low. Please contact patient to see if she has been sick at all recently. If she is doing good, then we will continue to monitor her labs per protocol. PING SUPERVISOR Telephone Encounter - Ana Gillis R.N. - 01/20/2019 1:44 PM CST ASSESSMENT Rheumatology monitoring labs completed at an external lab on 01/12/2019 were reviewed per Rheumatology division parameters. All monitored labs are within parameters. Labs reviewed: absolute neutrophil count, AST, creatinine, hemoglobin, leukocytes, platelets External labs were sent for scanning. PLAN Patient to continue with current plan of care. Of note: Patient WBC is 3.01 k/uL (5.00-10.00)-this is within the nursing protocol guidelines. Her last WBC was (10/21/2018 internal) was 4.8 x 10(9)/L . Lymphocytes: 0.77 K/uL (0.90-2.90). I will send a message to Rayna Guerrero APRN, CNP notifying her of these lab values. PING SUPERVISOR documented in this encounter Plan of Treatment Not on filedocumented as of this encounter Visit Diagnoses Not on filedocumented in this encounter
--- OUTSIDE RECORDS SUMMARY | 2022-10-21 18:42 | XMS_ITS | Encounter Summary ---
:1965 Author Organization [facility] Address [address] [place] [address] Care Team Providers Name Role Phone Unavailable Primary Care Provider Unavailable Encounter Details Date Type Department Care Team Description 05/03/2019 Hospital Encounter Department of Rayna Guerrero Rheumatoid Laboratory Medicine L, STATE APPELLATE CLERK, C.N .P. (HCC) and Pathology, [address] [place] [address] in [place] [id number] [place] [phone] [place] [address] (Work) [place], [place] [phone] [phone] (Fax) [phone] Social History Tobacco Use Types Packs/Day Years [...] do you attend gnosticist or Never 2021 amish services? 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 CBC WITH DIFFERENTIAL, B Routine 05/03/2019 12:24 Arthritis Results for this PM CDT Rheumatoid (HCC) procedure a re in the results section. C-REACTIVE PROTEIN Routine 05/03/2019 12:24 Arthritis Resul ts for this (CRP), S/P PM CDT Rheumatoid (HCC) procedure a re in the results section. ASPARTATE Routine 05/03/2019 12:24 Arthritis Results for this AMINOTRANSFERASE (AST), PM CDT Rheumatoid (HCC) procedure are in S/P the results section. CREATININE WITH EGFR, Routine 05/03/2019 12:24 Arthritis Re sults for this S/P PM CDT Rheumatoid (HCC) procedure a re in the results section. documented in this encounter Results AST (Aspartate Aminotransferase) (05/03/2019 12:24 PM CDT) Patholo gist Method Time Signature Aspartate 26 8 - 43 05/03/2019 Aminotransferase U/L 1:28 PM CDT (AST), S Specimen Anatomical Collection Method Collection Time Receive d Time (Source) Location / / Volume Laterality Blood (Blood, 05/03/2019 12:24 05/03/2019 Venous) PM CDT 12:46 PM CDT Rayna Guerrero APRN, C.N.P. LAB BLOOD ADD-ON Performing Organization Address City/State/ZIP Code Phon e Number [facility] - [address] [place], [place] [address] [facility] Creatinine with Estimated GFR (05/03/2019 12:24 PM CDT) P athologist Signature Creatinine 0.60 0.59 - 05/03/2019 1.04 mg/dL 1:28 PM CDT eGFR-Non >90 >=60 05/03/2019 Black/ mL/min/BSA 1:28 PM CDT [place] Comment: ----ADDITIONAL INFORMATION---- Estimated GFR calculated using the 2009 CKD_EPI creatinine equation. eGFR-Black/ >90 >=60 mL/min/BSA 2018 1:28 PM CDT Comment: ----ADDITIONAL INFORMATION---- Estimated GFR calculated using the 2009 CKD_EPI creatinine equation. Specimen Anatomical Collection Method Collection Time Receive d Time (Source) Location / / Volume Laterality Blood (Blood, 05/03/2019 12:24 05/03/2019 Venous) PM CDT 12:46 PM CDT José Miguel Weber APRN.N.P. LAB BLOOD ADD-ON Performing Organization Address City/[facility] Code Phon e Number [facility] - [address] [place] [id number] [facility] CRP (C-Reactive Protein) (05/03/2019 12:24 PM CDT) P athologist Signature C-Reactive <3.0 <=8.0 mg/L 05/03/2019 Protein (CRP), 1:28 PM CDT S Specimen Anatomical Collection Method Collection Time Receive d Time (Source) Location / / Volume Laterality Blood (Blood, 05/03/2019 12:24 05/03/2019 Venous) PM CDT 12:46 PM CDT Rayna Guerrero APRN, C.N.P. LAB BLOOD ADD-ON Performing Organization Address City/[facility] Code Phon e Number [facility] - [address] [place] [phone] [facility] Sedimentation Rate (05/03/2019 12:24 PM CDT) Analysis Performed At Patho logist Time Signature Sedimentation 10 0 - 29 05/03/2019 Rate, B mm/1 h 2:39 PM CDT Specimen Anatomical Collection Method Collection Time Receive d Time (Source) Location / / Volume Laterality Blood (Blood, 05/03/2019 12:24 05/03/2019 Venous) PM CDT 12:45 PM CDT Rayna Guerrero APRN, C.N.P. LAB BLOOD ADD-ON Performing Organization Address City/[facility] Phon e Number [facility] - [address] CBC with Differential, Blood (05/03/2019 12:24 PM [...] 05/03/2019 Venous) PM CDT 12:45 PM CDT Rayna Guerrero APRN C.N.P. LAB BLOOD ADD-ON Performing Organization Address City/State/ZIP Code Phon e Number [facility] - [address] documented in this encounter Visit Diagnoses Diagnosis Arthritis Rheumatoid (HCC) documented in this encounter
--- OUTSIDE RECORDS SUMMARY | 2022-10-21 18:42 | XMS_ITS | Encounter Summary ---
:1965 Author Organization [facility] Address [address] [place] [address] Care Team Providers Name Role Phone Unavailable Primary Care Provider Unavailable Reason for Visit Reason Onset Date Comments Labs Only 09/14/2018 Encounter Details Date Type Department Care Team Description 09/14/2018 Clinical Communication Division of Elvin Aleman La bs Only Rheumatology in [place], [place] [phone] [address] [facility] (Work) [place] [address] Social History Tobacco Use Types Packs/Day Years [...] do you attend taoist or Never 2021 baptist services? 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 - 09/14/2018 10:16 AM CDT ASSESSMENT Rheumatology monitoring labs completed at an external lab on 08/31/2018 were reviewed per Rheumatology division parameters. All monitored labs are within parameters. Labs reviewed: CBC with differential, AST, creatinine External labs were sent for scanning. PLAN Patient to continue with current plan of care. CBC was within protocol, low at 4.26, aware. documented in this encounter Plan of Treatment Not on filedocumented as of this encounter Visit Diagnoses Not on filedocumented in this encounter
--- OUTSIDE RECORDS SUMMARY | 2022-10-21 18:42 | XMS_ITS | Encounter Summary ---
:[address] [facility] Address [address] [place] [address] Care Team Providers Name Role Phone Unavailable Primary Care Provider Unavailable Encounter Details Date Type Department Care Team Description 08/27/2018 Clinical Communication Division of Sky Padilla Jr., M.D. [place], [place] [address] [facility] [address] [place] [phone] Social History Tobacco Use Types Packs/Day Years [...] or relatives? How often do you attend jain or Never 2021 druze services? Do you belong to any clubs or No 01/17/2022 organizations such as jain groups, unions, fraternal or athletic groups, or [...] or slept in a mcc (including now)? 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
--- OUTSIDE RECORDS SUMMARY | 2022-10-21 18:42 | XMS_ITS | Encounter Summary ---
:1965 Author Organization [facility] Address [address] [place] [address] Care Team Providers Name Role Phone Unavailable Primary Care Provider Unavailable Reason for Visit Reason Comments Labs Only Encounter Details Date Type Department Care Team Description 03/11/2019 Documentation Division of Rheumatology Murtaza Wong, Labs Only in [facility] armani R.N. [address] [facility] [address] [place] [address] [place], [place] [phone] Social History Tobacco Use Types Packs/Day Years [...] or relatives? How often do you attend amish or Never 2021 christianity services? Do you belong to any clubs or No 01/17/2022 organizations such as amish groups, unions, fraternal or athletic groups, or [...] or slept in a alf (including now)? 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 - 03/11/2019 12:09 PM CDT ASSESSMENT Rheumatology monitoring labs completed at an external lab on 03/08/2019 were reviewed per Rheumatology division parameters. All monitored labs are within parameters. Labs reviewed: AST, creatinine, hemoglobin, leukocytes, platelets External labs were sent for scanning. PLAN Patient to continue with current plan of care. documented in this encounter Plan of Treatment Not on filedocumented as of this encounter Visit Diagnoses Not on filedocumented in this encounter
--- OUTSIDE RECORDS SUMMARY | 2022-10-21 18:42 | XMS_ITS | Encounter Summary ---
:1965 Author Organization [facility] Address [address] [place] [address] Care Team Providers Name Role Phone Unavailable Primary Care Provider Unavailable Reason for Visit Reason Comments Lab Monitoring Outside Labs Encounter Details Date Type Department Care Team Description 08/18/2019 Documentation Division of Sherron Wagner Lab Monitor ing Rheumatology in L, M.A.N., R.N. (Outside Labs) [place], [place] [address] [facility] [address] [place] [address] [phone] Social History Tobacco Use Types Packs/Day Years [...] do you attend rastafarian or Never 2021 hinduism services? 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 - 08/18/2019 10:50 AM CDT ASSESSMENT Rheumatology monitoring labs completed at an external lab on 08/09/19 were reviewed per Rheumatology division parameters. All monitored labs are within parameters. Labs reviewed: absolute neutrophil count, AST, creatinine, hemoglobin, leukocytes, platelets External labs were sent for scanning. Of Note: WBC 4.62 (5.0-10.00 K/UL) 03/08/19 3.4 This result is trending toward normal and is within protocol limits. PLAN Patient to continue with current plan of care. documented in this encounter Plan of Treatment Not on filedocumented as of this encounter Visit Diagnoses Not on filedocumented in this encounter
--- OUTSIDE RECORDS SUMMARY | 2022-10-21 18:43 | XMS_ITS | Encounter Summary ---
:1965 Author Organization [facility] Address [address] [place] [address] Care Team Providers Name Role Phone Unavailable Primary Care Provider Unavailable Encounter Details Date Type Department Care Team Description 01/30/2014 - 01/31/2014 Hospital Encounter HX RST JAD VINCENT 8D Social History Tobacco Use Types Packs/Day Years Used Date Smoking Tobacco: Never Assessed Alcohol Habits Answer Date Recorded How often [...] you attend latter day or Never 2021 jainism services? Do you belong to any clubs [...] or slept in a custodial (including now)? 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 Pulse 87 01/31/2014 7:00 AM Value from Ch art[facility]. CDT Temperature - - Respiratory Rate 13 01/31/2014 11:00 Value from Gladys rtplus. AM CDT Oxygen Saturation - - Inhaled Oxygen - - Concentration Weight 62 kg (136 lb 11 oz) 01/31/2014 7:00 AM Value fr om [facility]. CDT Height 175.3 cm (5' 9.02) 01/30/2014 3:42 PM CDT Body Mass Index 20.18 01/30/2014 3:42 PM CDT documented in this encounter Medications at Time of Discharge Medication Sig Dispensed Refills Start Date End Date cholecalciferol (for_VITAMIN Take 1 tablet by 0 0 01/30/2014 D3) 1,000 Unit tablet mouth daily. documented as of this encounter Plan of Treatment Not on filedocumented as of this encounter Procedures Procedure Name Priority Date/Time Associated Diagnosis Comme nts GLUCOSE POCT, B Routine 01/30/2014 10:24 PM Resul ts for this CDT procedure are i n the results section. GLUCOSE POCT, B Routine 01/30/2014 4:38 PM Result s for this CDT procedure are i n the results section. documented in this encounter Results (ABNORMAL) Glucose, POCT (01/30/2014 10:24 PM CDT) [facility] Method Time Signature Glucose, 167 (H) 70 - 140 [facility] POCT, B MG/DL LABORATORIES - [facility] Sample Site, Capillary [facility] Blood Gas, LABORATORIES - POCT [facility] Specimen Anatomical Collection Method Collection Time Receive d Time (Source) Location / / Volume Laterality 01/30/2014 10:24 01/30/2014 PM CDT 10:24 PM CDT Historical Provider LAB POCT ORDERABLES-MANUAL Performing Organization Address City/State/ZIP Code Phon e Number [facility] - [address] [place], [place] [address] [facility] (ABNORMAL) Glucose, POCT (01/30/2014 4:38 PM CDT) [facility] Method Time Signature Glucose, 165 (H) 70 - 140 [facility] POCT, B MG/DL LABORATORIES - [facility] Sample Site, Capillary [facility] Blood Gas, LABORATORIES - POCT [facility] Specimen Anatomical Collection Method Collection Time Receive d Time (Source) Location / / Volume Laterality 01/30/2014 4:38 PM 4 4:38 CDT PM CDT Historical Provider LAB POCT ORDERABLES-MANUAL Performing Organization Address City/State/ZIP Code Phon e Number [facility] - [address] [place], [place] [address] [facility] documented in this encounter Visit Diagnoses Not on filedocumented in this encounter
--- OUTSIDE RECORDS SUMMARY | 2022-10-21 18:43 | XMS_ITS | Encounter Summary ---
:1965 Author Organization [facility] Address [address] [place] [address] Care Team Providers Name Role Phone Unavailable Primary Care Provider Unavailable Encounter Details Date Type Department Care Team Description 01/30/2014 Hospital Encounter HX RST EMERGENCY Provider, Historic al TRAUMA UNI Social History Tobacco Use Types Packs/Day Years [...] or relatives? How often do you attend confucianism or Never 2021 latter-day services? Do you belong to any clubs or No 01/17/2022 organizations such as confucianism groups, unions, fraternal or athletic groups, or [...] slept in a group home (including now)? 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 documented as of this encounter Plan of Treatment Not on filedocumented as of this encounter Procedures Procedure Name Priority Date/Time Associated Comments Diagnosis INTERPRETATION OF Routine 01/30/2014 1:02 PM Resu lts for this OUTSIDE CT HEAD CDT procedure ar e in the results section. documented in this encounter Results Interpretation of Outside CT Head (01/30/2014 1:02 PM CDT) Anatomical Region Laterality Modality Head N/A Computed Tomography Specimen (Source) Anatomical Collection Method Collection Time Re ceived Time Location / / Volume Laterality 01/30/2014 1:02 PM CDT Impressions 01/30/2014 1:13 PM CDT Nondisplaced left occipital skull fracture extends to the skull base. Associated left parietal-occipital subcutaneous hematoma. ?? High attenuation acute intracranial hemo rrhage along the inferior left parasagittal frontal lobe appears compatible with a combination of subarachnoid and subdural blood products. No evidence of intraventricular hemorrha ge or midline shift. No definite left temporal fracture to correlate with the patient's hearing loss although high- resolution CT with thinner cuts would be more sensitive. ?? The mastoid air cells are clear. Minimal left sphenoid sinus mucosal thickening. Several foci of anterior falcine calcifications. Minimal cerebellar volume loss. [id number] Electronically signed by: ?? Letty Wilson MD [id number] 30-Jan-2014 13:13 Narrative 01/30/2014 1:13 PM CDT 30-Jan-2014 13:02:00 ??Exam: Interp of OS CT Head Indications: Fall ORIGINAL REPORT - 30-Jan-2014 13:13:00 EXAM: Outside noncontrast head CT from COMPARISON: None. Procedure Note Mark Wilson M.D. - 02/19/2018Formatt ing of this note might be different from the original. 30-Jan-2014 13:02:00 Exam: Interp of OS CT Head Indications: Fall ORIGINAL REPORT - 30-Jan-2014 13:13:00 EXAM: Outside noncontrast head CT from COMPARISON: None. IMPRESSION: Nondisplaced left occipital skull fracture extends to the skull base. Associated left parietal-occipital subcutaneous hematoma. High attenuation acute intracranial hemo rrhage along the inferior left parasagittal frontal lobe appears compatible with a combination of subarachnoid and subdural blood products. No evidence of intraventricular hemorrha ge or midline shift. No definite left temporal fracture to correlate with the patient's hearing loss although high- resolution CT with thinner cuts would be more sensitive. The mastoid air cells are clear. Minimal left sphenoid sinus mucosal thickening. Several foci of anterior falcine calcifications. Minimal cerebellar volume loss. [id number] Electronically signed by: Letty Wilson MD [id number] 30-Jan-2014 13:[address] PROCEDURES documented in this encounter Visit Diagnoses Not on filedocumented in this encounter
--- NOTE | 2022-10-21 18:46 | ED_ITS ---
HPI - General Adult General Chief complaint: Hip Injury/Pain Stated complaint: Fell in driveway and hit L hip and side Time Seen by Provider: 10/21/22 18:24 Source: patient Mode of arrival: ambulatory Limitations: no limitations History of Present Illness HPI narrative: 57-year-old female coming in today complaining of hip pain. States that she was on her driveway when she slipped falling on her left side. She is complaining of left hip pain and left foot pain. States that she can walk but it does cause her discomfort. The hip pain is lateral and radiates into the groin. Does not radiate up into the pelvis patient states. She denies hitting her head or losing consciousness. Is not on any blood thinners. She does have type 1 diabetes, insulin dependent, and rheumatoid arthritis. Related Data Home Medications Medication Instructions Recorded Confirmed ascorbic acid (vitamin C) 500 mg 500 mg PO DAILY 05/27/22 08/14/22 tablet,extended release cholecalciferol (vitamin D3) 25 1,000 unit PO DAILY 05/27/22 08/14/22 mcg (1,000 unit) tablet estradiol 0.01% (0.1 mg/gram) 0.5 vaginal .Twice Weekly 05/27/22 08/14/22 vaginal cream folic acid 1 mg tablet 2 mg PO DAILY 05/27/22 08/14/22 glucagon HCl 1 mg/mL solution for mg IM ONCE 05/27/22 08/14/22 injection magnesium oxide 150 mg PO QDAY 05/27/22 08/14/22 methotrexate (PF) 7.5 mg/0.15 mL 0.5 mg subcut .Every 7 Days 05/27/22 08/14/22 subcutaneous auto-injector omega 6-cop-lld-fish oil 1,000 mg 1 cap PO QDAY 06/02/22 08/14/22 (120 mg-180 mg) capsule (Fish Oil) vitamin B complex 1 tab PO QDAY 06/02/22 08/14/22 Previous Rx's Medication Instructions Recorded insulin aspart U-100 100 unit/mL 3 - 10 unit (0.03 - 0.1 mL) subcut 06/25/22 (3 mL) subcutaneous pen TIDWMEAL #30 mL insulin glargine 100 unit/mL (3 18 unit (0.18 mL) subcut QAM #15 mL 08/12/22 mL) subcutaneous pen Diabetic Test Strips #100 ea 09/19/22 pen needle, diabetic 31 gauge x #400 ea 10/14/22/ (Sure-Fine Pen Hollins) Allergies Allergy/AdvReac Type Severity Reaction Status Date / Time Cephalosporins Allergy Mild Rash Verified 08/14/22 13:21 cortisone Allergy Mild increases Verified 08/14/22 13:21 blood sugar morphine Allergy Mild severe Verified 08/14/22 13:21 vomiting penicillin V Allergy Mild Rash Verified 08/14/22 13:21 Review of Systems Status of ROS: Reports: 10 or more systems reviewed and unremarkable except as noted in History and below [facility] Medical History Atrophic vulvovaginitis Diabetic retinopathy (2020) Mammogram declined Mass of right adrenal gland (2016) Menopausal hot flushes Pneumococcal vaccination declined (08/27/21) Rheumatoid arthritis (10/1996) Subarachnoid hemorrhage following injury (2013) Type 1 diabetes mellitus (10/1987) Surgical History History of hysteroscopy (09/2007) History of myomectomy Social History Narrative: history of tobacco use Smoking Status: Never smoker Little interest or pleasure in doing things: not at all Feeling down, depressed, or hopeless: not at all Exam Narrative: Exam Narrative: Well-nourished well-developed patient in no acute distress. Alert and oriented. Answers questions appropriately. Mood and affect are appropriate. Thoughts are goal oriented and rational. No tangential or magical thinking noted. Patient speaks in full sentences without needing to catch her breath. HEENT: Normocephalic atraumatic. Pupils are equally round reactive to light. Extraocular muscles are intact. Conjunctivae are moist without any icterus noted. Moist mucous membranes. Posterior pharynx is normal. Neck is soft without any lymphadenopathy or thyromegaly. No masses are appreciated. Cardiovascular: Heart is regular rate and rhythm S1 and S2 are present without any murmurs. Lungs: Clear to auscultation bilaterally no wheezes rhonchi or rales are appreciated. Patient takes deep breaths without any discomfort. Abdomen: Soft and nontender nondistended with normal bowel sounds. Extremities: Bilateral lower extremities are without edema. Normal DP and PT pulses. Left extremity is externally rotated but not shortened. She has pain to palpation at the left hip. She walked into the ER however now is having very difficult time bearing weight on the left. Foot has normal appearance. But is diffusely tender to palpation. Skin: Well perfused without any obvious rashes. Const: Vital Signs, click to edit/add: Vital Signs - 24 hr 10/21/22 18:21 Temperature 98.0 F Pulse Rate [Right Pulse Oximeter] 69 Respiratory Rate 18 Blood Pressure [Ri ght Upper Arm] 183/62 H Pulse Oximetry 98 Oxygen Delivery Me thod Room Air Course Course Hospital Course: The foot x-ray, read by me, shows arthritis but no acute pathology. Hip x-ray, read by me, shows a left femoral neck fracture. For preoperative purposes we did go ahead and do a chest x-ray as well. CBC and chemistries pending at time of dictation. Vital Signs Vital signs: Initial Vital Signs Temperature 98.0 F 10/21/22 18:21 Temperature Source Temporal Artery Scan 10/21/22 18:21 Pulse Rate 69 10/21/22 18:21 Respiratory Rate 18 10/21/22 18:21 Blood Pressure 183/62 H 10/21/22 18:21 Blood Pressure Mean 102 10/21/22 18:21 Blood Pressure Position Sitting 10/21/22 18:21 Pulse Oximetry 98 10/21/22 18:21 Oxygen Delivery Method 10/21/22 18:21 Vital Signs Temperature 98.0 F 10/21/22 18:21 Pulse Rate 69 10/21/22 18:21 Respiratory Rate 18 10/21/22 18:21 Blood Pressure 183/62 H 10/21/22 18:21 Pulse Oximetry 98 10/21/22 18:21 Oxygen Delivery Method 10/21/22 18:21 Temperature 98.0 F 10/21/22 18:21 Pulse Rate 69 10/21/22 18:21 Respiratory Rate 18 10/21/22 18:21 Blood Pressure 183/62 H 10/21/22 18:21 Pulse Oximetry 98 10/21/22 18:21 Oxygen Delivery Method 10/21/22 18:21 Medical Decision Making MDM Narrative Medical decision making narrative: 49-year-old female with a left-sided hip fracture. I did consult with Orthopedics, Bradley Moon, who accepted the patient for surgical management. Patient will need to the hospital, Dr. Fagan graciously accepting for admission. Imaging Data Hip x-ray: Attestation: I have reviewed the pertinent imaging results. Radiologist's impression: TECHNIQUE: Pelvis and left hip, 3 views. COMPARISON: None. FINDINGS: Bones: The bones are demineralized. Mildly displaced subcapital fracture of the left femoral neck. Joint spaces: Degenerative changes of both hips. Soft tissues: Unremarkable. IMPRESSION: Left femoral neck fracture. X-ray left foot: Attestation: I have reviewed the pertinent imaging results. Radiologist's impression: Left foot 3 views. Comparison: None. Findings: Bones: The bones are demineralized. Multiple hammertoe deformities. Joint spaces: Degenerative changes of the midfoot and metatarsophalangeal joints. Soft tissues: Unremarkable. Impression: No sign of acute injury. Chest x-ray: Attestation: I have reviewed the pertinent imaging results. Radiologist's impression: Chest 1 views. COMPARISON: Chest x-ray from 07/09/2015. FINDINGS: Lungs: Clear lungs. No consolidation. Pleura: No pleural effusion or pneumothorax. Heart and Mediastinum: The cardiomediastinal silhouette is normal. The vessels are unremarkable. Bones: Degenerative changes of the right shoulder. No acute abnormality. IMPRESSION: No acute cardiopulmonary disease. Discharge Plan Discharge Clinical Impression: Closed fracture of neck of left femur Patient Disposition: Admitted As Inpatient Condition: Stable Prescriptions: No Action methotrexate (PF) 7.5 mg/0.15 mL auto-injector 0.5 mg subcut .Every 7 Days cholecalciferol (vitamin D3) 25 mcg (1,000 unit) tablet 1,000 unit PO DAILY magnesium oxide 250 mg magnesium tablet 150 mg PO QDAY ascorbic acid (vitamin C) 500 mg tablet extended release 500 mg PO DAILY folic acid 1 mg tablet 2 mg PO DAILY estradiol 0.01 % (0.1 mg/gram) cream 0.5 vaginal .Twice Weekly Rx Instructions: Use nightly for 2 weeks, then twice weekly glucagon HCl 1 mg/mL recon soln IM ONCE vitamin B complex Tablet 1 tab PO QDAY omega 2-jvh-xoq-fish oil [Fish Oil] 1,000 mg (120 mg-180 mg) capsule 1 cap PO QDAY insulin aspart U-100 100 unit/mL (3 mL) insulin pen 3 - 10 unit subcut TIDWMEAL Qty: 30 11RF insulin glargine 100 unit/mL (3 mL) insulin pen 18 unit subcut QAM Qty: 15 1RF (DME) Diabetic Test Strips Misc See Rx Instructions .Route Qty: 100 2RF Rx Instructions: Test QID (DME) pen needle, diabetic [Sure-Fine Pen Hollins] 31 gauge x 3/16 needle See Rx Instructions .Route Qty: 400 3RF Rx Instructions: Patient to use QID Follow Up/Referrals: Shelbi Miller MD [Primary Care Provider] -
[2022-10-21] MEDS: ACETAMINOPHEN 500 MG TABLET 1000 MG PO (19:28)
[2022-10-21 19:30] VITALS: O2SAT 98
[2022-10-21 19:54] LABS: Basophils Absolute Auto 0.03 K/uL (0.00-0.30); Basophils Percent Auto 0.3 % (0.0-3.0); Eosinophils Absolute Auto 0.02 K/uL (0.00-0.50); Eosinophils Percent Auto 0.2 % (0.0-7.0); Hematocrit 42.5 % (33.0-51.0); Hemoglobin* 13.9 gm/dL (12.0-16.0); Immature Granulocytes Abs Auto 0.03 K/uL (0.00-0.30); Immature Granulocytes Pct Auto 0.3 %; Lymphocytes Percent Auto 5.8 % (20-44); Mean Corpuscular HGB Conc 33 gm/dL (32-36); Mean Corpuscular Hemoglobin 30 pg (26-34); Mean Corpuscular Volume 92 fL (80-100); Monocytes Percent Auto 4.1 % (0.0-11.0); Neutrophils Percent Auto 89.3 % (42.0-72.0); Platelet Count* 189 K/uL (140-440); Red Blood Count 4.61 m/uL (4.00-5.20); White Blood Count* 10.08 K/uL (4.50-11.00)
[2022-10-21 19:58] LABS: Slide Review Reflex No
[2022-10-21 20:00] VITALS: BP 145/65; PULSE 76; RESP 16; O2SAT 97
[2022-10-21 20:07] LABS: Chloride* 102 mmol/L (96-114); Potassium* 3.9 mmol/L (3.6-5.1); Sodium* 139 mmol/L (135-149)
[2022-10-21 20:10] LABS: Blood Urea Nitrogen* 21 mg/dL (7-30); Calcium* 9.4 mg/dL (8.4-10.6); Carbon Dioxide* 29 mmol/L (20-32); Creatinine* 0.5 mg/dL (0.5-1.5); Est. Creatinine Clearance* 122.95; Estimated Glomerular Filt Rate 109 ml/min; Glucose* 226 mg/dL (60-115)
[2022-10-21 20:26] LABS: SARS PCR* Negative SARS-CoV-2 (Negative)
[2022-10-21 22:00] VITALS: BP 138/78; PULSE 84; RESP 16; TEMP 36.7; O2SAT 97
[2022-10-22] VITALS (24 sets, daily range): BP systolic 98–160; BP diastolic 51–85; PULSE 47–79; RESP 12–18; TEMP 36.3–37.2; O2SAT 91–98; BMI 21.1
--- NOTE | 2022-10-22 02:29 | PM.IMPN1 ---
Progress Note: A&P Assessment and plan (1) Closed fracture of neck of left femur: Status: Acute (2) Type 1 diabetes mellitus: Problem details: Since 1986 Status: Chronic (3) Rheumatoid arthritis: Problem details: Dxed 1995, on no medication until [facility] started MTX 10/08 Status: Chronic Plan E hospitalist collaboration: I have discussed in detail with ED Dr. Martinez. 57-year-old female admitted from the ED for left femoral neck fracture after a fall. Patient was out for a walk and she had made a quick turn and she slipped and fell onto her left side. She had immediate left hip pain and left foot pain. She was not able to get up. Her helped her up and presented to the ED. Pain was moderate severity to severe with movement. Pain did radiate to the groin. Sharp in nature. She had overall generalized aching since the fall, she does have rheumatoid arthritis, but her left foot hurt too since the fall. She did not have any loss of consciousness. Denies any chest pain or shortness of breath. She did have nausea at the time of the fall, no recurrence and no vomiting. No fever or chills. She is type I diabetic and she has a continuous glucose meter and takes her long-acting insulin in the a.m. and then sliding scale insulin throughout the day, she did not take any sliding scale insulin tonight due to NPO status and can drop quickly. Laboratory/imaging in the ED: WBC 10.08, hemoglobin 13.9, hematocrit 42.5, platelets 189. Sodium 139, potassium 3.9, chloride 102, CO2 29, BUN 21, creatinine 0.5, glucose 226, calcium 9.4. COVID-19 negative. Left foot x-ray no fracture. Hip x-ray left femoral neck fracture. Chest x-ray no acute findings. Telemedicine exam: Vitals reviewed No apparent distress, alert, oriented x3 Follows commands, no lateralizing weakness except for limited with the left hip/leg due to the fracture Pupils equal and reactive, no scleral icterus Lips and mouth are dry, tongue midline on protrusion Neck trachea midline Heart regular rate and rhythm, no murmurs Lungs clear bilateral no crackles no wheezes Abdomen bowel sounds are positive, soft, nondistended, nontender for nursing palpation Lower extremities no pitting edema, pedal pulses intact for nursing, sensation intact per report of the patient during nursing palpation Skin dry Summary: 57-year-old female admitted from the ED for left femoral neck fracture after a fall. Assessment and plan: Fall,ground level Left femoral neck fracture: Plan: ED team reported to me that they discussed with orthopedics. Will keep the patient n.p.o. for surgery during the day.. Pain medication ordered and patient does not want to take any narcotics at this time, have added IV fentanyl if needed, otherwise continue with Tylenol. Patient states she took hydrocodone in the past and felt as if it was stopping her breathing. Patient states that she does well with ibuprofen and could consider adding as well if needed and renal function stable in am. Currently pain tolerable at rest. Keep bedrest, therapy post op when ok with ortho. No current nausea but have added Zofran as needed as she did have nausea earlier. Consider bowel regiment postop. DM type I: Uses sliding scale and long-acting Lantus. Takes Lantus in the morning. Reports A1c 7.5-8 She had her COVID booster couple weeks ago and states it does increase her blood sugars Plan: Patient is n.p.o. and she did not take any short acting last night as she was n.p.o. and blood sugar have been 243 and then had decreased to 153. We discussed with her being n.p.o. we will plan to give lower long-acting insulin this a.m. but needs insulin with type 1 status and will follow sugar and can give further insulin based on readings. She has a continuous glucose meter and okay for her to report blood sugar level to nursing from her phone. Held on short acting insulin for now and can resume here during the day once eating. Rheumatoid arthritis: Does take methotrexate and takes on Saturdays Plan: Likely hold for postop wound healing CODE STATUS: Full code Please call E hospitalist with questions Subjective Date Seen: 10/22/22 Exam Const: Vital Signs, click to edit/add: Vital Signs - 24 hr 10/21/22 18:21 10/21/22 20:00 10/21/22 19:30 Temperature 98.0 F Pulse Rate [Pulse Oximeter] Pulse Rate [Right Pulse Oximeter] 69 76 Respiratory Rate 18 16 Blood Pressure [Ri ght Arm] Blood Pressure [Ri ght Upper Arm] 183/62 H 145/65 H Pulse Oximetry 98 97 98 Oxygen Delivery Me thod Room Air Room Air 10/22/22 00:28 10/21/22 22:00 10/21/22 22:00 Temperature 98.1 F 98.0 F Pulse Rate [Pulse Oximeter] Pulse Rate [Right Pulse Oximeter] 79 84 Respiratory Rate 16 16 Blood Pressure [Ri ght Arm] Blood Pressure [Ri ght Upper Arm] 135/78 138/78 Pulse Oximetry 97 97 97 Oxygen Delivery Me thod Room Air Room Air 10/22/22 00:47 Temperature 98.2 F Pulse Rate [Pulse Oximeter] 71 Pulse Rate [Right Pulse Oximeter] Respiratory Rate 18 Blood Pressure [Ri ght Arm] 158/55 H Blood Pressure [Ri ght Upper Arm] Pulse Oximetry 94 Oxygen Delivery Me thod Room Air Labs Labs: Laboratory Results - last 24 hr 10/21/22 10/21/22 10/21/22 19:30 19:35 19:35 WBC 10.08 RBC 4.61 Hgb 13.9 Hct 42.5 MCV 92 MCH 30 MCHC 33 RDW Coeff of Jeana 13.0 Plt Count 189 Neut % (Auto) 89.3 H Lymph % (Auto) 5.8 L Lumpkin % (Auto) 4.1 Eos % (Auto) 0.2 Baso % (Auto) 0.3 Neut # (Auto) 9.00 H Lymph # (Auto) 0.60 L [place]kin # (Auto) 0.40 Eos # (Auto) 0.02 Baso # (Auto) 0.03 Abs Immat Gran (auto) 0.03 Imm/Tot Granulo (auto) 0.3 Sodium 139 Potassium 3.9 Chloride 102 Carbon Dioxide 29 BUN 21 Creatinine 0.5 Estimated Creat Clear 122.95 Estimated GFR 109 Glucose 226 H Calcium 9.4 SARS-CoV-2 (PCR) Negative SARS-CoV-2
[2022-10-22] MEDS: 0.9 % SODIUM CHLORIDE 1000 ml 1,000 ML 75 ML IV (03:00)
--- NOTE | 2022-10-22 05:28 | PC.NURSE ---
Pt slept well remainder of night after admission, denies pain at rest. becerra patent and draining. Pt has consulting it architect glucose monitoring system to Coleen PITTS MD ok'ed for pt own BG check. Pt also has her own Insulin pens and would prefer to administer he own insulin (lantus and humalog) and update nurse, verbal OK from coleen CLAY during admission. No bruising observed to L hip, pt had pedal pulses present/sensation to LLE and able to move toes.
--- NOTE | 2022-10-22 07:46 | PM.IMHP1 ---
Hospitalist- H&P: HPI History of Present Illness Date Seen: 10/22/22 Chief complaint: Fell in driveway and hit L hip and side Narrative: Martine De Oliveira is a 57 year old female who presented to the ED after a mechanical fall on ice yesterday. In the emergency room, she was found to have a femoral neck fracture. She was admitted overnight by [facility] tele-hospitalist, with plans to go to the OR today with Dr. Drummond of Orthopedic surgery. Patient's PCP is Dr. Mliler at [facility]. Has a history of type 1 DM (A1C 8.25 May 2022) and RA. The rest of her past medical, surgical, social history updated below. In the past, she has noted fairly significant nausea after anesthesia during surgical procedures. No other history of surgical or anesthetic complications. No cardiac disease or lung disease, typically active without concerning symptoms. Patient is a nonsmoker, nonalcohol user. She lives with her locally. 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 Review of Systems Status of ROS: Reports: 10 or more systems reviewed and unremarkable except as noted in History and below [facility] Medical History Atrophic vulvovaginitis Diabetic retinopathy (2020) Mammogram declined Mass of right adrenal gland (2016) Menopausal hot flushes Pneumococcal vaccination declined (08/27/21) Rheumatoid arthritis (10/1996) Subarachnoid hemorrhage following injury (2013) Type 1 diabetes mellitus (10/1987) Surgical History History of hysteroscopy (09/2007) History of myomectomy Social History Narrative: history of tobacco use Smoking Status: Never smoker Do you use any of these nicotine containing products: None Second hand tobacco smoke exposure: No How often do you have a drink containing alcohol: monthly or less How often do you have six or more drinks on one occasion: Never AUDIT-C Alcohol total score: 1 Non-prescribed substance use: denies use Caffeine: No Little interest or pleasure in doing things: not at all Feeling down, depressed, or hopeless: not at all service: No Meds Home Medications and Allergies Home Medications Medication Instructions Recorded Confirmed Type ascorbic acid (vitamin C) 500 mg 500 mg PO DAILY 05/27/22 08/14/22 History tablet,extended release cholecalciferol (vitamin D3) 25 1,000 unit PO DAILY 05/27/22 08/14/22 History mcg (1,000 unit) tablet estradiol 0.01% (0.1 mg/gram) 0.5 vaginal .Twice Weekly 05/27/22 08/14/22 History vaginal cream folic acid 1 mg tablet 2 mg PO DAILY 05/27/22 08/14/22 History glucagon HCl 1 mg/mL solution for mg IM ONCE 05/27/22 08/14/22 History injection magnesium oxide 150 mg PO QDAY 05/27/22 08/14/22 History methotrexate (PF) 7.5 mg/0.15 mL 0.5 mg subcut .Every 7 Days 05/27/22 08/14/22 History subcutaneous auto-injector omega 8-kta-xhz-fish oil 1,000 mg 1 cap PO QDAY 06/02/22 08/14/22 History (120 mg-180 mg) capsule (Fish Oil) vitamin B complex 1 tab PO QDAY 06/02/22 08/14/22 History Allergies Allergy/AdvReac Type Severity Reaction Status Date / Time Cephalosporins Allergy Mild Rash Verified 08/14/22 13:21 cortisone Allergy Mild increases Verified 08/14/22 13:21 blood sugar morphine Allergy Mild severe Verified 08/14/22 13:21 vomiting penicillin V Allergy Mild Rash Verified 08/14/22 13:21 Exam Narrative: Exam Narrative: GEN: Alert and oriented, pleasant and laying comfortably in hospital bed HEENT: Normal external ears, EOMIs bilaterally, no scleral icterus CV: RRR, No concerning murmurs, rubs, or gallops R: LCTA bilaterally without concerning wheezing, rales, or rhonchi Ext: wwp, no concerning edema Skin: No concerning skin lesions or rashes on exposed skin Neuro: Nonfocal Psych: Appropriate Const: Vital Signs, click to edit/add: Vital Signs - 24 hr 10/21/22 18:21 10/21/22 20:00 10/21/22 19:30 Temperature 98.0 F Pulse Rate [Pulse Oximeter] Pulse Rate [Right Pulse Oximeter] 69 76 Respiratory Rate 18 16 Blood Pressure [Ri ght Arm] Blood Pressure [Ri ght Upper Arm] 183/62 H 145/65 H Pulse Oximetry 98 97 98 Oxygen Delivery Me thod Room Air Room Air 10/22/22 00:28 10/21/22 22:00 10/21/22 22:00 Temperature 98.1 F 98.0 F Pulse Rate [Pulse Oximeter] Pulse Rate [Right Pulse Oximeter] 79 84 Respiratory Rate 16 16 Blood Pressure [Ri ght Arm] Blood Pressure [Ri ght Upper Arm] 135/78 138/78 Pulse Oximetry 97 97 97 Oxygen Delivery Me thod Room Air Room Air 10/22/22 00:47 10/22/22 03:00 Temperature 98.2 F Pulse Rate [Pulse Oximeter] 71 72 Pulse Rate [Right Pulse Oximeter] Respiratory Rate 18 16 Blood Pressure [Ri ght Arm] 158/55 H 135/66 Blood Pressure [Ri ght Upper Arm] Pulse Oximetry 94 93 Oxygen Delivery Me thod Room Air Room Air Hospitalist - H&P: Result Labs Labs: Short CBC 10/21/22 Range/Units 19:35 WBC 10.08 (4.50-11.00) K/uL Hgb 13.9 (12.0-16.0) gm/dL Hct 42.5 (33.0-51.0) % Plt Count 189 (140-440) K/uL BMP 10/21/22 19:35 Sodium 139 Potassium 3.9 Chloride 102 Carbon Dioxide 29 BUN 21 Creatinine 0.5 Glucose 226 H Calcium 9.4 Assessment and Plan Assessment and plan (1) Closed fracture of neck of left femur: Status: Acute (2) Rheumatoid arthritis: Problem comment: Dxed 1995, on no medication until [facility] started MTX 10/08 Status: Chronic (3) Type 1 diabetes mellitus: Problem comment: - Since 1986 Status: Chronic Plan - OR today with orthopedic surgery - will explore alternative pain regimen postoperatively, as patient has been poorly tolerant of narcotics in the past - prophylaxis per orthopedic surgery team - continue Dexcom monitor, in addition to our Accu-Cheks. Patient may take own insulin (Lantus and Humalog) per previous dosages - full code status
[2022-10-22] MEDS: ACETAMINOPHEN 325 MG TABLET 650 MG PO ×3 (08:06→22:27)
[2022-10-22 09:36] LABS: Basophils Absolute Auto 0.04 K/uL (0.00-0.30); Basophils Percent Auto 0.7 % (0.0-3.0); Eosinophils Absolute Auto 0.05 K/uL (0.00-0.50); Eosinophils Percent Auto 0.8 % (0.0-7.0); Hematocrit 36.2 % (33.0-51.0); Mean Corpuscular HGB Conc 33 gm/dL (32-36); Mean Corpuscular Hemoglobin 31 pg (26-34); Mean Corpuscular Volume 92 fL (80-100); Monocytes Percent Auto 8.3 % (0.0-11.0); Neutrophils Percent Auto 77.2 % (42.0-72.0); Platelet Count* 165 K/uL (140-440); RDW Coefficient of Variation % 13.2 % (11.5-15.5); Red Blood Count 3.93 m/uL (4.00-5.20); White Blood Count* 5.92 K/uL (4.50-11.00)
[2022-10-22 09:48] LABS: Chloride* 108 mmol/L (96-114)
[2022-10-22 09:49] LABS: Potassium* 3.9 mmol/L (3.6-5.1); Sodium* 136 mmol/L (135-149)
[2022-10-22 09:51] LABS: Creatinine* 0.5 mg/dL (0.5-1.5); Est. Creatinine Clearance* 125.58; Estimated Glomerular Filt Rate 109 ml/min; Slide Review Reflex No
[2022-10-22 09:52] LABS: Blood Urea Nitrogen* 20 mg/dL (7-30); Calcium* 8.7 mg/dL (8.4-10.6); Carbon Dioxide* 27 mmol/L (20-32); Glucose* 141 mg/dL (60-115)
[2022-10-22] MEDS: 5 % DEXTROSE/0.9% SOD CHLORIDE 1,000 ML 125 ML IV (10:30)
--- NOTE | 2022-10-22 10:30 | CRLHL7_ITS ---
For Patients: As a result of the Century Cures Act, medical imaging exams and procedure reports are released immediately into your electronic medical record. You may view this report before your referring provider. If you have questions, please contact your health care provider. INDICATION: Left hip open reduction internal fixation. TECHNIQUE: Fluoroscopic guided intraoperative evaluation of the left hip. FINDINGS: Two portable spot images were obtained of the left hip intraoperatively. Three metallic pins traverse the intertrochanteric left femur. 59.4 seconds fluoroscopy time utilized. IMPRESSION: 59.4 seconds fluoroscopy time utilized intraoperatively. Dictated by Elbert Campa MD @ 10/22/2022 3:37:19 PM (Electronically Signed)
--- NOTE | 2022-10-22 12:12 | SUR.OPER ---
PATIENT QUESTIONS ANSWERED SATISFACTORILY PREOPERATIVELY.? PATIENT BROUGHT TO OR #4 PER CART.? Patient positioned supine on OR #4 bed.? The perioperative?team supported arms bilaterally on arm boards.? Final approval of positioning by surgeon.?
[2022-10-22] MEDS: CEFAZOLIN 1 GM in 0.9 % SODIUM CHLORIDE Mini-bag 100 ML IVPB ×2 (12:16→18:52)
--- NOTE | 2022-10-22 12:27 | W.PM.NB ---
Nerve Block Nerve Block Time Seen by Provider: 12:18 Date Seen: 10/22/22 Type of block requested by surgeon for post-operative analgesia: ZEINAB/LFCN Side: left Time out performed: Yes Verification of patient name: Yes Verification of date of : Yes Site marking: site marked Name of person performing procedure: Fred Continuous monitoring Was continuous monitoring of O2 sat, B/P, playground monitor, recorded every 15 minutes?: Yes Procedure Checklist: sterile prep, needles and gloves Ultrasound guided. Images saved: Yes Medications given in 5ml increments after negative aspiration: Ropivicaine %: 0.5 mL: 30 Needle gauge: 20 Decadron (mg): 10 Precedex (mcg): 25 Patient tolerated procedure well: Yes Additional comments: Needle noted below psoas tendon needle noted adjacent to LFCN Block Charges Block Charge (with Pro Fee): Other Periph Nerve Block Use of Ultrasound Machine for Block: Yes- US Guidance/pain block
--- NOTE | 2022-10-22 12:33 | W.ANESCHARGE ---
Anesthesia Charges Start Date/Time Anesthesia Start Date: 10/22/22 Anesthesia Start Time: 12:02 Stop Date/Time Anesthesia Stop Date: 10/22/22 Anesthesia Stop Time: 13:22 Summary Emergency: No
--- NOTE | 2022-10-22 12:38 | SUR.OPER ---
PT. COMES INTO OR #4 WITH A PATENT ARROYO CATHERTER ALREADY IN PLACE FROM THE MED/SURG FLOOR.
--- NOTE | 2022-10-22 13:23 | W.ANESCHARGE ---
Anesthesia Charges Start Date/Time Anesthesia Start Date: 10/22/22 Anesthesia Start Time: 12:02 Stop Date/Time Anesthesia Stop Date: 10/22/22 Anesthesia Stop Time: 13:22 Summary Emergency: No
[2022-10-22] MEDS: LACTATED RINGERS 1000 ML 1,000 ML 75 ML IV (14:18)
[2022-10-22] MEDS: hydrOXYzine pamoate 25 MG CAPSULE PO (16:10)
--- NOTE | 2022-10-22 18:26 | PC.NURSE ---
Patient alert and oriented x4, patient had ORIF today, returned to floor at 1400, tolerating a regular diet (patient is gluten, tomato, and dairy free), dressing CDI, Triana in place and draining well, pain controlled with Tylenol and Vistaril. Active ice to hip. Repositioning to for pain relief.
[2022-10-22] MEDS: SENNOSIDES 1 TAB TABLET 2 TAB PO (21:50)
[2022-10-23] MEDS: CEFAZOLIN 1 GM in 0.9 % SODIUM CHLORIDE Mini-bag 100 ML IVPB ×2 (02:38→11:47)
[2022-10-23 03:00] VITALS: BP 127/63; PULSE 48; RESP 16; TEMP 36.6; O2SAT 97
[2022-10-23] MEDS: LACTATED RINGERS 1000 ML 1,000 ML 75 ML IV (03:47)
[2022-10-23] MEDS: ACETAMINOPHEN 325 MG TABLET 650 MG PO ×2 (04:04→10:28)
--- NOTE | 2022-10-23 05:53 | PC.NURSE ---
Shift note: Low urine output (220ml). Charge-nurse informed and made call to the surgeon but surgeon has not returned call at this time. Pt on 75/hr of R/L. Denied pain, dizziness, n/v. Pt successfully transferred to and from the recliner. Dressing appears clean and dry.
[2022-10-23 06:49] LABS: Hematocrit 34.5 % (33.0-51.0); Hemoglobin* 11.2 gm/dL (12.0-16.0); Mean Corpuscular HGB Conc 33 gm/dL (32-36); Mean Corpuscular Hemoglobin 30 pg (26-34); Mean Corpuscular Volume 94 fL (80-100); Platelet Count* 146 K/uL (140-440); Red Blood Count 3.68 m/uL (4.00-5.20); White Blood Count* 7.68 K/uL (4.50-11.00)
[2022-10-23 06:55] LABS: Slide Review Reflex No
[2022-10-23 07:17] LABS: Chloride* 108 mmol/L (96-114); Potassium* 4.2 mmol/L (3.6-5.1); Sodium* 138 mmol/L (135-149)
[2022-10-23 07:20] LABS: Blood Urea Nitrogen* 20 mg/dL (7-30); Carbon Dioxide* 24 mmol/L (20-32); Creatinine* 0.5 mg/dL (0.5-1.5); Est. Creatinine Clearance* 125.58; Estimated Glomerular Filt Rate 109 ml/min; Glucose* 225 mg/dL (60-115)
[2022-10-23 07:21] LABS: Calcium* 8.6 mg/dL (8.4-10.6)
[2022-10-23] MEDS: 0.9 % SODIUM CHLORIDE 250 ml 250 ML IV (07:30)
[2022-10-23 07:40] VITALS: BP 143/60; PULSE 67; RESP 14; TEMP 36.7; O2SAT 97
--- NOTE | 2022-10-23 07:58 | PM.ORPN ---
Subjective Subjective Date Seen: 10/23/22 Principal diagnosis: POD 1, hospital day 2, cannulated screws for left femoral neck fracture Interval history: Patient reports doing well. Her pain is minimal, managed with acetaminophen and Vistaril. She prefers not to take oxycodone or any narcotic for that matter. No acute events over night. She has had a low urine output, now receiving a 250cc bolus LR. Triana catheter. Pain managed with scheduled /PRN medications and ice. DVT prophylaxis rivaroxaban, bilateral knee high Bill stockings, and SCDs. Denies fevers, chills, aches, N/V, CP, SOB/DOMINGUEZ, tachycardia, or lightheadedness. Passing flatus. Ortho Exam Narrative Exam Narrative: -Patient appears comfortable in bed; no apparent acute distress -Alert and oriented times 3 -Operative hip minimally swollen; soft tissues supple and soft; no obvious erythema. No obvious ecchymosis. Warmth appropriate -Surgical dressing clean, dry, intact; no obvious drainage, no erythematous streaking peripheral to the bandage -Bilateral calves soft and supple; no significant swelling, edema, tenderness, erythema, discoloration, warmth, or palpable cords -2+ DP/PT pulses, intact dermatomes and myotomes distally (5/5 strength). Residual numbness left lower extremity from block. Const Vital Signs, click to edit/add: Vital Signs - 24 hr 10/22/22 11:00 10/22/22 13:17 10/22/22 13:22 Temperature 97.9 F 98.1 F Pulse Rate 67 58 L Pulse Rate [Pulse Oximeter] 62 Respiratory Rate 16 16 16 Blood Pressure 111/51 L 98/56 L Blood Pressure [Right Arm] 160/77 H Pulse Oximetry 97 98 98 Oxygen Delivery Method Room Air Room Air Room Air 10/22/22 13:27 10/22/22 13:32 10/22/22 13:39 Temperature 98.1 F Pulse Rate 60 55 L Pulse Rate [Pulse Oximeter] Respiratory Rate 16 16 16 Blood Pressure 113/58 L 102/55 L 112/55 L Blood Pressure [Right Arm] Pulse Oximetry 98 98 98 Oxygen Delivery Method Room Air Room Air Room Air 10/22/22 13:42 10/22/22 13:48 10/22/22 13:45 Temperature 98.1 F Pulse Rate 53 L 52 L 57 L Pulse Rate [Pulse Oximeter] Respiratory Rate 12 16 16 Blood Pressure 104/55 L 100/54 L 107/56 L Blood Pressure [Right Arm] Pulse Oximetry 96 98 98 Oxygen Delivery Method Room Air Room Air Room Air 10/22/22 13:55 10/22/22 14:15 10/22/22 14:30 Temperature 97.3 F L 97.7 F 97.5 F L Pulse Rate 53 L Pulse Rate [Pulse Oximeter] 50 L 47 L Respiratory Rate 12 12 13 Blood Pressure Blood Pressure [Right Arm] 112/60 123/63 133/69 Pulse Oximetry 95 95 Oxygen Delivery Method Room Air Room Air Room Air 10/22/22 14:45 10/22/22 15:00 10/22/22 15:30 Temperature 97.9 F Pulse Rate Pulse Rate [Pulse Oximeter] 50 L 50 L 51 L Respiratory Rate 14 Blood Pressure Blood Pressure [Right Arm] 128/73 147/77 H 144/72 H Pulse Oximetry 98 98 98 Oxygen Delivery Method Room Air Room Air Room Air 10/22/22 16:00 10/22/22 17:00 10/22/22 18:00 Temperature 98.1 F 98.5 F 98.5 F Pulse Rate Pulse Rate [Pulse Oximeter] 53 L 65 71 Respiratory Rate 14 12 12 Blood Pressure Blood Pressure [Right Arm] 140/74 H 158/83 H 144/78 H Pulse Oximetry 95 95 95 Oxygen Delivery Method Room Air Room Air Room Air 10/22/22 19:00 10/22/22 23:00 10/23/22 03:00 Temperature 98.1 F 98.9 F 98 F Pulse Rate Pulse Rate [Pulse Oximeter] 65 58 L 48 L Respiratory Rate 12 16 16 Blood Pressure Blood Pressure [Right Arm] 136/85 127/65 127/63 Pulse Oximetry 94 97 97 Oxygen Delivery Method Room Air Room Air Room Air Assessment and Plan Assessment and plan (1) Closed fracture of neck of left femur: Problem details: POD 1, hospital day 2 left femoral neck fracture minimally displaced, cannulated screw fixation Status: Acute (2) Rheumatoid arthritis: Problem details: Dxed 1995, on no medication until [facility] started MTX 10/08 (she will skip her dose this upcoming Thursday10/25/2022, restart on 11/01/2022) Status: Chronic (3) Type 1 diabetes mellitus: Problem details: - Since 1986 Status: Chronic Plan - Complete 23 hour perioperative antibiotics. - PT/OT consult for education and assistance. - Social work consult for discharge planning - I would anticipate discharge to home with spouse - Prescribed analgesics as needed - will try tramadol here at the hospital for breakthrough pain, as well as for discharge - DVT prophylaxis: Rivaroxaban, bilateral knee high Bill Hose stockings and SCDs - Anticipation is for discharge to home with spouse either today 10/23/2022, or tomorrow 10/24/2022 pending her mobility and blood sugar management
[2022-10-23] MEDS: hydrOXYzine pamoate 25 MG CAPSULE PO (09:34)
[2022-10-23] MEDS: RIVAROXABAN 10 MG TABLET PO (09:34)
[2022-10-23 11:00] VITALS: BP 142/62; PULSE 61; RESP 14; TEMP 37.1; O2SAT 100
--- NOTE | 2022-10-23 12:25 | PM.DS1 ---
DS: Providers Provider Date Seen: 10/23/22 Date of admission: 10/22/22 11:00 Primary care physician: Shelbi Miller MD Admitting Clinician: Mell Poole MD Consults: Orthopedic surgery, PT, OT Attending Physician on discharge: Mell Poole MD Date of Discharge: 10/23/22 DS: Diagnosis Discharge Diagnosis (1) Closed fracture of neck of left femur: Status: Acute Problem details: - POD 1, hospital day 2 left femoral neck fracture minimally displaced - s/p cannulated screw fixation 10/22/22 (2) Rheumatoid arthritis: Status: Chronic Problem details: - diagnosed 1995, on no medication until [facility] started MTX 10/08 - postoperatively, hold dose 10/25/2022, restart 11/01/2022 (3) Type 1 diabetes mellitus: Status: Chronic Problem details: - diagnosed in 1986. Blood sugars mildly elevated during hospital stay postoperatively, patient using home basal insulin and sliding scale for management DS: Summary Hospital Course Hospital Course: Pleasant 57-year-old female, admitted to the hospital for a fall at home with a left femoral neck fracture. She had a cannulated screw fixation with Dr. Drummond of Orthopedic surgery and did well postoperatively. Martine's comorbidities include type 1 DM and RA: She continued her basal insulin and sliding scale, sugars were mildly elevated postoperatively but patient feels comfortable managing these. She will hold her methotrexate this weekend, restart on 11/01/22. Pain management was achieved with Tylenol and Vistaril; patient intolerant of narcotics. She was seen by PT and OT and felt comfortable discharging home with on postoperative day 1. Routine follow-up with therapies, orthopedic surgery, and PCP. Status at Discharge Functional status at discharge: uses cane/walker Overall status at discharge: patient is progressing back to baseline Time Spent with Patient Time attestation: Total time spent providing and/or coordinating discharge services: Time spent: Greater than 30 minutes Specific discharge activities: Care coordination, prescription management Exam Narrative: Exam Narrative: GEN: Alert and oriented, sitting comfortably in bedside chair, nontoxic in appearance HEENT: Normal external ears, EOMIs bilaterally CV: RRR, No concerning murmurs, rubs, or gallops R: LCTA bilaterally without concerning wheezing, rales, or rhonchi, air movement adequate Ext: wwp, no concerning edema, wearing Bill hose Skin: No concerning skin lesions or rashes on exposed skin Neuro: Nonfocal Psych: Appropriate Const: Vital Signs, click to edit/add: Vital Signs - 24 hr 10/22/22 13:17 10/22/22 13:22 10/22/22 13:27 Temperature 98.1 F Pulse Rate 67 58 L 60 Pulse Rate [Pulse Oximeter] Respiratory Rate 16 16 16 Blood Pressure 111/51 L 98/56 L 113/58 L Blood Pressure [Ri ght Arm] Pulse Oximetry 98 98 98 Oxygen Delivery Me thod Room Air Room Air Room Air 10/22/22 13:32 10/22/22 13:39 10/22/22 13:42 Temperature 98.1 F 98.1 F Pulse Rate 55 L 53 L Pulse Rate [Pulse Oximeter] Respiratory Rate 16 16 12 Blood Pressure 102/55 L 112/55 L 104/55 L Blood Pressure [Ri ght Arm] Pulse Oximetry 98 98 96 Oxygen Delivery Me thod Room Air Room Air Room Air 10/22/22 13:48 10/22/22 13:45 10/22/22 13:55 Temperature 97.3 F L Pulse Rate 52 L 57 L 53 L Pulse Rate [Pulse Oximeter] Respiratory Rate 16 16 12 Blood Pressure 100/54 L 107/56 L Blood Pressure [Ri ght Arm] 112/60 Pulse Oximetry 98 98 Oxygen Delivery Me thod Room Air Room Air Room Air 10/22/22 14:15 10/22/22 14:30 10/22/22 14:45 Temperature 97.7 F 97.5 F L Pulse Rate Pulse Rate [Pulse Oximeter] 50 L 47 L 50 L Respiratory Rate 12 13 Blood Pressure Blood Pressure [Ri ght Arm] 123/63 133/69 128/73 Pulse Oximetry 95 95 98 Oxygen Delivery Me thod Room Air Room Air Room Air 10/22/22 15:00 10/22/22 15:30 10/22/22 16:00 Temperature 97.9 F 98.1 F Pulse Rate Pulse Rate [Pulse Oximeter] 50 L 51 L 53 L Respiratory Rate 14 14 Blood Pressure Blood Pressure [Ri ght Arm] 147/77 H 144/72 H 140/74 H Pulse Oximetry 98 98 95 Oxygen Delivery Me thod Room Air Room Air Room Air 10/22/22 17:00 10/22/22 18:00 11/30/22 19:00 Temperature 98.5 F 98.5 F 98.1 F Pulse Rate Pulse Rate [Pulse Oximeter] 65 71 65 Respiratory Rate 12 12 12 Blood Pressure Blood Pressure [Ri ght Arm] 158/83 H 144/78 H 136/85 Pulse Oximetry 95 95 94 Oxygen Delivery Me thod Room Air Room Air Room Air 10/22/22 23:00 10/23/22 03:00 Temperature 98.9 F 98 F Pulse Rate Pulse Rate [Pulse Oximeter] 58 L 48 L Respiratory Rate 16 16 Blood Pressure Blood Pressure [Ri ght Arm] 127/65 127/63 Pulse Oximetry 97 97 Oxygen Delivery Me thod Room Air Room Air DS: Data Data Completed and Pending Labs on day of discharge: Labs from last 24 hours 10/23/22 10/23/22 06:07 06:07 WBC 7.68 RBC 3.68 L Hgb 11.2 L Hct 34.5 MCV 94 MCH 30 MCHC 33 Plt Count 146 Sodium 138 Potassium 4.2 Chloride 108 Carbon Dioxide 24 BUN 20 Creatinine 0.5 Estimated Creat Clear 125.58 Estimated GFR 109 Glucose 225 H Calcium 8.6 Discharge Plan Discharge Disposition: Home, Self-Care Date of Admission: 10/22/22 11:00 Attending Provider on Discharge: Sebastián Drummond Consulting Providers: Mell Poole Primary Care Provider: Shelbi Miller Condition: Stable Anticipated Discharge Date/Time: 10/23/22 14:00 Discharge Medications: New sennosides-docusate sodium [Senna-S] 8.6-50 mg tablet 1 - 4 tab-cap PO BID PRN (Reason: constipation) Qty: 60 0RF Rx Instructions: Hold medication if experiencing loose stools. acetaminophen 500 mg capsule 500 - 1,000 mg PO Q6H MDD 4000mg PRNQty: 100 0RF hydroxyzine pamoate 25 mg Capsule 25 mg PO Q4H PRNQty: 30 1RF Rx Instructions: 1-2 capsules Q4-6 hours prn pain Continued methotrexate (PF) 7.5 mg/0.15 mL auto-injector 0.5 mg subcut .Every 7 Days cholecalciferol (vitamin D3) 25 mcg (1,000 unit) tablet 1,000 unit PO DAILY magnesium oxide 250 mg magnesium tablet 150 mg PO QDAY ascorbic acid (vitamin C) 500 mg tablet extended release 500 mg PO DAILY folic acid 1 mg tablet 2 mg PO DAILY estradiol 0.01 % (0.1 mg/gram) cream 0.5 appful vaginal .Twice Weekly Rx Instructions: Use nightly for 2 weeks, then twice weekly glucagon HCl 1 mg/mL recon soln 1 mg IM ONCE PRN (Reason: hypoglycemia) vitamin B complex Tablet 1 tab PO QDAY omega 2-ffr-rmi-fish oil [Fish Oil] 1,000 mg (120 mg-180 mg) capsule 1 cap PO QDAY insulin aspart U-100 100 unit/mL (3 mL) insulin pen 3 - 10 unit subcut TIDWMEAL Qty: 30 11RF insulin glargine 100 unit/mL (3 mL) insulin pen 18 unit subcut QAM Qty: 15 1RF (DME) Diabetic Test Strips Misc See Rx Instructions .Route Qty: 100 2RF Rx Instructions: Test QID (DME) pen needle, diabetic [Sure-Fine Pen [place]] 31 gauge x 3/16 needle See Rx Instructions .Route Qty: 400 3RF Rx Instructions: Patient to use QID Discharge Orders: Discharge Order (Routine); Ordered 10/23/22 Ordered By: Mell Poole Patient Education: Precautions after Total Joint Replacement Surgery (GEN) Additional Instructions: Schedule Tylenol every 6-8 hours (can take up to 4000 mg in a 24 hour period). Vistaril as needed for additional pain management. Hold methotrexate this weekend, resume next week. Activity Level: Activity as Tolerated Activity Detail: per PT/OT Discharge Diet: Diabetic Follow Up Appointments: Sebastián Drummond MD [Staff Physician] - (1 week for postop check) Shelbi Miller MD [Primary Care Provider] - (1-2 weeks for hospital d/c followup) Forms: [employer] Info Instructions
--- NOTE | 2022-10-23 14:06 | P.DS_ITS ---
DS: Providers Provider Date Seen: 10/23/22 Date of admission: 10/22/22 11:00 Primary care physician: Shelbi Miller MD Admitting Clinician: Mell Poole MD Consults: 10/22/22 14:01 Consult to Occupational Therapy [CONS] Routine Comment: Reason(s) for OT Consult:: Evaluate and Treat Any Restrictions?:: See Comment Comment: evaluate and treat Consult to Physical Therapy [CONS] Routine Comment: Reason(s) for PT Consult:: Evaluate and Treat Any Restrictions?:: Wt Bearing as Tolerated Consult to Certified Physician Assistant [CONS] Routine Comment: Reason for Consult:: Discharge Planning Needs 10/23/22 06:56 Consult to Physician [CONS] Routine Comment: Consulting Provider: Mell Poole Has provider been notified: Yes Attending Physician on discharge: Mell Poole MD Date of Discharge: 10/23/22 DS: Diagnosis Discharge Diagnosis (1) Closed fracture of neck of left femur: Status: Acute Problem details: - POD 1, hospital day 2 left femoral neck fracture minimally displaced - s/p cannulated screw fixation 10/22/22 DS: Summary Hospital Course Hospital Course: Pleasant 57-year-old female, admitted to the hospital for a fall at home with a left femoral neck fracture. She had a cannulated screw fixation with Dr. Drummond of Orthopedic surgery and did well postoperatively. Martine's comorbidities include type 1 DM and RA: She continued her basal insulin and sliding scale, sugars were mildly elevated postoperatively but patient feels comfortable managing these. She will hold her methotrexate this weekend, restart on 11/01/22. Pain management was achieved with Tylenol and Vistaril; patient intolerant of narcotics. She was seen by PT and OT and felt comfortable discharging home with on postoperative day 1. Routine follow-up with therapies, orthopedic surgery, and PCP. The patient has a history of left femoral neck minimally displaced fracture. After appropriate preoperative evaluation, the patient underwent cannulated screws for left femoral neck minimally displaced fracture. Postoperatively given anticoagulation for deep vein thrombosis prophylaxis. They progressed to PT/OT and were felt ready and prepared for discharge to home with appropriate pain medication and anticoagulation medications. Status at Discharge Functional status at discharge: uses cane/walker Overall status at discharge: patient is progressing back to baseline Time Spent with Patient Time attestation: Total time spent providing and/or coordinating discharge services: Exam Const: Vital Signs, click to edit/add: Vital Signs - 24 hr 10/22/22 14:15 10/22/22 14:30 10/22/22 14:45 Temperature 97.7 F 97.5 F L Pulse Rate [Pulse Oximeter] 50 L 47 L 50 L Respiratory Rate 12 13 Blood Pressure [Ri ght Arm] 123/63 133/69 128/73 Pulse Oximetry 95 95 98 Oxygen Delivery Me thod Room Air Room Air Room Air 10/22/22 15:00 10/22/22 15:30 10/22/22 16:00 Temperature 97.9 F 98.1 F Pulse Rate [Pulse Oximeter] 50 L 51 L 53 L Respiratory Rate 14 14 Blood Pressure [Ri ght Arm] 147/77 H 144/72 H 140/74 H Pulse Oximetry 98 98 95 Oxygen Delivery Me thod Room Air Room Air Room Air 10/22/22 17:00 10/22/22 18:00 10/22/22 19:00 Temperature 98.5 F 98.5 F 98.1 F Pulse Rate [Pulse Oximeter] 65 71 65 Respiratory Rate 12 12 12 Blood Pressure [Ri ght Arm] 158/83 H 144/78 H 136/85 Pulse Oximetry 95 95 94 Oxygen Delivery Me thod Room Air Room Air Room Air 10/22/22 23:00 10/23/22 03:00 10/23/22 07:40 Temperature 98.9 F 98 F 98.1 F Pulse Rate [Pulse Oximeter] 58 L 48 L 67 Respiratory Rate 16 16 14 Blood Pressure [Ri ght Arm] 127/65 127/63 143/60 H Pulse Oximetry 97 97 97 Oxygen Delivery Me thod Room Air Room Air Room Air 10/23/22 11:00 Temperature 98.8 F Pulse Rate [Pulse Oximeter] 61 Respiratory Rate 14 Blood Pressure [Ri ght Arm] 142/62 H Pulse Oximetry 100 Oxygen Delivery Me thod Room Air DS: Data Data Completed and Pending Labs on day of discharge: Labs from last 24 hours 10/23/22 10/23/22 06:07 06:07 WBC 7.68 RBC 3.68 L Hgb 11.2 L Hct 34.5 MCV 94 MCH 30 MCHC 33 Plt Count 146 Sodium 138 Potassium 4.2 Chloride 108 Carbon Dioxide 24 BUN 20 Creatinine 0.5 Estimated Creat Clear 125.58 Estimated GFR 109 Glucose 225 H Calcium 8.6 Discharge Plan Discharge Disposition: Home, Self-Care Date of Admission: 10/22/22 11:00 Attending Provider on Discharge: Sebastián Drummond Consulting Providers: Mell Poole Primary Care Provider: Shelbi Miller Condition: Stable Anticipated Discharge Date/Time: 10/23/22 14:00 Discharge Medications: New sennosides-docusate sodium [Senna-S] 8.6-50 mg tablet 1 - 4 tab-cap PO BID PRN (Reason: constipation) Qty: 60 0RF Rx Instructions: Hold medication if experiencing loose stools. acetaminophen 500 mg capsule 500 - 1,000 mg PO Q6H MDD 4000mg PRNQty: 100 0RF hydroxyzine pamoate 25 mg Capsule 25 mg PO Q4H PRNQty: 30 1RF Rx Instructions: 1-2 capsules Q4-6 hours prn pain tramadol 50 mg tablet 50 - 100 mg PO Q6H MDD 6 Qty: 20 0RF Continued methotrexate (PF) 7.5 mg/0.15 mL auto-injector 0.5 mg subcut .Every 7 Days cholecalciferol (vitamin D3) 25 mcg (1,000 unit) tablet 1,000 unit PO DAILY magnesium oxide 250 mg magnesium tablet 150 mg PO QDAY ascorbic acid (vitamin C) 500 mg tablet extended release 500 mg PO DAILY folic acid 1 mg tablet 2 mg PO DAILY estradiol 0.01 % (0.1 mg/gram) cream 0.5 appful vaginal .Twice Weekly Rx Instructions: Use nightly for 2 weeks, then twice weekly glucagon HCl 1 mg/mL recon soln 1 mg IM ONCE PRN (Reason: hypoglycemia) vitamin B complex Tablet 1 tab PO QDAY omega 3-mxg-jsm-fish oil [Fish Oil] 1,000 mg (120 mg-180 mg) capsule 1 cap PO QDAY insulin aspart U-100 100 unit/mL (3 mL) insulin pen 3 - 10 unit subcut TIDWMEAL Qty: 30 11RF insulin glargine 100 unit/mL (3 mL) insulin pen 18 unit subcut QAM Qty: 15 1RF (DME) Diabetic Test Strips Misc See Rx Instructions .Route Qty: 100 2RF Rx Instructions: Test QID (DME) pen needle, diabetic [Sure-Fine Pen [place]] 31 gauge x 3/16 needle See Rx Instructions .Route Qty: 400 3RF Rx Instructions: Patient to use QID Discharge Orders: Discharge Order (Routine); Ordered 10/23/22 Ordered By: Mell Poole Patient Education: Precautions after Total Joint Replacement Surgery (GEN) Additional Instructions: Schedule Tylenol every 6-8 hours (can take up to 4000 mg in a 24 hour period). Vistaril as needed for additional pain management. Hold methotrexate this weekend, resume next week. Activity Level: Activity as Tolerated Activity Detail: Wound: ?Do not remove original dressing; we will remove this at first postop visit in 1 week. Only remove dressing if integrity is in question. ?No immersing wound in water; showering okay; light scrub with your hand and body soap, rinse, dab dry ?Sutures are under the skin, will dissolve; allow surgical glue to come off naturally; do not scrub the wound or apply ointments/lotions ?Call our office with any redness that streaks, excessive drainage from the wound, or wound gapping. Ice/Elevate: ?Ice as needed for swelling and discomfort (cryocuff or ice pack); elevate frequently above the heart MENA socks: ?Wear for 1 month, remove for 1 hour 3 times per day ?These are frustrating to take on/off, but are important for blood clot prevention for 1 month after surgery Blood Clot Prevention (DVT): ?Medication: Rivaroxaban, and transition to 81 mg aspirin by mouth twice daily (total one month of protection). Driving: ?Do not drive while taking narcotic pain medication ?Anticipate 4-6 weeks no driving if operative leg is driving leg Smoking/Alcohol: ?Do not smoke; do no drink alcohol especially when taking postoperative oral narcotic medication ?PT, OT per patient preference - evaluate treat total hip arthroplasty protocol (gait training, ROM, ADLs) Follow up: ?Ortho surgeon follow-up in 6 weeks; repeat radiographs AP pelvis, cross-table lateral operative hip ?PA-C visit in 1 week *If there are any acute concerns regarding your surgery, please call our orthopedic clinic ([phone]) Discharge Diet: Diabetic Follow Up Appointments: Sebastián Drummond MD [Staff Physician] - 10/31/22 10:00 am Shelbi Miller MD [Primary Care Provider] - 11/04/22 9:30 am Forms: Yo que Vos Info Instructions
--- NOTE | 2022-10-23 15:31 | PC.SOCIAL ---
Discharge planning- Met with pt and pt's in pt's room. Pt was dressed and ready to discharge home. Pt states that she believes she has everything she needs to be home for her recovery. will be with her full-time to assist her as needed. brought a walker from the pharmacy and also another type of walker from a family friend. Pt's states there are steps in the home but he is going to set up the downstairs so pt has a sleeping area so pt can avoid the steps for a few weeks. Informed pt and pt's if they have any other questions/concerns that social work is available to them.
--- NOTE | 2022-10-23 15:49 | PC.NURSE ---
Patient alert and oriented x4, up with SBA/IND and walker, Triana D/C'd, patient voided twice since, dressing was CDI, patient rated pain 3/10, pain managed with scheduled Tylenol and PRN Vistaril, IV removed at discharge, Education given to patient and , verbalized understanding.Patient DC'd home with .
--- NOTE | 2022-10-27 16:49 | PM.ORPRC ---
Procedure Note Date of procedure: 10/22/22 Procedure: PREOPERATIVE DIAGNOSES: 1. Left femoral neck fracture, minimally displaced, acute, closed POSTOPERATIVE DIAGNOSES: 1. Left femoral neck fracture, minimally displaced, acute, closed NAME OF OPERATION: 1. Left femur closed reduction and percutaneous pinning 2. [id number] - intraoperative fluoroscopy up to 1 hour. SURGEON: Sebastián Drummond MD PLASTIC STRAIGHTENING ROLL OPERATOR: LUZMARIA Vital. Of note, an assistant professor of art was critical for this case to aide in patient positioning, extremity positioning, tissue retraction, instrument manipulation, and closure. ANESTHESIA: Spinal EBL: 100 mL IMPLANTS: Synthes 6.5 mm cannulated partially-threaded titanium screws (x3) COMPLICATIONS: None evident INDICATIONS: The patient is a pleasant, 57-year-old female who sustained a fall landing onto her left hip. They were unable to bear weight. They experienced significant pain which prompted a visit to [facility]. X-rays were obtained and revealed a proximal femur fracture consistent with a minimally displaced left femoral neck fracture. Given these findings, along with the desire to help with pain control and improved mobility / mobilization, surgery was recommended to stabilize the fracture and prevent it from displacing. PROCEDURE: Following a thorough discussion of risks, benefits, and alternatives, consent was obtained and the left hip was marked. After obtaining proper medical evaluation determining the patient was optimized prior to surgery, they were brought to the operating room and placed supine on the operating table. Induction of anesthesia undertaken. 1 g IV Ancef was administered within 1 hr of incision preoperatively. Proper time-out was performed identifying proper patient, site, and procedure. The operative extremity was prepped & draped in the appropriate sterile fashion using ChloraPrep after the patient was positioned on the [place] table with the head in neutral alignment all bone prominences well padded. C-arm fluoroscopic imaging was utilized to obtain AP and lateral views of the operative hip. This indeed confirmed proper position of the proximal femur fracture in a valgus impacted manner. 10 blade skin incision was made distal to the greater trochanteric tip. Sharp incision through skin and ITB band allowed palpation of the proximal femur just distal to the greater trochanter. A partially threaded guidewire was initially placed near the center of the femoral neck position on both AP and lateral planes. The cannulated parallel bullet guide was then applied and 2 more pins were placed around the perimeter in a parallel fashion with the goal of staying slightly proximal to the lesser trochanteric level on the lateral proximal femur, and hugging the inferior femoral neck cortex. The pins were confirmed to be within the femoral neck and head on AP and lateral views. Following this, the cannulated Reamer was utilized to create passage for the eventual screw. Screws were measured, and partially-threaded screws were passed without difficulty. C-arm confirmed these to be intraosseous and not penetrate to the femoral head on either view. The guidewires were removed and closure performed with # 0 Vicryl for the ITB band, 2-O Vicryl and 4-0 Monocryl for subcutaneous and subcuticular closure, respectively. The patient was awoken from anesthesia and transferred to the PACU in stable condition. PLAN: 1. Weight bear as tolerated operative lower extremity. 2. Encouraged ice. 3. Oxycodone for pain as needed. 4. 23 hr perioperative antibiotics. 5. Chemoprophylaxis for DVT prophylaxis along with Bill joee and SCDs.
--- NOTE | 2022-10-27 16:52 | P.ORCN_ITS ---
History of Present Illness HPI Date Seen: 10/22/22 Chief complaint: Fell in driveway and hit L hip and side Narrative: Martine is a pleasant 57 year old female who presented to the ED after a mechanical fall on ice. She landed onto her left hip and noted difficulty with bearing weight. She presented [place] [facility]. X-rays were obtained revealed a minimally displaced left femoral neck fracture. She was admitted via the hospitalist team and Orthopedics was consulted to assist with possible surgical intervention. She continues to have pain about the left hip especially with rotation or knee range of motion. Relieved with rest. No numbness or tingling reported otherwise. She does have a history of rheumatoid arthritis as well as type 1 diabetes mellitus (recent A1c from 05/2022 measured 8.3) Denies tobacco or alcohol use.? She lives with her locally.? 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 Review of Systems Narrative: Notable for the history above. Otherwise, denies fevers or chills, nausea vomiting, diarrhea or constipation. No chest pain or shortness of breath. No blurry vision, double vision, or headaches. No easy bleeding or bruising or clotting disorders in herself or family members. She does take methotrexate for rheumatoid arthritis. [facility] Medical History Atrophic vulvovaginitis Diabetic retinopathy (2020) Mammogram declined Mass of right adrenal gland (2016) Menopausal hot flushes Pneumococcal vaccination declined (08/27/21) Rheumatoid arthritis (10/1996) Subarachnoid hemorrhage following injury (2013) Type 1 diabetes mellitus (10/1987) Surgical History History of hysteroscopy (09/2007) History of myomectomy Social History Narrative: history of tobacco use Smoking Status: Never smoker Do you use any of these nicotine containing products: None Second hand tobacco smoke exposure: No How often do you have a drink containing alcohol: monthly or less How often do you have six or more drinks on one occasion: Never AUDIT-C Alcohol total score: 1 Non-prescribed substance use: denies use Caffeine: No Little interest or pleasure in doing things: not at all Feeling down, depressed, or hopeless: not at all service: No Meds Home Medications and Allergies Home Medications Medication Instructions Recorded Confirmed Type ascorbic acid (vitamin C) 500 mg 500 mg PO DAILY 05/27/22 10/22/22 History tablet,extended release cholecalciferol (vitamin D3) 25 1,000 unit PO DAILY 05/27/22 10/22/22 History mcg (1,000 unit) tablet estradiol 0.01% (0.1 mg/gram) 0.5 appful vaginal .Twice Weekly 05/27/22 10/22/22 History vaginal cream folic acid 1 mg tablet 2 mg PO DAILY 05/27/22 08/14/22 History glucagon HCl 1 mg/mL solution for 1 mg IM ONCE PRN hypoglycemia 05/27/22 10/22/22 History injection magnesium oxide 150 mg PO QDAY 05/27/22 10/22/22 History methotrexate (PF) 7.5 mg/0.15 mL 0.5 mg subcut .Every 7 Days 05/27/22 10/22/22 History subcutaneous auto-injector omega 3-mgy-mbx-fish oil 1,000 mg 1 cap PO QDAY 06/02/22 10/22/22 History (120 mg-180 mg) capsule (Fish Oil) vitamin B complex 1 tab PO QDAY 06/02/22 10/22/22 History Allergies Allergy/AdvReac Type Severity Reaction Status Date / Time Cephalosporins Allergy Mild Rash Verified 08/14/22 13:21 cortisone Allergy Mild increases Verified 08/14/22 13:21 blood sugar morphine Allergy Mild severe Verified 08/14/22 13:21 vomiting penicillin V Allergy Mild Rash Verified 08/14/22 13:21 Ortho Exam Narrative Exam Narrative: She is alert and oriented x3. Mood appropriate, affect normal. Memory intact both remote and recent events according to today's presenting complaint. Exam of the left hip shows no lacerations, abrasions, or other cutaneous changes. She has painful left hip with rotation or with the knee range of motion. 2+ DP and PT pulse. Neurologic intact in the superficial deep peroneal as well as plantar distribution to sensory light touch and motor function. Gait and station deferred due to the left hip fracture. Results Diagnostic results Additional Comments: Multiple radiographs from [facility] dated 10/21/2022 ordered by different provider but reviewed by me. This includes following: AP pelvis and AP and cross-table lateral views left hip. This shows a minimally displaced left femoral neck fracture. Three views of the left foot. This shows severe erosion of the MTP joints across the whole foot (most severe at the 1st and 2nd MTP joints. Also erosions of the IP joint of the toe. The toes have windswept nature with valgus alignment consistent rooms arthritic type changes. Moderate to severe talonavicular osteoarthrosis noted with joint space narrowing, osteophyte formation and subchondral sclerosis. Generalized osteopenia is noted throughout the foot otherwise, no acute fractures, avulsions, or intraosseous pathology Assessment and Plan Assessment and plan (1) Closed fracture of neck of left femur: Problem comment: - POD 1, hospital day 2 left femoral neck fracture minimally displaced - s/p cannulated screw fixation 10/22/22 Status: Acute Total time spent: Total time spent is greater than 50% in coordination of care (as documented) at patient's floor/unit and/or counseling patient: (2) Rheumatoid arthritis: Problem comment: - diagnosed 1995, on no medication until [facility] started MTX 10/08 - postoperatively, hold dose 10/25/2022, restart 11/01/2022 Status: Chronic (3) Type 1 diabetes mellitus: Problem comment: - diagnosed in 1986. Blood sugars mildly elevated during hospital stay postoperatively, patient using home basal insulin and sliding scale for management Status: Chronic Plan Regarding the left femoral neck fracture, we had a good discussion with the patient regarding pros and cons of both nonoperative and operative interventions. Indeed, I do think surgical stabilization of the fracture is prudent. Given the minimally displaced nature, I do think closed reduction with percutaneous pinning can have good success. Indeed we will plan for that pr ocedure on 10/22/2022. Beyond that, the rheumatoid arthritis is noteworthy given the generalized osteopenia we see radiographically. I also acknowledge methotrexate can have some negative effects on healing. She will hold her next does 0 (weekly dosing) and resume thereafter her normal regimen. The diabetes mellitus also is somewhat concerning with a hemoglobin A1c of 8.3 recently. It would be great if she could have slightly tighter control this glucose to lower that A1c below 7.5. This will decrease her perioperative risks of wound healing issues and infection and likely improve her potential for healing as well. Following the procedure, I would anticipate she should be able to weightbear as tolerated. Walker ambulation assistance. PT and OT consult be pursued.
== END 2022-10-23 15:20 | disposition home or self-care (01) | DRG 308 ==
LOC: ED 21:45 → MEDSURG 10-22 01:04 → SS 10-22 08:14 → MEDSURG 10-22 08:16 → SS 10-22 12:16 → MEDSURG 10-22 12:16
PROVIDERS: Hospitalist; Orthopaedic Surgery Sports Medicine; Admitting Provider Family Medicine; Emergency Provider Family Medicine; PCP Internal Medicine; Visit Provider Family Medicine
PROC: 0QS734Z Reposition Left Upper Femur with Internal Fixation Device, Percutaneous Approach (ICD-10-PCS; principal; 2022-10-22 10:30)
DX: S72.002A Fracture of unspecified part of neck of left femur, initial encounter for closed fracture (principal); M25.552 Pain in left hip; M79.672 Pain in left foot; W00.0XXA Fall on same level due to ice and snow, initial encounter; Y92.014 Private driveway to single-family (private) house as the place of occurrence of the external cause; E10.319 Type 1 diabetes mellitus with unspecified diabetic retinopathy without macular edema; Z79.4 Long term (current) use of insulin; M06.9 Rheumatoid arthritis, unspecified; N95.1 Menopausal and female climacteric states; N95.2 Postmenopausal atrophic vaginitis; E27.9 Disorder of adrenal gland, unspecified; Z79.631 Long term (current) use of antimetabolite agent; M85.872 Other specified disorders of bone density and structure, left ankle and foot; M19.072 Primary osteoarthritis, left ankle and foot
CPT/HCPCS: 01210; 36415; 64450; 71045; 73502; 73630; 76000; 76942; 80048; 82962; 85025; 85027; 87635; 94761; 97110; 97116; 97161; 97165; 97530; 97535; 99199; 99284; A9270; C1713; J0690; J1100; J2250; J2704; J2795; J3490; J7030; J7042; J7050; J7120

== ENCOUNTER 2022-11-18 14:50 | Outpatient (RCR) | payer BC, SELFPAY ==
[2022-11-18 17:18] LABS: Basophils Absolute Auto 0.05 K/uL (0.00-0.30); Basophils Percent Auto 1.1 % (0.0-3.0); Eosinophils Absolute Auto 0.27 K/uL (0.00-0.50); Eosinophils Percent Auto 5.8 % (0.0-7.0); Hemoglobin* 13.4 gm/dL (12.0-16.0); Immature Granulocytes Abs Auto 0.01 K/uL (0.00-0.30); Immature Granulocytes Pct Auto 0.2 %; Lymphocytes Absolute Auto 0.98 K/uL (0.90-2.90); Mean Corpuscular HGB Conc 32 gm/dL (32-36); Mean Corpuscular Hemoglobin 31 pg (26-34); Mean Corpuscular Volume 96 fL (80-100); Monocytes Percent Auto 8.4 % (0.0-11.0); Neutrophils Absolute Auto 2.96 K/uL (1.7-7.0); Neutrophils Percent Auto 63.5 % (42.0-72.0); Platelet Count* 240 K/uL (140-440); RDW Coefficient of Variation % 13.8 % (11.5-15.5); Red Blood Count 4.39 m/uL (4.00-5.20); White Blood Count* 4.66 K/uL (4.50-11.00)
[2022-11-18 17:22] LABS: Creatinine* 0.5 mg/dL (0.5-1.5); Estimated Glomerular Filt Rate 109 ml/min
[2022-11-18 17:23] LABS: Aspartate Amino Transferase* 38 U/L (12-35)
[2022-11-18 17:24] LABS: Slide Review Reflex No
[2023-06-02 10:05] LABS: Basophils Percent Auto 1.4 % (0.0-3.0); Eosinophils Percent Auto 3.6 % (0.0-7.0); Hematocrit 41.5 % (33.0-51.0); Hemoglobin* 13.6 gm/dL (12.0-16.0); Lymphocytes Percent Auto 26.9 % (20-44); Mean Corpuscular HGB Conc 33 gm/dL (32-36); Mean Corpuscular Hemoglobin 30 pg (26-34); Mean Corpuscular Volume 90 fL (80-100); Monocytes Percent Auto 15.1 % (0.0-11.0); Platelet Count* 190 K/uL (140-440); RDW Coefficient of Variation % 12.8 % (11.5-15.5); White Blood Count* 2.79 K/uL (4.50-11.00)
[2023-06-02 10:11] LABS: Slide Review Reflex No
[2023-06-02 10:12] LABS: Aspartate Amino Transferase* 37 U/L (12-35); Creatinine* 0.5 mg/dL (0.5-1.5); Estimated Glomerular Filt Rate 109 ml/min
== END 2023-10-22 15:15 | disposition home or self-care (01) ==
LOC: LAB 14:50
PROVIDERS: PCP Internal Medicine; Visit Provider Nurse Practitioner
DX: M06.9 Rheumatoid arthritis, unspecified (principal); M25.552 Pain in left hip; R26.9 Unspecified abnormalities of gait and mobility; R26.81 Unsteadiness on feet; R53.1 Weakness; Z51.89 Encounter for other specified aftercare
CPT/HCPCS: 36415; 82565; 84450; 85025

== ENCOUNTER 2022-12-08 11:02 | Outpatient (CLI) | payer BC, SELFPAY ==
[2022-12-08 09:24] LABS: Albumin* 4.1 g/dL (3.3-5.0); Chloride* 106 mmol/L (96-114)
[2022-12-08 09:25] LABS: Potassium* 3.9 mmol/L (3.6-5.1); Sodium* 141 mmol/L (135-149)
[2022-12-08 09:27] LABS: Aspartate Amino Transferase* 31 U/L (12-35); Bilirubin Total* 0.6 mg/dL (0.1-1.5); Carbon Dioxide* 29 mmol/L (20-32); Cholesterol* 211 mg/dL (90-199); Creatinine* 0.5 mg/dL (0.5-1.5); Estimated Glomerular Filt Rate 109 ml/min; Total Protein* 7.1 g/dL (6.0-8.3)
[2022-12-08 09:28] LABS: Alanine Aminotransferase* 27 U/L (4-35); Alkaline Phosphatase* 106 U/L (40-150); Blood Urea Nitrogen* 21 mg/dL (7-30); Calcium* 9.7 mg/dL (8.4-10.6); Glucose* 160 mg/dL (60-115); HDL Cholesterol* 92 mg/dL (>=50); LDL Cholesterol Calculated 107 mg/dL (<100); Triglycerides* 59 mg/dL (40-149)
[2022-12-08 09:47] LABS: Creatinine Urine 268.5 mg/dL
[2022-12-08 09:51] LABS: Microalbumin Creatinine Ratio 10 mg/g (0-30); Microalbumin Urine 5 mg/dL
== END 2022-12-08 11:03 | disposition home or self-care (01) ==
PROVIDERS: PCP Internal Medicine; Visit Provider Internal Medicine
DX: E10.9 Type 1 diabetes mellitus without complications (principal); M06.9 Rheumatoid arthritis, unspecified; N95.1 Menopausal and female climacteric states
CPT/HCPCS: 80053; 80061; 82043; 82570

== ENCOUNTER 2023-04-07 09:00 | Outpatient (RCR) | payer BC, SELFPAY | END 2023-06-08 14:52 | disposition home or self-care (01) | PROVIDERS: PCP Internal Medicine; Visit Provider Orthopaedic Surgery Sports Medicine | DX: Z87.81 Personal history of (healed) traumatic fracture (principal); Z51.89 Encounter for other specified aftercare | CPT/HCPCS: 97110; 97116; 97140; 97161 ==

== ENCOUNTER 2023-09-25 20:58 | Emergency (ER) | payer BC, SELFPAY ==
[2023-09-25 21:17] VITALS: BP 223/95; PULSE 83; RESP 16; TEMP 36.7; O2SAT 100; BMI 20.7
--- NOTE | 2023-09-25 21:46 | CRLHL7_ITS ---
For Patients: As a result of the Cures Act, medical imaging exams and procedure reports are released immediately into your electronic medical record. You may view this report before your referring provider. If you have questions, please contact your health care provider. INDICATION: Chest pain. TECHNIQUE: Chest 2 views. COMPARISON: None. FINDINGS: Cardiovascular and mediastinum: Cardiomediastinal silhouette is within normal limits Lungs and pleural spaces: Lungs are clear. No sign of pleural effusion. No pneumothorax. Bones and soft tissues: Severe degenerative changes in bilateral shoulders.. IMPRESSION: No acute or significant findings. Dictated by Sravan Winston MD @ 09/25/2023 10:31:05 PM (Electronically Signed)
--- NOTE | 2023-09-25 21:47 | ED.GENADULT ---
HPI - General Adult General Chief complaint: Unspecified Complaint, Adult Stated complaint: high blood pressure Time Seen by Provider: 09/25/23 21:28 History of Present Illness HPI narrative: Patient is a 58-year-old woman with 30 year history of type 1 diabetes who presents with intermittent chest pain for last month. She has also been trending her blood pressure and find to be markedly elevated in the 215-230 range systolic. She has had no headaches no change in her vision or hearing no neurologic symptoms no numbness no tingling no weakness. She does not take any blood pressure medications. She states her blood sugars been reasonably controlled and she otherwise has been feeling fine. EKG upon arrival upon my review does show some ST segment depression in 2 3 AVF with reciprocal changes laterally. Related Data Home Medications Medication Instructions Recorded Confirmed cholecalciferol (vitamin D3) 25 1,000 unit PO DAILY 05/27/22 06/09/23 mcg (1,000 unit) tablet estradiol 0.01% (0.1 mg/gram) 0.5 appful vaginal .Twice Weekly 05/27/22 06/09/23 vaginal cream folic acid 1 mg tablet 2 mg PO DAILY 05/27/22 06/09/23 glucagon HCl 1 mg/mL solution for 1 mg IM ONCE PRN hypoglycemia 05/27/22 06/09/23 injection vitamin B complex 1 tab PO QDAY 12/11/22 06/09/23 methotrexate (PF) 7.5 mg/0.15 mL 0.5 mg subcut .Every 14 Days 06/09/23 06/09/23 subcutaneous auto-injector ubidecarenone-omega 3-vit E 25 1 cap PO ONCE 06/09/23 06/09/23 mg-150 (90-60) mg-200 unit capsule (Co J-14-Bvazurm E-Fish Oil) Previous Rx's Medication Instructions Recorded pen needle, diabetic 31 gauge x #400 ea 10/14/22/16 (Sure-Fine Pen [place]) acetaminophen 500 mg capsule 500 - 1,000 mg (1 - 2 x 500 mg) PO 10/23/22 Q6H PRN #100 caps blood-glucose transmitter (Dexcom #1 ea 11/18/22 G6 Transmitter device) insulin glargine 100 unit/mL (3 18 unit (0.18 mL) subcut QAM #15 mL 12/31/22 mL) subcutaneous pen blood-glucose meter,continuous #1 ea 05/25/23 (Dexcom G6 Clinical Research Specialist) Diabetic Test Strips #100 ea 06/02/23 blood-glucose sensor (Dexcom G6 #3 ea 06/24/23 Sensor device) insulin aspart U-100 100 unit/mL 3 - 10 unit (0.03 - 0.1 mL) subcut 09/17/23 (3 mL) subcutaneous pen TIDWMEAL #30 mL lisinopril 5 mg tablet 5 mg PO DAILY Hypertension #30 tabs 09/25/23 Allergies Allergy/AdvReac Type Severity Reaction Status Date / Time Cephalosporins Allergy Mild Rash Verified 09/25/23 21:20 cortisone Allergy Mild increases Verified 09/25/23 21:20 blood sugar morphine Allergy Mild severe Verified 09/25/23 21:20 vomiting penicillin V Allergy Mild Rash Verified 09/25/23 21:20 Review of Systems Status of ROS: Reports: 10 or more systems reviewed and unremarkable except as noted in History and below [facility] Medical History History of subarachnoid hemorrhage ?Z86.79 - Personal history of other diseases of the circulatory system (ICD-10) Mass of right adrenal gland (2017) ?E27.8 - Other specified disorders of adrenal gland (ICD-10) Surgical History History of femur fracture (10/22/22) ?Z87.81 - Personal history of (healed) traumatic fracture (ICD-10) History of myomectomy ?Z98.890 - Other specified postprocedural states (ICD-10) History of hysteroscopy (09/2007) ?Z98.890 - Other specified postprocedural states (ICD-10) Social History Narrative: -Hira never smoker Smoking Status: Never smoker Do you use any of these nicotine containing products: None Second hand tobacco smoke exposure: No How often do you have a drink containing alcohol: monthly or less How often do you have six or more drinks on one occasion: Never AUDIT-C Alcohol total score: 1 Non-prescribed substance use: denies use Caffeine: No Little interest or pleasure in doing things: not at all Feeling down, depressed, or hopeless: several days service: No Exam Narrative: Exam Narrative: EXAM GENERAL: Patient appears comfortable and well. EYES: No scleral icterus. LYMPH: No supraclavicular or cervical lymphadenopathy. SKIN: Visible skin seen during exam normal or with benign process only. EXT: No dependent lower extremity pedal edema. HEART: Regular rate and rhythm with no murmurs, rubs, or gallops. LUNGS: Clear to auscultation bilaterally with no crackles or wheezes. ABD: Soft, non tender, non distended. PSYCH: Good eye contact, speech is not pressured. Const: Vital Signs, click to edit/add: Vital Signs - 24 hr 09/25/23 21:17 09/25/23 22:30 Temperature 98.1 F Pulse Rate [Left P ulse Oximeter] 83 Respiratory Rate 16 Blood Pressure [Ri ght Upper Arm] 223/95 H 173/78 H Pulse Oximetry 100 Oxygen Delivery Me thod Room Air Course Course ED Course: Patient seen examined. EKG reviewed. Troponin D-dimer basic metabolic panel CBC chest x-ray pending. Patient given clonidine 0.1 mg orally. Vital Signs Vital signs: Initial Vital Signs Temperature 98.1 F 09/25/23 21:17 Temperature Source Temporal Artery Scan 09/25/23 21:17 Pulse Rate 83 09/25/23 21:17 Pulse Rhythm Regular 09/25/23 21:17 Pulse Strength 3+ Normal 09/25/23 21:17 Respiratory Rate 16 09/25/23 21:17 Blood Pressure 223/95 H 09/25/23 21:17 Blood Pressure Mean 137 H 09/25/23 21:17 Blood Pressure Position Sitting 09/25/23 21:17 Pulse Oximetry 100 09/25/23 21:17 Oxygen Delivery Method Room Air 09/25/23 21:17 Vital Signs Temperature 98.1 F 09/25/23 21:17 Pulse Rate 83 09/25/23 21:17 Respiratory Rate 16 09/25/23 21:17 Blood Pressure 223/95 H 09/25/23 21:17 Pulse Oximetry 100 09/25/23 21:17 Oxygen Delivery Method Room Air 09/25/23 21:17 Temperature 98.1 F 09/25/23 21:17 Pulse Rate 83 09/25/23 21:17 Respiratory Rate 16 09/25/23 21:17 Blood Pressure 173/78 H 09/25/23 22:30 Pulse Oximetry 100 09/25/23 21:17 Oxygen Delivery Method Room Air 09/25/23 21:17 Medical Decision Making MDM Narrative Medical decision making narrative: Patient is a 58-year-old woman who has long-term diabetic who presents as her blood pressure is elevated today. She has had some chest heaviness for the last month but no changes today. Troponin 0.03 D-dimer borderline 0.73 but likely nondiagnostic CBC electrolytes are all stable. EKG shows sinus rhythm at upon my review does have some questionable ST segment depression in 2 3 AVF. I did give her 0.1 mg of clonidine her blood pressure did come down from 230 systolic to 173 systolic. I do think that because she is asymptomatic and has a negative troponin we can let her go home. I will be starting her on lisinopril 5 mg daily to be started tomorrow. She does see my colleague Dr. Miller and I have asked her to make an appointment next week. Will review case with her primary physician on Thursday. Otherwise will keep her medications the same she will report any symptoms and she develops in the interim. Differential diagnosis includes but not limited to unstable angina acute myocardial infarction pulmonary embolism thoracic aortic aneurysm pneumonia pneumothorax Lab Data Labs: Lab Results 09/25/23 Range/Units 21:55 WBC 4.37 L (4.50-11.00) K/uL RBC 4.32 (4.00-5.20) m/uL Hgb 13.1 (12.0-16.0) gm/dL Hct 39.4 (33.0-51.0) % MCV 91 (80-100) fL MCH 30 (26-34) pg MCHC 33 (32-36) gm/dL RDW Coeff of Jeana 13.0 (11.5-15.5) % Plt Count 206 (140-440) K/uL Neut % (Auto) 63.6 (42.0-72.0) % Lymph % (Auto) 21.5 (20-44) % Roane % (Auto) 9.2 (0.0-11.0) % Eos % (Auto) 3.7 (0.0-7.0) % Baso % (Auto) 1.1 (0.0-3.0) % Neut # (Auto) 2.80 (1.7-7.0) K/uL Lymph # (Auto) 0.90 (0.90-2.90) K/uL Roane # (Auto) 0.40 (0.00-0.90) K/UL Eos # (Auto) 0.20 (0.00-0.50) K/uL Baso # (Auto) 0.00 (0.00-0.30) K/uL Abs Immat Gran (auto) 0.00 (0.00-0.30) K/uL Imm/Tot Granulo (auto) 0.9 % D-Dimer Quant (PE/DVT) 0.72 H (0.00-0.50) ug/ml Sodium 138 (135-149) mmol/L Potassium 3.6 (3.6-5.1) mmol/L Chloride 97 (96-114) mmol/L Carbon Dioxide 29 (20-32) mmol/L Anion Gap 12 (7-15) mEq/L BUN 18 (7-30) mg/dL Creatinine 0.5 (0.5-1.5) mg/dL Estimated Creat Clear 121.45 Estimated GFR 108 ml/min Glucose 237 H (60-115) mg/dL Calcium 9.5 (8.4-10.6) mg/dL Troponin I 0.03 (0.01-0.04) ng/mL Discharge Plan Discharge Clinical Impression: Hypertension Patient Disposition: Home, Self-Care Condition: Stable Instructions: Hypertension (ED) Additional Instructions: Lisinopril as directed Monitor for new symptoms Follow-up with your doctor next week. Activity Level: No Restrictions Discharge Diet: Regular Prescriptions: New lisinopril 5 mg tablet 5 mg PO DAILY Qty: 30 2RF No Action cholecalciferol (vitamin D3) 25 mcg (1,000 unit) tablet 1,000 unit PO DAILY folic acid 1 mg tablet 2 mg PO DAILY estradiol 0.01 % (0.1 mg/gram) cream 0.5 appful vaginal .Twice Weekly Rx Instructions: Use nightly for 2 weeks, then twice weekly glucagon HCl 1 mg/mL recon soln 1 mg IM ONCE PRN (Reason: hypoglycemia) methotrexate (PF) 7.5 mg/0.15 mL auto-injector 0.5 mg subcut .Every 14 Days vitamin B complex Tablet 1 tab PO QDAY Co V-23-[place] E-Fish Oil 25-150-200 mg-mg-unit capsule 1 cap PO ONCE acetaminophen 500 mg capsule 500 - 1,000 mg PO Q6H MDD 4000mg PRNQty: 100 0RF (DME) pen needle, diabetic [Sure-Fine Pen [place]] 31 gauge x 3/16 needle See Rx Instructions .Route Qty: 400 3RF Rx Instructions: Patient to use QID (DME) Dexcom G6 Transmitter Device See Rx Instructions .Route Qty: 1 2RF Rx Instructions: As directed insulin glargine 100 unit/mL (3 mL) insulin pen 18 unit subcut QAM Qty: 15 4RF (DME) Dexcom G6 Clinical Research Specialist Misc See Rx Instructions .Route Qty: 1 0RF Rx Instructions: As directed (DME) Diabetic Test Strips Misc See Rx Instructions .Route Qty: 100 2RF Rx Instructions: Test QID (DME) Dexcom G6 Sensor Device See Rx Instructions .Route Qty: 3 11RF Rx Instructions: As directed insulin aspart U-100 100 unit/mL (3 mL) insulin pen 3 - 10 unit subcut TIDWMEAL Qty: 30 3RF Follow Up/Referrals: Shelbi Miller MD [Primary Care Provider] - Stand Alone Forms: MyHealth Info Instructions
[2023-09-25] MEDS: cloNIDine HCL 0.1 MG TABLET PO (22:08)
[2023-09-25 22:16] LABS: Chloride* 97 mmol/L (96-114); Potassium* 3.6 mmol/L (3.6-5.1); Sodium* 138 mmol/L (135-149)
[2023-09-25 22:18] LABS: Basophils Percent Auto 1.1 % (0.0-3.0); Eosinophils Percent Auto 3.7 % (0.0-7.0); Hematocrit 39.4 % (33.0-51.0); Hemoglobin* 13.1 gm/dL (12.0-16.0); Immature Granulocytes Pct Auto 0.9 %; Lymphocytes Percent Auto 21.5 % (20-44); Mean Corpuscular HGB Conc 33 gm/dL (32-36); Mean Corpuscular Hemoglobin 30 pg (26-34); Mean Corpuscular Volume 91 fL (80-100); Monocytes Percent Auto 9.2 % (0.0-11.0); Neutrophils Percent Auto 63.6 % (42.0-72.0); Platelet Count* 206 K/uL (140-440); Red Blood Count 4.32 m/uL (4.00-5.20); White Blood Count* 4.37 K/uL (4.50-11.00)
[2023-09-25 22:19] LABS: Anion Gap 12 mEq/L (7-15); Carbon Dioxide* 29 mmol/L (20-32); Creatinine* 0.5 mg/dL (0.5-1.5); Est. Creatinine Clearance* 121.45; Estimated Glomerular Filt Rate 108 ml/min
[2023-09-25 22:20] LABS: Blood Urea Nitrogen* 18 mg/dL (7-30); Calcium* 9.5 mg/dL (8.4-10.6); Glucose* 237 mg/dL (60-115)
[2023-09-25 22:24] LABS: Slide Review Reflex No
[2023-09-25 22:28] LABS: D Dimer Quantitative* 0.72 ug/ml (0.00-0.50)
[2023-09-25 22:30] VITALS: BP 173/78
[2023-09-25 22:32] LABS: Troponin I* 0.03 ng/mL (0.01-0.04)
== END 2023-09-25 22:57 | disposition home or self-care (01) ==
PROVIDERS: Emergency Provider Internal Medicine; PCP Internal Medicine
DX: I10 Essential (primary) hypertension (principal)
CPT/HCPCS: 36415; 71046; 80048; 84484; 85025; 85379; 93005; 99283; 99284

== ENCOUNTER 2023-10-29 11:58 | Outpatient (REF) | payer BC, SELFPAY ==
[2023-10-29 12:09] LABS: Basophils Absolute Auto 0.04 K/uL (0.00-0.30); Basophils Percent Auto 0.8 % (0.0-3.0); Eosinophils Absolute Auto 0.22 K/uL (0.00-0.50); Eosinophils Percent Auto 4.3 % (0.0-7.0); Hematocrit 42.2 % (33.0-51.0); Hemoglobin* 13.7 gm/dL (12.0-16.0); Lymphocytes Percent Auto 17.8 % (20-44); Mean Corpuscular HGB Conc 33 gm/dL (32-36); Mean Corpuscular Hemoglobin 30 pg (26-34); Mean Corpuscular Volume 92 fL (80-100); Monocytes Percent Auto 6.8 % (0.0-11.0); Neutrophils Percent Auto 70.3 % (42.0-72.0); Platelet Count* 236 K/uL (140-440); RDW Coefficient of Variation % 13.1 % (11.5-15.5); Red Blood Count 4.59 m/uL (4.00-5.20); White Blood Count* 5.12 K/uL (4.50-11.00)
[2023-10-29 12:14] LABS: Slide Review Reflex No
== END 2023-10-29 11:59 | disposition home or self-care (01) ==
LOC: NPINS 11:58
PROVIDERS: PCP Internal Medicine; Visit Provider Nurse Practitioner
DX: M06.9 Rheumatoid arthritis, unspecified (principal)
CPT/HCPCS: 80053; 80061; 82043; 82570; 82607; 82728; 84443; 85025

== ENCOUNTER 2023-12-22 12:47 | Outpatient (CLI) | payer BC, SELFPAY ==
--- OUTSIDE RECORDS SUMMARY | 2023-12-22 12:50 | XMS_ITS | Clinical Summary ---
Author Name Unknown Organization [facility] Address [place], [place] [address] Care Team Providers Care Infusion Nurse Name Role Phone Pcp, No Primary Care Provider Unavailabl e Allergies Active Allergy Reactions Criticality Noted Date Comments Cephalosporins Rash Low 08/14/2022 Cortisone *None-Radiology Only 06/16/2008 Diabetes problems-cortisone injectable Morphine Vomiting 10/27/2023 Penicillins Medications Medication Sig Dispensed Refills Start Date End Date Status FISH OIL 1,000 MG CAP 4 soft gels daily 0 10/04/2007 Active INSULIN SYRINGE-NEEDLE U-100 0.3 ML 30 X 1/2 use with insulin injection 100 2 08/16/2008 Active MULTI-VITAMIN TAB take 1 tablet by oral route once daily with food 0 08/17/2008 Active BD INSULIN SYRINGE ULT-FINE II 0.3 ML 31 X 5/16 use 4 daily 3 months 0 09/08/2008 Active ONE TOUCH ULTRA TEST STRIPS use to check glucose 10 times daily 300 11 09/08/2008 Active insulin lispro & lispro Protamine (HUMALOG MIX 50-50 KWIKPEN) 100 unit/mL (50-50) InPn Sliding scale 0 03/21/2010 Active insulin glargine (LANTUS) 100 unit/mL injection Inject subcutaneous. 22units in am 10 mL 0 03/21/2010 Active ORDER - MEDICATION ORDER COMPOSER Iron 25mg 1qd Vitamin c 1000mg capsule qd zyflamend qd for joint inflammation 0 03/21/2010 Active ergocalciferol (VITAMIN D2; DRISDOL) 50,000 unit capsuleIndications :Vitamin D deficiency take one tablet twice weekly for 4 weeks and follow up for repeat lab week 5. 8 capsule 0 03/27/2010 Active lisinopriL (PRINIVIL; ZESTRIL) 5 mg tablet Take 1 Tablet (5 mg) by mouth once daily. 0 10/27/2023 Active folic acid 1 mg tablet Take 1 mg by mouth once daily. 0 Active methotrexate (FOLEX; MEXATE) 25 mg/mL injection INJECT 0.5 ML (12.5 MG) UNDER THE SKIN EVERY 14 DAYS 0 Active Active Problems Problem Noted Date Diagnosed Date Rheumatoid arthritis(714.0) 08/04/2007 DIABETES MELLITUS, INSULIN DEPENDENT (IDDM) 09/24 Resolved Problems Problem Noted Date Diagnosed Date Resolved Date Anemia, unspecified 01/12/2008 06/16/20 08 Encounters Date Type Department Care Team Description 11/11/2023 Telephone [facility] [address] [place] [address] Desmond Kim DPM DME Supply (Custom orthotics) 10/27/2023 3:30 PM STATIONARY ENGINEER REFRIGERATION Office Visit [facility] [address] [place] [address] Desmond Kim DPM Consult (Bilateral foot pain) 10/27/2023 Travel from Last 3 Months Immunizations Name Administration Dates Next Due Pneumococcal Poly,23-Valent (Pneumovax) 12/07/18 96 Td (Age >=7 Years) 12/07/1995 Family History Medical History Relation Name Comments Good Health Brother 2 Good Health Father Good Health Mother Good Health Sister 2 Relation Name Status Comments Brother 1 Alive Brother 2 Father Alive Mother Alive Sister 1 Alive Sister 2 Social History Tobacco Use Types Packs/Day Years Used Date Smoking Tobacco: Never Alcohol Use Standard Drinks/Week Comments No 0 (1 standard drink = 0.6 oz pur e alcohol) Sex and Gender Information Value Date Recorded Sex Assigned at Not on file Gender Identity Not on file Sexual Orientation Not on file Obstetrics History Last Filed Vital Signs Vital Sign Reading Time Taken Comments Blood Pressure 158/73 10/27/2023 3:44 PM STATIONARY ENGINEER REFRIGERATION Pulse 66 10/27/2023 3:44 PM STATIONARY ENGINEER REFRIGERATION Temperature 36.7 ??C (98.1 ??F) 06/16/2008 2:03 PM CD T Respiratory Rate 16 10/04/2007 9:16 AM STATIONARY ENGINEER REFRIGERATION Oxygen Saturation 96% 10/27/2023 3:44 PM STATIONARY ENGINEER REFRIGERATION Inhaled Oxygen Concentration - - Weight 64.4 kg (142 lb) 10/27/2023 3:44 PM STATIONARY ENGINEER REFRIGERATION Height 175.3 cm (5' 9) 09/08/2008 11:52 AM CDT Body Mass Index - - Plan of Treatment Upcoming Encounters Date Type Department Care Team (Late st Contact Info) Description 12/22/2023 1:00 PM STATIONARY ENGINEER REFRIGERATION Ancillary Procedure [facility] [address] [place] [address] Health Maintenance Due Date Last Done Comments Tdap 1975 Depression screening for age 12+ 1976 HIV for age 15-65 1979 BMI (ht and wt on same day) for age 18+ 1982 Hepatitis C screening for age 18-79 1982 Tetanus booster 12/07/2005 12/07/1995 Colonoscopy through age 75 2009 Mammogram for age 45-75 2009 Lipids for age 45-75 04/28/2012 04/28/2007, 06/03/2006, 03/23/2003, Additional history exists Zoster (shingles) series for age 50+ (1 of 2) 2014 COVID-19 vaccine series (2022- season) 2023 09/29/2022, 07/17/2021, 03/01/2021, Additional history exists Influenza for age 50-64 07/24/2023 Pap test for age 21-65 06/13/2025 , 06/13/2022, 05/25/2017, Additional history exists Pneumococcal series for age 6-64 Aged Out 12/07/1995 No longer eligible based on patient's age to complete this topic Care Teams Infusion Nurse Relationship Specialty Start Date End Date Pcp, No . PCP - General 11/15/09
--- OUTSIDE RECORDS SUMMARY | 2023-12-22 12:50 | XMS_ITS | Clinical Summary ---
Author Name Unknown Organization [facility] Address [address] [place] [address]. [place] [address] Care Team Providers Care University Relations Director Name Role Phone Shelbi Miller MD Unavailable [phone] Clinic, [facility] Primary Care Provider Allergies Active Allergy Reactions Criticality Noted Date Comments Cortisone 03/07/2014 Other reaction(s): Other (see comments) high blood sugar with injectable Morphine Nausea and Vomiting 01/30/2014 Penicillins 01/30/2014 Other reaction(s): Other (see comments) Unknown reaction Medications Medication Sig Dispensed Refills Start Date End Date Status amLODIPine (NORVASC) 2.5 MG tablet Take 1 tablet (2.5 mg) by mouth daily 30 tablet 0 01/26/2022 Active Encounters Date Type Department Care Team Description 10/07/2023 Transcribe Orders GENERIC EXTERNAL DATA DEPARTMENT Provider, Generic External Data Type 1 diabetes mellitus without complication (H) (Primary Dx) 10/06/2023 Medical Correspondence [facility] [address] [place] [id number] Outside, Provider from Last 3 Months Social History Tobacco Use Types Packs/Day Years Used Date Smoking Tobacco: Never Assessed Adolescent Education Answer Date Record ed Getting School Help Needed Not on file 09/09 Sex and Gender Information Value Date Recorded Sex Assigned at Not on file Gender Identity Not on file Sexual Orientation Not on file Last Filed Vital Signs Vital Sign Reading Time Taken Comments Blood Pressure 151/78 01/26/2022 2:30 PM LIFT MANAGER Pulse 97 01/26/2022 2:30 PM LIFT MANAGER Temperature 36.9 ??C (98.5 ??F) 01/26/2022 10:[address] Respiratory Rate 16 01/26/2022 2:30 PM LIFT MANAGER Oxygen Saturation 95% 01/26/2022 2:30 PM LIFT MANAGER Inhaled Oxygen Concentration - - Weight - - Height - - Body Mass Index - - Plan of Treatment Upcoming Encounters Date Type Department Care Team (Late st Contact Info) Description 02/29/2024 2:00 PM CDT Office Visit [facility] [address] [facility] [address] [place] [address] Ashleigh Corrales PA-C [address] [place] [address] Health Maintenance Due Date Last Done Comments A1C 1964 ADVANCE CARE PLANNING 1964 ANNUAL REVIEW OF HM ORDERS 1964 CT COLONOGRAPHY 1964 DIABETIC FOOT EXAM 1964 EYE EXAM 1964 FIT 1964 FLEX SIG 1964 HEPATITIS B IMMUNIZATION (1 of 3 - 3-dose series) 1964 LIPID 1964 MAMMO SCREENING 1964 YEARLY PREVENTIVE VISIT 1964 Pneumococcal Vaccine: Pediatrics (0 to 5 Years) and At-Risk Patients (6 to 64 Years) (1 of 2 - PCV) 1970 COLONOSCOPY 1974 HIV SCREENING 1979 HEPATITIS C SCREENING 1982 PAP 1985 MICROALBUMIN 03/01/2010 03/01/2009 ZOSTER IMMUNIZATION (1 of 2) 2014 BMP 01/26/2023 01/26/2022 COVID-19 Vaccine ( season) 2023 09/29/2022, 09/29/2022, 07/17/2021, Additional history exists INFLUENZA VACCINE (#1) 2023 0, 08/27/2020, 12/02/2019, Additional history exists PHQ-2 (once per calendar year) 2023 COLORECTAL CANCER SCREENING 09/10/2024 sDNA (Cologuard) 09/10/2024 09/10/2021 DTAP/TDAP/TD IMMUNIZATION (2 - Td or Tdap) 07/19/2030 07/19/2020 HPV IMMUNIZATION Aged Out No longer e ligible based on patient's age to complete this topic IPV IMMUNIZATION Aged Out No longer e ligible based on patient's age to complete this topic MENINGITIS IMMUNIZATION Aged Out No l onger eligible based on patient's age to complete this topic RSV MONOCLONAL ANTIBODY Aged Out No l onger eligible based on patient's age to complete this topic Procedures Procedure Name Priority Date/Time Associated Diagnosis Comments LAB RESULT - HIM SCAN 09/25/2023 12:00 AM CDT from Last 3 Months Results * LAB RESULT - HIM SCAN (09/25/2023 12:00 AM CDT) 09/25/2023 Provider Outside NON-BEAKER LAB TE STING from Last 3 Months Care Teams University Relations Director Relationship Specialty Start Date End Date Clinic, [facility] [address] [place] [address] PCP - General 01/26/[address] [facility] [address] [place] [address] Internal Medicine 01/26/22
--- OUTSIDE RECORDS SUMMARY | 2023-12-22 12:50 | XMS_ITS | Encounter Summary ---
Author Name Unknown Organization [facility] Address [address] [place] [id number] Care Team Providers Care Adventure Guide Name Role Phone Shelbi Miller MD Unavailable [phone] [facility] Primary Care Provider Encounter Details Date Type Department Care Team ([facility] Contact Info) Description 01/26/2022 Documentation Only INTERFACED REPORT Unknown, Provider Social History Tobacco Use Types Packs/Day Years Used Date Smoking Tobacco: Never Assessed Sex and Gender Information Value Date Recorded Sex Assigned at Not on file Gender Identity Not on file Sexual Orientation Not on file COVID-19 Exposure Response Date Recorded In the last month, have you been in contact with someone who was confirmed or suspected to have Coronavirus / COVID-19? No / Unsure 01/26/2022 10:33 AM COLD ROLL CATCHER documented as of this encounter Plan of Treatment Upcoming Encounters Date Type Department Care Team ([facility] Contact Info) Description 02/29/2024 2:00 PM CDT Office Visit [facility] [address] [place] [address] Ashleigh Corrales PA-C [address] [place], [place] [phone] documented as of this encounter Visit Diagnoses Not on filedocumented in this encounter Care Teams Adventure Guide Relationship Specialty Start Date End Date [facility], [facility] [address] [place], [place] [phone] PCP - General 01/26/22 Shelbi Miller MD [facility] [place] [facility] [place] [address] Internal Medicine 01/26/22 documented as of this encounter
--- OUTSIDE RECORDS SUMMARY | 2023-12-22 12:50 | XMS_ITS | Encounter Summary ---
Author Name Unknown Organization [facility] Address [address] [place] [address]. [place] [address] Care Team Providers Care Staff Therapist Name Role Phone Shelbi Miller MD Unavailable [phone] [facility] Primary Care Provider Encounter Details Date Type Department Care Team ([facility] Contact Info) Description 10/06/2023 Medical Correspondence [facility] [address] [place] [phone] Outside, Provider Social History Tobacco Use Types Packs/Day Years Used Date Smoking Tobacco: Never Assessed Adolescent Education Answer Date Record ed Getting School Help Needed Not on file 09/09 Sex and Gender Information Value Date Recorded Sex Assigned at Not on file Gender Identity Not on file Sexual Orientation Not on file documented as of this encounter Plan of Treatment Upcoming Encounters Date Type Department Care Team ([facility] Contact Info) Description 02/29/2024 2:00 PM CDT Office Visit [facility] [address] [place] [address] Ashleigh Corrales PA-C [address] [place], [place] [phone] documented as of this encounter Visit Diagnoses Not on filedocumented in this encounter Care Teams Staff Therapist Relationship Specialty Start Date End Date [facility], [facility] [address] [place], [place] [id number] PCP - General 01/26/22 Shelbi Miller MD [facility] [place] [facility] [place] [address] Internal Medicine 01/26/22 documented as of this encounter
--- OUTSIDE RECORDS SUMMARY | 2023-12-22 12:50 | XMS_ITS | Referral Summary ---
Author Name Unknown Organization [facility] Address [address] [place] [address]. [place] [address] Care Team Providers Care Bag Sewer Name Role Phone Shelbi Miller MD Unavailable [phone] Clinic, [facility] Primary Care Provider Encounters Date Type Department Care Team Description 10/07/2023 Transcribe Orders GENERIC EXTERNAL DATA DEPARTMENT Provider, Generic External Data Type 1 diabetes mellitus without complication (H) (Primary Dx) 10/06/2023 Medical Correspondence [facility] [address] [place] [phone] Outside, Provider from Last 3 Months Allergies Active Allergy Reactions Criticality Noted Date Comments Cortisone 03/07/2014 Other reaction(s): Other (see comments) high blood sugar with injectable Morphine Nausea and Vomiting 01/30/2014 Penicillins 01/30/2014 Other reaction(s): Other (see comments) Unknown reaction Medications Medication Sig Dispensed Refills Start Date End Date Status amLODIPine (NORVASC) 2.5 MG tablet Take 1 tablet (2.5 mg) by mouth daily 30 tablet 0 01/26/2022 Active Social History Tobacco Use Types Packs/Day Years [...] Comments Blood Pressure 151/78 01/26/2022 2:30 PM END FRAZER Pulse 97 01/26/2022 2:30 PM END FRAZER Temperature 36.9 ??C (98.5 ??F) 01/26/2022 10:[address] Respiratory Rate 16 01/26/2022 2:30 PM END FRAZER Oxygen Saturation 95% 01/26/2022 2:30 PM END FRAZER Inhaled Oxygen Concentration - - Weight - - Height - - Body Mass Index - - Plan of Treatment Upcoming Encounters Date Type Department Care Team (Late st Contact Info) Description 02/29/2024 2:00 PM CDT Office Visit [facility] [address] [place] [address] Ashleigh Corrales PA-C [address] [place] [address] Procedures Procedure Name Priority Date/Time Associated Diagnosis Comments LAB RESULT - HIM SCAN 09/25/2023 12:00 AM CDT from Last 3 Months Results * LAB RESULT - HIM SCAN (09/25/2023 12:00 AM CDT) 09/25/2023 Provider Outside NON-BEAKER LAB TE STING from Last 3 Months Care Teams Bag Sewer Relationship Specialty Start Date End Date Clinic, [facility] [address] [place] [address] PCP - General 01/26/22 Shelbi Miller MD [facility] [address] [place] [address] (work) Internal Medicine 01/26/22
--- OUTSIDE RECORDS SUMMARY | 2023-12-22 12:50 | XMS_ITS | Encounter Summary ---
Author Name Unknown Organization [facility] Address [facility] [place] [address] Care Team Providers Care Cloth Grader Name Role Phone Shelbi Miller MD Unavailable [phone] Clinic, [facility] Primary Care Provider Reason for Visit * Reason Onset Date Comments Results 02/01/2022 Encounter Details Date Type Department Care Team ([facility] st Contact Info) Description 02/01/2022 Telephone [facility] [address] [place] [phone] [phone] Michelle Galeana, RN Results Social History Tobacco Use Types Packs/Day Years [...] COVID-19? No / Unsure 01/26/2022 10:33 AM DARKLIGHT INSPECTOR documented as of this encounter Miscellaneous Notes * Telephone Encounter - Michelle Galeana RN - 02/01/2022 5:08 PM DARKLIGHT INSPECTOR [facility] Emergency Department/Urgent Care Lab result notification: Reason [...] 24 H ur/cr 0 - 300 ug/g PET CARETAKER 154 Normetanephrine 24 Hr/Random Urine 95 - 650 ug/d Not Applicable Normetaneph 24H ur/cr 0 - 400 ug/g PET CARETAKER 225 Metanephrine 24 Hr/Random Urine Interpretation See Note Creatinine Urine/Volume mg/dL 102 Creatinine Urine/24hr 500 - 1400 mg/d Not Applicable 5:09 Left voicemail message requesting a call back to [phone] between 9 a.m. and 5:30 p.m. for patient's ED/UC lab results. Michelle Galeana, [facility] Result RN [facility] Emergency Dept Lab Result RN LIGHT INSPECTOR documented in this encounter Plan of Treatment Upcoming Encounters Date Type Department Care Team (Late st Contact Info) Description 02/29/2024 2:00 PM CDT Office Visit [facility] [address] [facility] [address] [place] [address] Ashleigh Corrales PA-C [address] [place] [address] documented as of this encounter Visit Diagnoses Not on filedocumented in this encounter Care Teams Cloth Grader Relationship Specialty Start Date End Date Clinic, [facility] [address] [place] [address] PCP - General 01/26/22 Shelbi Miller MD [facility] [address] [place] [address] Internal Medicine 01/26/22 documented as of this encounter
--- OUTSIDE RECORDS SUMMARY | 2023-12-22 12:50 | XMS_ITS | Encounter Summary ---
Author Name Unknown Organization [facility] Address [address] [place] [address]. [place] [address] Care Team Providers Care Prescription Clerk Name Role Phone Shelbi Miller MD Unavailable [phone] Clinic, [facility] Primary Care Provider Reason for Referral * Consultation (Routine) - Pending Review Specialty Diagnoses / Procedures Referred By Karen king Referred To Contact Endocrinology, Diabetes, and Metabolism Diagnoses Type 1 diabetes mellitus without complication (H) Shelbi Miller MD [facility] [address] [place] [address] Referral ID Status Reason Start Date Expiration Date V isits Requested Visits Authorized [id number] Pending Review 10/07/2023 10/06/2024 1 1 Question Answer Reason for Referral: Diabetes Scheduling Instructions: [employer] will call you to coordinate your care as prescribed by the provider. If you don? t hear from a dairy supplies sales representative within 2 business days, please call [phone]. Comments Referred by: Shelbi Miller MD [facility] [address] [place] [address] Please be aware that coverage of these services is subject to the terms and limitations of your health insurance plan. Call member services at your health plan with any benefit or coverage questions. [employer] will call you to coordinate your care as prescribed by the provider. If you don? t hear from a dairy supplies sales representative within 2 business days, please call [phone]. NG DOUBLE Encounter Details Date Type Department Care Team (Late st Contact Info) Description 10/07/2023 Transcribe Orders GENERIC EXTERNAL DATA DEPARTMENT Provider, Generic External Data Type 1 diabetes mellitus without complication (H) (Primary Dx) Social History Tobacco Use Types Packs/Day Years [...] Description 02/29/2024 2:00 PM CDT Office Visit [facility] [address] [facility] [address] [place] [address] Ashleigh Corrales PA-C [address] [place], [place] [address] Scheduled Referrals Name Type Priority Associated Diagnoses Orde r Schedule Adult Endocrinology Environmental Education Specialist Referral Referral Routine Type 1 diabetes mellitus without complication (H) Expected: 11/06/2023 (Approximate), Expires: 10/07/2024 documented as of this encounter Visit Diagnoses Diagnosis Type 1 diabetes mellitus without complication (H)- Primary Type I (juvenile type) diabetes mellitus without mention of complication, not stated as uncontrolled documented in this encounter Care Teams Prescription Clerk Relationship Specialty Start Date End Date [facility], [facility] [address] [place] [address] PCP - General 01/26/22 Shelbi Miller MD [facility] [address] [place] [address] Internal Medicine 01/26/22 documented as of this encounter
[2023-12-22 13:50] VITALS: BP 149/78; PULSE 86
--- NOTE | 2023-12-22 14:24 | PM.ST ---
Stress Test Note Date Date of test: 12/22/23 Providers Primary care provider: Shelbi Miller Stress test physician: Linwood Mead Stress Test Note Stress test ordered: Stress Echo Indication for test: Chest pain Results discussion: Patient is a very nice 58-year-old female who suffers from rheumatoid arthritis who presents for the above test after discussion the risks benefits and side effects of the initial order the dobutamine echo, she would like it changed to a stress echo, she feels she could walk. I we explained to her exactly what this was and she would like to go through with that, which I do not think is a bad idea. Cardiac stress test medical history form is reviewed. Standard [facility]es protocol is used. Pretest EKG shows some diffuse ST wave changes, standard stress echo protocol is used over a time course of 6 minutes 16 seconds, with a metabolic equivalent of 7.5 Mets. Her maximum heart rate was 152. With 110% of the target. Test was positive with inducement of greater than [address] wave depression noted inferiorly, and 1.5 mm laterally from V4 through V6. There is also some ectopy noted, did have excessive hypertensive response to exercise. Impression: Positive stress test with inducement of inferior lateral changes. These resolved during recovery, and she did not have any chest pain. Follow up suggested: Await echo read, clinical correlation with this will be needed. Patient exercised to a fairly high level and obtained target heart rate. Conditioning was felt to be good. Patient recovered fully, was pain-free and left this testing facility in excellent condition
== END 2023-12-22 12:48 | disposition home or self-care (01) ==
LOC: STRESS 12:47
PROVIDERS: PCP Internal Medicine; Visit Provider Family Medicine
DX: R07.89 Other chest pain (principal)
CPT/HCPCS: 93016; 93325; 93351

== ENCOUNTER 2024-05-25 16:52 | Outpatient (REF) | payer BC, SELFPAY ==
--- OUTSIDE RECORDS SUMMARY | 2024-05-25 16:55 | XMS_ITS | Clinical Summary ---
Author Organization [place] Address [address] [place] [address] Care Team Providers Care Dental Equipment Technician Name Role Phone Shelbi Miller MD Unavailable [phone] [facility], [facility] Primary Care Provider Milka Rick RN Unavailable Unavailable Ashleigh Corrales PA-C Unavailable Allergies Active Allergy Reactions Criticality Noted Date Comments Cephalosporins Other (See Comments),Rash Low 08/14/2022 Cortisone 03/07/2014 Other reaction(s): Other (see comments) high blood sugar with injectable Morphine Nausea and Vomiting 01/30/2014 Penicillins 01/30/2014 Other reaction(s): Other (see comments) Unknown reaction Medications Medication Sig Dispensed Refills Start Date End Date Status NOVOLOG FLEXPEN 100 UNIT/ML soln Active LACTOBACILLUS PO Take 1 Dose by mouth Active cholecalciferol (VITAMIN D3) 25 mcg (1000 units) capsule Take 1,000 Units by mouth 05/27/2022 Active B-D U/F insulin pen needle USE FOUR TIMES A DAY 02/15/2024 Acti ve B-D LUER-THAI SYRINGE 25G X 1 3 ML MISC DISPENSE 10 SYRINGES WITH EACH 10ML METHOTREXATE DISPENSED 02/24/2024 Active Continuous Blood Gluc Database Marketing Specialist (DEXCOM G6 CENTRIFUGAL CASTING MACHINE OPERATOR) MARCO See Admin Instructions 03/26/2023 Active Continuous Blood Gluc Sensor (DEXCOM G6 SENSOR) MISC See Admin Instructions 02/18/2024 Active Continuous Blood Gluc Transmit (DEXCOM G6 TRANSMITTER) MISC DIRECTED [id number] 01/21/2024 Active estradiol (ESTRACE) 0.1 MG/GM vaginal cream INSERT 0.5MG VAGINALLY TWICE WEEKLY. 12/02/2023 Active INSULIN GLARGINE 100 UNIT/ML pen Active ONETOUCH VERIO IQ test strip USE TO TEST FOUR TIMES A DAY. Active methotrexate 50 MG/2ML injection INJECT 0.5 ML (12.5 MG TOTAL) UNDER THE SKIN ONCE A WEEK. 02/25/2024 Active B Complex Vitamins (VITAMIN B COMPLEX PO) Take 1 capsule by mouth daily 10/07/2022 Active folic acid (FOLVITE) 1 MG tablet Take 1 mg by mouth 02/10/2023 Active B-D LUER-THAI SYRINGE 25G X 5/8 3 ML [facility] DISPENSE 10 SYRINGES WITH EACH 10ML METHOTREXATE DISPENSED 08/15/2023 Active fish oil-omega-3 fatty acids 500 MG capsule Take 1,000 mg by mouth daily Active lisinopril (ZESTRIL) 5 MG tablet Take 1 tablet by mouth daily 10/27/2023 Active lidocaine (XYLOCAINE) 5 % external ointment APPLY TO AFFECTED AREA TOPICALLY TO SKIN 20 MINUTES PRIOR TWICE A DAY NEEDED FOR PAIN. 12/30/2023 Active insulin aspart (NOVOLOG VIAL) 100 UNITS/ML vialIndications:Typ e 1 diabetes mellitus (H) Uses up to 30 units per day in insulin pump for basal, bolus, and priming of insulin pump tubing. 30 mL 1 05/09/2024 Active Active Problems Problem Noted Date Diagnosed Date Adrenal mass (H24) 02/29/2024 Closed fracture of neck of left femur 02/29/2024 Diabetic retinopathy 02/29/2024 Essential hypertension 02/29/2024 Menopausal hot flushes 02/29/2024 Rheumatoid arthritis 08/04/2007 Type 1 diabetes mellitus 10/17/2002 Encounters Date Type Department Care Team Description 05/06/2024 My[facility] Medical Advice [address] [place] [phone] Milka Rick RN Type 1 diabetes mellitus (H) (Primary Dx) 04/12/2024 1:00 PM CDT Allied Health/Nurse Visit [address] [place] [phone] Milka Rick tobacco weigher Education (Pre Pump #1) 04/12/2024 MyC Medical Advice [facility] [address] [place] [phone] Milka Rick RN 04/12/2024 Travel 04/06/2024 MyC Medical Advice [facility] [address] [place] [phone] Milka Rick RN 04/05/2024 Travel 03/03/2024 8:00 AM CDT Virtual Visit [facility] [id number] [place] [address] [address] [place] [phone] Milka Rick RN Type 1 diabetes mellitus without complication (H) 02/29/2024 2:00 PM CDT Office Visit [facility] [address] [place] [address] Ashleigh Corrales PA-C Essential hypertension (Primary Dx); Type 1 diabetes mellitus without complication (H) 02/29/2024 Travel from Last 3 Months Immunizations Name Administration Dates Next Due COVID-19 Monovalent 18+ (Moderna) 09/29/2022 Influenza Vaccine 18-64 (Flublok) 08/27/2020,08/2020 Influenza Vaccine >6 months,quad, PF 08/27/2020, 12/02/2019 Pneumococcal 23 valent 12/07/1995 TDAP (Adacel,Boostrix) 07/19/2020 Td (Adult), Adsorbed 12/07/1995 Social History Tobacco Use Types Packs/Day Years Used Date Smoking Tobacco: Never Smokeless Tobacco: Never Tobacco Cessation:Counseling Given: Not Answered Alcohol Use Standard Drinks/Week Comments Not Currently 0 (1 standard drink = 0.6 oz pur e alcohol) PHQ-2 Answer Date Recorded PHQ-2 Score 0 03/03/2024 Adolescent Education Answer Date Record ed Getting School Help Needed Not on file 09/09 Sex and Gender Information Value Date Recorded Sex Assigned at Female 02/22/2024 9:44 PM CDT Gender Identity Female 02/22/2024 9:44 PM CDT Sexual Orientation Straight 02/22/2024 9: 44 PM CDT Last Filed Vital Signs Vital Sign Reading Time Taken Comments Blood Pressure 142/66 02/29/2024 2:45 PM CDT Pulse 66 02/29/2024 1:55 PM CDT Temperature 37 ??C (98.6 ??F) 02/29/2024 1:55 PM CDT Respiratory Rate 16 02/29/2024 1:55 PM CDT Oxygen Saturation 99% 02/29/2024 1:55 PM CDT Inhaled Oxygen Concentration - - Weight 64.4 kg (142 lb) 03/03/2024 7:54 AM CDT Height 175.3 cm (5' 9) 02/29/2024 1:55 PM CDT Body Mass Index 20.97 02/29/2024 1:55 PM CDT Plan of Treatment Upcoming Encounters Date Type Department Care Team (Late st Contact Info) Description 06/13/2024 2:00 PM CDT Virtual Visit [address] [place] [address] Milka Rick RN 07/11/2024 3:00 PM CDT Virtual Visit [facility] [address] [facility] [address] [place] [address] Ashleigh Corrales PA-C [address] [place] [address] Health Maintenance Due Date Last Done Comments ADVANCE CARE PLANNING 1964 ANNUAL REVIEW OF HM ORDERS 1964 CT COLONOGRAPHY 1964 FIT 1964 FLEX SIG 1964 LIPID 1964 MAMMO SCREENING 1964 YEARLY PREVENTIVE VISIT 1964 COLONOSCOPY 1974 HIV SCREENING 1979 HEPATITIS C SCREENING 1982 HEPATITIS B IMMUNIZATION (1 of 3 - 19+ 3-dose series) 1983 ZOSTER IMMUNIZATION (1 of 2) 1983 Pneumococcal Vaccine: Pediatrics (0 to 5 Years) and At-Risk Patients (6 to 64 Years) (2 of 2 - PCV) 12/07/1996 12/07/1995 MICROALBUMIN 03/01/2010 03/01/2009 COVID-19 Vaccine ( season) 2023 09/29/2022, 07/17/2021, 03/01/2021, Additional history exists A1C 05/30/2024 02/29/2024 INFLUENZA VACCINE (#1) 2024 , 08/27/2020, 12/02/2019, Additional history exists COLORECTAL CANCER SCREENING 09/10/2024 sDNA (Cologuard) 09/10/2024 09/10/2021 EYE EXAM 12/06/2024 12/06/2023 BMP 02/28/2025 02/29/2024, 01/26/2022 DIABETIC FOOT EXAM 02/28/2025 02/29/2024 PAP 06/13/2025 06/13/2022 DTAP/TDAP/TD IMMUNIZATION (2 - Td or Tdap) 07/19/2030 07/19/2020, 12/07/1995 PHQ-2 (once per calendar year) Completed 03/03/2024 HPV IMMUNIZATION Aged Out No longer e [...] Procedure Name Priority Date/Time Associated Diagnosis Comments TSH Routine 02/29/2024 3:02 PM CDT Type 1 diabetes mellitus without complication (H) HEMOGLOBIN A1C Routine 02/29/2024 3:02 PM CDT Type 1 diabetes mellitus without complication (H) BASIC METABOLIC PANEL Routine 02/29/2024 3:02 PM CDT Type 1 diabetes mellitus without complication (H) EYE EXAM - HIM SCAN Routine 12/06/2023 MICROALBUMIN RANDOM URINE Routine 03/01/2009 1:55 PM CDT from Last 3 Months or Most Recently Relevant to Health Maintenance Results * TSH (02/29/2024 3:02 PM CDT) TSH 1.77 0.30 - 4.20 uIU/mL 03/01/2024 8:59 AM CDT [facility] Blood BLOOD SPECIMEN / Unknown Venipuncture / Unknown 02/29/2024 3:02 PM CDT 02/29/2024 3:02 PM CDT Ashleigh Corrales PA-C LAB - BLOOD ORDERABL ES [facility] [place] [facility] [address] [facility], [address] [place] [address] * (ABNORMAL) Hemoglobin A1c (02/29/2024 3:02 PM CDT) Hemoglobin A1C 7.9(H) 0.0 - 5.6 % 02/29/2024 3:18 PM CDT [facility] Comment: Normal <5.7% Prediabetes 5.7-6.4% ?? Diabetes 6.5% or higher Note: Adopted from ADA consensus guidelines. Blood BLOOD SPECIMEN / Unknown Venipuncture / Unknown 02/29/2024 3:02 PM CDT 02/29/2024 3:02 PM CDT Ashleigh Corrales PA-C LAB - BLOOD ORDERABL ES [facility] [address] [facility], [address] [place] [address], [facility] [phone] * (ABNORMAL) Basic metabolic panel (Ca, Cl, CO2, Creat, Gluc, K, Na, BUN) (02/29/2024 3:02 PM CDT) Sodium 138 135 - 145 mmol/L 03/01/2024 8:59 AM CDT [facility] Comment:Reference intervals for this test were updated on 08/18/2023 to more accurately reflect our healthy population. There may be differences in the flagging of prior results with similar values performed with this method. Interpretation of those prior results can be made in the context of the updated reference intervals. Potassium 4.1 3.4 - 5.3 mmol/L 03/01/2024 8:59 AM CDT [facility] Chloride 102 98 - 107 mmol/L 03/01/2024 8:59 AM CDT [facility] Carbon Dioxide (CO2) 25 22 - 29 mmol/L 03/01/2024 8:59 AM CDT [facility] Anion Gap 11 7 - 15 mmol/L 03/01/2024 8:59 AM CDT [facility] Urea Nitrogen 18.1 8.0 - 23.0 mg/dL 03/01/2024 8:59 AM CDT [facility] Creatinine 0.58 0.51 - 0.95 mg/dL 03/01/2024 8:59 AM CDT [facility] GFR Estimate >90 >60 mL/min/1. 73m2 03/01/2024 8:59 AM CDT [facility] Calcium 10.0 8.6 - 10.0 mg/dL 03/01/2024 8:59 AM CDT [facility] Glucose 209(H) 70 - 99 mg/dL 03/01/2024 8:59 AM CDT [facility] Blood BLOOD SPECIMEN / Unknown Venipuncture / Unknown 02/29/2024 3:02 PM CDT 02/29/2024 3:02 PM CDT Ashleigh Corrales PA-C LAB - BLOOD ORDERABL ES [facility] [place] [facility] [address] [facility] [place] [address] * Eye Exam - HIM Scan (12/06/2023) RETINOPATHY UNKNOWN Narrative Yanelis Izaguirre - 12/06/2023 Lala Ibarra CMA ??P Abstract Quality Initiatives Please abstract the following data from this visit with this patient into the appropriate field in Epic: Tests that can be patient reported without a hard copy: Eye exam with ophthalmology on this date: 12/06/23 Exam Location: [facility] Patient Reported OTHER * Microalbumin random urine (03/01/2009 1:55 PM CDT) Albumin Urine mg/L 7 mg/L MISYS Albumin Urine mg/g Cr 7.00 0 - 20 mg/g Cr MISYS 03/01/2009 1:55 PM CDT 03/01/2009 1:57 PM CDT Colleen Randhawa PA-C LAB - URINE OR DERABLES MISYS from Last 3 Months or Most Recently Relevant to Health Maintenance Care Teams Dental Equipment Technician Relationship Specialty Start Date End Date [facility], [facility] [address] [place] [address] PCP - General 01/26/22 Shelbi Miller MD [facility] [address] [place] [address] Internal Medicine 01/26/22 Milka Rick RN Diabetes Educator Diabetes Education 03/03/24 Ashleigh Corrales PA-C [address] [place] [address] Assigned Endocrinology Provider 03/15/24
--- OUTSIDE RECORDS SUMMARY | 2024-05-25 16:55 | XMS_ITS | Encounter Summary ---
Author Organization [place] Address [address] [place] [address] Care Team Providers Care Car Rental Clerk Name Role Phone Shelbi Miller MD Unavailable Clinic, [facility] Primary Care Provider Milka Rick RN Unavailable Unavailable Ashleigh Corrales PA-C Unavailable Encounter Details Date Type Department Care Team (Late st Contact Info) Description 04/12/2024 [facility] Medical Advice [address] [place] [address] Milka Rick RN Social History Tobacco Use Types Packs/Day Years Used Date Smoking Tobacco: Never Smokeless Tobacco: Never Alcohol Use Standard Drinks/Week Comments Not Currently [...] Orientation Straight 02/22/2024 9: 44 PM CDT documented as of this encounter Miscellaneous Notes * Telephone Encounter - Milka Rick RN - 04/22/2024 3:38 PM CDT Pump orders signed and faxed to [employer]. Milka Rick RN, [facility] Diabetes Education Department [facility] [phone] * Telephone Encounter - Milka Rick RN - 04/21/2024 2:27 PM CDT Contacted patient. Discussed/Reviewed: *Treating highs, troubleshooting *Treating lows; Dexcom G6 Noemi along with pump *Phone is compatible with iLet Noemi *Algorithm *Ordering process (DME) *Plan will be to take Basaglar morning of training *Training tentatively scheduled for 06/13 Milka Rick RN, [facility] Diabetes Education Department [facility] [phone] documented in this encounter Plan of Treatment Upcoming Encounters Date Type Department Care Team (Late st Contact Info) Description 06/13/2024 2:00 PM CDT Virtual Visit [facility] [address] [place] [address] [address] [place] [address] Milka Rick RN 07/11/2024 3:00 PM CDT Virtual Visit [facility] [address] [place] [address] Ashleigh Corrales PA-C [address] [place], [place] [address] documented as of this encounter Visit Diagnoses Not on filedocumented in this encounter Care Teams Car Rental Clerk Relationship Specialty Start Date End Date Clinic, [facility] [address] [place] [address] PCP - General 01/26/22 Shelbi Miller MD [facility] [address] [place] [address] Internal Medicine 01/26/22 Milka Rick, stamping die maker Diabetes Education 03/03/24 Ashleigh Corrales PA-C [address] [place] [address] Assigned Endocrinology Provider 03/15/24 documented as of this encounter
--- OUTSIDE RECORDS SUMMARY | 2024-05-25 16:55 | XMS_ITS | Encounter Summary ---
Author Organization [place] Address [address] [place] [address] Care Team Providers Care Supervisor Keymodule Assembly Name Role Phone Shelbi Miller MD Unavailable [phone] [facility], [facility] Primary Care Provider Milka Rick RN Unavailable Unavailable Ashleigh Corrales PA-C Unavailable Encounter Details Date Type Department Care Team (Late Contact Info) Description 04/06/2024 MyC Medical Advice [address] [place] [phone] Milka Rick RN Social History Tobacco Use [...] PM CDT documented as of this encounter Plan of Treatment Upcoming Encounters Date Type Department Care Team (Late Contact Info) Description 06/13/2024 2:00 PM CDT Virtual Visit [facility] [id number] [place] [address] [address] [place] [phone] Milka Rick RN 07/11/2024 3:00 PM CDT Virtual Visit [facility] [address] [place] [address] Ashleigh Corrales PA-C [address] [place] [address] documented as of this encounter Visit Diagnoses Not on filedocumented in this encounter Care Teams Supervisor Keymodule Assembly Relationship Specialty Start Date End Date Clinic, [facility] [address] [place] [address] PCP - General 01/26/22 Shelbi Miller MD [facility] [address] [place] [address] Internal Medicine 01/26/[address] superintendent Diabetes Education 03/03/24 Ashleigh Corrales PA-C [address] [place] [address] Assigned Endocrinology Provider 03/15/24 documented as of this encounter
--- OUTSIDE RECORDS SUMMARY | 2024-05-25 16:55 | XMS_ITS | Encounter Summary ---
Author Organization [place] Address [address] [place] [address] Care Team Providers Care Diamond Driller Name Role Phone Shelbi Miller MD Unavailable [phone] [facility] Primary Care Provider Milka Rick RN Unavailable Unavailable Ashleigh Corrales PA-C Unavailable Encounter Details Date Type Department Care Team (Late Contact Info) Description 05/06/2024 MyC Medical Advice [address] [place] [address] Milka Rick RN Type 1 diabetes mellitus (H) (Primary Dx) Social History Tobacco Use [...] Description 06/13/2024 2:00 PM CDT Virtual Visit [address] [place] [address] Milka Rick RN 07/11/2024 3:00 PM CDT Virtual Visit [facility] [address] [place] [address] Ashleigh Corrales PA-C [address] [place] [address] documented as of this encounter Visit Diagnoses Diagnosis Type 1 diabetes mellitus (H)- Primary Type I (juvenile type) diabetes mellitus without mention of complication, not stated as uncontrolled documented in this encounter Care Teams Diamond Driller Relationship Specialty Start Date End Date [facility], [facility] [address] [place] [address] PCP - General 01/26/[address] [facility] [address] [place] [address] Internal Medicine 01/26/22 Milka Rick, customer operations manager Diabetes Education 03/03/24 Ashleigh Corrales PA-C [address] [place] [address] Assigned Endocrinology Provider 03/15/24 documented as of this encounter
--- OUTSIDE RECORDS SUMMARY | 2024-05-25 16:55 | XMS_ITS ---
Author Organization [place] Address [address] [place] [address] Care Team Providers Care Reserve Operator Name Role Phone Shelbi Miller MD Unavailable [phone] [facility] Primary Care Provider Milka Rick RN Unavailable Unavailable Ashleigh Corrales PA-C Unavailable Diabetes Self-Management Education Status:Identified (Enrolling) Start date:03/01/2024 Continued Care and Services Coordination
--- OUTSIDE RECORDS SUMMARY | 2024-05-25 16:55 | XMS_ITS | Encounter Summary ---
Author Organization [place] Address [address] [place] [address] Care Team Providers Care Classroom Paraprofessional Name Role Phone Shelbi Miller MD Unavailable [phone] [facility] Primary Care Provider Milka Rick RN Unavailable Unavailable Ashleigh Corrales PA-C Unavailable Encounter Details Date Type Department Care Team (Latest Contact Info) Description 04/12/2024 Travel Social History Tobacco Use Types Packs/Day [...] Description 06/13/2024 2:00 PM CDT Virtual Visit [address] [place] [address] Milka Rick RN 07/11/2024 3:00 PM CDT Virtual Visit [facility] [address] [place] [phone] Ashleigh Corrales PA-C [address] [place], [place] [address] documented as of this encounter Visit Diagnoses Not on filedocumented in this encounter Care Teams Classroom Paraprofessional Relationship Specialty Start Date End Date Clinic, [facility] [address] [place] [address] PCP - General 01/26/[address] [facility] [address] [place] [address] Internal Medicine 01/26/22 Milka Rick clinical trials nurse Diabetes Education 03/03/24 Ashleigh Corrales PA-C [address] [place] [address] Assigned Endocrinology Provider 03/15/24 documented as of this encounter
--- OUTSIDE RECORDS SUMMARY | 2024-05-25 16:55 | XMS_ITS | Encounter Summary ---
Author Organization [place] Address [address] [place] [address] Care Team Providers Care Surgeon'S Assistant Name Role Phone Shelbi Miller MD Unavailable [phone] Clinic, [facility] Primary Care Provider Milka Rick RN Unavailable Unavailable Reason for Visit * Reason Comments Video Visit Diabetes Education * Consultation (Routine: Next available opening) - Pending Review Specialty Diagnoses / Procedures Referred By Karen king Referred To Contact Diabetes Education Diagnoses Type 1 diabetes mellitus without complication (H) Ashleigh Corrales PA-C [address] [place] [address] Referral ID Status Reason Start Date Expiration Date V isits Requested Visits Authorized [id number] Pending Review 02/29/2024 02/28/2025 1 1 Encounter Details Date Type Department Care Team ([facility] Contact Info) Description 03/03/2024 8:00 AM CDT Virtual Visit [address] [place] [address] Milka Rick RN Type 1 diabetes mellitus without complication (H) Social History Tobacco Use Types Packs/Day Years [...] PM CDT documented as of this encounter Last Filed Vital Signs Vital Sign Reading Time Taken Comments Blood Pressure - - Pulse - - Temperature - - Respiratory Rate - - Oxygen Saturation - - Inhaled Oxygen Concentration - - Weight 64.4 kg (142 lb) 03/03/2024 7:54 AM CDT Height - - Body Mass Index 20.97 02/29/2024 1:55 PM CDT documented in this encounter Patient Instructions * Patient Instructions* Milka Rick RN - 03/03/2024 8:00 AM CDT PLAN: *Continue Basaglar 22 units *Novolog carb ratio 1 unit per 15 grams, 10 minutes before meal *Add Novolog correction scale of 1 unit per 50>150 with meal dose 150-200, add 1 unit 201-250, add 2 units 251-300, add 3 units 301-350, add 4 units *Aim for 30 grams of complex carbs per meal, 15-30 grams for snacks *Set up My Chart FOLLOW-UP: *04/12 at 1pm with Milka in [place] Milka Rick RN, [facility] Diabetes Education Department [facility] [place] [phone] documented in this encounter Progress Notes * Milka Rick RN - 03/03/2024 8:00 AM CDT Virtual Visit Details Type of service: Video Visit Originating Location (pt. 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 David 22 units in AM Novolog ICR 1:10-1:30 depending on glucose, no sliding scale. Total Novolog Daily Dose=8 units Monitoring Patient glucose self monitoring as follows: continuously using a continuous glucose monitor (CGM) BG meter: Dexcom G6 CGM CGM: Dexcom G6 BG results: Unavailable-bar host/hostess. Last download done at [place] Patient's most recent Lab Results Component Value Date A1C 7.9 02/29/2024 Patient's A1C goal: <7.0 Activity: no regular exercise program, active at work Healthy Eating: Patient currently eats 3 meals, 1-2 snacks per day. Gluten, dairy free Breakfast 8:30am : 1-2 slices of toast with peanut butter, tea Lunch 12:30-1:30pm: Salad with peppers, cucumbers, zuchinni, goat cheese, pecans, dressing, egg, 20gram CHO-pretzels Dinner 6pm: Chicken nuggets, meatloaf, chicken, rice, vegetable: carrots, cucumbers Snack: Cake without frosting (20-30 gram), dark chocolate, peanuts/cashews Carbonated water, water, tea-decaf Problem Solving: Patient is at risk of hypoglycemia?: Frequency is one to two times per month, feels when dropping, arms/legs sensation, if dropping fast; treats with maple syrup, glucose tabs Hospitalizations for hyper or hypoglycemia: No Healthy Coping and Stress Management: Sources of stress identified by patient: Other (please specify): Not assessed Coping mechanisms identified by patient: Other (please specify): Not assessed EDUCATION and INSTRUCTION PROVIDED AT THIS VISIT: T1DM diagnosed in 1986 by PCP, was started on insulin shortly after by ER physician seen to discussIn Pen at the request of Ashleigh Corrales. Recent A1C=7.9. C- Peptide in 2008=0.3. Martine follows low CHO diet. Bases Novolog doses and when to take it on SG. She will eat meal, wait for number to rise, andthen take insulin; sometimes 45 minutes after eating. Recently using ICR 1:15, no correction scale.Will take 1-2 units 2.5 hours after meal if number is >250. Dexcom bar host/hostess was downloaded last week at [place] location, unfortunately not able to see data. Overview at 02/28 visit TIR 37%, TAR >180 48%, TAR >250 15%, with no lows. Average glucose 198. Discussed In Pen, briefly discussedpump therapy. She would like to work on changes made today before starting In Pen. No change to Basalgar. Based on TDD use ICR 1:15 with standard correction. Follow up in one month. Topics Reviewed: TIR/BG Goals Insulin; onset/peak/duration Complications from chronic high blood sugars 15-15 rule Patient-stated goal written and given to Martine De Oliveira. Verbalized and demonstrated understanding of instructions. See patient instructions AVS printed and given to patient-mail to patient PLAN: *Continue Basaglar 22 units *Novolog carb ratio 1 unit per 15 grams, 10 minutes before meal *Add Novolog correction scale of 1 unit per 50>150 with meal dose 150-200, add 1 unit 201-250, add 2 units 251-300, add 3 units 301-350, add 4 units *Aim for 30 grams of complex carbs per meal, 15-30 grams for snacks *Set up My Chart FOLLOW-UP: *04/12 at 1pm with Milka in [place] Time spent with patient at today's visit was 73 minutes. Milka Rick RN, [facility] Diabetes Education Department [facility] [phone] Any diabetes medication dose changes were made via the CDE Protocol and Collaborative Practice Agreement with [place] and [facility]. A copy of this encounter was provided to patient's referring provider. documented in this encounter Nursing Notes * Vianey Mathew - 03/03/2024 8:00 AM CDT Is the patient currently in the state of [place]? YES Visit mode:VIDEO If the visit is dropped, the patient can be reconnected by: VIDEO VISIT: Text to cell phone: Telephone Information: Will anyone else be joining the visit? NO (If patient encounters technical issues they should call [phone] :[phone]) How would you like to obtain your AVS? MyChart Are changes needed to the allergy or medication list? No Are refills needed on medications prescribed by this physician? YES Reason for visit: RECHECK and Video Visit Vianey Mathew VVF documented in this encounter Plan of Treatment Upcoming Encounters Date Type Department Care Team (Late st Contact Info) Description 06/13/2024 2:00 PM CDT Virtual Visit [facility] [address] [address] [address] [place] [address] Milka Rick, RN 07/11/2024 3:00 PM CDT Virtual Visit [facility] [address] [place] [phone] Ashleigh Corrales PA-C [address] [place], [place] [id number] documented as of this encounter Visit Diagnoses Diagnosis Type 1 diabetes mellitus without complication (H) Type I (juvenile type) diabetes mellitus without mention of complication, not stated as uncontrolled documented in this encounter Care Teams Surgeon'S Assistant Relationship Specialty Start Date End Date [facility] [address] [place] [address] PCP - General 01/26/22 Shelbi Miller MD [facility] [address] [place] [address] Internal Medicine 01/26/22 Milka Rick, buttermaker continuous churn Diabetes Education 03/03/24 documented as of this encounter
--- OUTSIDE RECORDS SUMMARY | 2024-05-25 16:55 | XMS_ITS | Encounter Summary ---
Author Organization [place] Address [address] [place] [address] Care Team Providers Care Lens Polisher Name Role Phone Shelbi Miller MD Unavailable [phone] [facility], [facility] Primary Care Provider Encounter Details Date Type Department Care Team (Latest Contact Info) Description 02/22/2024 Travel Social History Tobacco Use Types Packs/Day [...] Description 06/13/2024 2:00 PM CDT Virtual Visit [address] [place] [address] Milka Rick RN 07/11/2024 3:00 PM CDT Virtual Visit [facility] [address] [place] [address] Ashleigh Corrales PA-C [address] [place] [id number] documented as of this encounter Visit Diagnoses Not on filedocumented in this encounter Care Teams Lens Polisher Relationship Specialty Start Date End Date Clinic, [facility] [address] [place] [address] PCP - General 01/26/22 Shelbi Miller MD [facility] [address] [place] [address] Internal Medicine 01/26/22 documented as of this encounter
--- OUTSIDE RECORDS SUMMARY | 2024-05-25 16:55 | XMS_ITS | Encounter Summary ---
Author Organization [place] Address [address] [place] [address] Care Team Providers Care Inorganic Chemist Name Role Phone Shelbi Miller MD Unavailable [facility], [facility] Primary Care Provider Milka Rick RN Unavailable Unavailable Ashleigh Corrales PA-C Unavailable Reason for Visit * Reason Comments Diabetes Education Pre Pump #1 Encounter Details Date Type Department Care Team (Late st Contact Info) Description 04/12/2024 1:00 PM CDT Allied Health/Nurse Visit [address] [place] [address] Milka Rick, induction coordination power engineer Education (Pre Pump #1) Social History Tobacco Use Types Packs/Day Years [...] PM CDT documented as of this encounter Patient Instructions * Patient Instructions* Milka Rick RN - 04/12/2024 1:00 PM CDT PLAN: *No changes to insulin doses *Pumps discussed: Beta Bionics iLet pump. Integrated with Dexcom G6 and Dexcom G7 sensor. Adjusts basal, correction, and meals Tandem Control IQ/Mobi. Integrated with Dexcom G6, Dexcom G7, and Kelvin 2 plus. Adjusts basal and auto correction of 60% if >180 every hour until back in range Medtronic 780 pump with Guardian 4 sensor. Adjusts basal and auto corrections every 5 minutes of 100% every 5 minutes until back in range Omnipod 5 pump with Dexcom G6. ONLY tubeless system available. Adjusts basal rate only. *The first three pumps would be a 4 year warranty. *I would want to have a quick phone conversation before ordering pump FOLLOW-UP: TBD documented in this encounter Progress Notes * Milka Rick RN - 04/12/2024 1:00 PM CDT Images from the original note were not included. 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 Basaglar 23 units in AM Novolog ICR 1:10-1:30 depending on glucose, no sliding scale. Total Novolog Daily Dose=8 units Monitoring Patient glucose self monitoring as follows: continuously using a continuous glucose monitor (CGM) BG meter: Dexcom G6 CGM CGM: Dexcom G6 via reader BG results: Patient's most recent Lab Results Component Value [...] patient: Other (please specify): Not assessed EDUCATION PROVIDED TODAY Explained the way an insulin pump works, in terms that described the function of a basal rate and abolus calculator. Demonstrated the operation of the main pumps on the market right now: Omnipod 5, Tandem t:slim X2 and Mobi with Control-IQ, Doocumentss iLet, and Medtronic MiniMed 780G. Explained the unique features of each pump. Explained that having a pump does not take the place of checking his blood glucoses, counting carbs, or remembering to push the button to deliver the bolus. Described how the insulin delivers insulin through a cannula inserted under the skin and attached to the pump itself, or in the case of Omnipod, controlled wirelessly via blue tooth pairing with the Personal Managed Care Liaison (PDM) / Controller. Reviewed some of the increased risks associated with using a pump, i.e. DKA, especially if not checking BG at least 3-4 times daily or using a continuous glucose monitor (CGM). Explained in general terms the costs associated with using an insulin pump, including the disposables and insulin. Explained the process for obtaining a pump: Approval by diabetes management team, application to the pump company, approval by insurance company, and necessary pre-training, and post-pump follow-up. Explained the need to follow up on a regular basis with diabetes care team in order to continue to have insulin pumping supplies approved by insurance. Briefly discussed troubleshooting Briefly discussed In Pen Of note: Finish assessment before starting pump Patient-stated goal written and given to Martine De Oliveira. Verbalized and demonstrated understanding of instructions. See patient instructions AVS printed and given to patient-via My Chart PLAN: *No changes to insulin doses *Pumps discussed: Beta Bionics iLet pump. Integrated with Dexcom G6 and Dexcom G7 sensor. Adjusts basal, correction, and meals Tandem Control IQ/Mobi. Integrated with Dexcom G6, Dexcom G7, and Kelvin 2 plus. Adjusts basal and auto correction of 60% if >180 every hour until back in range Medtronic 780 pump with Guardian 4 sensor. Adjusts basal and auto corrections every 5 minutes of 100% every 5 minutes until back in range Omnipod 5 pump with Dexcom G6. ONLY tubeless system available. Adjusts basal rate only. *The first three pumps would be a 4 year warranty. *I would want to have a quick phone conversation before ordering pump FOLLOW-UP: TBD Time spent with patient at today's visit was 70 minutes. Milka Rick RN, [facility] Diabetes Education Department [facility] [phone] Any diabetes medication dose changes were made via the CDE Protocol and Collaborative Practice Agreement with [place] and [facility]. A copy of this encounter was provided to patient's referring provider. documented in this encounter Plan of Treatment Upcoming Encounters Date Type Department Care Team (Late st Contact Info) Description 06/13/2024 2:00 PM CDT Virtual Visit [address] [place] [address] Milka Rick RN 07/11/2024 3:00 PM CDT Virtual Visit [facility] [address] [place] [address] Ashleigh Corrales PA-C [address] [place] [address] documented as of this encounter Visit Diagnoses Diagnosis Type 1 diabetes mellitus (H)- Primary Type I (juvenile type) diabetes mellitus without mention of complication, not stated as uncontrolled documented in this encounter Care Teams Inorganic Chemist Relationship Specialty Start Date End Date Clinic, [facility] [address] [place] [address] PCP - General 01/26/22 Shelbi Miller MD [facility] [address] [place] [address] Internal Medicine 01/26/22 Milka Rick chip washer Diabetes Education 03/03/24 Ashleigh Corrales PA-C [address] [place] [address] Assigned Endocrinology Provider 03/15/24 documented as of this encounter
--- OUTSIDE RECORDS SUMMARY | 2024-05-25 16:55 | XMS_ITS | Encounter Summary ---
Author Organization [place] Address [address] [place] [address] Care Team Providers Care Mushroom Laborer Name Role Phone Shelbi Miller MD Unavailable [phone] [facility], [facility] Primary Care Provider Milka Rick RN Unavailable Unavailable Ashleigh Corrales PA-C Unavailable Encounter Details Date Type Department Care Team (Late st Contact Info) Description 01/26/2022 Documentation Only INTERFACED REPORT Unknown, Provider Social History Tobacco Use Types Packs/Day Years Used Date Smoking Tobacco: Never Assessed Sex and Gender Information Value Date Recorded Sex Assigned at Female 02/22/2024 9:44 PM CDT Gender Identity Female 02/22/2024 9:44 PM CDT Sexual Orientation Straight 02/22/2024 9: 44 PM CDT COVID-19 Exposure Response Date Recorded In the last month, have you been in contact with someone who was confirmed or suspected to have Coronavirus / COVID-19? No / Unsure 01/26/2022 10:33 AM LEVELMAN documented as of this encounter Plan of Treatment Upcoming Encounters Date Type Department Care Team (Late Contact Info) Description 06/13/2024 2:00 PM CDT Virtual Visit [address] [place] [address] Milka Rick RN 07/11/2024 3:00 PM CDT Virtual Visit [facility] [address] [place] [address] Ashleigh Corrales PA-C [address] [place], [place] [phone] documented as of this encounter Visit Diagnoses Not on filedocumented in this encounter Care Teams Mushroom Laborer Relationship Specialty Start Date End Date Clinic, [facility] [address] [place] [address] PCP - General 01/26/22 Shelbi Miller MD [facility] [address] [place] [address] Internal Medicine 01/26/22 Milka Rick medical scribe Diabetes Education 03/03/24 Ashleigh Corrales PA-C [address] [place] [address] Assigned Endocrinology Provider 03/15/24 documented as of this encounter
--- OUTSIDE RECORDS SUMMARY | 2024-05-25 16:55 | XMS_ITS | Encounter Summary ---
Author Organization [place] Address [address] [place] [address] Care Team Providers Care Mechanical Developer Prover Name Role Phone Shelbi Miller MD Unavailable [phone] [facility], [facility] Primary Care Provider Milka Rick RN Unavailable Unavailable Ashleigh Corrales PA-C Unavailable Encounter Details Date Type Department Care Team (Latest Contact Info) Description 04/05/2024 Travel Social History Tobacco Use Types Packs/Day [...] Description 06/13/2024 2:00 PM CDT Virtual Visit [address] [place] [address] Milka Rick RN 07/11/2024 3:00 PM CDT Virtual Visit [facility] [address] [place] [phone] Ashleigh Corrales PA-C [address] [place], [place] [address] documented as of this encounter Visit Diagnoses Not on filedocumented in this encounter Care Teams Mechanical Developer Prover Relationship Specialty Start Date End Date Clinic, [facility] [address] [place] [address] PCP - General 01/26/22 Shelbi Miller MD [facility] [address] [place] [address] Internal Medicine 01/26/22 Milka Rick medical receptionist Diabetes Education 03/03/24 Ashleigh Corrales PA-C [address] [place] [address] Assigned Endocrinology Provider 03/15/24 documented as of this encounter
--- OUTSIDE RECORDS SUMMARY | 2024-05-25 16:55 | XMS_ITS | Encounter Summary ---
Author Organization [facility] Address [address] [place] [address] Care Team Providers Care Prize Fighter Name Role Phone Shelbi Miller MD Unavailable [phone] Clinic, [facility] Primary Care Provider Encounter Details Date Type Department Care Team (Latest Contact Info) Description 02/29/2024 Travel Social History Tobacco Use Types Packs/Day Years Used Date Smoking Tobacco: Never Smokeless Tobacco: Never Alcohol Use Standard Drinks/Week Comments Not Currently 0 (1 standard drink = 0.6 oz pur e alcohol) Adolescent Education Answer Date Record ed Getting [...] Description 06/13/2024 2:00 PM CDT Virtual Visit [address] [place] [address] Milka Rick RN 07/11/2024 3:00 PM CDT Virtual Visit [facility] [address] [place] [address] Ashleigh Corrales PA-C [address] [place] [phone] documented as of this encounter Visit Diagnoses Not on filedocumented in this encounter Care Teams Prize Fighter Relationship Specialty Start Date End Date [facility], [facility] [address] [place] [address] PCP - General 01/26/22 Shelbi Miller MD [facility] [address] [place] [address] Internal Medicine 01/26/22 documented as of this encounter
--- OUTSIDE RECORDS SUMMARY | 2024-05-25 16:55 | XMS_ITS | Encounter Summary ---
Author Organization [place] Address [address] [place] [address] Care Team Providers Care Net Manager Name Role Phone Shelbi Miller MD Unavailable [phone] Clinic, [facility] Primary Care Provider Reason for Referral * Consultation (Routine: Next available opening) - Pending Review Specialty Diagnoses / Procedures Referred By Karen king Referred To Contact Diabetes Education Diagnoses Type 1 diabetes mellitus without complication (H) Ashleigh Corrales PA-C [address] [place] [address] Referral ID Status Reason Start Date Expiration Date V isits Requested Visits Authorized [id number] Pending Review 02/29/2024 02/28/2025 1 1 Question Answer Last HgbA1c: Past A1C 8.7% Type of Training: Previous Diagnosis Diabetes Type: Type 1 Diabetes Co-Morbidities: Other Other: rheumatoid arthritis A1C Goal: <7.0 A1C is: No past HGBA1C Medical Nutrition Therapy (MNT) for Diabetes Previous Diagnosis: Annual Follow-up MNT - 2 hours Diabetes Education Topics: Comprehensive Knowledge Assessment and Instruction, Other Diabetes Education Topics: I think she would benefit from the InPen. Special Educational Needs: None, Additional Insulin Training Scheduling Instructions: [facility] will call you to coordinate your care as prescribed by your provider. If you don't hear from a physician relations representative within 2 business days, please call Comments Medicare covers 10 hours of initial Diabetes Self-Management Training (DSMT) in the 12-month period from the time of first visit after diagnosis, plus 2 hours of follow-up DSMT annually. Medical Nutrition Therapy (MNT) with a Registered Dietitian can be provided in coordination with DSMT to assist in achieving optimal diabetes management. Medicare will cover 3 hours of initial MNT in 12-month period from the time of first visit after diagnosis, plus 2 hours of follow-up MNT annually Please be aware that coverage of these services is subject to the terms and limitations of your health insurance plan. Call member services at your health plan to determine Diabetes Self-Management Training (Codes G0108 and G0109) and Medical Nutrition Therapy (Codes 21208 and 90375) benefits and ask which blood glucose monitor brands are covered by your plan. Please bring the following with you to your appointment: 1. List of current medications 2. List of Blood Glucose Monitor brands that are covered by your insurance plan 3. Blood Glucose Monitor and log book 4. Food records for the 3 days prior to your visit [facility] will call you to coordinate your care as prescribed by your provider. If you don't hear from a physician relations representative within 2 business days, please call Reason for Visit * Reason Comments New Patient Diabetes * Consultation (Routine) - Pending Review Specialty Diagnoses / Procedures Referred By Karen t Referred To Contact Endocrinology, Diabetes, and Metabolism Diagnoses Type 1 diabetes mellitus without complication (H) Shelbi Miller MD [facility] [address] [place] [address] Referral ID Status Reason Start Date Expiration Date V isits Requested Visits Authorized [id number] Pending Review 10/07/2023 10/06/2024 1 1 Encounter Details Date Type Department Care Team (Late st Contact Info) Description 02/29/2024 2:00 PM CDT Office Visit [facility] [address] [place] [address] Ashleihg Corrales PA-C [address] [place] [address] Essential hypertension (Primary Dx); Type 1 diabetes [...] CDT Inhaled Oxygen Concentration - - Weight 64.7 kg (142 lb 9.6 oz) 02/29/2024 1:55 P M CDT Height 175.3 cm (5' 9) 02/29/2024 1:55 PM CDT Body Mass Index 21.06 02/29/2024 1:55 PM CDT documented in this encounter Patient Instructions * Patient Instructions* Lala Ibarra CMA - 02/29/2024 2:00 PM CDT [facility] Dr Ruggiero, Endocrinology Department [address] [place] [address] Appointment [phone] [place]: Thursday - documented in this encounter Progress Notes * Ashleigh Corrales PA-C - 02/29/2024 2:00 PM CDT Assessment/Plan : Type 1 DM. We had a long discussion regarding diabetes and current treatment options. She is not sure that she would like to switch to an insulin pump. I do think it would be beneficial but I also understand her hesitation. We also discussed trying the NovoPen or InPen. This would help us make smaller adjustments to her meal time insulin. Based on her description, she may have some level of gastroparesis. I think she would really benefit from a CDE visit. They can discuss diet and make some adjustments to her insulin to carb ratio and correction and they can get more in depth discussion regarding the InPen. For now, we will not make any medication adjustments. We will follow-up in 4 mos. I have independently reviewed and interpreted labs, imaging as indicated. Chief complaint: Martine is a 58 year old female seen in consultation at the request of Dr. Miller for Type 1 DM. I have reviewed Care Everywhere including [facility], [facility], [facility], [facility] , [facility], [place] lab reports, imaging reports and provider notes as indicated. HISTORY OF PRESENT ILLNESS Martine was diagnosed with diabetes at the age of 22. She was started on MDI insulin therapy at the time of diagnosis and has remained on MDI insulin therapy. Overall, she feels like her blood sugars have been well controlled. However, recently, she has been struggling with hypoglycemia whenever shetakes the Novolog. She is currently taking Basaglar 22 unit(s) in the morning and she calculates the Novolog based on her carb intake and a correction scale. There are days when her insulin to carb ratio is like 1 unit(s) to every 20 grams and there are other days when it seems to be closer to 1 unit(s) for every 10 grams. Since her numbers have been so up and down, she has been administering the insulin after meals. This seems to help prevent the significant drops in her blood sugars. She has not had any recent trouble with severe hyperglycemia and/or hypoglycemia. She uses the Dexcom G6 sensor to monitor her blood sugars and it has really made an impact on her blood sugar control. She states that it was not uncommon for her to experience blood sugar drops into the 40s before she started using the sensor. Now, with the alarms, she can catch her blood sugar before it gets too low. Martine has no history of diabetic retinopathy. She does have a history of retinal tear and she has early onset of cataracts. She also has noticed some new numbness/tingling in her feet and hands, especially when her blood sugars are high. Her diabetes is also complicated by HTN and rheumatoid arthritis. Endocrine relevant labs are as follows: Latest Reference Range & Units 02/29/24 15:02 Hemoglobin A1C 0.0 - 5.6 % 7.9 (H) (H): Data is abnormally high REVIEW OF SYSTEMS Endocrine: positive for diabetes Skin: negative Eyes: positive for cataracts, negative for, visual blurring, redness, tearing Ears/Nose/Throat: negative Respiratory: No shortness of breath, dyspnea on exertion, cough, or hemoptysis Cardiovascular: negative for, chest pain, dyspnea on exertion, lower extremity edema, and exercise intolerance Gastrointestinal: negative for, nausea, vomiting, constipation, and diarrhea Genitourinary: negative for, nocturia, dysuria, frequency, and urgency Musculoskeletal: negative for, muscular weakness, nocturnal cramping, and foot pain Neurologic: positive for numbness or tingling of hands and numbness or tingling of feet, negative for, and local weakness Psychiatric: negative Hematologic/Lymphatic/Immunologic: negative Past Medical History Past Medical History: Diagnosis Date Rheumatoid arthritis of multiple sites without rheumatoid factor (H) Type 1 diabetes mellitus (H) Medications Current Outpatient Medications Medication Sig Dispense Refill B Complex Vitamins (VITAMIN B COMPLEX PO) Take 1 capsule by mouth daily B-D LUER-THAI SYRINGE 25G X 1 3 ML MISC DISPENSE 10 SYRINGES WITH EACH 10ML METHOTREXATE DISPENSED B-D LUER-THAI SYRINGE 25G X 5/8 3 ML MISC DISPENSE 10 SYRINGES WITH EACH 10ML METHOTREXATE DISPENSED B-D U/F insulin pen needle USE FOUR TIMES A DAY cholecalciferol (VITAMIN D3) 25 mcg (1000 units) capsule Take 1,000 Units by mouth Continuous Blood Gluc Bi Developer (DEXCOM G6 SOLVENT PLANT TREATER) MARCO See Admin Instructions Continuous Blood Gluc Sensor (DEXCOM G6 SENSOR) MISC See Admin Instructions Continuous Blood Gluc Transmit (DEXCOM G6 TRANSMITTER) MISC DIRECTED ACE33-S18.9 estradiol (ESTRACE) 0.1 MG/GM vaginal cream INSERT 0.5MG VAGINALLY TWICE WEEKLY. fish oil-omega-3 fatty acids 500 MG capsule Take 1,000 mg by mouth daily folic acid (FOLVITE) 1 MG tablet Take 1 mg by mouth INSULIN GLARGINE 100 UNIT/ML pen LACTOBACILLUS PO Take 1 Dose by mouth lidocaine (XYLOCAINE) 5 % external ointment APPLY TO AFFECTED AREA TOPICALLY TO SKIN 20 MINUTES PRIOR TWICE A DAY NEEDED FOR PAIN. lisinopril (ZESTRIL) 5 MG tablet Take 1 tablet by mouth daily methotrexate 50 MG/2ML injection INJECT 0.5 ML (12.5 MG TOTAL) UNDER THE SKIN ONCE A WEEK. NOVOLOG FLEXPEN 100 UNIT/ML soln [employer]gemont PharmaceuticalsTOUCH VERIO IQ test strip USE TO TEST FOUR TIMES A DAY. Allergies Allergies Allergen Reactions Cortisone Other reaction(s): Other (see comments) high blood sugar with injectable Morphine Nausea and Vomiting Penicillins Other reaction(s): Other (see comments) Unknown reaction Cephalosporins Other (See Comments) and Rash Family History family history is not on file. Social History Social History Tobacco Use Smoking status: Never Smokeless tobacco: Never Vaping Use Vaping Use: Never used Substance Use Topics Alcohol use: Not Currently Drug use: Never Physical Exam BP (!) 160/68 (BP Location: Left arm, Patient Position: Chair, Cuff Size: Adult Regular) Pulse 66 Temp 98.6 ??F (37 ??C) (Tympanic) Resp 16 Ht 1.753 m (5' 9) Wt 64.7 kg (142 lb 9.6 oz) LMP (LMP Unknown) SpO2 99% No BMI 21.06 kg/m?? Body mass index is 21.06 kg/m??. GENERAL : In no apparent distress SKIN: Normal color, normal temperature, texture. No hirsutism, alopecia or purple striae. EYES: PERRL, EOMI, No scleral icterus, No proptosis, conjunctival redness, stare, retraction NECK: No visible masses. No palpable adenopathy, or masses. No carotid bruits. THYROID: Normal, nontender, smooth / firm texture, no nodules, no Bruit RESP: Lungs clear to auscultation bilaterally CARDIAC: Regular rate and rhythm, normal S1 S2, without murmurs, rubs or gallops NEURO: awake, alert, responds appropriately to questions. Cranial nerves intact. Moves all extremities; Gait normal. No tremor of the outstretched hand. EXTREMITIES: No clubbing, cyanosis or edema. FOOT EXAM: Arthritic changes present. Large bunion. Callus formation at heels. Strong pedal pulses.Sensation intact to monofilament. DATA REVIEW Dexcom Clarity Time in target range:37% High 48% and Very High 15% Current Ave BG 198 mg/dl documented in this encounter Nursing Notes * Lala Ibarra CMA - 02/29/2024 2:00 PM CDT Images from the original note were not included. documented in this encounter Plan of Treatment Upcoming Encounters Date Type Department Care Team (Late st Contact Info) Description 06/13/2024 2:00 PM CDT Virtual Visit [address] [place] [address] Milka Rick RN 07/11/2024 3:00 PM CDT Virtual Visit [facility] [address] [facility] [address] [place] [address] Ashleigh Corrales PA-C [address] [place] [address] Scheduled Referrals Name Type Priority Associated Diagnoses Orde r Schedule Adult Diabetes Education Tip Banding Machine Operator Referral Referral Routine: Next available opening Type 1 diabetes mellitus without complication (H) Expected: 02/29/2024 (Approximate), Expires: 02/28/2025 documented as of this encounter Procedures Procedure Name Priority Date/Time Associated Diagnosis Comments TSH Routine 02/29/2024 3:02 PM CDT Type 1 diabetes mellitus without complication (H) HEMOGLOBIN A1C Routine 02/29/2024 3:02 PM CDT Type 1 diabetes mellitus without complication (H) BASIC METABOLIC PANEL Routine 02/29/2024 3:02 PM CDT Type 1 diabetes mellitus without complication (H) documented in this encounter Results * TSH (02/29/2024 3:02 PM CDT) TSH 1.77 0.30 - 4.20 uIU/mL 03/01/2024 8:59 AM CDT [facility] Blood BLOOD SPECIMEN / Unknown Venipuncture / Unknown 02/29/2024 3:02 PM CDT 02/29/2024 3:02 PM CDT Ashleigh Corrales PA-C LAB - BLOOD ORDERABL ES [facility] [address] [facility], [address] [place] [address] * (ABNORMAL) Hemoglobin A1c (02/29/2024 3:02 PM CDT) Pathologist [facility] Hemoglobin A1C 7.9(H) 0.0 - 5.6 % 02/29/2024 3:18 PM CDT [facility] Comment: Normal <5.7% Prediabetes 5.7-6.4% ?? Diabetes 6.5% or higher Note: Adopted from ADA consensus guidelines. Blood BLOOD SPECIMEN / Unknown Venipuncture / Unknown 02/29/2024 3:02 PM CDT 02/29/2024 3:02 PM CDT Ashleigh Corrales PA-C LAB - BLOOD ORDERABL ES Performing Organization Address City/[facility]/ZIP Co de Phone Number [facility] [address], [address] [place] [address], [facility] [phone] * (ABNORMAL) Basic metabolic panel (Ca, Cl, CO2, Creat, Gluc, K, Na, BUN) (02/29/2024 3:02 PM CDT) Pathologist [facility] Sodium 138 135 - 145 mmol/L 03/01/2024 [...] LAB - BLOOD ORDERABL ES [facility] [address] [facility], [address] [place] [id number] documented in this encounter Visit Diagnoses Diagnosis Essential hypertension- Primary Unspecified essential hypertension Type 1 diabetes mellitus without complication (H) Type I (juvenile type) diabetes mellitus without mention of complication, not stated as uncontrolled documented in this encounter Care Teams Net Manager Relationship Specialty Start Date End Date [facility], [facility] [address] [place] [address] PCP - General 01/26/22 Shelbi Miller MD [facility] [address] Internal Medicine 01/26/22 documented as of this encounter
--- OUTSIDE RECORDS SUMMARY | 2024-05-25 16:55 | XMS_ITS | Encounter Summary ---
Author Organization [place] Address [address] [place] [address] Care Team Providers Care Rail Flaw Detector Operator Name Role Phone Shelbi Miller MD Unavailable Clinic, [facility] Primary Care Provider Milka Rick RN Unavailable Unavailable Ashleigh Corrales PA-C Unavailable Reason for Visit * Reason Onset Date Comments Results 02/01/2022 Encounter Details Date Type Department Care Team (Late st Contact Info) Description 02/01/2022 [facility] Emergency Dept [address] [place] [address] Michelle Galeana, RN Results Social History Tobacco [...] COVID-19? No / Unsure 01/26/2022 10:33 AM POLISHER IMPLANT documented as of this encounter Miscellaneous Notes * Telephone Encounter - Michelle Galeana RN - 02/01/2022 5:08 PM POLISHER IMPLANT [facility] Emergency Department/Urgent Care Lab result notification: Reason [...] 24 H ur/cr 0 - 300 ug/g BAR TURNER 154 Normetanephrine 24 Hr/Random Urine 95 - 650 ug/d Not Applicable Normetaneph 24H ur/cr 0 - 400 ug/g BAR TURNER 225 Metanephrine 24 Hr/Random Urine Interpretation See Note Creatinine Urine/Volume mg/dL 102 Creatinine Urine/24hr 500 - 1400 mg/d Not Applicable 5:09 Left voicemail message requesting a call back to [phone] between 9 a.m. and 5:30 p.m. for patient's ED/UC lab results. Michelle Galeana RN [facility] Result RN [facility] Emergency Dept Lab Result RN SHER IMPLANT documented in this encounter Plan of Treatment Upcoming Encounters Date Type Department Care Team (Late st Contact Info) Description 06/13/2024 2:00 PM CDT Virtual Visit [address] [place] [phone] Milka Rick RN 07/11/2024 3:00 PM CDT Virtual Visit [facility] [address] [facility] [address] [place] [address] Ashleigh Corrales PA-C [address] [place] [id number] documented as of this encounter Visit Diagnoses Not on filedocumented in this encounter Care Teams Rail Flaw Detector Operator Relationship Specialty Start Date End Date Clinic, [facility] [address] [place] [address] PCP - General 01/26/22 Shelbi Miller MD [address] [address] Internal Medicine 01/26/22 Milka Rick cold press operator Diabetes Education 03/03/24 Ashleigh Corrales PA-C [address] [place] [address] Assigned Endocrinology Provider 03/15/24 documented as of this encounter
--- OUTSIDE RECORDS SUMMARY | 2024-05-25 16:55 | XMS_ITS | Referral Summary ---
Author Organization [place] Address [address] [place] [address] Care Team Providers Care Tailor'S Aide Name Role Phone Shelbi Miller MD Unavailable [phone] [facility], [facility] Primary Care Provider Milka Rick RN Unavailable Unavailable Ashleigh Corrales PA-C Unavailable Encounters Date Type Department Care Team Description 05/06/2024 [facility] [address] [place] [address] [address] [place] [phone] Milka Rick, RN Type 1 diabetes mellitus (H) (Primary Dx) 04/12/2024 [facility] [address] [place] [address] Milka Rick RN 04/12/2024 Travel 04/12/2024 1:00 PM CDT Allied Health/Nurse Visit [facility] [id number] [place] [address] [address] [place] [phone] Milka Rick, surveyor rod helper Education (Pre Pump #1) 04/06/2024 [facility] Medical Advice [facility] [id number] [place] [address] [address] [place] [phone] Milka Rick RN 04/05/2024 Travel 03/03/2024 8:00 AM CDT Virtual Visit [facility] [id number] [place] [address] [address] [place] [phone] Milka Rick RN Type 1 diabetes mellitus without complication (H) 02/29/2024 Travel 02/29/2024 2:00 PM CDT Office Visit [facility] [address] [place] [address] Ashleigh Corrales PA-C Essential hypertension (Primary Dx); Type 1 diabetes mellitus without complication (H) from Last 3 Months Allergies Active Allergy [...] LUER-THAI SYRINGE 25G X 1 3 ML [facility] DISPENSE 10 SYRINGES WITH EACH 10ML METHOTREXATE DISPENSED 02/24/2024 Active Continuous Blood Gluc Clerical Receptionist (DEXCOM G6 ARTISTIC DIRECTOR) MARCO See Admin Instructions 03/26/2023 Active Continuous Blood Gluc Sensor (DEXCOM G6 SENSOR) MISC See Admin Instructions 02/18/2024 Active Continuous Blood Gluc Transmit (DEXCOM G6 TRANSMITTER) MISC DIRECTED CDC65-Q37.9 01/21/2024 Active estradiol (ESTRACE) 0.1 MG/GM vaginal [...] LUER-THAI SYRINGE 25G X 5/8 3 ML [facility] DISPENSE 10 SYRINGES WITH EACH 10ML METHOTREXATE [...] arthritis 08/04/2007 Type 1 diabetes mellitus 10/17/2002 Immunizations Name Administration Dates Next Due COVID-19 [...] Description 06/13/2024 2:00 PM CDT Virtual Visit [address] [place] [phone] Milka Rick RN 07/11/2024 3:00 PM CDT Virtual Visit [facility] [address] [place] [address] Ashleigh Corrales PA-C [address] [place], [place] [address] Procedures Procedure Name Priority Date/Time Associated Diagnosis [...] Results * TSH (02/29/2024 3:02 PM CDT) Pathologist [facility] TSH 1.77 0.30 - 4.20 uIU/mL 03/01/2024 8:59 AM CDT [facility] Blood BLOOD SPECIMEN / Unknown Venipuncture / Unknown 02/29/2024 3:02 PM CDT 02/29/2024 3:02 PM CDT Ashleigh Corrales PA-C LAB - BLOOD ORDERABL ES [facility] [address] [facility], [address] [place] [address] * (ABNORMAL) Hemoglobin A1c (02/29/2024 3:02 PM CDT) Pathologist [facility] Hemoglobin A1C 7.9(H) 0.0 - 5.6 % 02/29/2024 3:18 PM CDT [facility] Comment: Normal <5.7% Prediabetes 5.7-6.4% ?? Diabetes 6.5% or higher Note: Adopted from ADA consensus guidelines. Blood BLOOD SPECIMEN / Unknown Venipuncture / Unknown 02/29/2024 3:02 PM CDT 02/29/2024 3:02 PM CDT Ashleigh Corrales PA-C LAB - BLOOD ORDERABL ES [facility] [address], [address] [place] [address], [facility] [phone] * (ABNORMAL) Basic metabolic panel (Ca, Cl, CO2, Creat, Gluc, K, Na, BUN) (02/29/2024 3:02 PM CDT) Pathologist [facility] Sodium 138 135 - 145 mmol/L 03/01/2024 [...] LAB - BLOOD ORDERABL ES [facility] [address] [facility], [address] [place] [address], [facility] * Eye Exam - HIM Scan (12/06/2023) RETINOPATHY UNKNOWN Narrative Yanelis Izaguirre - 12/06/2023 Lala Ibarra CMA ??P Abstract Quality Initiatives Please abstract the following data from this visit with this patient into the appropriate field in Epic: Tests that can be patient reported without a hard copy: Eye exam with ophthalmology on this date: 12/06/23 Exam Location: [facility] Patient Reported OTHER * Microalbumin random urine (03/01/2009 1:55 PM CDT) Albumin Urine mg/L 7 mg/L MISYS Albumin Urine mg/g Cr 7.00 0 - 20 mg/g Cr MISYS 03/01/2009 1:55 PM CDT 03/01/2009 1:57 PM CDT Colleen Randhawa PA-C LAB - URINE OR DERABLES MISYS from Last 3 Months or Most Recently Relevant to Health Maintenance Care Teams Tailor'S Aide Relationship Specialty Start Date End Date [facility], [facility] [address] [place] [address] PCP - General 01/26/[address] [facility] [address] [place] [address] Internal Medicine 01/26/22 Milka Rick, metal alloy scientist Diabetes Education 03/03/24 Ashleigh Corrales PA-C [address] [place] [address] Assigned Endocrinology Provider 03/15/24
--- OUTSIDE RECORDS SUMMARY | 2024-05-25 16:56 | XMS_ITS | Encounter Summary ---
Author Organization [facility] Address [address] [place] [address] Care Team Providers Care Strand Galvanizer Name Role Phone Elsewhere, Pcp Primary Care Provider Unavailabl e Encounter Details Date Type Department Care Team (Latest Contact Info) Description 02/18/2024 8:30 AM CDT - 02/18/2024 8:59 AM CDT Hospital Encounter Department of Laboratory Medicine and Pathology, [facility] in [place], [place] [address] [place] [phone] Rayna Guerrero, INGREDIENT SPECIALIST, C.N.P. [address] [place] [phone] Arthritis Rheumatoid (HCC) Discharge Disposition: Home or Self Care Social History Tobacco Use Types Packs/Day Years Used Date Smoking Tobacco: Never Smokeless Tobacco: Never Alcohol Use Standard Drinks/Week Comments No 0 (1 standard drink = 0.6 oz pur e alcohol) [facility] Utilities Answer Date Recorded In the past 12 months has e electric, gas, oil, or water [employer] threatened to shut off services in your home? No 02/17/2024 Humiliation, Afraid, Rape, and Kick questionnair e Answer Date Recorded Within the last year, have y ou been afraid of your partner or ex-partner? No 02/03/2023 Within the last year, have y ou been humiliated or emotionally abused in other ways by your partner or ex-partner? No Within the last year, have y ou been kicked, hit, slapped, or otherwise physically hurt by your partner or ex-partner? No 02/03/2023 Within the last year, have y ou been raped or forced to have any kind of sexual activity by your partner or ex-partner? No 02/03/2023 Social Connection and Isolat ion Panel [NHANES] Answer Date Recorded In a typical week, how many times do you talk on the phone with family, friends, or neighbors? More than three times a week 02/03/2023 How often do you get togethe r with friends or relatives? Once a week 02/03/2023 How often do you attend chur ch or jainism services? Never 02/03/2023 Do you belong to any clubs o r organizations such as yazdanism groups, unions, fraternal or athletic groups, or school groups? No 02/03/2023 How often do you attend meet ings of the clubs or organizations you belong to? Patient declined 02/03/2023 Are you , , di vorced, , never , or living with a partner? 02/03/2023 AUDIT-C Answer Date Recorded Q1: How often do you have a drink containing alc ohol? Never 02/03/2023 Average Number of Drinks Not on file 023 Frequency of Binge Drinking Not on file 01/21 Overall Financial Resource Strain (CARDIA) Answe r Date Recorded How hard is it for you to pa y for the very basics like food, housing, medical care, and heating? Not hard at all 02/03/2023 [facility] [place] [facility] - Occupational Stress Questionnaire Answer Date Recorded Do you feel stress - tense, restless, nervous, or anxious, or unable to sleep at night because your mind is troubled all the time - these days? Not at all 02/03/2023 Exercise Vital Sign Answer Date Recorde d On average, how many days pe r week do you engage in moderate to strenuous exercise (like a brisk walk)? 0 days 02/17/2024 On average, how many minutes do you engage in exercise at this level? 0 min 02/17/2024 Hunger Vital Sign Answer Date Recorded Within the past 12 months, y ou worried that your food would run out before you got the money to buy more. Never true 02/17/20 24 Within the past 12 months, t he food you bought just didn't last and you didn't have money to get more. Never true 02/17/2024 PRAPARE - Transportation Answer Date Re corded In the past 12 months, has l ack of transportation kept you from medical appointments or from getting medications? No 01/22 In the past 12 months, has l ack of transportation kept you from meetings, work, or from getting things needed for daily living? No 02/17/2024 Nutrition Answer Date Recorded Nutrition: EVOO Fat Source No 02/16 On average, how many serving s of fruits and vegetables do you eat per day (serving size is equal to 1 cup or approximately the size of a tennis ball)? 0-2 02/17/2024 Dental Answer Date Recorded Dental: Regular Dentist Yes 01/23/20 Employment Answer Date Recorded Employment status Employed and actively working without restrictions 02/17/2024 Housing Stability Answer Date Recorded What is your living situation today? I have a [facility] place to live 02/17/2024 Education Answer Date Recorded What is the highest level of school you have completed or the highest degree you have received? Bachelor's degree (e.g., BA, AB, BS) 05/02/2019 Sex and Gender Information Value Date Recorded Sex Assigned at Female 10/17/2018 9:43 PM RN PROGRESSIVE CARE Gender Identity Female 10/17/2018 9:43 PM RN PROGRESSIVE CARE Sexual Orientation Straight 10/17/2018 9: 43 PM RN PROGRESSIVE CARE documented as of this encounter Medications at Time of Discharge Medication Sig Dispensed Refills Start Date End Date David Bolanos U-100 Insulin 100 unit/mL (3 mL) injection Inject 18 Units under the skin every morning. 01/01/2022 BD Luer-Arlene Syringe 3 mL 25 x 5/8 syringeIndications:Art hritis Rheumatoid (HCC) DISPENSE 10 SYRINGES WITH EACH 10ML METHOTREXATE DISPENSED 12 each 3 03/27/2023 cholecalciferol (VITAMIN D3) 125 mcg (5,000 Unit) capsule Take 1 tablet by mouth daily. 01/30/2014 COMFORT EZ PEN NEEDLES 31 gauge x 3/16 needle USE FOUR TIMES A DAY 0 01/27/2019 Dexcom G6 Sensor device DIRECTED [id number] 01/01/2022 Dexcom G6 Transmitter device DIRECTED [id number] 01/02/2022 estradioL (ESTRACE) 0.1 mg/g (0.01%) vaginal cream INSERT 1/2 GRAM VAGINALLY NIGHTLY FOR 2 WEEKS THEN 2 TIMES PER WEEK 12/09/2021 fish oil 500 mg capsule Take 1,000 mg by mouth daily. folic acid 1 mg tabletIndications:Arth ritis Rheumatoid (HCC),High Risk Medication Take 2 tablets (2 mg total) by mouth daily. 60 tablet 11 02/10/2023 insulin aspart U-100 (NovoLOG FlexPen) 100 unit/mL (3 mL) injection Inject under the skin as needed. as needed with meals 05/29/2017 LACTOBACILLUS ACIDOPHILUS (PROBIOTIC ORAL) Take 1 Dose by mouth as needed. Floragen 3 Probiotic occasionally lisinopriL (PRINIVIL,ZESTRIL) 5 mg tablet Take 1 tablet by mouth daily. 10/27/2023 magnesium 100 mg tablet tablet Take 100 mg by mouth every morning before breakfast. 11/23/2017 methotrexate, PF, 25 mg/mL PF injectionIndications:A rthritis Rheumatoid (HCC) INJECT 0.5 ML (12.5 MG TOTAL) UNDER THE SKIN ONCE A WEEK. 4 mL 2 01/09/2023 Imagine K12Touch Verio test strips strips 4 (four) times a day. for testing 07/23/2022 UltiCare 0.3 mL 31 gauge x 5/16 syringe 100 Injection daily. 01/31/2021 VITAMIN B COMPLEX ORAL Take 1 capsule by mouth daily. 10/07/2022 documented as of this encounter Plan of Treatment Not on file documented as of this encounter Procedures Procedure Name Priority Date/Time Associated Diagnosis Comments SEDIMENTATION RATE, B Routine 02/18/2024 8:58 AM CDT Arthritis Rheumatoid (HCC) CBC WITH DIFFERENTIAL, B Routine 024 8:58 AM CDT Arthritis Rheumatoid (HCC) C-REACTIVE PROTEIN (CRP), S/P Routine 02/18/2024 8:58 AM CDT Arthritis Rheumatoid (HCC) ASPARTATE AMINOTRANSFERASE (AST), S/P Routine 02/18/2024 8:58 AM CDT Arthritis Rheumatoid (HCC) CREATININE WITH EGFR, S/P Routine 02/18/2024 8:58 AM CDT Arthritis Rheumatoid (HCC) documented in this encounter Results * AST (Aspartate Aminotransferase) (02/18/2024 8:58 AM CDT) Aspartate Aminotransferase (AST), S 30 8 - 43 U/L 02/18/2024 9:48 AM CDT DTL Blood (Blood, Venous) 02/18/2024 8:58 AM CDT 02/18/2024 9:31 AM CDT Rayna Guerrero APRN, C.N.P. LAB BLOOD ADD-ON Performing Organization Address City/[facility]/ZIP Co de Phone Number [facility] 200 [place] [address], [facility] [address] * Creatinine with Estimated GFR (02/18/2024 8:58 AM CDT) Pathologist [facility] Creatinine 0.70 0.59 - 1.04 mg/dL 02/18/2024 9:48 AM CDT DTL Estimated GFR (eGFR) >90 >=60 mL/min/BSA 02/18/2024 9:48 AM CDT DTL Comment: Estimated GFR calculated using the 2020 CKD_EPI creatinine equation. Blood (Blood, Venous) 02/18/2024 8:58 AM CDT 02/18/2024 9:31 AM CDT Rayna Guerrero APRN C.N.P. LAB BLOOD ADD-ON [facility] 200 [place] [address], [facility] [address] * CRP (C-Reactive Protein) (02/18/2024 8:58 AM CDT) Pathologist [facility] C-Reactive Protein (CRP), S 3.6 <5.0 mg/L 02/18/2024 9:48 AM CDT DTL Blood (Blood, Venous) 02/18/2024 8:58 AM CDT 02/18/2024 9:31 AM CDT Rayna Guerrero APRN C.N.PLia LAB BLOOD ADD-ON [facility] [address] [place] [address], [facility] [address] [place] [address] * (ABNORMAL) CBC with Differential, Blood (02/18/2024 8:58 AM CDT) Pathologist [facility] Hemoglobin 13.5 11.6 - 15.0 g/dL 02/18/2024 9:40 AM CDT DTL Hematocrit 41.0 35.5 - 44.9 % 02/18/2024 9:40 AM CDT DTL Erythrocytes 4.43 3.92 - 5.13 x10(12)/L 02/18/2024 9:40 AM CDT DTL MCV 92.6 78.2 - 97.9 fL 02/18/2024 9:40 AM CDT DTL RBC Distrib Width 13.7 12.2 - 16.1 % 02/18/2024 9:40 AM CDT DTL Platelet Count 229 157 - 371 x10(9)/L 02/18/2024 9:40 AM CDT DTL Leukocytes 5.7 3.4 - 9.6 x10(9)/L 02/18/2024 9:40 AM CDT DTL Neutrophils 4.26 1.56 - 6.45 x10(9)/L 02/18/2024 9:40 AM CDT [facility] Lymphocytes 0.81(L) 0.95 - 3.07 x10(9)/L 02/18/2024 9:40 AM CDT DTL Monocytes 0.40 0.26 - 0.81 x10(9)/L 02/18/2024 9:40 AM CDT DTL Eosinophils 0.18 0.03 - 0.48 x10(9)/L 02/18/2024 9:40 AM CDT DTL Basophils 0.06 0.01 - 0.08 x10(9)/L 02/18/2024 9:40 AM CDT DTL Blood (Blood, Venous) 02/18/2024 8:58 AM CDT 02/18/2024 9:20 AM CDT Rayna Guerrero APRN, C.N.P. LAB BLOOD ADD-ON [facility] 200 [place] [address], [facility] 200 [place] [address] [address] * Sedimentation Rate (02/18/2024 8:58 AM CDT) [facility] Signature Sedimentation Rate, B 14 2 - 22 mm/h 02/18/2024 10:43 AM CDT DTL Blood (Blood, Venous) 02/18/2024 8:58 AM CDT 02/18/2024 9:20 AM CDT Rayna Guerrero APRN, C.N.P. LAB BLOOD ADD-ON Performing Organization Address City/[facility]/ZIP Co de Phone Number [facility] [address] [place] [address], [facility] [address] [place] [address] documented in this encounter Visit Diagnoses Diagnosis Arthritis Rheumatoid (HCC) documented in this encounter Additional Health Concerns Infection Onset Date Last Indicated Resolved Time Protective Environment 03/26/2023 03/26/2023 documented as of this encounter Care Teams Strand Galvanizer Relationship Specialty Start Date End Date Elsewhere, Pcp PCP - General Family Medicine 07/17/21 documented as of this encounter
--- OUTSIDE RECORDS SUMMARY | 2024-05-25 16:56 | XMS_ITS ---
Author Organization [facility] Address [address] [place] [address] Care Team Providers Care Retail Leasing Agent Name Role Phone Unavailable Unavailable Unavailable Surgery Details Not on file Complications Check Surgery Details section. Procedure Estimated Blood Loss Check Surgery Details section. Procedure Findings Check Surgery Details section. Procedure Specimens Taken Check Surgery Details section.
--- OUTSIDE RECORDS SUMMARY | 2024-05-25 16:56 | XMS_ITS | Encounter Summary ---
Author Organization [facility] Address [address] [place] [address] Care Team Providers Care Copper Etcher Name Role Phone Elsewhere, Pcp Primary Care Provider Unavailabl e Reason for Referral * Outpatient (Routine) - Closed Specialty Diagnoses / Procedures Referred By Contac t Referred To Contact Diagnoses Arthritis Rheumatoid (HCC) Procedures DX Foot Bilateral 3+ Views Rayna Guerrero APRN, C.N.P. 200 [place] [address] [facility] Referral ID Status Reason Start Date Expiration Date Visits Re quested Visits Authorized [id number] Closed 08/13/2023 08/12/2024 1 1 Reason for Visit * Outpatient (Routine) - Closed Specialty Diagnoses / Procedures Referred By Contac t Referred To Contact Diagnoses Arthritis Rheumatoid (HCC) Procedures DX Foot Bilateral 3+ Views Rayna Guerrero APRN, C.N.P. [address] [place] [address] [facility] Referral ID Status Reason Start Date Expiration Date Visits Re quested Visits Authorized [id number] Closed 08/13/2023 08/12/2024 1 1 Encounter Details Date Type Department Care Team (Latest Contact Info) Description 02/18/2024 9:00 AM CDT - 02/18/2024 9:04 AM CDT Hospital Encounter Department of Radiology, [facility], in [place], [place] [address] [place] [address] Rayna Guerrero APRN, C.N.P. [address] [place] [address] Arthritis Rheumatoid (HCC) Discharge Disposition: Home or Self Care Social History Tobacco Use Types Packs/Day Years Used Date Smoking Tobacco: Never Smokeless Tobacco: Never Alcohol Use Standard Drinks/Week Comments No 0 (1 standard drink = 0.6 oz pur e alcohol) [facility] Utilities Answer Date Recorded In the past 12 months has e electric, gas, oil, or water company threatened to shut off services in your [...] often do you attend chur ch or rastafari services? Never 02/03/2023 Do you belong to any clubs o r organizations such as yarsanism groups, unions, fraternal or athletic groups, or [...] and heating? Not hard at all 02/03/2023 [facility] ional [facility] - Occupational Stress Questionnaire Answer [...] Date Recorded Dental: Regular Dentist Yes 01/23/20 21 Employment Answer Date Recorded Employment status Employed and actively working without restrictions 02/17/2024 Housing Stability Answer Date Recorded What is your living situation today? I have a [facility] place to live 02/17/2024 Education Answer Date Recorded What is the highest level of school you have completed or the highest degree you have received? Bachelor's degree (e.g., BA, AB, BS) 05/02/2019 Sex and Gender Information Value Date Recorded Sex Assigned at Female 10/17/2018 9:43 PM BOX GLUER Gender Identity Female 10/17/2018 9:43 PM BOX GLUER Sexual Orientation Straight 10/17/2018 9: 43 PM BOX GLUER documented as of this encounter Medications at Time of Discharge Medication Sig Dispensed Refills Start Date End Date Basaglar KwikPen U-100 Insulin 100 unit/mL (3 mL) injection [...] 0 01/27/2019 Dexcom G6 Sensor device DIRECTED [id number] 01/01/2022 Dexcom G6 Transmitter device DIRECTED [id number] 01/02/2022 estradioL (ESTRACE) 0.1 mg/g (0.01%) vaginal [...] ONCE A WEEK. 4 mL 2 01/09/2023 OneTouch Verio test strips strips 4 (four) times a day. for testing 07/23/2022 UltiCare 0.3 mL 31 gauge x 5/16 syringe 100 Injection daily. 01/31/2021 VITAMIN B COMPLEX ORAL Take 1 capsule by mouth daily. 10/07/2022 documented as of this encounter Plan of Treatment Not on file documented as of this encounter Procedures Procedure Name Priority Date/Time Associated Diagnosis Comments DX FOOT BILATERAL 3+ VIEWS RAD - Routine (most inpatients and all outpatients) 02/18/2024 9:40 AM CDT Arthritis Rheumatoid (HCC) documented in this encounter Results * DX Foot Bilateral 3+ Views (02/18/2024 9:40 AM CDT) Anatomical Region Laterality Modality Lower Extremity, Foot, Muscu loskeletal RST LOS, Musculoskeletal ARZ LOS, Muskuloskeletal FLA LOS Bilateral Digit al Radiography Impressions 02/18/2024 9:45 AM CDT Changes of rheumatoid arthritis both feet with new erosive changes at the right 3rd toe PIP joint since . Diffuse joint space narrowing. Focal soft tissue swelling or mass over the mid left Achilles tendon. Bilateral hallux valgus. Subluxation of the left 2nd and 3rd MTP joints. Osteopenia. Narrative 02/18/2024 9:45 AM CDT EXAM: ??DX FOOT BILATERAL 3+ VIEWS Procedure Note Serenity Curtis M.D. - 02/18/2024 EXAM: DX FOOT BILATERAL 3+ VIEWS IMPRESSION: Changes of rheumatoid arthritis both feet with new erosive changes at theright 3rd toe PIP joint since . Diffuse joint space narrowing.Focal soft tissue swelling or mass over the mid left Achilles tendon.Bilateral hallux valgus. Subluxation of the left 2nd and 3rd MTP joints. Osteopenia. Rayna Guerrero APRN, C.N.P. IMG DIAGNO STIC IMAGING PROCEDURES documented in this encounter Visit Diagnoses Diagnosis Arthritis Rheumatoid (HCC) documented in this encounter Additional Health Concerns Infection Onset Date Last Indicated Resolved Time Protective Environment 03/26/2023 03/26/2023 documented as of this encounter Care Teams Copper Etcher Relationship Specialty Start Date End Date Elsewhere, Pcp PCP - General Family Medicine 07/17/21 documented as of this encounter
--- OUTSIDE RECORDS SUMMARY | 2024-05-25 16:56 | XMS_ITS | Encounter Summary ---
Author Organization [facility] Address [address] [place] [address] Care Team Providers Care Buggy Operator Name Role Phone Elsewhere, Pcp Primary Care Provider Unavailabl e Reason for Referral * Outpatient (Routine) - Closed Specialty Diagnoses / Procedures Referred By Contac t Referred To Contact Diagnoses Arthritis Rheumatoid (HCC) Procedures DX Hand Bilateral 3+ Views Rayna Guerrero APRN, C.N.P. [address] [place] [address] [facility] Referral ID Status Reason Start Date Expiration Date Visits Re quested Visits Authorized [id number] Closed 08/13/2023 08/12/2024 1 1 Reason for Visit * Outpatient (Routine) - Closed Specialty Diagnoses / Procedures Referred By Contac t Referred To Contact Diagnoses Arthritis Rheumatoid (HCC) Procedures DX Hand Bilateral 3+ Views Rayna Guerrero APRN, C.N.P. [address] [place] [address] [facility] Referral ID Status Reason Start Date Expiration Date Visits Re quested Visits Authorized [id number] Closed 08/13/2023 08/12/2024 1 1 Encounter Details Date Type Department Care Team (Latest Contact Info) Description 02/18/2024 9:05 AM CDT - 02/18/2024 11:59 PM CDT Hospital Encounter Department of Radiology, [facility], in [place], [place] [address] [place] [address] Rayna Guerrero APRN, C.N.P. [address] [place] [address] Arthritis Rheumatoid (HCC) Discharge Disposition: Home or Self Care Social History Tobacco Use Types Packs/Day Years Used Date Smoking Tobacco: Never Smokeless Tobacco: Never Alcohol Use Standard Drinks/Week Comments No 0 (1 standard drink = 0.6 oz pur e alcohol) [facility] Utilities Answer Date Recorded In the past 12 months has e [employer], gas, oil, or water company threatened to [...] often do you attend chur ch or sikhism services? Never 02/03/2023 Do you belong to any clubs o r organizations such as mormonism groups, unions, fraternal or athletic groups, or [...] and heating? Not hard at all 02/03/2023 [facility] - Occupational Stress [...] Sex Assigned at Female 10/17/2018 9:43 PM STOCKROOM SUPERVISOR Gender Identity Female 10/17/2018 9:43 PM STOCKROOM SUPERVISOR Sexual Orientation Straight 10/17/2018 9: 43 PM STOCKROOM SUPERVISOR documented as of this encounter Medications at [...] 0 01/27/2019 Dexcom G6 Sensor device DIRECTED [id number] 01/01/2022 Dexcom G6 Transmitter device DIRECTED [id number] 01/02/2022 estradioL (ESTRACE) 0.1 mg/g (0.01%) vaginal [...] by mouth every morning before breakfast. 11/23/2017 methotrexate 25 mg/mL injectionIndications:A rthritis Rheumatoid (HCC) Inject 0.5 mL (12.5 mg total) under the skin once a week. 6 mL 1 02/18/2024 methotrexate, PF, 25 mg/mL PF injectionIndications:A rthritis [...] Name Priority Date/Time Associated Diagnosis Comments DX HAND BILATERAL 3+ VIEWS RAD - Routine (most inpatients and all outpatients) 02/18/2024 9:44 AM CDT Arthritis Rheumatoid (HCC) documented in this encounter Results * DX Hand Bilateral 3+ Views (02/18/2024 9:44 AM CDT) Anatomical Region Laterality Modality Upper Extremity, Hand, Muscu loskeletal RST LOS, Musculoskeletal ARZ LOS, Muskuloskeletal FLA LOS Bilateral Digit al Radiography Impressions 02/18/2024 9:47 AM CDT Advanced changes of rheumatoid arthritis both hands and wrists with ulnar subluxation at the right 4th PIP joint and 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 Marked osteopenia. Periarticular soft tissue swelling. No significant change since 01/23/2017. Narrative 02/18/2024 9:47 AM CDT EXAM: ??DX HAND BILATERAL 3+ VIEWS Procedure Note Serenity Curtis M.D. - 02/18/2024 EXAM: DX HAND BILATERAL 3+ VIEWS IMPRESSION: Advanced changes of rheumatoid arthritis both hands and wrists with ulnarsubluxation at the right 4th PIP joint and boutonniere deformity of theright 5th finger. Marked osteopenia. Periarticular soft tissue swelling.No significant change since 01/23/2017. Yaa Weber APRNNTaniya IMG DIAGNO STIC IMAGING PROCEDURES documented in this encounter Visit Diagnoses Diagnosis Arthritis Rheumatoid (HCC) documented in this encounter Additional Health Concerns Infection Onset Date Last Indicated Resolved Time Protective Environment 03/26/2023 03/26/2023 documented as of this encounter Care Teams Buggy Operator Relationship Specialty Start Date End Date Elsewhere, Pcp PCP - General Family Medicine 07/17/21 documented as of this encounter
--- OUTSIDE RECORDS SUMMARY | 2024-05-25 16:56 | XMS_ITS | Referral Summary ---
Author Organization [facility] Address [address] [place] [address] Care Team Providers Care Contract Technical Writer Name Role Phone Elsewhere, Pcp Primary Care Provider Unavailabl e Source Comments Patient records contain information from all sites at [facility]. For routine questions regarding patient records, call [phone] during business hours, M-F 8:00 AM - 5:00 PM Central Time. Record requests for emergency care only can be directed to [phone] at any time.[facility] Encounters Date Type Department Care Team Description 05/12/2024 Refill Division of Rheumatology in [place], [place] [address] [place] [address] Rayna Guerrero, MORTEZA, C.N.P. Med Refill from Last 3 Months Allergies Active Allergy Reactions Criticality Noted Date Comments Cephalosporins Other (see comments) Low 08/14/2022 Cortisone Other (see comments) 03/07/2014 high blood sugar with injectable Morphine Nausea And Vomiting 01/30/2014 Penicillins Other (see comments) 01/30/2014 Unknown reaction Medications Medication Sig Dispensed Refills Start Date End Date Status insulin aspart U-100 (NovoLOG FlexPen) 100 unit/mL (3 mL) injection Inject under the skin as needed. as needed with meals 05/29/2017 Active LACTOBACILLUS ACIDOPHILUS (PROBIOTIC ORAL) Take 1 Dose by mouth as needed. Floragen 3 Probiotic occasionally Active cholecalciferol (VITAMIN D3) 125 mcg (5,000 Unit) capsule Take 1 tablet by mouth daily. 01/30/2014 Active magnesium 100 mg tablet tablet Take 100 mg by mouth every morning before breakfast. 11/23/2017 Active COMFORT EZ PEN NEEDLES 31 gauge x 3/16 needle USE FOUR TIMES A DAY 0 01/27/2019 Active UltiCare 0.3 mL 31 gauge x 5/16 syringe 100 Injection daily. 01/31/2021 Active Dexcom G6 Sensor device DIRECTED [id number] 01/01/2022 Active Dexcom G6 Transmitter device DIRECTED [id number] 01/02/2022 Active estradioL (ESTRACE) 0.1 mg/g (0.01%) vaginal cream INSERT 1/2 GRAM VAGINALLY NIGHTLY FOR 2 WEEKS THEN 2 TIMES PER WEEK 12/09/2021 Active Basaglar KwikPen U-100 Insulin 100 unit/mL (3 mL) injection Inject 18 Units under the skin every morning. 01/01/2022 Active OneTouch Verio test strips strips 4 (four) times a day. for testing 07/23/2022 Active methotrexate, PF, 25 mg/mL PF injectionIndication s:Arthritis Rheumatoid ([facility]) INJECT 0.5 ML (12.5 MG TOTAL) UNDER THE SKIN ONCE A WEEK. 4 mL 2 01/09/2023 Active VITAMIN B COMPLEX ORAL Take 1 capsule by mouth daily. 10/07/2022 Active folic acid 1 mg tabletIndications:A rthritis Rheumatoid (HCC),High Risk Medication Take 2 tablets (2 mg total) by mouth daily. 60 tablet 11 02/10/2023 Active BD Luer-Arlene Syringe 3 mL 25 x 5/8 syringeIndications: Arthritis Rheumatoid ([facility]) DISPENSE 10 SYRINGES WITH EACH 10ML METHOTREXATE DISPENSED 12 each 3 03/27/2023 Active fish oil 500 mg capsule Take 1,000 mg by mouth daily. Active lisinopriL (PRINIVIL,ZESTRIL) 5 mg tablet Take 1 tablet by mouth daily. 10/27/2023 Active methotrexate 25 mg/mL injectionIndication s:Arthritis Rheumatoid (HCC) Inject 0.5 mL (12.5 mg total) under the skin once a week. 6 mL 1 02/18/2024 Active syringe with needle (BD Luer-Arlene Syringe) 3 mL 25 gauge x 1 syringeIndications: Arthritis Rheumatoid ([facility]) DISPENSE 10 SYRINGES WITH EACH 10ML METHOTREXATE DISPENSED 12 each 3 05/13/2024 Active Active Problems Problem Noted Date Diagnosed Date High Risk Medication 10/21/2018 Arthritis Rheumatoid 10/13/2016 Immunizations Name Administration Dates Next Due SARS-COV-2 (COVID-19) - PFIZ ER (Discontinued)(12 years or older) 07/17/2021 Social History Tobacco Use Types Packs/Day Years Used Date Smoking Tobacco: Never Smokeless Tobacco: Never Tobacco Cessation:Counseling Given: Not Answered Alcohol Use Standard Drinks/Week Comments No 0 (1 standard drink = 0.6 oz pur e alcohol) [facility] Utilities Answer Date Recorded In the past 12 months has e [employer], oil, or water [employer] threatened to shut off services in your [...] often do you attend chur ch or faith services? Never 02/03/2023 Do you belong to any clubs o r organizations such as christianity groups, unions, fraternal or athletic groups, or [...] and heating? Not hard at all 02/03/2023 [facility] - Occupational Stress Questionnaire Answer Date Recorded [...] your living situation today? I have a [facility] place to live 02/17/2024 Education Answer Date Recorded What is the highest level of school you have completed or the highest degree you have received? Bachelor's degree (e.g., BA, AB, BS) 05/02/2019 Sex and Gender Information Value Date Recorded Sex Assigned at Female 10/17/2018 9:43 PM OIL AND GAS DRAFTER Gender Identity Female 10/17/2018 9:43 PM OIL AND GAS DRAFTER Sexual Orientation Straight 10/17/2018 9: 43 PM OIL AND GAS DRAFTER Last Filed Vital Signs Vital Sign Reading Time Taken Comments Blood Pressure 161/80 08/13/2023 12:44 PM CDT Pulse 74 08/13/2023 12:44 PM CDT Temperature 36.5 ??C (97.7 ??F) 08/13/2023 1 2:44 PM CDT Respiratory Rate 13 01/31/2014 11:0 0 AM CDT Value from [employer]. Oxygen Saturation - - Inhaled Oxygen Concentration - - Weight 64.8 kg (142 lb 12 oz) 08/13/2023 12:44 PM CDT Height 175.6 cm (5' 9.13) 08/13/2023 1 2:44 PM CDT Body Mass Index 21 08/13/2023 12:44 PM CDT Plan of Treatment Not on file Medical Devices Implanted Type Area Halal Butcher Device Identifier Shelf Expiration Date Model / Serial / Lot Hardware E.G. Pins/Screws/Ro ds-10/23/2022 Implanted:12/0 11/2021 (Quantity not on file) Hardware e.g. pins/screws/ rods Left: Hip Procedures Procedure Name Priority Date/Time Associated Diagnosis Comments EXTI BASIC METABOLIC PANEL, FASTING, S Routine 02/29/2024 3:02 PM CDT CHRONIC VIRAL HEPATITIS PROFILE Routine 10/13/2016 10:49 AM OIL AND GAS DRAFTER from Last 3 Months or Most Recently Relevant to Health Maintenance Results * Chronic Hepatitis Profile (10/13/2016 10:49 AM OIL AND GAS DRAFTER) HBs Antigen, S Negative Negative [facility] HBs Antibody,S Negative Unvaccinated : Negative; Vaccinated: Positive [facility] Comment:Patient is presumed to be not immune to infection with HBV. HBc Total Ab, S Negative Negative [facility] HBs Antibody, Quantitative, S <5.0 Unvaccinated : <5.0; Vaccinated: >=12.0 MIU/ML [facility] HCV Ab, S Negative Negative [facility] Comment:[id number] rat io is <1.00. 10/13/2016 10:4 9 AM OIL AND GAS DRAFTER 10/13/2016 10:49 AM OIL AND GAS DRAFTER Jaye Martinez LAB MICROBIOLOGY - BLOOD ORDERABLES [facility] [address] [place] [id number] from Last 3 Months or Most Recently Relevant to Health Maintenance Additional Health Concerns Infection Onset Date Last Indicated Protective Environment 03/26/2023 3 Advance Directives For more information, please contact: [phone] Documents on File Type Date Recorded Patient Heat Treater Head Expl anation Advance Directives 10/19/2023 4:57 AM Deuce Glasgow HCPOA/ADVOCATE/AGENT/R EPRESENTATIVE/SURROGAT E Healthcare Agents on File Name Relationship Healthcare Agent Relationship Communication Deuce De Oliveira Spouse Health Care Agent Antoni Glasgow Brother First Alternate Health Care Agent Care Teams Contract Technical Writer Relationship Specialty Start Date End Date Elsewhere, Pcp PCP - General Family Medicine 07/17/21
--- OUTSIDE RECORDS SUMMARY | 2024-05-25 16:56 | XMS_ITS | Encounter Summary ---
Author Organization [facility] Address [address] [place] [address] Care Team Providers Care Water/Wastewater Project Manager Name Role Phone Elsewhere, Pcp Primary Care Provider Unavailabl e Reason for Referral * Outpatient (Routine) - Authorized Specialty Diagnoses / Procedures Referred By Karen king Referred To Contact Rheumatology Rayna Guerrero APRN, C.N.P. [address] [place] [phone] [facility] Referral ID Status Reason Start Date Expiration Date V isits Requested Visits Authorized [id number] Authorized 02/18/2024 08/19/2025 1 1 Reason for Visit * Outpatient (Routine) - Closed Specialty Diagnoses / Procedures Referred By Karen king Referred To Contact Rheumatology Rayna Guerrero APRN, C.N.P. [address] [place] [phone] [facility] Referral ID Status Reason Start Date Expiration Date Visits Re quested Visits Authorized [id number] Closed 08/13/2023 08/12/2026 1 1 Encounter Details Date Type Department Care Team (Latest Contact Info) Description 02/18/2024 10:30 AM CDT Office Visit Division of Rheumatology in [place], [place] [address] [place] [phone] Rayna Guerrero APRN, C.N.P. [address] [place] [address] Arthritis Rheumatoid (HCC) (Primary Dx); High Risk Medication Social History Tobacco Use Types Packs/Day Years Used Date Smoking Tobacco: Never Smokeless Tobacco: Never Alcohol Use Standard Drinks/Week Comments No 0 (1 standard drink = 0.6 oz pur e alcohol) [facility] Utilities Answer Date Recorded In the past 12 months has e [employer], oil, or water [employer] threatened to shut off services in your [...] 02/03/2023 How often do you attend chur or cheondoism services? Never 02/03/2023 Do you belong to any clubs o r organizations such as religion groups, unions, fraternal or athletic groups, or [...] and heating? Not hard at all 02/03/2023 [facility] of Occupat ional [facility] - Occupational Stress Questionnaire Answer Date Recorded [...] your living situation today? I have a [facility] place to live 02/17/2024 Education Answer Date Recorded What is the highest level of school you have completed or the highest degree you have received? Bachelor's degree (e.g., BA, AB, BS) 05/02/2019 Sex and Gender Information Value Date Recorded Sex Assigned at Female 10/17/2018 9:43 PM DIESEL ENGINEER Gender Identity Female 10/17/2018 9:43 PM DIESEL ENGINEER Sexual Orientation Straight 10/17/2018 9: 43 PM DIESEL ENGINEER documented as of this encounter Progress Notes * Rayna Gurerero APRN, C.N.P. - 02/18/2024 10:30 AM CDT Images from the original note were not included. SUBJECTIVE CHIEF COMPLAINT / REASON FOR VISIT Martine De Oliveira is a 58 y.o. female who presents for follow up of rheumatoid arthritis. HISTORY OF PRESENT ILLNESS Mrs. De Oliveira is a pleasant 58-year-old lady with seropositive erosive/destructive rheumatoid arthritis. She has a long-standing history of rheumatoid arthritis since 1995, which remained treated only symptomatically with NSAIDs up until September 2016, at which point she finally agreed for initiation of methotrexate. She was initially seen in consult by Dr. Lorenzana in September 2016. She has a historyof diabetes type 1, on injectable insulin since the age of 22. She fell and fractured her left hip on October 21, 2022. She had it pined on October 23, 2022. RHEUMATIC DISEASE MEDICATION HISTORY Medication Start Date Stop Date Response / Adverse Events NSAIDS 09/2016 Methotrexate PO 09/2016 Methotrexate SQ 10/2017 Currently Today, I am seeing Mrs. De Oliveira for follow of her rheumatoid arthritis. She saw Podiatry for bilateral foot pain and neuropathy on October 27, 2023. She continues to have left foot pain with walking. She has not found the orthotics helpful as they do not fit in any of her shoes. She has been participating in a somatic movement exercise class every other week. She is having more pain in her fingers.She was seen in Cardiology for atypical chest pain and abnormal stress ECHO. She had a coronary CTA, which was normal. We did increased the dose of methotrexate back up to once weekly as she was having more joint symptoms in the winter months. She is having increased pain and swelling to her left third PIP. She continues take methotrexate 12.5 mg SQ weekly and folic acid 2 mg daily. Morning stiffness lasting 5-10 minutes.. No recent major flares, infections, or hospitalizations. Rheumatoid Arthritis RF +: Yes CCP +: Yes AM stiffness: 10 minutes Current Symptoms: dry eyes (Systane as needed), dry mouth (with high BS), cough (PND- occassionally) and oral ulcers (better with folic acid) Current Symptoms: no fatigue, no fever, no rash, no Raynaud's syndrome, no weight loss, no excessive bruising, no chest pain, no edema, no nausea, no vomiting, no abdominal pain, no anorexia, no chills, no night sweats (hot flashes- couple times a week), no eye inflammation, no heartburn, no dyspnea [...] chills, fatigue, fever, night sweats (hot flashes- couple times a week) and weight loss. Skin: - Negative for skin rash. ENT: - Negative for sinus congestion. Respiratory: Positive for coughing (PND- occassionally). Cardiovascular: - Negative for chest pain, pressure or tightness. Gastrointestinal: - Negative for abdominal (belly) pain or cramping, anorexia, heartburn, nausea and vomiting. Musculoskeletal: Positive for pain or stiffness in the joints (hands), joint swelling and muscle pain/stiffness. - Negative for back pain. Neurological: - Negative for light-headedness and headaches. The following systems were negative: Constitutional, Skin, Eyes, Genitourinary, Hematologic, Neurological, Psychiatric OBJECTIVE PHYSICAL EXAM Physical Exam General: Alert, oriented, appropriate affect, no apparent distress. Skin: No rheumatologic rashes or ulcers noted. Left heel nodule. Left 3rd synovial cyst. Eyes: Clear conjunctivae and lids. Ears, nose, and throat: Moist oral mucosa without mucositis. Lymph: No cervical or supraclavicular adenopathy. Cardio: Regular rate. No murmurs or rubs. Lungs: Clear to auscultation bilaterally. Extremities: No limitations in ROM bilaterally. Joints: See joint exam. Limited ROM bilateral shoulders, left worse then right. Right elbow contracture. Bilateral knees warm with effusion. No pain noted with palpation. Lab: CBC with differential: Lymphocytes 0.81. Creatinine, GFR, and AST are within normal limits. ESR andCRP are normal. 08/05/2022 02/10/2023 08/13/2023 02/18/2024 Tender joint count (0-28) 5 4 4 6 Swollen joint count (0-28) 10 9 11 15 Patient global assessment (0-100) -- 7 7 20 School Psychology Specialist global assessment (0-100) 40 30 20 35 ESR (mm/h) 8 8 5 14 CRP (mg/L) 3 3 3 3.6 Disease Activity Score 28 using ESR ([id number]) -- 3.51 3.27 4.58 Disease Activity Score 28 using CRP ([id number]) -- 3.52 3.61 4.25 Clinical Disease Activity Index (CDAI) -- 16.7 17.7 26.5 Simplified Disease Activity Index (SDAI) -- 17 18 26.86 ASSESSMENT / PLAN #1 Arthritis Rheumatoid (HCC) Increased synovitis is noted on exam today. She currently is in a flare. Overall, her joints are stable. We reviewed her hand and foot x-rays. Her hand x-rays have been stable since 2016, however herright third PIP does demonstrate some joint destruction which was not present on the last x-rays. She will continue methotrexate 12.5 mg SQ weekly and folic acid 2 mg daily. [...] concerns. [facility] documented in this encounter Plan of Treatment Scheduled Orders Name Type Priority Associated Diagnoses Orde r Schedule Sedimentation Rate Lab Routine Arthritis Rheumatoid (HCC) Expected: 08/20/2024 (Approximate), Expires: 02/17/2025 CBC with Differential, Blood Lab Routine Arthritis Rheumatoid (HCC) Expected: 08/20/2024 (Approximate), Expires: 02/17/2025 CRP (C-Reactive Protein) Lab Routine Arthritis Rheumatoid (HCC) Expected: 08/20/2024 (Approximate), Expires: 02/17/2025 Creatinine with Estimated GFR Lab Routine Arthritis Rheumatoid (HCC) Expected: 08/20/2024 (Approximate), Expires: 02/17/2025 AST (Aspartate Aminotransferase) Lab Routine Arthritis Rheumatoid (HCC) Expected: 08/20/2024 (Approximate), Expires: 02/17/2025 Scheduled Referrals Name Type Priority Associated Diagnoses Order Schedule Rheumatology office visit (clinic) Outpatient Referral Routine Expected: 08/20/2024 (Approximate), Expires: 05/20/2025 documented as of this encounter Visit Diagnoses Diagnosis Arthritis Rheumatoid (HCC)- Primary High Risk Medication documented in this encounter Additional Health Concerns Infection Onset Date Last Indicated Resolved Time Protective Environment 03/26/2023 03/26/2023 documented as of this encounter Care Teams Water/Wastewater Project Manager Relationship Specialty Start Date End Date Elsewhere, Pcp PCP - General Family Medicine 07/17/21 documented as of this encounter
--- OUTSIDE RECORDS SUMMARY | 2024-05-25 16:56 | XMS_ITS | Encounter Summary ---
Author Organization [facility] Address [address] [place] [id number] Care Team Providers Care Physical Therapist Aide Name Role Phone Elsewhere, Pcp Primary Care Provider Unavailabl e Reason for Visit * Reason Onset Date Comments Previsit Preparation 02/16/2024 LELO DD Encounter Details Date Type Department Care Team (Latest Contact Info) Description 02/16/2024 2:00 PM CDT Clinical Communication Virtual Review in [place], [place] [address] [place] [phone] Previsit Preparation (LELO DD) Social History Tobacco Use Types Packs/Day Years Used Date Smoking Tobacco: Never Smokeless Tobacco: Never Tobacco Cessation:Counseling Given: Not Answered Alcohol Use Standard Drinks/Week Comments No 0 (1 standard drink = 0.6 oz pur e alcohol) [facility] Utilities Answer Date Recorded In the past 12 months has [facility], gas, oil, or water [employer] threatened to shut off services in your [...] often do you attend chur ch or adventism services? Never 02/03/2023 Do you belong to any clubs o r organizations such as jehovah's witness groups, unions, [...] and heating? Not hard at all 02/03/2023 [facility] Occupat ional Health - Occupational Stress [...] living situation today? I have a [facility] place to live 02/17/2024 Education Answer Date Recorded What is the highest level of school you have completed or the highest degree you have received? Bachelor's degree (e.g., BA, AB, BS) 05/02/2019 Sex and Gender Information Value Date Recorded Sex Assigned at Female 10/17/2018 9:43 PM RECORDS OFFICER Gender Identity Female 10/17/2018 9:43 PM RECORDS OFFICER Sexual Orientation Straight 10/17/2018 9: 43 PM RECORDS OFFICER documented as of this encounter Plan of Treatment Not on file documented as of this encounter Visit Diagnoses Not on filedocumented in this encounter Additional Health Concerns Infection Onset Date Last Indicated Resolved Time Protective Environment 03/26/2023 03/26/2023 documented as of this encounter Care Teams Physical Therapist Aide Relationship Specialty Start Date End Date Elsewhere, Pcp PCP - General Family Medicine 07/17/21 documented as of this encounter
--- OUTSIDE RECORDS SUMMARY | 2024-05-25 16:56 | XMS_ITS | Clinical Summary ---
Author Organization [facility] Address [address] [place] [address] Care Team Providers Care Canvassing Manager Name Role Phone Elsewhere, Pcp Primary Care Provider Unavailabl e Source Comments Patient records contain information from all sites at [facility]. For routine questions regarding patient records, call [phone] during business hours, M-F 8:00 AM - 5:00 PM Central Time. Record requests for emergency care only can be directed to [phone] at any time.[facility] Allergies Active Allergy Reactions Criticality Noted Date [...] 01/31/2021 Active Dexcom G6 Sensor device DIRECTED [id number]-S00.9 01/01/2022 Active Dexcom G6 Transmitter device DIRECTED [id number] 01/02/2022 Active estradioL (ESTRACE) 0.1 mg/g (0.01%) [...] PF, 25 mg/mL PF injectionIndication s:Arthritis Rheumatoid (HCC) INJECT 0.5 ML (12.5 MG [...] mL 25 x 5/8 syringeIndications: Arthritis Rheumatoid (HCC) DISPENSE 10 SYRINGES WITH EACH [...] 25 gauge x 1 syringeIndications: Arthritis Rheumatoid (HCC) DISPENSE 10 SYRINGES WITH EACH 10ML METHOTREXATE DISPENSED 12 each 3 05/13/2024 Active Active Problems Problem Noted Date Diagnosed Date High Risk Medication 10/21/2018 Arthritis Rheumatoid 10/13/2016 Encounters Date Type Department Care Team Description 05/12/2024 Refill Division of Rheumatology in [place], [place] [address] [place] [address] Rayna Guerrero, MORTEZA, C.N.P. Med Refill from Last 3 Months Immunizations Name Administration Dates Next Due SARS-COV-2 (COVID-19) - PFIZ ER (Discontinued)(12 years or older) 07/17/2021 Family History Medical History Relation Name Comments Other Father Father CHF, amyloidosi s Lymphoma Maternal Grandfather Kyle 80s Other Mother Mother Had TTP has florina e heart effects from that. Parkinsonism Mother's Brother [...] drink = 0.6 oz pur e alcohol) [facility] [employer] Answer Date Recorded In the past 12 months has e [employer], gas, oil, or water [employer] threatened to shut off services in your [...] week 02/03/2023 How often do you attend [facility] or alevism services? Never 02/03/2023 Do you belong to any clubs o r organizations such as synagogue groups, unions, fraternal [...] and heating? Not hard at all 02/03/2023 [facility] of Occupat ional Health - Occupational Stress [...] Sex Assigned at Female 10/17/2018 9:43 PM CUSTOMER ENERGY SPECIALIST Gender Identity Female 10/17/2018 9:43 PM CUSTOMER ENERGY SPECIALIST Sexual Orientation Straight 10/17/2018 9: 43 PM CUSTOMER ENERGY SPECIALIST Last Filed Vital Signs Vital Sign Reading [...] 08/13/2023 12:44 PM CDT Plan of Treatment Health Maintenance Due Date Last Done Comments CT Colonography 1964 Colonoscopy 1964 FIT 1964 HIV Screening 1964 Lipid (Cholesterol) Screening 1964 Mammogram 1964 Hepatitis B Vaccines (1 of 3 - 19+ 3-dose series) 1983 Zoster Vaccines (1 of 2) 1983 Pneumococcal vaccine (0-64 y ears) (2 of 2 - PCV) 12/07/1996 12/07/1995 COVID-19 Vaccine (5 2022-2 4 season) 2023 09/29/2022, 07/17/2021, 03/01/2021, Additional history exists Office Visit for Blood Press ure Check / Re-check 11/12/2023 08/13/2023 Depression Screening (Annual PHQ-2) 11/23/2023 Influenza Vaccine (#1) 2024 , 08/27/2020, 12/02/2019, Additional history exists Cologuard 09/25/2024 09/25/2021 Colorectal Cancer Screening 09/25/2024 Creatinine Level (Kidney Fun ction Test) 02/28/2025 02/29/2024, 02/18/2024, 01/11/2024, Additional history exists Potassium Level 02/28/2025 02/29/2024, 01/2023, 01/26/2022 Sodium Level 02/28/2025 02/29/2024, 01/26/2022 Cervical Cancer Screening 06/13/2025 06/13/2022 Fasting Glucose for Diabetes Screening 02/28/2027 02/29/2024, 09/25/2023, 01/26/2022, Additional history exists DTaP,Tdap,and Td Vaccines (2 - Td or Tdap) 07/19/2030 07/19/2020, 12/07/1995 Hepatitis C Screening Completed 10/13/2016 Medical Devices Implanted Type Area Enterprise Data Architect Device Identifier Shelf Expiration Date Model / Serial / Lot Hardware E.G. Pins/Screws/Ro ds-10/23/2022 Implanted:11/2021 (Quantity not on file) Hardware e.g. pins/screws/ rods Left: Hip Procedures Procedure Name Priority Date/Time Associated Diagnosis Comments EXTI BASIC METABOLIC PANEL, FASTING, S Routine 02/29/2024 3:02 PM CDT CHRONIC VIRAL HEPATITIS PROFILE Routine 10/13/2016 10:49 AM CUSTOMER ENERGY SPECIALIST from Last 3 Months or Most Recently Relevant to Health Maintenance Results * Chronic Hepatitis Profile (10/13/2016 10:49 AM CUSTOMER ENERGY SPECIALIST) HBs Antigen, S Negative Negative [facility] [place] HBs Antibody,S Negative Unvaccinated : Negative; Vaccinated: Positive [facility] [place] Comment:Patient is presumed to be not immune to infection with HBV. HBc Total Ab, S Negative Negative [facility] [place] HBs Antibody, Quantitative, S <5.0 Unvaccinated : <5.0; Vaccinated: >=12.0 MIU/ML [facility] [place] HCV Ab, S Negative Negative [facility] Comment:Dymhog-rn-ghhrat rat io is <1.00. 10/13/2016 10:4 9 AM CUSTOMER ENERGY SPECIALIST 10/13/2016 10:49 AM CUSTOMER ENERGY SPECIALIST Jaye Martinez LAB MICROBIOLOGY - BLOOD ORDERABLES [facility] [place] [address] [place] [address], [facility] from Last 3 Months or Most Recently Relevant to Health Maintenance Additional Health Concerns Infection Onset Date Last Indicated Protective Environment 03/26/2023 3 Advance Directives For more information, please contact: [phone] Documents on File Type Date Recorded Patient Goodwill Ambassador Expl anation Advance Directives 10/19/2023 4:57 AM Deuce Glasgow HCPOA/ADVOCATE/AGENT/R EPRESENTATIVE/SURROGAT E Healthcare Agents on File Name Relationship Healthcare Agent Relationship Communication Deuce De Oliveira Spouse Health Care Agent Antoni Glasgow Brother First Alternate Health Care Agent Care Teams Canvassing Manager Relationship Specialty Start Date End Date Elsewhere, Pcp PCP - General Family Medicine 07/17/21
--- OUTSIDE RECORDS SUMMARY | 2024-05-25 16:56 | XMS_ITS | Clinical Summary ---
Author Organization [facility] Address [place], [place] [address] Care Team Providers Care Liquid Fertilizer Servicer Name Role Phone Pcp, No Primary Care [...] with insulin injection 100 2 08/16/2008 Active BD INSULIN SYRINGE ULT-FINE II 0.3 ML 31 X 5/16 use 4 daily 3 months prn 09/08/2008 Active ONE TOUCH ULTRA TEST STRIPS [...] qd for joint inflammation 0 03/21/2010 Active lisinopriL (PRINIVIL; ZESTRIL) 5 mg tablet Take 1 Tablet (5 mg) by mouth once daily. 0 10/27/2023 Active folic acid 1 mg tablet Take 1 mg by mouth once daily. Active methotrexate (FOLEX; MEXATE) 25 mg/mL injection INJECT 0.5 ML (12.5 MG) UNDER THE SKIN EVERY 14 DAYS Active Active Problems Problem Noted Date Diagnosed Date Rheumatoid arthritis(714.0) 08/04/2007 DIABETES MELLITUS, INSULIN DEPENDENT (IDDM) 09/24 Resolved Problems Problem Noted Date Diagnosed Date Resolved Date Anemia, unspecified 01/12/2008 06/16/20 08 Immunizations Name Administration Dates Next Due Pneumococcal [...] drink = 0.6 oz pur e alcohol) Social Connections Answer Date Recorded Frequency of Communication with Friends and Fami ly Not on file 01/07/2024 Sex and Gender Information Value Date Recorded Sex Assigned at Not on file Gender Identity Not on file Sexual Orientation Not on file Obstetrics History Last Filed Vital Signs Vital Sign Reading Time Taken Comments Blood Pressure 140/62 01/07/2024 11:52 AM RELOCATION DIRECTOR Pulse 88 01/07/2024 11:52 AM RELOCATION DIRECTOR Temperature 36.7 ??C (98.1 ??F) 06/16/2008 2:03 PM CD T Respiratory Rate 16 10/04/2007 9:16 AM RELOCATION DIRECTOR Oxygen Saturation 97% 01/07/2024 11:52 AM RELOCATION DIRECTOR Inhaled Oxygen Concentration - - Weight 64.1 kg (141 lb 6.4 oz) 01/07/2024 11:52 AM RELOCATION DIRECTOR Height 175.3 cm (5' 9) 01/07/2024 11:52 AM RELOCATION DIRECTOR Body Mass Index 20.88 01/07/2024 11:52 AM RELOCATION DIRECTOR Plan of Treatment Health Maintenance Due Date Last Done Comments Tdap 1975 Depression screening for age 12+ 1976 HIV for age 15-65 1979 Hepatitis C screening for ag e 18-79 1982 Hepatitis B series for Diabe juhi (1 of 3 - 19+ 3-dose series) 1983 Zoster (shingles) series for age 50+ (1 of 2) 1983 Pneumococcal series for age 6-64 (2 of 2 - PCV) 12/07/1996 12/07/1995 Tetanus booster 12/07/2005 12/07/1995 Colonoscopy through age 75 2009 Mammogram for age 45-75 2009 Lipids for age 45-75 04/28/2012 04/28/2007, 06/03/2006, 03/23/2003, Additional history exists COVID-19 vaccine series ( - 2022-24 season) 2023 09/29/2022, 07/17/2021, 03/01/2021, Additional history exists Influenza for age 50-64 07/24/2024 BMI (ht and wt on same day) for age 18+ 01/07/2025 01/07/2024 Pap test for age 21-65 06/13/2025 , 06/13/2022, 05/25/2017, Additional history exists Procedures Procedure Name Priority Date/Time Associated Diagnosis Comments VP SECURITIES THIN PREP PAP SCREEN IMAGED Routine 06/13/2022 12:00 PM CDT LIPID PANEL Routine 04/28/2007 8:16 AM CDT DIABETES MELLITUS, INSULIN DEPENDENT (IDDM) from Last 3 Months or Most Recently Relevant to Health Maintenance Results * VP SECURITIES THIN PREP PAP SCREEN IMAGED (06/13/2022 12:00 PM CDT) Case Report Gynecologic Cytology Report ? Case: [id number] ? Authorizing Provider: ??Dee Hernandez MD ?? Collected: ? 06/13/2022 1200 ? Ordering Location: ? [facility] ?Received: ?06/17/2022 0838 ? First Screen: ?Ramon Boyle ? Specimen: ?VP SECURITIES ThinPrep Vial Screening, Cervical ? 06/29/2022 7:06 AM CDT [facility] INTERPRETATION/ RESULT NEGATIVE FOR INTRAEPITHELIAL LESION OR MALIGNANCY (NIL) (none) 06/29/2022 7:06 AM T [facility] IMEN ADEQUACY Satisfactory for evaluation Endocervical component present 06/29/2022 7:06 AM CDT [facility] HPV REQUEST HPV and PAP 06/29/2022 7:06 AM T [facility] Last Pap Date 05/27/2017 06/29/2022 7:06 AM T [facility] Menstrual Status Postmenopausal 06/29/2022 7:06 AM T [facility] [place] Bx Done Today No 06/29/2022 7:06 AM T [facility] Additional Information 06/29/2022 7:06 AM T [facility] Comment: Interpreted at [facility] - [address], [place] [address] Automated Review Successful 06/29/2022 7:06 AM T [facility] Comment:Specimen processed s uccessfully by automated porter marina device, ThinPrep Imaging System, [employer] ANCILLARY TESTING VP [employer]URITIES HPV Ordered, Please see separate report 06/29/2022 7:06 AM T [facility] Note The pap test is a screening technique, not a diagnostic procedure. It is used primarily to screen for squamous cancers and precursor lesions. Published studies have shown that it is subject to both false negative and false positive results. The pap test should not be used as the sole means to diagnose or exclude pre-malignant and malignant lesions. 06/29/2022 7:06 AM CDT [facility] Other (Cervical) 06/13/2022 12:00 PM CDT 06/17/2022 8:38 AM CDT Dee Hernandez MD PATHOLOGY/CYTOLOG Y [facility] [address] [place] [address], * LIPID PANEL (04/28/2007 8:16 AM CDT) CHOLESTEROL,TOTAL 165 110 - 199 mg/dL [facility] TRIGLYCERIDES 42 <150 mg/dL [facility] HDL CHOLESTEROL 57 >40 mg/dL [facility] CHOL/HDL RATIO 2.89 <4.51 [facility] LDL CHOLESTEROL 100 <131 mg/dL [facility] PATIENT STATUS Fasting [facility] Blood specimen (specimen) BLOOD SPECIMEN / Unknown 04/28/2007 8:16 AM CDT 04/28/2007 8:06 AM CDT Ariel Charles MD CHEMISTRY Performing Organization Address City/[facility]/ZIP Co de Phone Number [facility] [address] [place] [address] from Last 3 Months or Most Recently Relevant to Health Maintenance Care Teams Liquid Fertilizer Servicer Relationship Specialty Start Date End Date Pcp, No . PCP - General 11/15/09
--- OUTSIDE RECORDS SUMMARY | 2024-05-25 16:56 | XMS_ITS | Encounter Summary ---
Author Organization [facility] Address [address] [place] [address] Care Team Providers Care Manager Supply Name Role Phone Elsewhere, Pcp Primary Care Provider Unavailabl e Reason for Visit * Reason Comments Med Refill Encounter Details Date Type Department Care Team ([facility] st Contact Info) Description 05/12/2024 Refill Division of Rheumatology in [place], [place] [address] [place] [phone] Rayna Guerrero, MORTEZA, C.N.P. [address] [place] [phone] Med Refill Social History Tobacco Use Types Packs/Day Years Used Date Smoking Tobacco: Never Smokeless Tobacco: Never Alcohol Use Standard Drinks/Week Comments No 0 (1 standard drink = 0.6 oz pur e alcohol) [facility] Utilities Answer Date Recorded In the past 12 months has [facility] [employer], gas, oil, or water [employer] threatened to shut off services in your [...] often do you attend chur ch or protestant services? Never 02/03/2023 Do you belong to any clubs o r organizations such as anglican groups, unions, fraternal [...] and heating? Not hard at all 02/03/2023 [facility] of Occupat ional Health - Occupational [...] your living situation today? I have a [facility] place to live 02/17/2024 Education Answer Date Recorded What is the highest level of school you have completed or the highest degree you have received? Bachelor's degree (e.g., BA, AB, BS) 05/02/2019 Sex and Gender Information Value Date Recorded Sex Assigned at Female 10/17/2018 9:43 PM BALL POINTS INSPECTOR Gender Identity Female 10/17/2018 9:43 PM BALL POINTS INSPECTOR Sexual Orientation Straight 10/17/2018 9: 43 PM BALL POINTS INSPECTOR documented as of this encounter Miscellaneous Notes * Telephone Encounter - Eugenia Hirsch RRobert - 05/13/2024 5:07 PM CDT Prescription renewal request for BD syringes received from pharmacy. HISTORY OF PRESENT ILLNESS Last Rheum / VASC visit: 02/18/24 with Rayna Guerrero APRN, [facility] Future office visit: ordered, not yet scheduled Last monitoring None Needed: Not required for medication renewal requested. Prescription request matches current plan of care. Prescription request matches a current prescription in the Medication List. Exclusion criteria: None (If an alert appeared, it was determined to be an approved exception) ASSESSMENT/PLAN Prescription request renewed per nursing protocol. documented in this encounter Plan of Treatment Not on file documented as of this encounter Visit Diagnoses Diagnosis Arthritis Rheumatoid (HCC)- Primary documented in this encounter Additional Health Concerns Infection Onset Date Last Indicated Resolved Time Protective Environment 03/26/2023 03/26/2023 documented as of this encounter Care Teams Manager Supply Relationship Specialty Start Date End Date Elsewhere, Pcp PCP - General Family Medicine 07/17/21 documented as of this encounter
[2024-05-25 20:22] LABS: Basophils Absolute Auto 0.06 K/uL (0.00-0.30); Basophils Percent Auto 1.1 % (0.0-3.0); Eosinophils Absolute Auto 0.26 K/uL (0.00-0.50); Eosinophils Percent Auto 4.9 % (0.0-7.0); Hematocrit 41.5 % (33.0-51.0); Hemoglobin* 13.3 gm/dL (12.0-16.0); Immature Granulocytes Abs Auto 0.01 K/uL (0.00-0.30); Immature Granulocytes Pct Auto 0.2 %; Lymphocytes Percent Auto 18.8 % (20-44); Mean Corpuscular HGB Conc 32 gm/dL (32-36); Mean Corpuscular Hemoglobin 30 pg (26-34); Mean Corpuscular Volume 94 fL (80-100); Monocytes Percent Auto 7.5 % (0.0-11.0); Neutrophils Absolute Auto 3.59 K/uL (1.7-7.0); Neutrophils Percent Auto 67.5 % (42.0-72.0); Platelet Count* 224 K/uL (140-440); RDW Coefficient of Variation % 13.5 % (11.5-15.5); Red Blood Count 4.43 m/uL (4.00-5.20); White Blood Count* 5.32 K/uL (4.50-11.00)
[2024-05-25 20:40] LABS: Slide Review Reflex No
[2024-05-25 21:57] LABS: Aspartate Amino Transferase* 36 U/L (12-35); Creatinine* 0.5 mg/dL (0.5-1.5); Estimated Glomerular Filt Rate 108 ml/min
== END 2024-05-25 16:53 | disposition home or self-care (01) ==
LOC: NPINS 16:52
PROVIDERS: PCP Internal Medicine; Visit Provider Nurse Practitioner
DX: M06.9 Rheumatoid arthritis, unspecified (principal)
CPT/HCPCS: 82565; 84450; 85025

== ENCOUNTER 2024-10-31 08:40 | Outpatient (CLI) | payer BC, SELFPAY | END 2024-10-31 08:41 | disposition home or self-care (01) | LOC: NFLDREF 11-03 00:58 | PROVIDERS: PCP Internal Medicine; Referring Provider Internal Medicine; Visit Provider Internal Medicine | DX: I10 Essential (primary) hypertension (principal) | CPT/HCPCS: 80048 ==

== ENCOUNTER 2024-10-31 10:52 | Outpatient (REF) | payer BC, SELFPAY ==
--- OUTSIDE RECORDS SUMMARY | 2024-10-31 10:55 | XMS_ITS | Encounter Summary ---
Author Organization [facility] Address [address] [place] [address] Care Team Providers Care Executive Assistant Name Role Phone Shelbi Miller MD Unavailable [facility] Primary Care Provider Milka Rick RN Unavailable Unavailable Ashleigh Corrales PA-C Unavailable Encounter Details Date Type Department Care Team (Late st Contact Info) Description 01/26/2022 Documentation Only INTERFACED REPORT Unknown, Provider Social History Tobacco Use Types Packs/Day Years Used Date Smoking Tobacco: Never Assessed Comments Unknown Sex and Gender Information Value Date Recorded Sex Assigned at Female 02/22/2024 9:44 PM CDT Legal Sex Female 5:02 AM PATIENT FINANCIAL SERVICES COORDINATOR Gender Identity Female 02/22/2024 9:44 PM CDT Sexual Orientation Straight 02/22/2024 9: 44 PM CDT COVID-19 Exposure Response Date Recorded In the last month, have you been in contact with someone who was confirmed or suspected to have Coronavirus / COVID-19? No / Unsure 01/26/2022 10:33 AM PATIENT FINANCIAL SERVICES COORDINATOR documented as of this encounter Plan of Treatment Not on file documented as of this encounter Visit Diagnoses Not on filedocumented in this encounter Care Teams Executive Assistant Relationship Specialty Start Date End Date [facility] [address] [place] [address] PCP - General 01/26/22 Shelbi Miller MD [address] [address] Internal Medicine 01/26/22 Milka Rick cotton stomper Diabetes Education 03/03/24 Ashleigh Corrales PA-C [address] [place] [address] Assigned Endocrinology Provider 03/15/24 documented as of this encounter
--- OUTSIDE RECORDS SUMMARY | 2024-10-31 10:55 | XMS_ITS | Encounter Summary ---
Author Organization [place] Address [address] [place] [address] Care Team Providers Care Label Printer Name Role Phone Shelbi Miller MD Unavailable [phone], [facility] Primary Care Provider Milka Rick RN Unavailable Unavailable Ashleigh Corrales PA-C Unavailable Encounter Details Date Type Department Care Team (Late st Contact Info) Description 07/12/2024 [facility] Medical Advice [address] [place] [address] Milka Rick RN Type 1 diabetes mellitus (H) (Primary Dx) Social History Tobacco Use Types Packs/Day Years Used Date Smoking Tobacco: Never Smokeless Tobacco: Never Alcohol Use Standard Drinks/Week Comments Not Currently 0 (1 standard drink = 0.6 oz pur e alcohol) PHQ-2 Answer Date Recorded PHQ-2 Score 0 06/13/2024 Adolescent Education Answer Date Record ed Getting School Help Needed Not on file 09/09 Comments No Sex and Gender Information Value Date Recorded Sex Assigned at Female 02/22/2024 9:44 PM CDT Legal Sex Female 5:02 AM MINING CAPTAIN Gender Identity Female 02/22/2024 9:44 PM CDT Sexual Orientation Straight 02/22/2024 9: 44 PM CDT documented as of this encounter Plan of Treatment Not on file documented as of this encounter Visit Diagnoses Diagnosis Type 1 diabetes mellitus (H)- Primary Type I (juvenile type) diabetes mellitus without mention of complication, not stated as uncontrolled documented in this encounter Care Teams Label Printer Relationship Specialty Start Date End Date Clinic, [facility] [address] [place] [address] PCP - General 01/26/22 Shelbi Miller MD [facility] [address] [place] [address] Internal Medicine 01/26/22 Milka Rick tile layer helper Diabetes Education 03/03/24 Ashleigh Corrales PA-C [address] [place] [address] Assigned Endocrinology Provider 03/15/24 documented as of this encounter
--- OUTSIDE RECORDS SUMMARY | 2024-10-31 10:55 | XMS_ITS | Encounter Summary ---
Author Organization [facility] Address [address] [place] [address] Care Team Providers Care Hide Examiner Name Role Phone Elsewhere, Pcp Primary Care Provider Unavailabl e Reason for Referral * Outpatient (Routine) - Authorized Specialty Diagnoses / Procedures Referred By Karen t Referred To Contact Rheumatology Rayna Guerrero APRN, C.N.P. [address] [place] [phone] Phone: tel: fax: [facility] Referral ID Status Reason Start Date Expiration Date V isits Requested Visits Authorized [id number] Authorized 2024 03/04/2026 1 1 Reason for Visit * Outpatient (Routine) - Closed Specialty Diagnoses / Procedures Referred By Contac t Referred To Contact Rheumatology Rayna Guerrero APRN, C.N.P. [address] [place] [phone] Phone: tel: fax: [facility] Referral ID Status Reason Start Date Expiration Date Visits Re quested Visits Authorized [id number] Closed 02/18/2024 08/19/2025 1 1 Encounter Details Date Type Department Care Team (Latest Contact Info) Description 2024 8:00 AM CDT Office Visit Division of Rheumatology in [place], [place] [address] [place] [phone] Rayna Guerrero, MORTEZA, C.N.P. [address] [place] [address] Arthritis Rheumatoid (HCC) (Primary Dx); High Risk Medication Social History Tobacco Use Types Packs/Day Years Used Date Smoking Tobacco: Never Smokeless Tobacco: Never Alcohol Use Standard Drinks/Week Comments No 0 (1 standard drink = 0.6 oz pur e alcohol) [facility] Utilities Answer Date Recorded In the past 12 months has e [employer], gas, oil, or water [employer] threatened to shut off services in your [...] often do you attend chur ch or christian services? Never 02/03/2023 Do you belong to any clubs o r organizations such as evangelical groups, unions, fraternal [...] and heating? Not hard at all 02/03/2023 [facility] - Occupational Stress Questionnaire Answer Date [...] living? No 02/17/2024 Nutrition Answer Date Recorded On average, how many serving s of [...] Bachelor's degree (e.g., BA, AB, BS) 05/02/2019 Comments Unknown Sex and Gender Information Value Date Recorded Sex Assigned at Female 10/17/2018 9:43 PM RIPSHEAR OPERATOR Legal Sex Female 3:29 PM RIPSHEAR OPERATOR Gender Identity Female 10/17/2018 9:43 PM RIPSHEAR OPERATOR Sexual Orientation Straight 10/17/2018 9: 43 PM RIPSHEAR OPERATOR documented as of this encounter Last Filed Vital Signs Vital Sign Reading Time Taken Comments Blood Pressure 127/71 2024 7:59 AM CDT Pulse 73 2024 7:59 AM CDT Temperature 36.9 C (98.4 F) 2024 7:59 AM CDT Respiratory Rate - - Oxygen Saturation - - Inhaled Oxygen Concentration - - Weight 67.4 kg (148 lb 7.7 oz) 2024 7:59 A M CDT Height 176.3 cm (5' 9.41) 2024 7:59 AM CD T Body Mass Index 21.67 2024 7:59 AM CDT documented in this encounter Progress Notes * Rayna Guerrero, MORTEZA, C.N.P. - 2024 8:00 AM CDT Images from the original note were not included. SUBJECTIVE CHIEF COMPLAINT / REASON FOR VISIT Martine De Oliveira is a 59 y.o. female who presents for follow up of rheumatoid arthritis. HISTORY OF PRESENT ILLNESS Mrs. De Oliveira is a pleasant 59-year-old lady with seropositive erosive/destructive rheumatoid arthritis. She [...] Stop Date Response / Adverse Events NSAIDS 1996 09/2016 Methotrexate PO 09/2016 Methotrexate SQ 10/2017 Currently Today, I am seeing Mrs. De Oliveira for follow of her rheumatoid arthritis. She started using insulin pump in May and her glucose is very well controlled. She is having pain in her hands and feet related to work. 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 Shecontinues take methotrexate 12.5 mg SQ weekly and folic acid 2 mg daily. Morning stiffness lasting 5-10 minutes. No recent major flares, infections, or hospitalizations. Rheumatoid Arthritis RF +: Yes CCP +: Yes AM stiffness: 10 minutes Current Symptoms: dry eyes (Systane as needed) and cough (PND- occassionally) Current Symptoms: no dry mouth, no fatigue, no fever, no rash, no Raynaud's syndrome, no weight loss, no excessive bruising, no chest pain, no edema, no nausea, no vomiting, no abdominal pain, no anorexia, no chills, no night sweats (hot flashes- couple times a week), no oral ulcers, no eye inflammation, no [...] then right. Right elbow contracture. Bilateral knees warm, no effusion. No pain noted with palpation. Lab: CBC with differential is normal. Creatinine, GFR, and AST are within normal limits. ESR and CRP arenormal. 02/10/2023 08/13/2023 02/18/2024 2024 Tender joint count (0-28) 4 4 6 7 Swollen joint count (0-28) 9 11 15 16 Patient global assessment (0-100) 7 7 20 10 Supervisor Pairing And Inspecting global assessment (0-100) 30 20 35 40 ESR (mm/h) 8 5 14 13 CRP (mg/L) 3 3 3.6 3 Disease Activity Score 28 using ESR ([id number]) 3.51 3.27 4.58 4.54 Disease Activity Score 28 using CRP ([id number]) 3.52 3.61 4.25 4.2 Clinical Disease Activity Index (CDAI) 16.7 17.7 26.5 28 Simplified Disease Activity Index (SDAI) 17 18 26.86 28.3 ASSESSMENT / PLAN #1 Arthritis Rheumatoid (HCC) Increased synovitis is noted on exam today in her hands. She tends to have increased joint symptomsin the fall. Overall, her joints are stable. She will continue methotrexate 12.5 mg [...] concerns. [facility] documented in this encounter Plan of Treatment Scheduled Orders Name Type Priority Associated Diagnoses Orde r Schedule Sedimentation Rate Lab Routine Arthritis Rheumatoid (HCC) Expected: 03/03/2025 (Approximate), Expires: 2025 CBC with Differential, Blood Lab Routine Arthritis Rheumatoid (HCC) Expected: 03/03/2025 (Approximate), Expires: 2025 CRP (C-Reactive Protein) Lab Routine Arthritis Rheumatoid (HCC) Expected: 03/03/2025 (Approximate), Expires: 2025 Creatinine with Estimated GFR Lab Routine Arthritis Rheumatoid (HCC) Expected: 03/03/2025 (Approximate), Expires: 2025 AST (Aspartate Aminotransferase) Lab Routine Arthritis Rheumatoid (HCC) Expected: 03/03/2025 (Approximate), Expires: 2025 ALT (Alanine Aminotransferase) Lab Routine Arthritis Rheumatoid (HCC) Expected: 03/03/2025, Expires: 12/03/2025 Scheduled Referrals Name Type Priority Associated Diagnoses Order Schedule Rheumatology office visit (clinic) Outpatient Referral Routine Expected: 03/03/2025 (Approximate), Expires: 12/03/2025 documented as of this encounter Visit Diagnoses Diagnosis Arthritis Rheumatoid (HCC)- Primary High Risk Medication documented in this encounter Additional Health Concerns Infection Onset Date Last Indicated Resolved Time Protective Environment 03/26/2023 03/26/2023 documented as of this encounter Care Teams Hide Examiner Relationship Specialty Start Date End Date Elsewhere, Pcp PCP - General Family Medicine 07/17/21 documented as of this encounter
--- OUTSIDE RECORDS SUMMARY | 2024-10-31 10:55 | XMS_ITS | Encounter Summary ---
Author Organization [facility] Address [address] [place] [address] Care Team Providers Care Project Finance Analyst Name Role Phone Shelbi Miller MD Unavailable [phone] [facility] Primary Care Provider Milka Rick RN Unavailable Unavailable Ashleigh Corrales PA-C Unavailable Reason for Visit * Reason Onset Date Comments Results 02/01/2022 Encounter Details Date Type Department Care Team (Late st Contact Info) Description 02/01/[address] [facility] Emergency Dept [address] [place] [phone] Michelle Galeana, RN Results Social History Tobacco Use Types Packs/Day Years Used Date Smoking Tobacco: Never Assessed Comments Unknown Sex and Gender Information Value Date Recorded Sex Assigned at Female 02/22/2024 9:44 PM CDT Legal Sex Female 5:02 AM MOTOR VEHICLE PARTS INTERPRETER Gender Identity Female 02/22/2024 9:44 PM CDT Sexual Orientation Straight 02/22/2024 9: 44 PM CDT COVID-19 Exposure Response Date Recorded In the last month, have you been in contact with someone who was confirmed or suspected to have Coronavirus / COVID-19? No / Unsure 01/26/2022 10:33 AM MOTOR VEHICLE PARTS INTERPRETER documented as of this encounter Miscellaneous Notes * Telephone Encounter - Michelle Galeana RN - 02/01/2022 5:08 PM MOTOR VEHICLE PARTS INTERPRETER [facility] Emergency Department/Urgent Care Lab result notification: [...] 24 H ur/cr 0 - 300 ug/g SAP FICO BUSINESS ANALYST 154 Normetanephrine 24 Hr/Random Urine 95 - 650 ug/d Not Applicable Normetaneph 24H ur/cr 0 - 400 ug/g SAP FICO BUSINESS ANALYST 225 Metanephrine 24 Hr/Random Urine Interpretation See Note Creatinine Urine/Volume mg/dL 102 Creatinine Urine/24hr 500 - 1400 mg/d Not Applicable 5:09 Left voicemail message requesting a call back to [phone] between 9 a.m. and 5:30 p.m. for patient's ED/UC lab results. Michelle Galeana RN [facility] Result RN [facility] Emergency Dept Lab Result RN R VEHICLE PARTS INTERPRETER documented in this encounter Plan of Treatment Not on file documented as of this encounter Visit Diagnoses Not on filedocumented in this encounter Care Teams Project Finance Analyst Relationship Specialty Start Date End Date Clinic, [facility] [address] [place] [address] PCP - General 01/26/22 Shelbi Miller MD [facility] [address] [place] [address] Internal Medicine 01/26/22 Milka Rick marking stitcher Diabetes Education 03/03/24 Ashleigh Corrales PA-C [address] [place] [address] Assigned Endocrinology Provider 03/15/24 documented as of this encounter
--- OUTSIDE RECORDS SUMMARY | 2024-10-31 10:55 | XMS_ITS | Encounter Summary ---
Author Organization [facility] Address [address] [place] [address] Care Team Providers Care Directory Compiler Name Role Phone Shelbi Miller MD Unavailable [phone] [facility] Primary Care Provider Milka Rick RN Unavailable Unavailable Ashleigh Corrales PA-C Unavailable Reason for Visit * Reason Onset Date Comments Refill Request 10/18/2024 Encounter Details Date Type Department Care Team (Late st Contact Info) Description 10/18/2024 MyC Refill [address] [place] [address] Ashleigh Corrales PA-C [address] [place] [address] Refill Request Social History Tobacco Use Types Packs/Day Years [...] PM CDT Legal Sex Female 5:02 AM WIRELESS SALES REPRESENTATIVE Gender Identity Female 02/22/2024 9:44 PM CDT Sexual Orientation Straight 02/22/2024 9: 44 PM CDT documented as of this encounter Miscellaneous Notes * Telephone Encounter - Alessandra Ibarra RN - 10/18/2024 11:11 AM WIRELESS SALES REPRESENTATIVE Requested Prescriptions Pending Prescriptions Disp Refills insulin aspart (NOVOLOG VIAL) 100 UNITS/ML vial 40 mL 1 Sig: Uses up to 40 units per day in insulin pump for basal, bolus, and priming of insulin pump tubing. Insulin Protocol Failed - 10/18/2024 11:11 AM Failed - HgbA1C in past 3 or 6 months If HgbA1C is 8 or greater, it needs to be on file within the past 3 months. If less than 8, must beon file within the past 6 months. Recent Labs Lab Test 05/25/24 1149 02/29/24 1502 A1C -- 7.9* 47930 8.0* -- Failed - Chart review required Review Chart. Do not approve if insulin is used in a pump. Instead, direct refill request to the patient's accounts receivable analyst. If the patient doesn't have an accounts receivable analyst, then send the refill to the patient's PCPfor review Passed - Medication is active on med list Passed - Recent (6 mo) or future (90 days) visit within the authorizing provider's specialty The patient must have completed an in-person or virtual visit within the past 6 months or has a future visit scheduled within the next 90 days with the authorizing provider???s specialty. Urgent careand e-visits do not quality as an office visit for this protocol. Passed - Medication indicated for associated diagnosis Medication is associated with one or more of the following diagnoses: - Type 1 diabetes mellitus - Type 2 diabetes mellitus - Diabetic nephropathy; Prophylaxis - Neuropathy due to diabetes mellitus; Prophylaxis - Retinopathy due to diabetes mellitus; Prophylaxis - Diabetes mellitus associated with cystic fibrosis - Disorder of cardiovascular system; Prophylaxis - Type 1 diabetes mellitus - Disorder of cardiovascular system; Prophylaxis - Type 2 diabetes mellitus Passed - Patient is 18 years of age or older LESS SALES REPRESENTATIVE documented in this encounter Plan of Treatment Not on file documented as of this encounter Visit Diagnoses Diagnosis Type 1 diabetes mellitus (H) Type I (juvenile type) diabetes mellitus without mention of complication, not stated as uncontrolled documented in this encounter Care Teams Directory Compiler Relationship Specialty Start Date End Date Clinic, [address] [place] [address] PCP - General 01/26/22 Shelbi Miller MD [facility] [address] [place] [address] Internal Medicine 01/26/22 Milka Rick RN Diabetes Educator Diabetes Education 03/03/24 Ashleigh Corrales PA-C [address] [place] [address] Assigned Endocrinology Provider 03/15/24 documented as of this encounter
--- OUTSIDE RECORDS SUMMARY | 2024-10-31 10:55 | XMS_ITS ---
Author Organization [facility] Address [address] [place] [address] Care Team Providers Care Warp Tension Tester Name Role Phone Shelbi Miller MD Unavailable [facility] Primary Care Provider Milka Rick RN Unavailable Unavailable Ashleigh Corrales PA-C Unavailable Diabetes Self-Management Education Status:Identified (Enrolling) Start date:03/01/2024 Continued Care and Services Coordination
--- OUTSIDE RECORDS SUMMARY | 2024-10-31 10:55 | XMS_ITS | Referral Summary ---
Author Organization [facility] Address [address] [place] [address] Care Team Providers Care Shoemaking Cutter Name Role Phone Elsewhere, Pcp Primary Care Provider Unavailabl e Source Comments Patient records contain information from all sites at [facility]. For routine questions regarding patient records, call [phone] during business hours, M-F 8:00 AM - 5:00 PM Central Time. Record requests for emergency care only can be directed to [phone] at any time.[facility] Encounters Date Type Department Care Team Description 2024 8:00 AM CDT Office Visit Division of Rheumatology in [place], [place] [address] [place] [phone] Rayna Guerrero APRN, C.N.P. Arthritis Rheumatoid (HCC) (Primary Dx); High Risk Medication 2024 6:39 AM CDT - 2024 11:59 PM CDT Hospital Encounter [facility] in [place], [place] [address] [place] [address] Rayna Guerrero APRN, C.N.P. Arthritis Rheumatoid (HCC) Discharge Disposition: Home or Self Care from Last 3 Months Allergies Active Allergy Reactions Criticality Noted Date Comments Cephalosporins Other (see comments) Low 08/14/2022 Cortisone Other (see comments) 03/07/2014 high blood sugar with injectable Morphine Nausea And Vomiting 01/30/2014 Penicillins Other (see comments) 01/30/2014 Unknown reaction Medications LACTOBACILLUS ACIDOPHILUS (PROBIOTIC ORAL) Take 1 Dose by mouth as needed. Floragen 3 Probiotic occasionally Active magnesium 100 mg tablet tablet Take 100 mg by mouth every morning before breakfast. 8 Active UltiCare 0.3 mL 31 gauge x 5/16 syringe 100 Injection daily. 1 Active Dexcom G6 Sensor device DIRECTED [id number] 2 Active Dexcom G6 Transmitter device DIRECTED [id number] 2 Active estradioL (ESTRACE) 0.1 mg/g (0.01%) vaginal cream INSERT 1/2 GRAM VAGINALLY NIGHTLY FOR 2 WEEKS THEN 2 TIMES PER WEEK 2 Active OneTouch Verio test strips strips 4 (four) times a day. for testing 2 Active VITAMIN B COMPLEX ORAL Take 1 capsule by mouth daily. 2 Active folic acid 1 mg tabletIndicatio ns:Arthritis Rheumatoid (HCC),High Risk Medication Take 2 tablets (2 mg total) by mouth daily. 60 tablet 11 3 Active fish oil 500 mg capsule Take 1,000 mg by mouth daily. Active lisinopriL (PRINIVIL,ZESTR IL) 5 mg tablet Take 1 tablet by mouth daily. 3 Active syringe with needle (BD Luer-Arlene Syringe) 3 mL 25 gauge x 1 syringeIndicati ons:Arthritis Rheumatoid ([facility]) DISPENSE 10 SYRINGES WITH EACH 10ML METHOTREXATE DISPENSED 12 each 3 4 Active insulin aspart (NovoLOG) 100 Units/mL patient supplied pump Active acetone, urine, test strip USE NEEDED WHEN GLUCOSE IS >300 4 Active methotrexate 25 mg/mL injectionIndica tions:Arthritis Rheumatoid ([facility]) Inject 0.5 mL (12.5 mg total) under the skin once a week. 6 mL 1 4 Active Active Problems Problem Noted Date Diagnosed [...] drink = 0.6 oz pur e alcohol) [facility] Utilities Answer Date Recorded In [...] often do you attend chur ch or lutheran services? Never 02/03/2023 Do you belong to any clubs o r organizations such as alevism groups, unions, fraternal or athletic groups, or [...] and heating? Not hard at all 02/03/2023 [facility] [place] [facility] Occupat ional Health - Occupational Stress [...] your living situation today? I have a [facility] place to live 02/17/2024 Education Answer Date Recorded What is the highest level of school you have completed or the highest degree you have received? Bachelor's degree (e.g., BA, AB, BS) 05/02/2019 Comments Unknown Sex and Gender Information Value Date Recorded Sex Assigned at Female 10/17/2018 9:43 PM GOVERNMENT SERVICES PROFESSIONAL Legal Sex Female 3:29 PM GOVERNMENT SERVICES PROFESSIONAL Gender Identity Female 10/17/2018 9:43 PM GOVERNMENT SERVICES PROFESSIONAL Sexual Orientation Straight 10/17/2018 9: 43 PM GOVERNMENT SERVICES PROFESSIONAL Last Filed Vital Signs Vital Sign Reading Time Taken Comments Blood Pressure 127/71 2024 7:59 AM CDT Pulse 73 2024 7:59 AM CDT Temperature 36.9 C (98.4 F) 2024 7:59 AM CDT Respiratory Rate 13 01/31/2014 11:0 0 AM CDT Value from [employer]. Oxygen Saturation - - Inhaled Oxygen Concentration - - Weight 67.4 kg (148 lb 7.7 oz) 2024 7:59 AM CDT Height 176.3 cm (5' 9.41) 2024 7 :59 AM CDT Body Mass Index 21.67 2024 7:59 AM CDT Plan of Treatment Not on file Medical Devices Implanted Type Area Customer Operations Associate Device Identifier Shelf Expiration Date Model / Serial / Lot Hardware E.G. Pins/Screws/Ro ds-10/23/2022 Implanted:12/0 11/2021 (Quantity not on file) Hardware e.g. pins/screws/ rods Left: Hip Procedures Procedure Name Priority Date/Time Associated Diagnosis Comments ASPARTATE AMINOTRANSFERASE (AST), S/P Routine 2024 6:49 AM CDT Arthritis Rheumatoid (HCC) CREATININE WITH EGFR, S/P Routine 2024 6:49 AM CDT Arthritis Rheumatoid (HCC) C-REACTIVE PROTEIN (CRP), S/P Routine 2024 6:49 AM CDT Arthritis Rheumatoid (HCC) CBC WITH DIFFERENTIAL, B Routine 024 6:49 AM CDT Arthritis Rheumatoid (HCC) SEDIMENTATION RATE, B Routine 2024 6:49 AM CDT Arthritis Rheumatoid (HCC) CHRONIC VIRAL HEPATITIS PROFILE Routine 10/13/2016 10:49 AM GOVERNMENT SERVICES PROFESSIONAL GLUCOSE POCT, B Routine 01/30/2014 4:38 PM CDT from Last 3 Months or Most Recently Relevant to Health Maintenance Results * Sedimentation Rate (2024 6:49 AM CDT) Sedimentation Rate, B 13 2 - 22 mm/h 2024 8:05 AM CDT DTL Blood (Blood, Venous) 2024 6:49 AM CDT 2024 7:15 AM CDT Rayna Guerrero APRN, C.N.P. LAB BLOOD ADD-ON F inal Result [facility] [address] [place] [address], [facility] [[email or web address]] [facility] [place] [address] [place] [address] * CBC with Differential, Blood (2024 6:49 AM CDT) Hemoglobin 13.9 11.6 - 15.0 g/dL 2024 7:22 AM CDT DTL Hematocrit 43.5 35.5 - 44.9 % 2024 7:22 AM CDT DTL Erythrocytes 4.57 3.92 - 5.13 x10(12)/L 2024 7:22 AM CDT DTL MCV 95.2 78.2 - 97.9 fL 2024 7:22 AM CDT DTL RBC Distrib Width 13.3 12.2 - 16.1 % 2024 7:22 AM CDT DTL Platelet Count 233 157 - 371 x10(9)/L 2024 7:22 AM CDT DTL Leukocytes 5.8 3.4 - 9.6 x10(9)/L 2024 7:22 AM CDT DTL Neutrophils 3.89 1.56 - 6.45 x10(9)/L 2024 7:22 AM CDT DHPM Lymphocytes 1.11 0.95 - 3.07 x10(9)/L 2024 7:22 AM CDT DTL Monocytes 0.48 0.26 - 0.81 x10(9)/L 2024 7:22 AM CDT DTL Eosinophils 0.24 0.03 - 0.48 x10(9)/L 2024 7:22 AM CDT DTL Basophils 0.07 0.01 - 0.08 x10(9)/L 2024 7:22 AM CDT DTL Blood (Blood, Venous) 2024 6:49 AM CDT 2024 7:15 AM CDT Rayna Guerrero APRN, C.N.P. LAB BLOOD ADD-ON F inal Result [facility] [address] [place] [address], [facility] [address] [place], [place] [id number] [place] [address] [address] [place] [address] * CRP (C-Reactive Protein) (2024 6:49 AM CDT) C-Reactive Protein (CRP), S <3.0 <5.0 mg/L 2024 7:49 AM CDT DTL Blood (Blood, Venous) 2024 6:49 AM CDT 2024 7:32 AM CDT Rayna Guerrero APRN, C.N.P. LAB BLOOD ADD-ON F inal Result [facility] [address] [place] [address], [facility] [address] [place] [address] * AST (Aspartate Aminotransferase) (2024 6:49 AM CDT) Aspartate Aminotransferase (AST), S 28 8 - 43 U/L 2024 7:49 AM CDT DTL Blood (Blood, Venous) 2024 6:49 AM CDT 2024 7:32 AM CDT Rayna Guerrero APRN, José Miguel.N.P. LAB BLOOD ADD-ON F inal Result Performing Organization Address [facility] Co de Phone Number [facility] [address] [place] [address], [facility] [[email or web address]] DTL [facility] [address] [place] [address] * Creatinine with Estimated GFR (2024 6:49 AM CDT) Creatinine 0.79 0.59 - 1.04 mg/dL 2024 7:49 AM CDT DTL Estimated GFR (eGFR) 86 >=60 mL/min/BSA 2024 7:49 AM CDT DTL Comment: Estimated GFR calculated using the 2020 CKD_EPI creatinine equation. Blood (Blood, Venous) 2024 6:49 AM CDT 2024 7:32 AM CDT Rayna Guerrero APRN, C.N.P. LAB BLOOD ADD-ON F inal Result Performing Organization Address [facility] Co de Phone Number [facility] [address] [place] [address], [facility] [[email or web address]] DTL [facility] [address] [place] [address] * Chronic Hepatitis Profile (10/13/2016 10:49 AM GOVERNMENT SERVICES PROFESSIONAL) HBs Antigen, S Negative Negative [facility] HBs Antibody,S Negative Unvaccinated : Negative; Vaccinated: Positive [facility] Comment:Patient is presumed to be not immune to infection with HBV. HBc Total Ab, S Negative Negative [facility] HBs Antibody, Quantitative, S <5.0 Unvaccinated : <5.0; Vaccinated: >=12.0 MIU/ML [facility] HCV Ab, S Negative Negative [facility] Comment:Gzrgwk-tx-pudwwd rat io is <1.00. 10/13/2016 10:4 9 AM GOVERNMENT SERVICES PROFESSIONAL 10/13/2016 10:49 AM GOVERNMENT SERVICES PROFESSIONAL Jaye Martinez LAB MICROBIOLOGY - BLOOD O RDERABLES Final Result Performing Organization Address [facility] Co de Phone Number [facility] [address] * (ABNORMAL) Glucose, POCT (01/30/2014 4:38 PM CDT) Glucose, POCT, B 165(H) 70 - 140 MG/DL [facility] Sample Site, Blood Gas, POCT Capillary [facility] 01/30/2014 4:38 PM CDT 01/30/2014 4:38 PM CDT Historical Provider LAB POCT ORDERABLES-MANUAL F inal Result Performing Organization Address [facility] Co de Phone Number [facility] [address] from Last 3 Months or Most Recently Relevant to Health Maintenance Additional Health Concerns Infection Onset Date Last Indicated Protective Environment 03/26/2023 3 Insurance [facility] Advance Directives For more information, please contact: [phone] Documents on File Type Date Recorded Patient Clothes Ironer Expl anation Advance Directives 10/19/2023 4:57 AM Deuce Glasgow HCPOA/ADVOCATE/AGENT/R EPRESENTATIVE/SURROGAT E Healthcare Agents on File Name Relationship Healthcare Agent Relationship Communication Deuce De Oliveira Spouse Health Care Agent Antoni Glasgow Brother First Alternate Health Care Agent Care Teams Shoemaking Cutter Relationship Specialty Start Date End Date Elsewhere, Pcp PCP - General Family Medicine 07/17/21
--- OUTSIDE RECORDS SUMMARY | 2024-10-31 10:55 | XMS_ITS ---
Author Organization [facility] Address [address] [place] [address] Care Team Providers Care Tool Checker Name Role Phone Unavailable Unavailable Unavailable Surgery Details Not on file Complications Check Surgery Details section. Procedure Estimated Blood Loss Check Surgery Details section. Procedure Findings Check Surgery Details section. Procedure Specimens Taken Check Surgery Details section.
--- OUTSIDE RECORDS SUMMARY | 2024-10-31 10:55 | XMS_ITS | Clinical Summary ---
Author Organization [facility] Address [address] [place] [address] Care Team Providers Care Political Reporter Name Role Phone Shelbi Miller MD Unavailable [facility] Primary Care Provider Milka Rick RN Unavailable Unavailable Ashleigh Corrales PA-C Unavailable Allergies Active Allergy Reactions Criticality Noted Date Comments Cephalosporins Other (See Comments),Rash Low 08/14/2022 Cortisone 03/07/2014 Other reaction(s): Other (see comments) high blood sugar with injectable Morphine Nausea and Vomiting 01/30/2014 Penicillins 01/30/2014 Other reaction(s): Other (see comments) Unknown reaction Medications LACTOBACILLUS PO Take 1 Dose by mouth Active cholecalciferol (VITAMIN D3) 25 mcg (1000 units) capsule Take 1,000 Units by mouth 05/27/20 22 Active B-D LUER-THAI SYRINGE 25G X 1 3 ML MISC DISPENSE 10 SYRINGES WITH EACH 10ML METHOTREXATE DISPENSED 02/24/20 24 Active Continuous Blood Gluc Plastic Sheets Finishing Supervisor (DEXCOM G6 SCIENTIFIC INFORMATICS ANALYST) MARCO See Admin Instructions 03/26/20 23 Active estradiol (ESTRACE) 0.1 MG/GM vaginal cream INSERT 0.5MG VAGINALLY TWICE WEEKLY. 12/02/19 24 Active ONETOUCH VERIO IQ test strip USE TO TEST FOUR TIMES A DAY. Active methotrexate 50 MG/2ML injection INJECT 0.5 ML (12.5 MG TOTAL) UNDER THE SKIN ONCE A WEEK. 02/25/20 24 Active B Complex Vitamins (VITAMIN B COMPLEX PO) Take 1 capsule by mouth daily 10/07/20 22 Active folic acid (FOLVITE) 1 MG tablet Take 1 mg by mouth 02/11/20 23 Active fish oil-omega-3 fatty acids 500 MG capsule Take 1,000 mg by mouth daily Active lisinopril (ZESTRIL) 5 MG tablet Take 1 tablet by mouth daily 10/27/20 23 Active lidocaine (XYLOCAINE) 5 % external ointment APPLY TO AFFECTED AREA TOPICALLY TO SKIN 20 MINUTES PRIOR TWICE A DAY NEEDED FOR PAIN. 12/30/19 24 Active insulin aspart (NOVOLOG VIAL) 100 UNITS/ML vialIndications :Type 1 diabetes mellitus (H) Uses up to 40 units per day in insulin pump for basal, bolus, and priming of insulin pump tubing. 40 mL 1 06/07/20 24 Active Glucagon (BAQSIMI) 3 MG/DOSE nasal powderIndicatio ns:Type 1 diabetes mellitus (H) Blanco 1 spray (3 mg) in nostril as needed for low blood sugar in the event of unconscious hypoglycemia or hypoglycemic seizure. May repeat dose if no response after 15 minutes. 1 each 1 06/13/20 24 Active KETOSTIX test stripIndication s:Type 1 diabetes mellitus (H) Use as needed when glucose is >300 50 strip 1 06/13/20 24 Active Insulin Infusion Pump Supplies (ILET INSET) MISCIndications :Type 1 diabetes mellitus (H) 1 each every 48 hours 45 each 3 07/12/20 24 Active Continuous Glucose Sensor (DEXCOM G6 SENSOR) MISCIndications :Type 1 diabetes mellitus (H) Change every 10 days 9 each 2 10/18/20 24 Active Continuous Glucose Transmitter (DEXCOM G6 TRANSMITTER) MISCIndications :Type 1 diabetes mellitus (H) Change every 3 months. 1 each 1 10/18/20 24 Active blood glucose monitoring (NO BRAND SPECIFIED) meter device kitIndications: Type 1 diabetes mellitus (H) Use to test blood sugar 4 times daily or as directed. 1 kit 10/18/20 24 Active blood glucose (NO BRAND SPECIFIED) lancets standardIndicat ions:Type 1 diabetes mellitus (H) Use to test blood sugar 4 times daily or as directed. 1 Lancet 2 10/18/20 24 Active blood glucose (NO BRAND SPECIFIED) test stripIndication s:Type 1 diabetes mellitus (H) Use to test blood sugar 4 times daily or as directed. 100 strip 2 10/18/20 Active Continuous Blood Gluc Sensor (DEXCOM G6 SENSOR) MISC See Admin Instructions 02/18/20 024 Discontin ued(Reord er (No AVS)) Continuous Blood Gluc Transmit (DEXCOM G6 TRANSMITTER) MISC DIRECTED [id number] 01/21/20 024 Discontin ued(Reord er (No AVS)) Active Problems Problem Noted Date Diagnosed Date Adrenal mass 02/29/2024 Closed fracture of neck of left femur 02/29/2024 Diabetic retinopathy 02/29/2024 Essential hypertension 02/29/2024 Menopausal hot flushes 02/29/2024 Rheumatoid arthritis 08/04/2007 Type 1 diabetes mellitus 10/17/2002 Encounters Date Type Department Care Team Description 10/18/2024 MyC Refill [address] [place] [address] Ashleigh Corrales PA-C Refill Request 10/18/2024 MyC Medical Advice [place] [address] [facility] [address] [place] [phone] Ashleigh Corrales PA-C 10/18/2024 MyC Medical Advice [facility] [id number] [place] [address] [address] [place] [address] Milka Rick, RN Type 1 diabetes mellitus (H) (Primary Dx) 10/10/2024 Travel 10/09/2024 MyC Medical Advice [facility] [address] [place] [address] Ashleigh Corrales PA-C from Last 3 Months Immunizations Name Administration [...] PM CDT Legal Sex Female 5:02 AM LENS COATER Gender Identity Female 02/22/2024 9:44 PM CDT Sexual Orientation Straight 02/22/2024 9: 44 PM CDT Last Filed Vital Signs Vital Sign Reading Time Taken Comments Blood Pressure 142/66 02/29/2024 2:45 PM CDT Pulse 66 02/29/2024 1:55 PM CDT Temperature 37 C (98.6 F) 02/29/2024 1:55 PM CDT Respiratory Rate 16 02/29/2024 1:55 PM CDT Oxygen Saturation 99% 02/29/2024 1:55 PM CDT Inhaled Oxygen Concentration - - Weight 64.4 kg (142 lb) 03/03/2024 7:54 AM CDT Height 175.3 cm (5' 9) 02/29/2024 1:55 PM CDT Body Mass Index 20.97 02/29/2024 1:55 PM CDT Plan of Treatment Health Maintenance Due Date Last Done Comments ADVANCE CARE PLANNING 1964 ANNUAL REVIEW OF HM ORDERS 1964 CT COLONOGRAPHY 1964 FIT 1964 FLEX SIG 1964 LIPID 1964 MAMMO SCREENING 1964 YEARLY PREVENTIVE VISIT 1964 COLONOSCOPY 1974 HIV SCREENING 1979 HEPATITIS C SCREENING 1982 ZOSTER IMMUNIZATION (1 of 2) 1983 Pneumococcal Vaccine: Pediatrics (0 to 5 Years) and At-Risk Patients (6 to 64 Years) (2 of 2 - PCV) 12/07/1996 12/07/1995 MICROALBUMIN 03/01/2010 03/01/2009 COVID-19 Vaccine ( season) 2024 09/29/2022, 07/17/2021, 03/01/2021, Additional history exists INFLUENZA VACCINE (#1) 2024 , 08/27/2020, 12/02/2019, Additional history exists A1C 08/25/2024 05/25/2024, 02/29/2024 RSV VACCINE (1 - Risk 60-74 years 1-dose series) 2024 COLORECTAL CANCER SCREENING 09/10/2024 sDNA (Cologuard) 09/10/2024 09/10/2021 EYE EXAM 12/06/2024 12/06/2023 BMP 02/28/2025 02/29/2024, 01/26/2022 DIABETIC FOOT EXAM 02/28/2025 02/29/2024 PAP 06/13/2025 06/13/2022 DTAP/TDAP/TD IMMUNIZATION (2 - Td or Tdap) 07/19/2030 07/19/2020, 12/07/1995 PHQ-2 (once per calendar year) Completed 06/13/2024, 03/03/2024 HPV IMMUNIZATION Aged Out No longer e ligible based on patient's age to complete this topic MENINGITIS IMMUNIZATION Aged Out No l onger eligible based on patient's age to complete this topic RSV MONOCLONAL ANTIBODY Aged Out No l onger eligible based on patient's age to complete this topic Procedures Procedure Name Priority Date/Time Associated Diagnosis Comments HEMOGLOBIN A1C (EXTERNAL RESULT) Routine 05/25/2024 11:49 AM CDT BASIC METABOLIC PANEL Routine 02/29/2024 3:02 PM CDT Type 1 diabetes mellitus without complication (H) EYE EXAM - HIM SCAN Routine 12/06/2023 MICROALBUMIN RANDOM URINE Routine 03/01/2009 1:55 PM CDT from Last 3 Months or Most Recently Relevant to Health Maintenance Results * (ABNORMAL) Hemoglobin A1c (External Result) (05/25/2024 11:49 AM CDT) Hemoglobin A1C (External) 8.0(A) 0 - 5.6 % [facility] Blood 05/25/2024 11:4 9 AM CDT Narrative [facility] - 05/25/2024 11:49 AM CDT [facility] - External Lab Results us Provider Outside LAB - HIM EXTERNAL RESULT Final Result [facility] [address] [place] [address], [facility] [phone] * (ABNORMAL) Basic metabolic panel (Ca, Cl, CO2, Creat, Gluc, K, Na, BUN) (02/29/2024 3:02 PM CDT) Pathologist [facility] Sodium 138 135 - 145 mmol/L [...] 3:02 PM CDT 02/29/2024 3:02 PM CDT us Ashleigh Corrales PA-C LAB - BLOOD ORDERABLES Final Res ult [facility] [address] [facility], [address] [place] [phone] * Eye Exam - HIM Scan (12/06/2023) RETINOPATHY UNKNOWN Narrative Dmitriy Yanelis - 12/06/2023 Lala Ibarra CMA P Abstract Quality Initiatives Please abstract the following data from this visit with this patient into the appropriate field in Epic: Tests that can be patient reported without a hard copy: Eye exam with ophthalmology on this date: 12/06/23 Exam Location: [facility] Patient Reported OTHER Final Result * Microalbumin random urine (03/01/2009 1:55 PM CDT) Albumin Urine mg/L 7 mg/L [facility] Albumin Urine mg/g Cr 7.00 0 - 20 mg/g Cr [facility] 03/01/2009 1:55 PM CDT 03/01/2009 1:57 PM CDT Colleen Randhawa PA-C LAB - URINE ORDERABLES Final Result [facility] from Last 3 Months or Most Recently Relevant to Health Maintenance Insurance [facility] [place] Care Teams Political Reporter Relationship Specialty Start Date End Date [facility] [address] [place] [address] PCP - General 01/26/22 Shelbi Millre MD [facility] [address] [place] [address] Internal Medicine 01/26/22 Milka Rick, family resource coordinator Diabetes Education 03/03/24 Ashleigh Corrales PA-C [address] [place] [address] Assigned Endocrinology Provider 03/15/24
--- OUTSIDE RECORDS SUMMARY | 2024-10-31 10:55 | XMS_ITS | Encounter Summary ---
Author Organization [facility] Address [address] [place] [address] Care Team Providers Care Oleomargarine Maker Name Role Phone Shelbi Miller MD Unavailable [phone] [facility] Primary Care Provider Milka Rick RN Unavailable Unavailable Ashleigh Corrales PA-C Unavailable Encounter Details Date Type Department Care Team (Late st Contact Info) Description 06/20/2024 [facility] Medical Advice [address] [place] [address] Milka Rick RN Social History [...] PM CDT Legal Sex Female 5:02 AM DIRECTOR OF REHABILITATION AND WELLNESS Gender Identity Female 02/22/2024 9:44 PM CDT Sexual Orientation Straight 02/22/2024 9: 44 PM CDT documented as of this encounter Plan of Treatment Not on file documented as of this encounter Visit Diagnoses Not on filedocumented in this encounter Care Teams Oleomargarine Maker Relationship Specialty Start Date End Date [facility] [address] [place] [address] PCP - General 01/26/22 Shelbi Miller MD [address] [address] Internal Medicine 01/26/22 Milka Rick care director rn Diabetes Education 03/03/24 Ashleigh Corrales PA-C [address] [place] [id number] Assigned Endocrinology Provider 03/15/24 documented as of this encounter
--- OUTSIDE RECORDS SUMMARY | 2024-10-31 10:55 | XMS_ITS | Encounter Summary ---
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 Gender Identity Female 02/22/2024 9:44 PM CDT Sexual Orientation Straight 02/22/2024 9: 44 PM CDT documented as of this encounter Plan of Treatment Not on file documented as of this encounter Visit Diagnoses Not on filedocumented in this encounter Care Teams Stage Technician Relationship Specialty Start Date End Date Count Includes [facility] [address] [place] [address] PCP - General 01/26/22 Shelbi Miller MD [address] [address] Internal Medicine 01/26/22 Milka Rick supervisor adult education Diabetes Education 03/03/24 Ashleigh Corrales PA-C [address] [place] [address] Assigned Endocrinology Provider 03/15/24 documented as of this encounter
--- OUTSIDE RECORDS SUMMARY | 2024-10-31 10:55 | XMS_ITS | Encounter Summary ---
Author Organization [place] Address [address] [place] [address] Care Team Providers Care Roofer Helper Name Role Phone Shelbi Miller MD Unavailable [facility] Primary Care Provider Milka Rick RN Unavailable Unavailable Ashleigh Corrales PA-C Unavailable Reason for Visit * Reason Onset Date Comments Prior Auth - Medication 07/12/2024 Insulin Infusion Pump Supplies (ILET INSET) MISC Encounter Details Date Type Department Care Team (Late st Contact Info) Description 07/12/[address] [place] [address] Ashleigh Corrales PA-C [address] [place] [address] Prior Auth - Medication (Insulin Infusion Pump Supplies (ILET INSET) MISC ) Social History Tobacco Use Types Packs/Day Years [...] CDT 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 PRIOR AUTHORIZATION DENIED Medication: INSULIN INFUSION PUMP SUPPLIES Insurance Company: [employer] - Denial Date: 07/19/2024 Denial Reason(s): Not covered under Part D and may be covered under Part B. I called pharmacy and spoke to rep [place] who stated they are not in network with patient's Part D insurance therefore, product was sent to DME service provider that covers this product. Helio states to disregard this request. * Telephone Encounter - Cathy Cullen - 07/19/2024 8:51 AM CDT Images from the original note were not included. Retail Pharmacy Prior Authorization Team PA Initiation Medication: INSULIN INFUSION PUMP SUPPLIES Insurance Company: [employer] - Pharmacy Filling the Rx: [facility] - [address] Filling Pharmacy Filling Pharmacy Fax: Start Date: 07/19/2024 * Telephone Encounter - Chantell Toledo - 07/15/2024 12:24 PM CDT Images from the original note were not included. Retail Pharmacy Prior Authorization Team documented in this encounter Plan of Treatment Not on file documented as of this encounter Visit Diagnoses Not on filedocumented in this encounter Care Teams Roofer Helper Relationship Specialty Start Date End Date Clinic, [facility] [address] [place] [address] PCP - General 01/26/22 Shelbi Miller MD [facility] [address] [place] [address] Internal Medicine 01/26/22 Milka Rick, die setter Diabetes Education 03/03/24 Ashleigh Corrales PA-C [address] [place] [address] Assigned Endocrinology Provider 03/15/24 documented as of this encounter
--- OUTSIDE RECORDS SUMMARY | 2024-10-31 10:55 | XMS_ITS | Encounter Summary ---
Author Organization [place] Address [address] [place] [address] Care Team Providers Care Flavor Tank Tender Name Role Phone Shelbi Miller MD Unavailable [phone] 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 [address] [place], [place] [id number] PCP - General 01/26/22 Shelbi Miller MD [facility] [address] [place] [address] Internal Medicine 01/26/22 Milka Rick draw in hand Diabetes Education 03/03/24 Ashleigh Corrales PA-C [address] [place] [address] Assigned Endocrinology Provider 03/15/24 documented as of this encounter
--- OUTSIDE RECORDS SUMMARY | 2024-10-31 10:55 | XMS_ITS | Clinical Summary ---
Author Organization [facility] Address [address] [place] [address] Care Team Providers Care Credit Analyst Name Role Phone Elsewhere, Pcp Primary Care Provider Unavailabl e Source Comments Patient records contain information from all sites at [facility]. For routine questions regarding patient records, call [phone] during business hours, M-F 8:00 AM - 5:00 PM Central Time. Record requests for emergency care only can be directed to [phone] at any time.[facility] Allergies Active Allergy Reactions Criticality Noted [...] 1 Active Dexcom G6 Sensor device DIRECTED [id number] 2 Active Dexcom G6 Transmitter device DIRECTED [id number] 2 Active estradioL (ESTRACE) 0.1 mg/g (0.01%) [...] daily. 3 Active syringe with needle (BD Luer-Alrene Syringe) 3 mL 25 gauge x 1 syringeIndicati ons:Arthritis Rheumatoid (HCC) DISPENSE 10 SYRINGES WITH EACH 10ML METHOTREXATE DISPENSED 12 each 3 4 Active insulin aspart (NovoLOG) 100 Units/mL patient supplied pump Active acetone, urine, test strip USE NEEDED WHEN GLUCOSE IS >300 4 Active methotrexate 25 mg/mL injectionIndica tions:Arthritis Rheumatoid (HCC) Inject 0.5 mL (12.5 mg total) under the skin once a week. 6 mL 1 4 Active Active Problems Problem Noted Date Diagnosed Date High Risk Medication 10/21/2018 Arthritis Rheumatoid 10/13/2016 Encounters Date Type Department Care Team Description 2024 8:00 AM CDT Office Visit Division of Rheumatology in [place], [place] [address] [place] [address] Rayna Guerrero APRN, C.N.P. Arthritis Rheumatoid (HCC) (Primary Dx); High Risk Medication 2024 6:39 AM CDT - 2024 11:59 PM CDT Hospital Encounter Department of Laboratory Medicine and Pathology, [facility], in [place], [place] [address] [place] [address] Rayna Guerrero APRN, C.N.P. Arthritis Rheumatoid (HCC) Discharge Disposition: Home or Self Care from Last 3 Months Immunizations Name Administration [...] drink = 0.6 oz pur e alcohol) [facility] Utilities Answer Date Recorded In the [...] often do you attend chur ch or gnosticist services? Never 02/03/2023 Do you belong to any clubs o r organizations such as congregational groups, unions, fraternal [...] and heating? Not hard at all 02/03/2023 [facility] Occupat ional [facility] - Occupational Stress Questionnaire Answer Date Recorded [...] Sex Assigned at Female 10/17/2018 9:43 PM EXCAVATION LABORER Legal Sex Female 3:29 PM EXCAVATION LABORER Gender Identity Female 10/17/2018 9:43 PM EXCAVATION LABORER Sexual Orientation Straight 10/17/2018 9: 43 PM EXCAVATION LABORER Last Filed Vital Signs Vital Sign Reading [...] 2024 7:59 AM CDT Plan of Treatment Health Maintenance Due Date Last Done Comments CT Colonography 1964 Colonoscopy 1964 FIT 1964 HIV Screening 1964 Lipid (Cholesterol) Screening 1964 Mammogram 1964 Zoster Vaccines (1 of 2) 1983 Pneumococcal vaccine (0-64 years) (2 of 2 - PCV) 12/07/1996 12/07/1995 Depression Screening (Annual PHQ-2) 11/23/2023 COVID-19 Vaccine ( season) 2024 09/29/2022, 07/17/2021, 03/01/2021, Additional history exists Influenza Vaccine (#1) 2024 0, 08/27/2020, 12/02/2019 RSV vaccine - (32-36 weeks) or 60+ years (1 - Risk 60-74 years 1-dose series) 2024 Cologuard 09/25/2024 09/25/2021 Colorectal Cancer Screening 09/25/2024 Potassium Level 02/28/2025 02/29/2024, 1101/2023, 01/26/2022 Sodium Level 02/28/2025 02/29/2024, 01/26/2022 Cervical/Vaginal Cancer Screening 06/13/2025 06/13/2022 Creatinine Level (Kidney Function Test) 2025 2024, 05/25/2024, 02/29/2024, Additional history exists Fasting Glucose for Diabetes Screening 05/25/2027 05/25/2024, 02/29/2024, 09/25/2023, Additional history exists DTaP,Tdap,and Td Vaccines (2 - Td or Tdap) 07/19/2030 07/19/2020, 12/07/1995 Hepatitis C Screening Completed 10/13/2016 Colorectal Cancer Surveillance Discontinued CT Colonography Discontinued Colonoscopy Discontinued Hepatitis B Vaccines Aged Out No long er eligible based on patient's age to complete this topic IPV Vaccines Aged Out No longer eligi ble based on patient's age to complete this topic Medical Devices Implanted Type Area Customer Services Supervisor Device Identifier Shelf Expiration Date Model / Serial / Lot Hardware E.G. Pins/Screws/Ro ds-10/23/2022 Implanted:1211/2021 (Quantity not on file) Hardware e.g. pins/screws/ [...] VIRAL HEPATITIS PROFILE Routine 10/13/2016 10:49 AM EXCAVATION LABORER GLUCOSE POCT, B Routine 01/30/2014 4:38 PM CDT from Last 3 Months or Most Recently Relevant to Health Maintenance Results * Sedimentation Rate (2024 6:49 AM CDT) Pathologist [facility] Sedimentation Rate, B 13 2 - 22 mm/h 2024 8:05 AM CDT DTL Blood (Blood, Venous) 2024 6:49 AM CDT 2024 7:15 AM CDT Rayna Guerrero APRN, C.N.P. LAB BLOOD ADD-ON F inal Result [facility] [address] [place] [address], [facility] [address] [place] [address] * CBC with Differential, Blood (2024 6:49 AM CDT) Pathologist [facility] Hemoglobin 13.9 11.6 - 15.0 g/dL 2024 [...] ADD-ON F inal Result Performing Organization Address City/[facility]/ZIP Co de Phone Number [facility] [address] [place] [address], [facility] [address] [place] [address] [facility] [address] [place] [address] * CRP (C-Reactive Protein) (2024 6:49 AM CDT) [facility] [facility] C-Reactive Protein (CRP), S <3.0 <5.0 mg/L 2024 7:49 AM CDT DTL Blood (Blood, Venous) 2024 6:49 AM CDT 2024 7:32 AM CDT Rayna Guerrero APRN, C.N.P. LAB BLOOD ADD-ON F inal Result [facility] [address] [place] [address], [facility] [address] [place] [address] * AST (Aspartate Aminotransferase) (2024 6:49 AM CDT) Pathologist [facility] Aspartate Aminotransferase (AST), S 28 8 - 43 U/L 2024 7:49 AM CDT DTL Blood (Blood, Venous) 2024 6:49 AM CDT 2024 7:32 AM CDT Rayna Guerrero APRN, C.N.P. LAB BLOOD ADD-ON F inal Result Performing Organization Address [facility] Co de Phone Number [facility] [address] [place] [address] * Creatinine with Estimated GFR (2024 6:49 AM CDT) [facility] Creatinine 0.79 0.59 - 1.04 mg/dL 2024 7:49 AM CDT DTL Estimated GFR (eGFR) 86 >=60 mL/min/BSA 2024 7:49 AM CDT DTL Comment: Estimated GFR calculated using the 2020 CKD_EPI creatinine equation. Blood (Blood, Venous) 2024 6:49 AM CDT 2024 7:32 AM CDT Rayna Guerrero APRN, C.N.P. LAB BLOOD ADD-ON F inal Result Performing Organization Address [facility] Co de Phone Number [facility] [address] [place], [place] [phone] [place] [address] [facility] [address] [place] [address] * Chronic Hepatitis Profile (10/13/2016 10:49 AM EXCAVATION LABORER) Pathologist [facility] HBs Antigen, S Negative Negative [facility] HBs Antibody,S Negative Unvaccinated : Negative; Vaccinated: Positive [facility] Comment:Patient is presumed to be not immune to infection with HBV. HBc Total Ab, S Negative Negative [facility] HBs Antibody, Quantitative, S <5.0 Unvaccinated : <5.0; Vaccinated: >=12.0 MIU/ML [facility] HCV Ab, S Negative Negative [facility] Comment:[id number]-[id number] rat io is <1.00. 10/13/2016 10:4 9 AM EXCAVATION LABORER 10/13/2016 10:49 AM EXCAVATION LABORER Jaye Martinez LAB MICROBIOLOGY - BLOOD O RDERABLES Final Result Performing Organization Address [facility] Co de Phone Number [facility] [address] * (ABNORMAL) Glucose, POCT (01/30/2014 4:38 PM CDT) Glucose, POCT, B 165(H) 70 - 140 MG/DL [facility] Sample Site, Blood Gas, POCT Capillary [facility] 01/30/2014 4:38 PM CDT 01/30/2014 4:38 PM CDT Historical Provider LAB POCT ORDERABLES-MANUAL F inal Result Performing Organization Address [facility] Co de Phone Number [facility] [address] from Last 3 Months or Most Recently Relevant to Health Maintenance Additional Health Concerns Infection Onset Date Last Indicated Protective Environment 03/26/2023 3 Insurance [facility] Advance Directives For more information, please contact: [phone] Documents on File Type Date Recorded Patient Institutional Research Coordinator Expl anation Advance Directives 10/19/2023 4:57 AM Deuce Glasgow HCPOA/ADVOCATE/AGENT/R EPRESENTATIVE/SURROGAT E Healthcare Agents on File Name Relationship Healthcare Agent Relationship Communication Deuce De Oliveira Spouse Health Care Agent Antoni Glasgow Brother First Alternate Health Care Agent Care Teams Credit Analyst Relationship Specialty Start Date End Date Elsewhere, Pcp PCP - General Family Medicine 07/17/21
--- OUTSIDE RECORDS SUMMARY | 2024-10-31 10:55 | XMS_ITS | Encounter Summary ---
Author Organization [place] Address [address] [place] [address] Care Team Providers Care Glass Vial Filler Name Role Phone Shelbi Miller MD Unavailable [facility], [facility] Primary Care Provider Milka Rick RN Unavailable Unavailable Ashleigh Corrales PA-C Unavailable Encounter Details Date Type Department Care Team (Late st Contact Info) Description 10/09/2024 [facility] [place] Medical Advice [facility] [address] [place] [address] Ashleigh Corrales PA-C [address] [place] [address] Social History Tobacco Use Types Packs/Day Years [...] PM CDT 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 Gender Identity Female 02/22/2024 9:44 PM CDT Sexual Orientation Straight 02/22/2024 9: 44 PM CDT documented as of this encounter Plan of Treatment Not on file documented as of this encounter Visit Diagnoses Not on filedocumented in this encounter Care Teams Glass Vial Filler Relationship Specialty Start Date End Date Clinic, [facility] [address] [place] [address] PCP - General 01/26/22 Shelbi Miller MD [facility] [address] [place] [address] Internal Medicine 01/26/22 Milka Rick 8th grade mathematics teacher Diabetes Education 03/03/24 Ashleigh Corrales PA-C [address] [place] [address] Assigned Endocrinology Provider 03/15/24 documented as of this encounter
--- OUTSIDE RECORDS SUMMARY | 2024-10-31 10:55 | XMS_ITS | Referral Summary ---
Author Organization [facility] Address [address] [place] [address] Care Team Providers Care Supervisor Spring Up Name Role Phone Shelbi Miller MD Unavailable [phone] [facility] Primary Care Provider Milka Rick RN Unavailable Unavailable Ashleigh Corrales PA-C Unavailable Encounters Date Type Department Care Team Description 10/18/2024 MyC Refill [facility] [id number] [place] [address] [address] [place] [address] Ashleigh Corrales PA-C Refill Request 10/18/2024 My[facility] Medical Advice [facility] [address] [facility] [place] [phone] Ashleigh Corrales PA-C 10/18/2024 MyC Medical Advice [facility] [id number] [place] [address] [address] [place] [phone] Milka Rick RN Type 1 diabetes mellitus (H) (Primary Dx) 10/10/2024 Travel 10/09/2024 My[facility] Medical Advice [facility] [address] [address] [place] [phone] Ashleigh Corrales PA-C from Last 3 Months Allergies Active Allergy [...] DISPENSED 02/24/20 24 Active Continuous Blood Gluc Cleaner And Polisher (DEXCOM G6 GYNECOLOGY TEACHER) MARCO See Admin Instructions 03/26/20 23 Active [...] nasal powderIndicatio ns:Type 1 diabetes mellitus (H) [place] 1 spray (3 mg) in nostril as [...] or as directed. 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 Gender Identity Female 02/22/2024 9:44 PM CDT [...] 02/29/2024 1:55 PM CDT Plan of Treatment Not on file Procedures Procedure Name Priority Date/Time Associated Diagnosis [...] A1C (External) 8.0(A) 0 - 5.6 % [facility] Blood 05/25/2024 11:4 9 AM CDT Narrative [facility] - 05/25/2024 11:49 AM CDT [facility] - External Lab Results us Provider Outside LAB - HIM EXTERNAL RESULT Final Result [facility] [address] [phone] * (ABNORMAL) Basic metabolic panel (Ca, Cl, [...] BLOOD ORDERABLES Final Res ult [facility] [address] [facility], [address] [place] [address] * Eye Exam - HIM Scan (12/06/2023) RETINOPATHY UNKNOWN Narrative Yanelis Izaguirre - 12/06/2023 Lala Ibarra CMA P Abstract Quality Initiatives Please abstract the following data from this visit with this patient into the appropriate field in Epic: Tests that can be patient reported without a hard copy: Eye exam with ophthalmology on this date: 12/06/23 Exam Location: Sera Leung at [facility] us Patient Reported OTHER Final Result * Microalbumin random urine (03/01/2009 1:55 PM CDT) Albumin Urine mg/L 7 mg/L [facility] Albumin Urine mg/g Cr 7.00 0 - 20 mg/g Cr [facility] 03/01/2009 1:55 PM CDT 03/01/2009 1:57 PM CDT us Colleen Randhawa PA-C LAB - URINE ORDERABLES Final Result [facility] from Last 3 Months or Most Recently Relevant to Health Maintenance Insurance [facility] Care Teams Supervisor Spring Up Relationship Specialty Start Date End Date Clinic, [facility] [address] [place] [address] PCP - General 01/26/22 Shelbi Miller MD [facility] [address] [place] [address] Internal Medicine 01/26/22 Milka Rick chemical engineering technologist Diabetes Education 03/03/24 Ashleigh Corrales PA-C [address] [place] [address] Assigned Endocrinology Provider 03/15/24
--- OUTSIDE RECORDS SUMMARY | 2024-10-31 10:55 | XMS_ITS | Encounter Summary ---
Author Organization [place] Address [address] [place] [address] Care Team Providers Care Professional Development Instructor Name Role Phone Shelbi Miller MD Unavailable [phone] [facility], [facility] Primary Care Provider Milka Rick RN Unavailable Unavailable Ashleigh Corrales PA-C Unavailable Reason for Referral * Medication Prior Authorization - Closed Specialty Diagnoses / Procedures Referred By Karen king Referred To Contact Diagnoses Type 1 diabetes mellitus (H) Ashleigh Corrales PA-C [address] [place] [address] Phone: tel: fax: Referral ID Status Reason Start Date Expiration Date Visits Re quested Visits Authorized [id number] Closed 1 1 LFISH GROWER Encounter Details Date Type Department Care Team (Late st Contact Info) Description 10/18/2024 MyC Medical Advice [address] [place] [address] Milka Rick RN Type 1 [...] PM CDT Legal Sex Female 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 AM 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 Gender Identity Female 02/22/2024 9:44 PM CDT Sexual Orientation Straight 02/22/2024 9: 44 PM CDT documented as of this encounter Plan of Treatment Not on file documented as of this encounter Visit Diagnoses Diagnosis Type 1 diabetes mellitus (H)- Primary Type I (juvenile type) diabetes mellitus without mention of complication, not stated as uncontrolled documented in this encounter Care Teams Professional Development Instructor Relationship Specialty Start Date End Date Clinic, [facility] [address] [place] [address] PCP - General 01/26/22 Shelbi Miller MD [facility] [address] [place] [address] Internal Medicine 01/26/22 Milka Rick strategy specialist Diabetes Education 03/03/24 Ashleigh Corrales PA-C [address] [place] [address] Assigned Endocrinology Provider 03/15/24 documented as of this encounter
--- OUTSIDE RECORDS SUMMARY | 2024-10-31 10:55 | XMS_ITS | Encounter Summary ---
Author Organization [place] Address [address] [place] [address] Care Team Providers Care General Doc Name Role Phone Shelbi Miller MD Unavailable [facility] Primary Care Provider Milka Rick RN Unavailable Unavailable Ashleigh Corrales PA-C Unavailable Encounter Details Date Type Department Care Team (Late st Contact Info) Description 10/18/2024 [facility] Medical Advice [facility] [address] [facility] [address] [place] [address] Ashleigh Corrales PA-C [address] [place] [address] Social History Tobacco Use Types [...] PM CDT 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 Gender Identity Female 02/22/2024 9:44 PM CDT Sexual Orientation Straight 02/22/2024 9: 44 PM CDT documented as of this encounter Plan of Treatment Not on file documented as of this encounter Visit Diagnoses Not on filedocumented in this encounter Care Teams General Doc Relationship Specialty Start Date End Date Clinic, [facility] [address] [place] [address] PCP - General 01/26/22 Shelbi Miller MD [facility] [address] [place] [address] Internal Medicine 01/26/22 Milka Rick plant maintenance supervisor Diabetes Education 03/03/24 Ashleigh Corrales PA-C [address] [place] [address] Assigned Endocrinology Provider 03/15/24 documented as of this encounter
--- OUTSIDE RECORDS SUMMARY | 2024-10-31 10:56 | XMS_ITS | Encounter Summary ---
Author Organization [facility] Address [address] [place] [address] Care Team Providers Care Roll Table Operator Name Role Phone Elsewhere, Pcp Primary Care Provider Unavailabl e Encounter Details Date Type Department Care Team (Latest Contact Info) Description 2024 6:39 AM CDT - 2024 11:59 PM CDT Hospital Encounter Department of Laboratory Medicine and Pathology, [facility] in [place], [place] [address] [place] [address] Rayna Guerrero, FINANCE OFFICER, C.N.P. [address] [place] [phone] Arthritis Rheumatoid (HCC) Discharge Disposition: Home or Self Care Social History Tobacco Use Types Packs/Day Years Used Date Smoking Tobacco: Never Smokeless Tobacco: Never Alcohol Use Standard Drinks/Week Comments No 0 (1 standard drink = 0.6 oz pur e alcohol) [facility] Utilities Answer Date Recorded In the [...] often do you attend chur ch or taoism services? Never 02/03/2023 Do you belong to any clubs o r organizations such as religious groups, unions, fraternal or athletic groups, or [...] and heating? Not hard at all 02/03/2023 [facility] Occupational Stress Questionnaire Answer [...] your living situation today? I have a [facility] place to live 02/17/2024 Education Answer Date Recorded What is the highest level of school you have completed or the highest degree you have received? 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 Legal Sex Female 3:29 PM VETERINARY VIRUS SERUM INSPECTOR Gender Identity Female 10/17/2018 9:43 PM VETERINARY VIRUS SERUM INSPECTOR Sexual Orientation Straight 10/17/2018 9: 43 PM VETERINARY VIRUS SERUM INSPECTOR documented as of this encounter Medications at Time of Discharge acetone, urine, test strip USE NEEDED WHEN GLUCOSE IS >300 06/13/2024 Dexcom G6 Sensor device DIRECTED [id number] 01/01/2022 Dexcom G6 Transmitter device DIRECTED [id number] 01/02/2022 estradioL (ESTRACE) 0.1 mg/g (0.01%) vaginal cream INSERT 1/2 GRAM VAGINALLY NIGHTLY FOR 2 WEEKS THEN 2 TIMES PER WEEK 12/09/2021 fish oil 500 mg capsule Take 1,000 mg by mouth daily. folic acid 1 mg tabletIndications :Arthritis Rheumatoid (HCC),High Risk Medication Take 2 tablets (2 mg total) by mouth daily. 60 tablet 11 02/10/2023 insulin aspart (NovoLOG) 100 Units/mL patient supplied pump LACTOBACILLUS ACIDOPHILUS (PROBIOTIC ORAL) Take 1 Dose by mouth as needed. Floragen 3 Probiotic occasionally lisinopriL (PRINIVIL,ZESTRIL ) 5 mg tablet Take 1 tablet by mouth daily. 10/27/2023 magnesium 100 mg tablet tablet Take 100 mg by mouth every morning before breakfast. 11/23/2017 methotrexate 25 mg/mL injectionIndicati ons:Arthritis Rheumatoid ([facility]) Inject 0.5 mL (12.5 mg total) under the skin once a week. 6 mL 1 2024 SavingStarTouch Verio test strips strips 4 (four) times a day. for testing 07/23/2022 syringe with needle (BD Luer-Arlene Syringe) 3 mL 25 gauge x 1 syringeIndication s:Arthritis Rheumatoid ([facility]) DISPENSE 10 SYRINGES WITH EACH 10ML METHOTREXATE DISPENSED 12 each 3 05/13/2024 UltiCare 0.3 mL 31 gauge x 5/16 syringe 100 Injection daily. 01/31/2021 VITAMIN B COMPLEX ORAL Take 1 capsule by mouth daily. 10/07/2022 documented as of this encounter Plan of Treatment Not on file documented as of this encounter Procedures Procedure Name Priority Date/Time Associated Diagnosis Comments SEDIMENTATION RATE, B Routine 2024 6:49 AM CDT Arthritis Rheumatoid (HCC) CBC WITH DIFFERENTIAL, B Routine 024 6:49 AM CDT Arthritis Rheumatoid (HCC) C-REACTIVE PROTEIN (CRP), S/P Routine 2024 6:49 AM CDT Arthritis Rheumatoid (HCC) ASPARTATE AMINOTRANSFERASE (AST), S/P Routine 2024 6:49 AM CDT Arthritis Rheumatoid (HCC) CREATININE WITH EGFR, S/P Routine 2024 6:49 AM CDT Arthritis Rheumatoid (HCC) documented in this encounter Results * AST (Aspartate Aminotransferase) (2024 6:49 AM CDT) Aspartate Aminotransferase (AST), S 28 8 - 43 U/L 2024 7:49 AM CDT DTL Blood (Blood, Venous) 2024 6:49 AM CDT 2024 7:32 AM CDT Rayna Guerrero APRN, C.N.P. LAB BLOOD ADD-ON F inal Result Performing Organization Address City/[facility] Co de Phone Number [facility] [address] [place] [address], [facility] [address] [place] [address] * Creatinine with Estimated GFR (2024 6:49 AM CDT) Pathologist [facility] Creatinine 0.79 0.59 - 1.04 mg/dL 2024 7:49 AM CDT DTL Estimated GFR (eGFR) 86 >=60 mL/min/BSA 2024 7:49 AM CDT DTL Comment: Estimated GFR calculated using the 2020 CKD_EPI creatinine equation. Blood (Blood, Venous) 2024 6:49 AM CDT 2024 7:32 AM CDT Rayna Guerrero APRN, C.N.P. LAB BLOOD ADD-ON F inal Result Performing Organization Address [facility] Co de Phone Number [facility] [address] [place] [address], [facility] [address] [place] [address] * CRP (C-Reactive Protein) (2024 6:49 AM CDT) C-Reactive Protein (CRP), S <3.0 <5.0 mg/L 2024 7:49 AM CDT DTL Blood (Blood, Venous) 2024 6:49 AM CDT 2024 7:32 AM CDT us Yaa Weber APRNNTaniya LAB BLOOD ADD-ON F inal Result [facility] [address] [place] [address], [facility] DTL [facility] [address] [place] [address] * CBC with Differential, Blood (2024 6:49 [...] ADD-ON F inal Result [facility] [address] [place] [address], [facility] [address] [place] [address] [facility] [address] [place] [address] * Sedimentation Rate (2024 6:49 AM CDT) Sedimentation Rate, B 13 2 - 22 mm/h 2024 8:05 AM CDT DTL Blood (Blood, Venous) 2024 6:49 AM CDT 2024 7:15 AM CDT Rayna Guerrero APRN, C.N.P. LAB BLOOD ADD-ON F inal Result Performing Organization Address City/[facility]/ZIP Co de Phone Number [facility] [address] [place] [address], [facility] [address] [place] [address] documented in this encounter Visit Diagnoses Diagnosis Arthritis Rheumatoid (HCC) documented in this encounter Additional Health Concerns Infection Onset Date Last Indicated Resolved Time Protective Environment 03/26/2023 03/26/2023 documented as of this encounter Care Teams Roll Table Operator Relationship Specialty Start Date End Date Elsewhere, Pcp PCP - General Family Medicine 07/17/21 documented as of this encounter
--- OUTSIDE RECORDS SUMMARY | 2024-10-31 10:56 | XMS_ITS | Clinical Summary ---
Author Organization [employer] [facility] Address [place], [place] [address] Care Team Providers Care Diamond Powder Mixer Name Role Phone Pcp, No Primary Care Provider Unavailabl e Allergies Active Allergy Reactions Criticality Noted Date Comments Cephalosporins Rash Low 08/14/2022 Cortisone *None-Radiology Only 06/16/2008 Diabetes problems-cortisone injectable Morphine Vomiting 10/27/2023 Penicillins Medications FISH OIL 1,000 MG CAP 4 soft gels daily 0 7 Active INSULIN SYRINGE-NEEDLE U-100 0.3 ML 30 X 1/2 use with insulin injection 100 2 8 Active BD INSULIN SYRINGE ULT-FINE II 0.3 ML 31 X 5/16 use 4 daily 3 months prn 8 Active ONE TOUCH ULTRA TEST STRIPS use to check glucose 10 times daily 300 11 8 Active insulin lispro & lispro Protamine (HUMALOG MIX 50-50 KWIKPEN) 100 unit/mL (50-50) InPn Sliding scale 0 0 Active insulin glargine (LANTUS) 100 unit/mL injection Inject subcutaneous. 22units in am 10 mL 0 0 Active ORDER - MEDICATION ORDER COMPOSER Iron 25mg 1qd Vitamin c 1000mg capsule qd zyflamend qd for joint inflammation 0 0 Active lisinopriL (PRINIVIL; ZESTRIL) 5 mg tablet Take 1 Tablet (5 mg) by mouth once daily. 0 3 Active folic acid 1 mg tablet Take [...] and Fami ly Not on file 01/07/2024 Comments No Sex and Gender Information Value Date Recorded Sex Assigned at Not on file Legal Sex Female 5:26 AM MEDICAL TRANSCRIPTION EDITOR Gender Identity Not on file Sexual Orientation Not on file Obstetrics History Last Filed Vital Signs Vital Sign Reading Time Taken Comments Blood Pressure 140/62 01/07/2024 11:52 AM MEDICAL TRANSCRIPTION EDITOR Pulse 88 01/07/2024 11:52 AM MEDICAL TRANSCRIPTION EDITOR Temperature 36.7 C (98.1 F) 06/16/2008 2:03 PM CDT Respiratory Rate 16 10/04/2007 9:16 AM MEDICAL TRANSCRIPTION EDITOR Oxygen Saturation 97% 01/07/2024 11:52 AM MEDICAL TRANSCRIPTION EDITOR Inhaled Oxygen Concentration - - Weight 64.1 kg (141 lb 6.4 oz) 01/07/2024 11:52 AM MEDICAL TRANSCRIPTION EDITOR Height 175.3 cm (5' 9) 01/07/2024 11:52 AM MEDICAL TRANSCRIPTION EDITOR Body Mass Index 20.88 01/07/2024 11:52 AM MEDICAL TRANSCRIPTION EDITOR Plan of Treatment Health Maintenance Due Date Last Done Comments Tdap 1975 Depression screening for age 12+ 1976 HIV for age 15-65 1979 Hepatitis C screening for ag e 18-79 1982 Zoster (shingles) series for age 50+ (1 of 2) 1983 Pneumococcal series for age 6-64 (2 of 2 - PCV) 12/07/1996 12/07/1995 Tetanus booster 12/07/2005 12/07/1995 Colonoscopy through age 75 2009 Mammogram for age 45-75 2009 Lipids for age 45-75 04/28/2012 04/28/2007, 06/03/2006, 03/23/2003, Additional history exists COVID-19 vaccine series (2023- season) 2024 09/29/2022, 07/17/2021, 03/01/2021, Additional history exists Influenza for age 50-64 07/24/2024 RSV vaccine for adults or (1 - Risk 60-74 years 1-dose series) 2024 BMI (ht and wt on same day) for age 18+ 01/07/2025 01/07/2024 Pap test for age 21-65 06/13/2025 , 06/13/2022, 05/25/2017, Additional history exists Procedures Procedure Name Priority Date/Time Associated Diagnosis Comments WATER FILTRATION TECHNICIAN THIN PREP PAP SCREEN IMAGED Routine 06/13/2022 12:00 PM CDT LIPID PANEL Routine 04/28/2007 8:16 AM CDT DIABETES MELLITUS, INSULIN DEPENDENT (IDDM) from Last 3 Months or Most Recently Relevant to Health Maintenance Results * WATER FILTRATION TECHNICIAN THIN PREP PAP SCREEN IMAGED (06/13/2022 12:00 PM CDT) Case Report Gynecologic Cytology Report Case: [id number] Authorizing Provider: Dee Hernandez MD Collected: 06/13/2022 1200 Ordering Location: [facility] Received: 06/17/2022 0838 First Screen: Ramon Boyle Specimen: WATER FILTRATION TECHNICIAN ThinPrep Vial Screening, Cervical 06/29/2022 7:06 AM CDT [facility] INTERPRETATION/ RESULT NEGATIVE FOR INTRAEPITHELIAL LESION OR MALIGNANCY (NIL) (none) 06/29/2022 7:06 AM CDT [employer] LABORATORY-C ENTRAL LABORATORY IMEN ADEQUACY Satisfactory for evaluation Endocervical component present 06/29/2022 7:06 AM CDT [facility] HPV REQUEST HPV and PAP 06/29/2022 7:06 AM CDT [facility] Last Pap Date 05/27/2017 06/29/2022 7:06 AM CDT [facility] Menstrual Status Postmenopausal 06/29/2022 7:06 AM CDT [facility] [place] Bx Done Today No 06/29/2022 7:06 AM CDT [facility] Additional Information 06/29/2022 7:06 AM CDT [facility] Comment: Interpreted at [facility] - [address], [place] [address] Automated Review Successful 06/29/2022 7:06 AM CDT [facility] Comment:Specimen processed s uccessfully by automated clinical data research device, ThinPrep Imaging System, [employer] ANCILLARY TESTING WATER FILTRATION TECHNICIAN HPV Ordered, Please see separate report 06/29/2022 7:06 AM CDT [facility] Note The pap test is [...] and malignant lesions. 06/29/2022 7:06 AM CDT [facility] Other (Cervical) 06/13/2022 12:00 PM CDT 06/17/2022 8:38 AM CDT Dee Hernandez MD PATHOLOGY/CYTOLOGY Final Result [facility] [address] [place] [address], [place] * LIPID PANEL (04/28/2007 8:16 AM CDT) CHOLESTEROL,TOTAL 165 110 - 199 mg/dL [facility] TRIGLYCERIDES 42 <150 mg/dL [facility] HDL CHOLESTEROL 57 >40 mg/dL [facility] CHOL/HDL RATIO 2.89 <4.51 [facility] LDL CHOLESTEROL 100 <131 mg/dL [facility] PATIENT STATUS Fasting [facility] Blood specimen (specimen) BLOOD SPECIMEN / Unknown 04/28/2007 8:16 AM CDT 04/28/2007 8:06 AM CDT us Ariel Charles MD CHEMISTRY Final Res ult [facility] [address] [place] [address] from Last 3 Months or Most Recently Relevant to Health Maintenance Insurance [facility] Care Teams Diamond Powder Mixer Relationship Specialty Start Date End Date Pcp, No . PCP - General 11/15/09
[2024-10-31 11:50] LABS: Hemoglobin A1C* 6.6 % (0-5.6)
[2024-10-31 12:15] LABS: Creatinine Urine 156.7 mg/dL
[2024-10-31 12:20] LABS: Microalbumin Creatinine Ratio 0 mg/g (0-30); Microalbumin Urine 1 mg/dL
== END 2024-10-31 10:53 | disposition home or self-care (01) ==
LOC: NPINS 10:52
PROVIDERS: PCP Internal Medicine; Visit Provider Physician Assistant
DX: E10.9 Type 1 diabetes mellitus without complications (principal)
CPT/HCPCS: 82043; 82570; 83036

== ENCOUNTER 2024-12-14 13:23 | Outpatient (CLI) | payer BC, SELFPAY ==
[2024-12-14 14:04] LABS: Basophils Absolute Auto 0.05 K/uL (0.00-0.30); Basophils Percent Auto 0.9 % (0.0-3.0); Eosinophils Absolute Auto 0.25 K/uL (0.00-0.50); Eosinophils Percent Auto 4.5 % (0.0-7.0); Hematocrit 39.1 % (33.0-51.0); Hemoglobin* 12.7 gm/dL (12.0-16.0); Immature Granulocytes Abs Auto 0.01 K/uL (0.00-0.30); Immature Granulocytes Pct Auto 0.2 %; Lymphocytes Percent Auto 17.7 % (20-44); Mean Corpuscular HGB Conc 33 gm/dL (32-36); Mean Corpuscular Hemoglobin 31 pg (26-34); Mean Corpuscular Volume 94 fL (80-100); Monocytes Percent Auto 8.8 % (0.0-11.0); Neutrophils Absolute Auto 3.79 K/uL (1.7-7.0); Neutrophils Percent Auto 67.9 % (42.0-72.0); Platelet Count* 217 K/uL (140-440); RDW Coefficient of Variation % 13.7 % (11.5-15.5); Red Blood Count 4.15 m/uL (4.00-5.20); White Blood Count* 5.58 K/uL (4.50-11.00)
[2024-12-14 14:08] LABS: Slide Review Reflex No
[2024-12-14 14:22] LABS: Creatinine* 0.8 mg/dL (0.5-1.5); Estimated Glomerular Filt Rate 84 ml/min
[2024-12-14 14:23] LABS: Alanine Aminotransferase* 35 U/L (4-35); Aspartate Amino Transferase* 31 U/L (12-35)
== END 2024-12-14 13:24 | disposition home or self-care (01) ==
LOC: NPINS 13:25
PROVIDERS: PCP Internal Medicine; Visit Provider Nurse Practitioner
DX: M06.9 Rheumatoid arthritis, unspecified (principal)
CPT/HCPCS: 82565; 84450; 84460; 85025

== ENCOUNTER 2025-01-12 14:42 | Outpatient (CLI) | payer BC, SELFPAY ==
--- NOTE | 2025-01-12 15:00 | CRLHL7_ITS ---
For Patients: As a result of the Century Cures Act, medical imaging exams and procedure reports are released immediately into your electronic medical record. You may view this report before your referring provider. If you have questions, please contact your health care provider. BILATERAL SCREENING MAMMOGRAM WITH COMPUTER-AIDED DETECTION AND TOMOSYNTHESIS TECHNIQUE: CC and MLO views were obtained. These mammographic images have been obtained using full-field digital technique. These mammographic images were interpreted with the benefit of computer-aided detection. Breast Tomosynthesis was used in this interpretation. COMPARISON FILM: 03/19/11. FINDINGS: The breasts are extremely dense, which lowers the sensitivity of mammography IMPRESSION: There is no radiographic evidence for malignancy. ASSESSMENT: BI-RADS Category 1: Negative RECOMMENDATION: Routine screening mammogram in 1 year. A lay language report of this examination will be provided to the patient. Mark Gómez M.D. Diagnostic Radiologist [email or web address]/[email or web address] Transcribed: 2:46 p.[email or web address] francisco/Dictated by: Mark Gómez MD @ 01/17/2025 12:42:00 PM (Electronically Signed)
== END 2025-01-12 14:43 | disposition home or self-care (01) ==
LOC: MAMMO 14:42
PROVIDERS: PCP Internal Medicine; Visit Provider Internal Medicine
DX: Z12.31 Encounter for screening mammogram for malignant neoplasm of breast (principal); R92.343 Mammographic extreme density, bilateral breasts
CPT/HCPCS: 77063; 77067

== ENCOUNTER 2025-05-30 11:42 | Outpatient (CLI) | payer BC, SELFPAY ==
[2025-05-30 13:58] LABS: Hematocrit 40.1 % (33.0-51.0); Hemoglobin* 13.0 gm/dL (12.0-16.0); Immature Granulocytes Abs Auto 0.00 K/uL (0.00-0.30); Immature Granulocytes Pct Auto 0.0 %; Mean Corpuscular HGB Conc 32 gm/dL (32-36); Mean Corpuscular Hemoglobin 30 pg (26-34); Mean Corpuscular Volume 93 fL (80-100); RDW Coefficient of Variation % 13.2 % (11.5-15.5); Red Blood Count 4.33 m/uL (4.00-5.20); White Blood Count* 6.49 K/uL (4.50-11.00)
[2025-05-30 14:01] LABS: Lymphocytes Absolute Auto 1.10 K/uL (0.90-2.90); Slide Review Reflex No
[2025-05-30 14:10] LABS: Alanine Aminotransferase* 20 U/L (4-35); Aspartate Amino Transferase* 28 U/L (12-35); Creatinine* 0.6 mg/dL (0.5-1.5); Estimated Glomerular Filt Rate 103 ml/min
== END 2025-05-30 11:43 | disposition home or self-care (01) ==
LOC: NPINS 11:43
PROVIDERS: PCP Internal Medicine; Visit Provider Nurse Practitioner
DX: E10.9 Type 1 diabetes mellitus without complications (principal)
CPT/HCPCS: 82565; 84450; 84460; 85025

== ENCOUNTER 2025-06-01 08:11 | Outpatient (CLI) | payer BC, SELFPAY ==
[2025-06-01 10:05] LABS: Chloride* 103 mmol/L (96-114); Potassium* 4.1 mmol/L (3.6-5.1); Sodium* 135 mmol/L (135-149)
[2025-06-01 10:08] LABS: Anion Gap 5 mEq/L (7-15); Blood Urea Nitrogen* 22 mg/dL (7-30); Carbon Dioxide* 27 mmol/L (20-32); Creatinine* 0.6 mg/dL (0.5-1.5); Estimated Glomerular Filt Rate 103 ml/min
[2025-06-01 10:09] LABS: Calcium* 9.6 mg/dL (8.4-10.6); Glucose* 142 mg/dL (60-115)
== END 2025-06-01 08:12 | disposition home or self-care (01) ==
LOC: NPINS 08:13
PROVIDERS: PCP Internal Medicine; Visit Provider Physician Assistant
DX: E10.9 Type 1 diabetes mellitus without complications (principal)
CPT/HCPCS: 80048; 82043; 82570; 83036; 84156